=== PATIENT | male | born 1960 | race African-American/Black ===

== ENCOUNTER 2016-09-06 12:01 | Emergency (ER) | payer MEDICAID ==
[~2016-09-06] VITALS: Ht 180.3 cm; Wt 93.0 kg
[~2016-09-06 12:01] MED LIST: LISI-587 PO; LORTA5 PO; NAPR500T PO
[2016-09-06 12:08] VITALS: BP 97/73; PULSE 100; RESP 16; TEMP 97.8; O2SAT 100
[2016-09-06] MEDS ORDERED: LISI10TA PO (13:33)
[2016-09-06] MEDS ORDERED: HYDR-4107 PO (13:33)
[2016-09-06] MEDS ORDERED: LIDOCAINE VISCOUS 2% SOLN 15 ML UDC PO ONE (14:30)
[2016-09-06] MEDS ORDERED: ALUMINUM/MAGNESIUM/SIMETH 30 ML CUP PO ONE (14:30)
[2016-09-06] MEDS ORDERED: ONDANSETRON ODT 4 MG TAB PO ONE (14:30)
--- NOTE | 2016-09-06 14:34 | PD ---
HPI Chief Complaint: Abdominal Pain Time Seen by Provider: 14:18 Travel History International Travel<30 days: No Contact w/Intl Traveler<30days: No Traveled to known affect area: No History of Present Illness HPI Patient presents with complaints of epigastric discomfort for 3 months. Aggravated with eating. Reports pain on laying flat. Admits to acid brash. Reports weight loss since his appetite is decreased. Additionally he is taking hydrocodone for chronic pain and reports constipation with difficulty with bowels. Last BM yesterday. Reports stools are hard. Denies any chest pain shortness of breath. Denies any vomiting or urinary symptoms. Admits to mild nausea. He is not on any medications for reflux. PFSH Past Medical History Cardiovascular Problems: Yes (htn on meds) Hypertension: Yes Tetanus Vaccination: < 5 Years Past Surgical History Surgical History: No Previous Surgery Social History Alcohol Use: Yes (SOCIALLY) Tobacco Use: Yes (1/2PPD) Substance Use: No Allergies-Medications (Allergen,Severity, Reaction): Coded Allergies: No Known Allergies (Verified , 09/06/16) Reported Meds & Prescriptions Reported Meds & Active Scripts Active Reported Hydrocodone-Acetaminophen 5-300 Mg Tab 1 Tab PO Q4H PRN Lisinopril-Hctz 10-12.5 Mg Tab Unknown Dose PO DAILY Review of Systems Gastrointestinal: Positive: Nausea, Abdominal Pain, Constipation Physical Exam Narrative GENERAL: Well-nourished, well-developed patient. SKIN: Warm and dry. HEAD: Normocephalic. EYES: No scleral icterus. No injection or drainage. NECK: Supple, trachea midline. No JVD or lymphadenopathy. CARDIOVASCULAR: Regular rate and rhythm without murmurs, gallops, or rubs. RESPIRATORY: Breath sounds equal bilaterally. No accessory muscle use. GASTROINTESTINAL: Abdomen soft, few sleep tenderness epigastric region, nondistended. No hepatosplenomegaly MUSCULOSKELETAL: No cyanosis, or edema. BACK: Nontender without obvious deformity. No CVA tenderness. Data Data Last Documented VS Vital Signs Date Time Temp Pulse Resp B/P Pulse Ox O2 Delivery O2 Flow Rate FiO2 09/06/16 12:08 97.8 100 16 97/73 100 Orders Al-Mag Hy-Si 40-40-4 Mg/Ml Liq (Mag-Al P (09/06/16 14:30) Lidocaine 2% Viscous (Xylocaine 2% Visco (09/06/16 14:30) Ondansetron Odt (Zofran Odt) (09/06/16 14:30) MDM Medical Decision Making Medical Screen Exam Complete: Yes Emergency Medical Condition: Yes Differential Diagnosis Gastric ulcer versus duodenal ulcer versus GERD versus small bowel obstruction versus enteritis Narrative Course Assessment and plan discussed with patient at bedside, GI cocktail provided with resolution of his symptoms. Diagnosis Primary Impression: GERD (gastroesophageal reflux disease) Qualified Code: K21.9 - Gastroesophageal reflux disease, esophagitis presence not specified Additional Impression: Constipation Qualified Code: K59.03 - Drug-induced constipation Patient Instructions: General Instructions Additional Instructions: Encouraged to avoid aggravating factors of reflux including but not limited to alcohol tobacco late large meals spicy meals and weight Encouraged Colace 100 mg by mouth daily for opioid-induced constipation Encouraged to follow-up with PCP to assess benefit Scripts Ranitidine (Zantac)150 Mg [id number] Mg PO BID 15 Days Ref 0 Prov:Asael Flowers MD 09/06/16 Pantoprazole (Protonix)40 Mg Tab40 Mg PO BID 15 Days Ref 0 Prov:Asael Flowers MD 09/06/16 Disposition: 01 DISCHARGE HOME Condition: Good Asael Flowers MD Sep 06, 2016 14:34
[2016-09-06] MEDS ORDERED: ZANT150T2 PO (14:50)
[2016-09-06] MEDS ORDERED: PROT40TA PO (14:50)
[2016-09-06 14:55] VITALS: BP 101/76
[2016-09-18] MEDS ORDERED: PROT40TA PO (12:05)
[2016-09-18] MEDS ORDERED: ZANT150T2 PO (12:05)
[2016-10-09] MEDS ORDERED: LISI10TA3 PO (11:51)
[2016-10-09] MEDS ORDERED: SENN8.6T81 PO (11:51)
[2016-10-09] MEDS ORDERED: NAPR500T PO (11:54)
[2016-10-09] MEDS ORDERED: LISI20TA3 PO (11:54)
== END 2016-09-06 15:06 | disposition home or self-care (01) ==
LOC: PHED 12:01
DX: K21.9 Gastro-esophageal reflux disease without esophagitis (principal); K59.03 Drug induced constipation; G89.29 Other chronic pain; I10 Essential (primary) hypertension; F17.210 Nicotine dependence, cigarettes, uncomplicated
CPT/HCPCS: 99283

== ENCOUNTER 2016-09-23 12:44 | Inpatient (IN) | payer MEDICAID ==
[2016-09-23] VITALS (17 sets, daily range): BP systolic 74–112; BP diastolic 52–81; PULSE 71–92; RESP 16–20; TEMP 99.1–99.5; O2SAT 98–100
[~2016-09-23] VITALS: Ht 177.8 cm; Wt 96.8 kg
[~2016-09-23 12:44] MED LIST changes: +HYDR-4107 PO; -LISI-587 PO; +LISI10TA PO; -LORTA5 PO; -NAPR500T PO; +PROT40TA PO; +ZANT150T2 PO
[2016-09-23] MEDS ORDERED: SODIUM CHLOR 0.9% 1000 ML INJ 1,000 ML IV SCH (13:47)
[2016-09-23] MEDS ORDERED: PANTOPRAZOLE INJ 80 MG in SODIUM CHLORIDE 0.9% INJ 35 ML IV ONE (14:00)
[2016-09-23] MEDS ORDERED: ONDANSETRON HCL 4 MG/2 ML VIAL IVP ONE (14:00)
[2016-09-23] MEDS ORDERED: SODIUM CHLOR 0.9% 250 ML INJ 250 ML IV ONE (14:00)
[2016-09-23] MEDS ORDERED: SODIUM CHLORIDE 0.9% FLUSH 5 ML FLUSH IVF PRN (14:00)
[2016-09-23 14:23] LABS: AUTOMATED NEUTROPHIL # 6.5 TH/MM3 (1.8-7.7); BASOPHIL % 0.3 % (0.0-2.0); EOSINOPHIL # 0.2 TH/MM3 (0-0.4); EOSINOPHIL % 2.6 % (0.0-4.0); HEMATOCRIT 27.1 % (39.0-51.0); HEMO FLAGS DIFF FINAL; LYMPH % 14.6 % (9.0-44.0); LYMPHOCYTE # 1.3 TH/MM3 (1.0-4.8); MEAN CELL VOLUME 85.3 FL (80.0-100.0); MEAN CORPUSCULAR HEMOGLOBIN 28.3 PG (27.0-34.0); MEAN CORPUSCULAR HGB CONC 33.2 % (32.0-36.0); MONO % 11.3 % (0.0-8.0); NEUT % 71.2 % (16.0-70.0); PLATELET COUNT 476 TH/MM3 (150-450); RED BLOOD COUNT 3.18 MIL/MM3 (4.50-5.90); RED CELL DISTRIBUTION WIDTH 14.1 % (11.6-17.2)
[2016-09-23 14:34] LABS: CHLORIDE 99 MEQ/L (98-107); POTASSIUM 4.4 MEQ/L (3.5-5.1); SODIUM (NA) 136 MEQ/L (136-145)
[2016-09-23 14:38] LABS: ANION GAP 9 MEQ/L (5-15); BICARBONATE 27.6 MEQ/L (21.0-32.0); BLOOD UREA NITROGEN 11 MG/DL (7-18)
[2016-09-23 14:40] LABS: ALT (GPT) 17 U/L (12-78)
[2016-09-23 14:41] LABS: AST (GOT) 9 U/L (15-37); GLOMERULAR FILTRATION RATE 76 ML/MIN (>89)
[2016-09-23 14:42] LABS: INDIRECT BILIRUBIN 0.1 MG/DL (0.0-0.8); TOTAL BILIRUBIN ADULT 0.2 MG/DL (0.2-1.0)
[2016-09-23 14:43] LABS: ALKALINE PHOSPHATASE 19 U/L (45-117)
[2016-09-23 14:46] LABS: APTT (PATIENT) 29.9 SEC (24.3-30.1); INTERNATIONAL NORMALIZED RATIO 1.1 RATIO; PROTHROMBIN TIME - PATIENT 11.7 SEC (9.8-11.6)
[2016-09-23] MEDS: PANTOPRAZOLE INJ 80 MG in SODIUM CHLORIDE 0.9% INJ 100 ML IV SCH ×2 (14:56→21:55)
--- NOTE | 2016-09-23 14:56 | PD ---
HPI Chief Complaint: Abdominal Pain Time Seen by Provider: 13:30 Travel History International Travel<30 days: No Contact w/Intl Traveler<30days: No Traveled to known affect area: No History of Present Illness HPI Patient is a 56-year-old male who comes in complaining of abdominal pain. He says his been going on for the past month. He went to see his primary care physician who ordered a CT scan as an outpatient. He says he tried unit scheduled, but was unable to get an appointment for at least another week. He says he is in severe pain. He also reports feelings of lightheadedness and shortness of breath. He reports 1 month of black stools. He has been taking naproxen for arthritis pain. He does have a history of acid reflux, and has been off of his medications for a while. He denies any chest pain currently. He has some nausea, but denies any vomiting. He denies fever or chills. PFSH Past Medical History Cardiovascular Problems: Yes (htn on meds) Hypertension: Yes Social History Alcohol Use: Yes (SOCIALLY) Tobacco Use: Yes (1/2PPD) Substance Use: No Allergies-Medications (Allergen,Severity, Reaction): Coded Allergies: No Known Allergies (Verified , 09/23/16) Reported Meds & Prescriptions Reported Meds & Active Scripts Active Zantac (Ranitidine HCl) 150 Mg Tab 150 Mg PO BID Protonix (Pantoprazole Sodium) 40 Mg Tab 40 Mg PO BID Reported Hydrocodone-Acetaminophen 5-300 Mg Tab 1 Tab PO Q4H PRN Lisinopril-Hctz 10-12.5 Mg Tab Unknown Dose PO DAILY Review of Systems Except as stated in HPI: all other systems reviewed are Neg General / Constitutional: No: Fever, Chills HENT: Positive: Lightheadedness, No: Headaches Cardiovascular: No: Chest Pain or Discomfort Respiratory: Positive: Shortness of Breath Gastrointestinal: Positive: Nausea, Abdominal Pain, No: Vomiting Genitourinary: No: Dysuria, Flank Pain Skin: No Change in Pigmentation Neurologic: Positive: Weakness Physical Exam Narrative GENERAL: Awake and alert, in mild distress secondary to pain. SKIN: Warm and dry. HEAD: Atraumatic. Normocephalic. EYES: Pupils equal and round. No scleral icterus. Conjunctival pallor. ENT: Mucous membranes pink and moist. NECK: Trachea midline. No JVD. CARDIOVASCULAR: Regular rate and rhythm. No murmur appreciated. RESPIRATORY: No accessory muscle use. Clear to auscultation. Breath sounds equal bilaterally. GASTROINTESTINAL: Abdomen soft, nondistended. Tender to palpation diffusely throughout the abdomen. Worse in the epigastric area and right upper quadrant. Voluntary guarding, negative rebound. RECTAL: Performed with female perinatal tech. Black stool present, no rivera blood, no masses or tenderness. MUSCULOSKELETAL: No obvious deformities. No clubbing. No cyanosis. No edema. NEUROLOGICAL: Awake and alert. No obvious cranial nerve deficits. Motor grossly within normal limits. Normal speech. PSYCHIATRIC: Appropriate mood and affect; insight and judgment normal. Data Data Last Documented VS Vital Signs Date Time Temp Pulse Resp B/P Pulse Ox O2 Delivery O2 Flow Rate FiO2 09/23/16 15:51 78 20 91/54 100 Room Air 09/23/16 13:02 99.3 Orders Basic Metabolic Panel (Bmp) (09/23/16 13:47) Complete Blood Count With Diff (09/23/16 13:47) Lipase (09/23/16 13:47) Lactic Acid (09/23/16 13:47) Prothrombin Time / Inr (Pt) (09/23/16 13:47) Act Partial Throm Time (Ptt) (09/23/16 13:47) Ct Abd/Pel W Iv Contrast(Rout) (09/23/16 13:47) Iv Access Insert/Monitor (09/23/16 13:47) Ecg Monitoring (09/23/16 13:47) Oximetry (09/23/16 13:47) Ondansetron Inj (Zofran Inj) (09/23/16 14:00) Sodium Chlor 0.9% 1000 Ml Inj (Ns 1000 M (09/23/16 13:47) Sodium Chloride 0.9% Flush (Ns Flush) (09/23/16 14:00) Electrocardiogram (09/23/16 13:47) Hepatic Functional Panel (09/23/16 13:47) Troponin I (09/23/16 13:47) Type And Screen (09/23/16 13:47) Pantoprazole Inj (Protonix Inj) (09/23/16 14:00) Pantoprazole Inj (Protonix Inj) (09/23/16 14:00) Red Blood Cells (Rbc) (2/7/17 13:47) Blood Product Administration .UPON TRANSFUSION (09/23/16 13:47) Sodium Chlor 0.9% 250 Ml Inj (Ns 250 Ml (09/23/16 14:00) Chest, Single Ap (09/23/16 ) Sodium Chlor 0.9% 1000 Ml Inj (Ns 1000 M (09/23/16 15:00) Iohexol 350 Inj (Omnipaque 350 Inj) (09/23/16 15:36) Labs Laboratory Tests Test 09/23/16 09/23/16 14:10 14:20 Blood Type A POSITIVE A POSITIVE Antibody Screen NEGATIVE Crossmatch Leukocyte-Reduced Red Blood Cells Blood Bank Comment White Blood Count 9.0 TH/MM3 Red Blood Count 3.18 MIL/MM3 Hemoglobin 9.0 GM/DL Hematocrit 27.1 % Mean Corpuscular Volume 85.3 FL Mean Corpuscular Hemoglobin 28.3 PG Mean Corpuscular Hemoglobin 33.2 % Concent Red Cell Distribution Width 14.1 % Platelet Count 476 TH/MM3 Mean Platelet Volume 7.2 FL Neutrophils (%) (Auto) 71.2 % Lymphocytes (%) (Auto) 14.6 % Monocytes (%) (Auto) 11.3 % Eosinophils (%) (Auto) 2.6 % Basophils (%) (Auto) 0.3 % Neutrophils # (Auto) 6.5 TH/MM3 Lymphocytes # (Auto) 1.3 TH/MM3 Monocytes # (Auto) 1.0 TH/MM3 Eosinophils # (Auto) 0.2 TH/MM3 Basophils # (Auto) 0.0 TH/MM3 CBC Comment DIFF FINAL Differential Comment Prothrombin Time 11.7 SEC Prothromb Time International 1.1 RATIO Ratio Activated Partial 29.9 SEC Thromboplast Time Sodium Level 136 MEQ/L Potassium Level 4.4 MEQ/L Chloride Level 99 MEQ/L Carbon Dioxide Level 27.6 MEQ/L Anion Gap 9 MEQ/L Blood Urea Nitrogen 11 MG/DL Creatinine 1.20 MG/DL Estimat Glomerular Filtration 76 ML/MIN Rate Random Glucose 84 MG/DL Lactic Acid Level 1.8 mmol/L Calcium Level 8.4 MG/DL Total Bilirubin 0.2 MG/DL Direct Bilirubin 0.1 MG/DL Indirect Bilirubin 0.1 MG/DL Aspartate Amino Transf 9 U/L (AST/SGOT) Alanine Aminotransferase 17 U/L (ALT/SGPT) Alkaline Phosphatase 19 U/L Troponin I LESS THAN 0.02 NG/ML Total Protein 7.0 GM/DL Albumin 3.0 GM/DL Lipase 153 U/L [facility] Medical Decision Making Medical Screen Exam Complete: Yes Emergency Medical Condition: Yes Medical Record Reviewed: Yes Interpretation(s) ECG shows normal sinus rhythm at 81, no ST elevation or depression, normal intervals. Differential Diagnosis Peptic ulcer disease versus GI bleed versus colitis versus diverticulitis versus cholecystitis Narrative Course Patient is a 56-year-old male comes in complaining of abdominal pain and lightheadedness. Patient found to be hypotensive on arrival. He says on endoscopy tech, 2 large-bore IVs started. Given IV fluids. Rectal exam does show blood in the stool. Labs sent, hemoglobin is 9. Patient type and crossed for 4 units, one unit ordered to be transfused if his BP does not improve with fluids. Patient given Protonix and started on a Protonix drip. CT abdomen and pelvis shows gastric mass. Patient informed of the results. GI consulted, suggests NPO for EGD. Patient admitted for further management. Critical Care Narrative Aggregate critical care time was 35 minutes. Time to perform other separately billable procedures was not included in the critical care time. My time did not include minutes spent treating any other patients simultaneously or on activities that did not directly contribute to the patient's treatment. The services I provided to this patient were to treat and/or prevent clinically significant deterioration that could result in: Serious illness or I provided critical care services requiring my management, as noted below: Chart data review, documentation time, medication orders and management, vital sign assessments/reviewing monitor data, ordering and reviewing lab tests, ordering and interpreting/reviewing x-rays and diagnostic studies, care of the patient and discussion of the patient with the admitting physicians. [facility]ema[facility]pt Point of Care Internal Pos. & Neg. Controls: Passed Fecal Specimen Occult Blood: Positive Diagnosis Primary Impression: GI bleed Qualified Code: K92.2 - Gastrointestinal hemorrhage, unspecified gastrointestinal hemorrhage type Additional Impression: Hypotension Qualified Code: I95.9 - Hypotension, unspecified hypotension type Admitting Information Admitting Physician Requests: Admit Summer Driver MD Sep 23, 2016 14:56
[2016-09-23] MEDS ORDERED: SODIUM CHLOR 0.9% 1000 ML INJ 1,000 ML IV ONE (15:00)
[2016-09-23] MEDS ORDERED: IOHEXOL 350 MG/ML 10 ML VIAL (for RAD DIAG) IV ONE (15:36)
--- NOTE | 2016-09-23 15:44 | RADHPO ---
EXAM DATE/TIME: 09/23/2016 15:18 [facility] COMPARISON: No previous studies available for comparison. INDICATIONS : Short of breath and epigastric pain for 2 months. MEDICAL HISTORY : None. SURGICAL HISTORY : None. ENCOUNTER: Initial ACUITY: 2 months PAIN SCORE: 7/10 LOCATION: Bilateral chest FINDINGS: A single view of the chest demonstrates the lungs to be symmetrically aerated without evidence of mas s, infiltrate or effusion. The cardiomediastinal contours are unremarkable. Degenerative changes are noted throughout the thoracic spine and bilateral shoulders. No free air is noted. CONCLUSION: 1. No acute disease. 2. No free air noted. 3. Degenerative changes involve the thoracic spine and bilateral shoulders. Oswaldo Almanzar MD on September 23, 2016 at 15:42 Board Certified Radiologist. This report was verified electronically.
--- NOTE | 2016-09-23 16:29 | RADHPO ---
EXAM DATE/TIME: 09/23/2016 15:30 [facility] COMPARISON: No previous studies available for comparison. INDICATIONS : Abdominal pain for one month. IV CONTRAST: 100 cc Omnipaque 350 (iohexol) IV ORAL CONTRAST: No oral contrast ingested. RADIATION DOSE: 15.27 CTDIvol (mGy) MEDICAL HISTORY : Hypertension. Gastroesophageal reflux disease. SURGICAL HISTORY : None. ENCOUNTER: Initial ACUITY: 1 month PAIN SCALE: 8/10 LOCATION: Bilateral abdomen and pelvis TECHNIQUE: Volumetric scanning of the abdomen and pelvis was performed. Using automated exposure control and adjustment of the mA and/or kV according to patient size, radiation dose was kept as low as reasonably achievable to obtain optimal diagnostic quality images. FINDINGS: LOWER LUNGS: There is a small nodular area of opacity at the right medial lung base as seen on ax ial image #13. This measures up to approximately 1.6 cm in diameter. LIVER: Homogeneous density without lesion. There is no dilation of the biliary tree. No calcifi ed gallstones. SPLEEN: Normal size without lesion. PANCREAS: Within normal limits. KIDNEYS: Normal in size and shape. There is no mass, stone or hydronephrosis. ADRENAL GLANDS: Within normal limits. VASCULAR: There is no aortic aneurysm. BOWEL/MESENTERY: There is a large ill-defined heterogeneous soft tissue mass along the lesser cur vature the stomach and region of the gastroesophageal junction. This appears to be contiguous with th e apparent adenopathy just above the level of the body of the pancreas. The mass measures up to appro ximately 9.6 x 6.5 x 4.7 cm in greatest diameter. The mass extends into the region of the gastroesoph ageal junction at the level of the hiatus. ABDOMINAL WALL: Within normal limits. RETROPERITONEUM: There is no lymphadenopathy. BLADDER: No wall thickening or mass. REPRODUCTIVE: Within normal limits. INGUINAL: There is no lymphadenopathy or hernia. MUSCULOSKELETAL: Within normal limits for patient age. CONCLUSION: 1. Large ill-defined mass along the lesser curvature the stomach and gastroesophageal junction with a pparent contiguous adenopathy. The differential diagnosis includes gastric carcinoma and lymphoma. 2. Nodular area of consolidative opacity at the right medial lung base which is nonspecific. This cou ld represents atelectasis or consolidation. Metastatic disease is less likely. Darwin Gruber MD on September 23, 2016 at 16:20 Board Certified Radiologist. This report was verified electronically.
[2016-09-23] MEDS ORDERED: ZOLPIDEM TARTRATE 5 MG TAB PO PRN (18:00)
[2016-09-23] MEDS ORDERED: CHLORHEXIDINE GLUCONATE 2 % 1 PACK (2 CLOTHS) TOP PRN (18:00)
[2016-09-23] MEDS ORDERED: ONDANSETRON HCL 4 MG/2 ML VIAL IV PRN (18:00)
[2016-09-23] MEDS ORDERED: MISCELLANEOUS NURSING INFORMATION XX SCH (18:00)
[2016-09-23] MEDS ORDERED: RESP: ALBUTEROL 2.5 MG/IPRATROPIUM 0.5 MG NEB (PRN) INH (18:00)
[2016-09-23] MEDS ORDERED: MORPHINE SULFATE 4 MG/ML INJ IV PRN (18:00)
[2016-09-23] MEDS ORDERED: SODIUM CHLORIDE 0.9% FLUSH 5 ML FLUSH IV FLUSH PRN (18:00)
[2016-09-23] MEDS: SODIUM CHLOR 0.9% 1000 ML INJ 1,000 ML IV SCH (19:46)
[2016-09-23] MEDS ORDERED: SODIUM CHLORIDE 0.9% FLUSH 5 ML FLUSH IV FLUSH SCH (21:00)
[2016-09-23 21:57] LABS: REVIEW FLAG FINAL
[2016-09-24] VITALS (15 sets, daily range): BP systolic 105–120; BP diastolic 63–79; PULSE 67–84; RESP 15–21; TEMP 96.7–99; O2SAT 97–100
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
[2016-09-24] MEDS ORDERED: CHLORHEXIDINE GLUCONATE 2 % 1 PACK (2 CLOTHS) TOP PRN (00:30)
[2016-09-24] MEDS ORDERED: RESP: ALBUTEROL 2.5 MG/IPRATROPIUM 0.5 MG NEB (PRN) INH (00:30)
[2016-09-24] MEDS ORDERED: ONDANSETRON HCL 4 MG/2 ML VIAL IV PRN (00:30)
[2016-09-24] MEDS ORDERED: MISCELLANEOUS NURSING INFORMATION XX SCH (00:30)
[2016-09-24] MEDS ORDERED: ACETAMINOPHEN/HYDROcodone 325 MG/5 MG TAB PO PRN (00:30)
[2016-09-24] MEDS ORDERED: MORPHINE SULFATE 4 MG/ML INJ IV PRN (00:30)
[2016-09-24] MEDS ORDERED: ACETAMINOPHEN 325 MG TAB PO PRN (00:30)
[2016-09-24] MEDS ORDERED: SODIUM CHLORIDE 0.9% FLUSH 5 ML FLUSH IV FLUSH PRN (00:30)
[2016-09-24] MEDS: SODIUM CHLOR 0.9% 1000 ML INJ 1,000 ML IV SCH ×4 (01:40→20:26)
[2016-09-24] MEDS ORDERED: CHLORHEXIDINE GLUCONATE 2 % 1 PACK (2 CLOTHS) TOP SCH (04:00)
[2016-09-24] MEDS: CHLORHEXIDINE GLUCONATE 2 % 1 PACK (2 CLOTHS) TOP SCH (04:00)
[2016-09-24] MEDS: PANTOPRAZOLE INJ 80 MG in SODIUM CHLORIDE 0.9% INJ 100 ML IV SCH ×3 (04:09→23:52)
[2016-09-24 04:10] LABS: AUTOMATED NEUTROPHIL # 6.9 TH/MM3 (1.8-7.7); BASOPHIL % 0.2 % (0.0-2.0); EOSINOPHIL # 0.3 TH/MM3 (0-0.4); EOSINOPHIL % 2.9 % (0.0-4.0); HEMATOCRIT 25.6 % (39.0-51.0); HEMO FLAGS DIFF FINAL; LYMPH % 12.9 % (9.0-44.0); LYMPHOCYTE # 1.2 TH/MM3 (1.0-4.8); MEAN CELL VOLUME 84.6 FL (80.0-100.0); MEAN CORPUSCULAR HGB CONC 34.3 % (32.0-36.0); MONO % 10.6 % (0.0-8.0); NEUT % 73.4 % (16.0-70.0); PLATELET COUNT 337 TH/MM3 (150-450); RED BLOOD COUNT 3.03 MIL/MM3 (4.50-5.90); RED CELL DISTRIBUTION WIDTH 15.3 % (11.6-17.2); WHITE BLOOD COUNT 9.4 TH/MM3 (4.0-11.0)
[2016-09-24 04:52] LABS: ALT (GPT) 16 U/L (12-78); ANION GAP 9 MEQ/L (5-15); AST (GOT) 8 U/L (15-37); BICARBONATE 23.7 MEQ/L (21.0-32.0); BLOOD UREA NITROGEN 9 MG/DL (7-18); CHLORIDE 105 MEQ/L (98-107); GLOMERULAR FILTRATION RATE 110 ML/MIN (>89); MAGNESIUM 1.9 MG/DL (1.5-2.5); POTASSIUM 3.4 MEQ/L (3.5-5.1); SODIUM (NA) 138 MEQ/L (136-145)
[2016-09-24 04:56] LABS: ALKALINE PHOSPHATASE 17 U/L (45-117)
[2016-09-24] MEDS: SODIUM CHLORIDE 0.9% FLUSH 5 ML FLUSH IV FLUSH SCH ×2 (09:56→21:00)
[2016-09-24] MEDS: MULTIVITAMIN INJ 10 ML, THIAMINE INJ 100 MG, FOLIC ACID INJ 1 MG in SODIUM CHLORID 0.9%... IV SCH (09:56)
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
[2016-09-24 11:46] LABS: HEMATOCRIT 27.2 % (39.0-51.0); REVIEW FLAG FINAL
[2016-09-24] MEDS ORDERED: PROPOFOL 200 MG/20 ML AMP IV ONE (11:50)
--- NOTE | 2016-09-24 13:10 | HHI.PR ---
Addendum to Inpatient Note Addendum Reason: Additional Documentation Additional Information I saw patient prior to EGD. He appeared comfortable and not in any acute distress denied any abdominal pain. No further hypotension. Discussed with Dr. Munoz following EGD. Patient appears to have mass at the GE junction which he was unable to get across and this appears to be a malignancy. Biopsies taken by Dr. Munoz. I discussed EGD findings with Dr. Salguero from surgery who will be seeing the patient for his gastric mass to decide further evaluation and management. Patient's hemoglobin has responded appropriately following 2 units PRBCs and he will be transferred out of ICU. We will consult hospitalist service for further medical management. Critical care will be signing off. Following H&H. If continues to bleed actively may require surgery. Shant Thomas MD Sep 24, 2016 13:10
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
[2016-09-24 15:08] LABS: HEMATOCRIT 29.4 % (39.0-51.0); REVIEW FLAG FINAL
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
--- NOTE | 2016-09-24 22:52 | EKG ---
Date Performed: 09/23/2016 Time Performed: 14:05:28 PTAGE: 56 years EKG: Sinus rhythm Normal ECG NO PREVIOUS TRACING DOCTOR: Daniel Vee Interpretating Date/Time 09/24/2016 22:50:22
[2016-09-25] VITALS (7 sets, daily range): BP systolic 110–144; BP diastolic 63–97; PULSE 71–92; RESP 17–22; TEMP 98.4–99.5; O2SAT 99–100
[2016-09-25] MEDS: CHLORHEXIDINE GLUCONATE 2 % 1 PACK (2 CLOTHS) TOP SCH (03:56)
[2016-09-25 05:23] LABS: AUTOMATED NEUTROPHIL # 5.7 TH/MM3 (1.8-7.7); BASOPHIL % 0.2 % (0.0-2.0); EOSINOPHIL # 0.3 TH/MM3 (0-0.4); EOSINOPHIL % 3.7 % (0.0-4.0); HEMATOCRIT 26.1 % (39.0-51.0); HEMO FLAGS DIFF FINAL; LYMPH % 12.6 % (9.0-44.0); MEAN CELL VOLUME 83.9 FL (80.0-100.0); MEAN CORPUSCULAR HEMOGLOBIN 28.7 PG (27.0-34.0); MEAN CORPUSCULAR HGB CONC 34.2 % (32.0-36.0); MONO % 10.9 % (0.0-8.0); NEUT % 72.6 % (16.0-70.0); PLATELET COUNT 360 TH/MM3 (150-450); RED BLOOD COUNT 3.11 MIL/MM3 (4.50-5.90); RED CELL DISTRIBUTION WIDTH 15.1 % (11.6-17.2); WHITE BLOOD COUNT 7.9 TH/MM3 (4.0-11.0)
[2016-09-25 05:30] LABS: APTT (PATIENT) 33.6 SEC (24.3-30.1); INTERNATIONAL NORMALIZED RATIO 1.1 RATIO; PROTHROMBIN TIME - PATIENT 12.1 SEC (9.8-11.6)
[2016-09-25 05:36] LABS: RETIC % 1.8 % (0.4-3.0); REVIEW FLAG FINAL
[2016-09-25 05:51] LABS: ALT (GPT) 14 U/L (12-78); ANION GAP 8 MEQ/L (5-15); AST (GOT) 9 U/L (15-37); BICARBONATE 23.6 MEQ/L (21.0-32.0); BLOOD UREA NITROGEN 6 MG/DL (7-18); CHLORIDE 108 MEQ/L (98-107); GLOMERULAR FILTRATION RATE 111 ML/MIN (>89); POTASSIUM 3.3 MEQ/L (3.5-5.1); SODIUM (NA) 140 MEQ/L (136-145)
[2016-09-25 05:54] LABS: ALKALINE PHOSPHATASE 17 U/L (45-117); FERRITIN 104 NG/ML (26-388); TOTAL BILIRUBIN ADULT 0.3 MG/DL (0.2-1.0); TRANSFERRIN IRON PROFILE 154 MG/DL (200-360)
[2016-09-25] MEDS: MULTIVITAMIN INJ 10 ML, THIAMINE INJ 100 MG, FOLIC ACID INJ 1 MG in SODIUM CHLORID 0.9%... IV SCH (09:00)
[2016-09-25] MEDS: SODIUM CHLORIDE 0.9% FLUSH 5 ML FLUSH IV FLUSH SCH ×2 (09:00→21:32)
[2016-09-25] MEDS: PANTOPRAZOLE INJ 80 MG in SODIUM CHLORIDE 0.9% INJ 100 ML IV SCH ×2 (09:01→18:12)
[2016-09-25] MEDS ORDERED: POTASSIUM CHLORIDE 25 MEQ EFFERVESCENT TAB PO ONE (11:00)
[2016-09-25] MEDS ORDERED: MAGNESIUM HYDROXIDE SUSP 30 ML CUP PO ONE (11:00)
--- NOTE | 2016-09-25 13:17 | HHI.PR ---
Subjective Remarks Follow up on patient admitted with abdominal pain with associated black stools and nausea found to have circumferential lesion almost obstructing the distal esophagus concerning for locally advanced esophageal cancer. Patient states he "feels great". Hoping to go home today. Denies any chest pain or SOB. Tolerating diet. No N/V. No difficulty with swallowing or throat pain. Objective Vitals Vital Signs Date Time Temp Pulse Resp B/P Pulse Ox O2 Delivery O2 Flow Rate FiO2 09/25/16 10:16 99 21 09/25/16 08:00 98.8 80 20 144/86 100 09/25/16 04:18 98.5 81 20 117/81 09/24/16 23:38 96.7 67 18 118/79 97 09/24/16 20:06 98.8 78 21 105/63 09/24/16 18:05 21 09/24/16 16:00 82 09/24/16 16:00 98.4 82 18 109/67 100 09/24/16 14:00 84 I/O 09/24/16 09/24/16 09/24/16 09/25/16 09/25/16 09/25/16 07:00 15:00 23:00 07:00 15:00 23:00 Intake Total 1451 ml 1196 ml 1390 ml Output Total 250 ml 300 ml 300 ml 750 ml Balance 1201 ml 896 ml -300 ml 640 ml Intake Oral 80 ml 50 ml 240 ml IV Total 1121 ml 1146 ml 1150 ml Packed Cells 250 ml Output Urine Total 250 ml 300 ml 300 ml 750 ml # Bowel Movements 0 0 Result Diagram: 09/25/16 0501 09/25/16 0501 Objective Remarks Physical Exam GENERAL: 56-year-old AA male, sitting up in bedside chair, in no acute distress. SKIN: Warm and dry. HEAD: Atraumatic. Normocephalic. EYES: Pupils equal and round. No scleral icterus. No injection or drainage. ENT: No nasal bleeding or discharge. Mucous membranes pink and moist. NECK: Trachea midline. No JVD. CARDIOVASCULAR: Regular rate and rhythm. S1, S2. No S4. RESPIRATORY: No accessory muscle use. Clear to auscultation. Breath sounds equal bilaterally. GASTROINTESTINAL: Abdomen soft, NTTP, nondistended. No guarding or rigidity. MUSCULOSKELETAL: Extremities without significant peripheral edema. No obvious deformities. NEUROLOGICAL: Awake and alert. No obvious cranial nerve deficits. Motor grossly within normal limits. Five out of 5 muscle strength in the arms and legs. Normal speech. PSYCHIATRIC: Appropriate mood and affect; insight and judgment normal. A/P Problem List: (1) GERD (gastroesophageal reflux disease) ICD Code: K21.9 Status: Acute (2) GI bleed ICD Code: K92.2 Status: Acute (3) Hypotension ICD Code: I95.9 Status: Acute (4) Gastric mass ICD Code: K31.9 Status: Acute (5) History of hypertension ICD Code: Z86.79 Status: Acute (6) Anemia ICD Code: D64.9 Status: Acute Assessment and Plan Gastric mass - Circumferential mass in the distal esophagus almost complete obstruction at the GE junction, s/p bx - path pending - GI and GS and Hem/Onc following Epigastric pain - 2/2 above - improved - tolerating full liquid diet GERD - c/w PPI HTN - controlled - continue with present med regimen Symptomatic anemia at admission - s/p transfusion of 2u PRBCs - H/H slight downward trend - iron studies indicative of CHANELLE, begin supplementation - repeat lab in am to monitor Hypokalemia - mild - replete - am labs to monitor Hypocalcemia - mild - am labs to monitor Written by Gilma Dukes, acting as scribe for Dr. Cunningham on 09/25/16 at 14:28. Attending Statement The documentation accurately reflects the work performed [id number] by wi, Dr. Cunningham on 09/25/16 at 14:28. Problem Qualifiers (1) GERD (gastroesophageal reflux disease): Qualified Code: K21.9 - Gastroesophageal reflux disease, esophagitis presence not specified (2) GI bleed: Qualified Code: K92.2 - Gastrointestinal hemorrhage, unspecified gastrointestinal hemorrhage type (3) Hypotension: Qualified Code: I95.9 - Hypotension, unspecified hypotension type (4) Anemia: Qualified Code: D64.9 - Anemia, unspecified type Gilma Dukes PA-C Sep 25, 2016 13:17 Yoseph Cunningham MD Sep 25, 2016 23:29
--- NOTE | 2016-09-25 14:52 | HHI.GIFU ---
Subjective Remarks patient is sitting up in chair doing good, tolerating full liquid okay, no nausea, or vomiting (Nicholas Clark) Objective Vitals I&O Vital Signs Date Time Temp Pulse Resp B/P Pulse Ox O2 Delivery O2 Flow Rate FiO2 09/25/16 13:35 98.4 89 20 110/63 100 09/25/16 10:16 99 21 09/25/16 08:00 98.8 80 20 144/86 100 09/25/16 04:18 98.5 81 20 117/81 09/24/16 23:38 96.7 67 18 118/79 97 09/24/16 20:06 98.8 78 21 105/63 09/24/16 18:05 21 09/24/16 16:00 82 09/24/16 16:00 98.4 82 18 109/67 100 I/O 09/24/16 09/24/16 09/24/16 09/25/16 09/25/16 09/25/16 07:00 15:00 23:00 07:00 15:00 23:00 Intake Total 1451 ml 1196 ml 1390 ml Output Total 250 ml 300 ml 300 ml 750 ml Balance 1201 ml 896 ml -300 ml 640 ml Intake Oral 80 ml 50 ml 240 ml IV Total 1121 ml 1146 ml 1150 ml Packed Cells 250 ml Output Urine Total 250 ml 300 ml 300 ml 750 ml # Bowel Movements 0 0 Laboratory Laboratory Tests Test 09/25/16 05:01 White Blood Count 7.9 Red Blood Count 3.11 Hemoglobin 8.9 Hematocrit 26.1 Mean Corpuscular Volume 83.9 Mean Corpuscular Hemoglobin 28.7 Mean Corpuscular Hemoglobin 34.2 Concent Red Cell Distribution Width 15.1 Platelet Count 360 Mean Platelet Volume 6.8 Neutrophils (%) (Auto) 72.6 Lymphocytes (%) (Auto) 12.6 Monocytes (%) (Auto) 10.9 Eosinophils (%) (Auto) 3.7 Basophils (%) (Auto) 0.2 Neutrophils # (Auto) 5.7 Lymphocytes # (Auto) 1.0 Monocytes # (Auto) 0.9 Eosinophils # (Auto) 0.3 Basophils # (Auto) 0.0 CBC Comment DIFF FINAL Differential Comment Reticulocyte Count 1.8 Absolute Reticulocyte Count 56.0 Prothrombin Time 12.1 Prothromb Time International 1.1 Ratio Activated Partial 33.6 Thromboplast Time Sodium Level 140 Potassium Level 3.3 Chloride Level 108 Carbon Dioxide Level 23.6 Anion Gap 8 Blood Urea Nitrogen 6 Creatinine 0.86 Estimat Glomerular Filtration 111 Rate Random Glucose 78 Lactic Acid Level 0.8 Calcium Level 7.6 Phosphorus Level 3.1 Magnesium Level 2.0 Iron Level 12 Total Iron Binding Capacity 216 Percent Iron Saturation 5.6 Ferritin 104 Total Bilirubin 0.3 Aspartate Amino Transf 9 (AST/SGOT) Alanine Aminotransferase 14 (ALT/SGPT) Alkaline Phosphatase 17 Total Protein 5.4 Albumin 2.4 Imaging Last Impressions Abdomen/Pelvis CT 09/23/16 1347 Signed Impressions: Service Date/Time: Friday, September 23, 2016 15:30 - CONCLUSION: 1. Large ill-defined mass along the lesser curvature the stomach and gastroesophageal junction with apparent contiguous adenopathy. The differential diagnosis includes gastric carcinoma and lymphoma. 2. Nodular area of consolidative opacity at the right medial lung base which is nonspecific. This could represents atelectasis or consolidation. Metastatic disease is less likely. Darwin Gruber MD Chest X-Ray 09/23/16 0000 Signed Impressions: Service Date/Time: Friday, September 23, 2016 15:18 - CONCLUSION: 1. No acute disease. 2. No free air noted. 3. Degenerative changes involve the thoracic spine and bilateral shoulders. Oswaldo Almanzar MD Physical Exam HEENT: normocephalic; atraumatic; no jaundice. Throat is clear. NECK: Neck is supple, no JVD, no lymphadenopathy. CHEST: Chest is clear to auscultation and percussion. CARDIAC: Regular rate and rhythm with no murmur gallop or rubs. ABDOMEN: Soft, nondistended, nontender; no hepatosplenomegaly; bowel sounds are present in all four quadrants. EXTREMITIES: No clubbing, cyanosis, or edema. SKIN: Normal; no rash; no jaundice. 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 (Nicholas Clark) Assessment and Plan Plan - Gastric mass/ one month history of abdominal pain, associated nausea and black stools.S/p EGD (09/24/16)----> Circumferential mass in the distal esophagus almost complete obstruction at the GE junction, bx pending CT abdomen and pelvis showed an ill-defined mass at the lesser curvature of stomach. GS, oncology on the case - Melena- He is heme (+), hh 8.8/25.6, received 2 units of blood. - Anemia- secondary to above - Weight loss 29 in the span of 3 months- secondary to fear of constipation and not able to move his bowels - Constipation- possible gastric out let obstruction, some nausea, but no vomiting or hematemesis - HTN, OA per attending Plan: - full liquids - Await bx - might need EUS for staging purposes - Oncology and GS on the case - Monitor hh - Transfuse as needed - Cont. PPI - GI will sign off, please reconsult as needed - Patient seen and examined by Dr. Andrade and myself and this note is written on his behalf. 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 Oncology / surgery on case. No active bleeding. Will sign off, reconsult as needed. Thank you (Jacqueline Andrade MD) Nicholas Clark Sep 25, 2016 14:52 Jacqueline Andrade MD Sep 25, 2016 17:00
[2016-09-25] MEDS ORDERED: LACTULOSE SYRUP 20 GM/30 ML CUP PO PRN (20:45)
[2016-09-25] MEDS ORDERED: SENNOSIDES 8.6 MG TAB PO PRN (20:45)
[2016-09-25] MEDS: DOCUSATE SODIUM 100 MG CAP PO SCH (21:27)
[2016-09-25] MEDS: ASCORBIC ACID 500 MG TAB PO SCH (21:28)
[2016-09-25] MEDS: FERROUS SULFATE 325 MG (65 MG ELEMENTAL IRON) TAB PO SCH (21:28)
[2016-09-25] MEDS: SODIUM CHLOR 0.9% 1000 ML INJ 1,000 ML IV SCH (21:30)
--- NOTE | 2016-09-25 23:20 | PD.ONC.PN ---
Subjective Subjective Remarks "I thought it might be cancer" No complaints. Objective Data Date Time Temp Pulse Resp B/P Pulse Ox O2 Delivery O2 Flow Rate FiO2 09/25/16 20:00 99.5 80 17 129/83 100 09/25/16 17:42 98.5 71 22 139/97 100 09/25/16 13:35 98.4 89 20 110/63 100 09/25/16 10:16 99 21 09/25/16 08:00 98.8 80 20 144/86 100 09/25/16 04:18 98.5 81 20 117/81 09/24/16 23:38 96.7 67 18 118/79 97 09/25/16 09/25/16 09/25/16 07:00 15:00 23:00 Intake Total 1390 ml 3253 ml Output Total 750 ml Balance 640 ml 3253 ml Result Diagram: 09/25/16 0501 09/25/16 0501 Laboratory Results Laboratory Tests Test 09/25/16 05:01 White Blood Count 7.9 TH/MM3 Red Blood Count 3.11 MIL/MM3 Hemoglobin 8.9 GM/DL Hematocrit 26.1 % Mean Corpuscular Volume 83.9 FL Mean Corpuscular Hemoglobin 28.7 PG Mean Corpuscular Hemoglobin 34.2 % Concent Red Cell Distribution Width 15.1 % Platelet Count 360 TH/MM3 Mean Platelet Volume 6.8 FL Neutrophils (%) (Auto) 72.6 % Lymphocytes (%) (Auto) 12.6 % Monocytes (%) (Auto) 10.9 % Eosinophils (%) (Auto) 3.7 % Basophils (%) (Auto) 0.2 % Neutrophils # (Auto) 5.7 TH/MM3 Lymphocytes # (Auto) 1.0 TH/MM3 Monocytes # (Auto) 0.9 TH/MM3 Eosinophils # (Auto) 0.3 TH/MM3 Basophils # (Auto) 0.0 TH/MM3 CBC Comment DIFF FINAL Differential Comment Reticulocyte Count 1.8 % Absolute Reticulocyte Count 56.0 MIL/L Prothrombin Time 12.1 SEC Prothromb Time International 1.1 RATIO Ratio Activated Partial 33.6 SEC Thromboplast Time Sodium Level 140 MEQ/L Potassium Level 3.3 MEQ/L Chloride Level 108 MEQ/L Carbon Dioxide Level 23.6 MEQ/L Anion Gap 8 MEQ/L Blood Urea Nitrogen 6 MG/DL Creatinine 0.86 MG/DL Estimat Glomerular Filtration 111 ML/MIN Rate Random Glucose 78 MG/DL Lactic Acid Level 0.8 mmol/L Calcium Level 7.6 MG/DL Phosphorus Level 3.1 MG/DL Magnesium Level 2.0 MG/DL Iron Level 12 MCG/DL Total Iron Binding Capacity 216 MCG/DL Percent Iron Saturation 5.6 % Ferritin 104 NG/ML Total Bilirubin 0.3 MG/DL Aspartate Amino Transf 9 U/L (AST/SGOT) Alanine Aminotransferase 14 U/L (ALT/SGPT) Alkaline Phosphatase 17 U/L Total Protein 5.4 GM/DL Albumin 2.4 GM/DL Administered Medications Medications (Trade) Dose Ordered Sig/Martha Route PRN Reason Start Time Stop Time Status Last Admin Dose Admin Sodium Chloride (NS 1000 ml Inj) 1,000 ml @ 150 mls/hr Q6H40M IV 09/23/16 17:46 09/25/16 21:30 IV Flush (NS Flush) 2 ml BID IV FLUSH 09/24/16 09:00 09/25/16 21:32 Miscellaneous Information 1 1 Q361D XX 09/24/16 00:30 09/24/16 00:30 Multivitamins 10 ml/Thiamine HCl 100 mg/Folic Acid 1 mg/Sodium Chloride 511.2 ml @ 125 mls/hr DAILY IV 09/24/16 09:00 09/27/16 08:59 09/24/16 09:56 Pantoprazole Sodium/Sodium Chloride (Protonix Inj/NS Inj) 100 ml @ 10 mls/hr Q10H IV 09/24/16 14:00 09/25/16 18:12 Ferrous Sulfate (Ferrous Sulfate) 325 mg BID PO 09/25/16 21:00 09/25/16 21:28 Ascorbic Acid (Vitamin C) 500 mg BID PO 09/25/16 21:00 09/25/16 21:28 Docusate Sodium (Colace) 100 mg BID PO 09/25/16 21:00 09/25/16 21:27 Sennosides (Senokot) 8.6 mg BID PRN PO CONSTIPATION 09/25/16 20:45 09/25/16 21:27 Lactulose (Lactulose Liq) 30 ml DAILY PRN PO constipation 09/25/16 20:45 09/25/16 21:27 Objective Remarks GENERAL: Well-nourished, well-developed patient. SKIN: Warm and dry. HEAD: Normocephalic. EYES: No scleral icterus. No injection or drainage. NECK: Supple, trachea midline. No JVD or lymphadenopathy. LYMPHATIC: No adenopathy. CARDIOVASCULAR: Regular rate and rhythm without murmurs. RESPIRATORY: Breath sounds equal bilaterally. No accessory muscle use. GASTROINTESTINAL: Abdomen soft, non-tender, nondistended. EXTREMITIES: No cyanosis, or edema. MUSCULOSKELETAL: Adequate muscle tone. NEUROLOGICAL: No obvious focal deficit. Awake, alert, and oriented x3. PSYCHIATRIC: Appropriate mood and affect; insight and judgment normal. Assessment/Plan Problem List: (1) Gastric mass Status: Acute Plan: GE junctions, lesser curvature mass- pathology positive for poorly diff adenocarcinoma. Her 2 has been requested. Discussed diagnosis with patient. Plan to complete out pt staging with ct/pet and endoscopic US Once limit stage confirmed, plan for perioperative chemotherapy followed by definitive resection by Dr. Salguero. Discussed above plan with patient. He wishes to fu at PO. Assessment 56 y/o man with h/o HTN and GERD, newly diagnosed adenocarcinoma of GE junction. Plan 1. Copy pathology provided to patient. 2. Contact information provided for follow up as out patient at PO. 3. Ok to DC from heme onc perspective Fay Talavera MD Sep 25, 2016 23:20
[2016-09-26] VITALS (7 sets, daily range): BP systolic 117–139; BP diastolic 76–87; PULSE 73–80; RESP 16–20; TEMP 97–98.9; O2SAT 97–100
[2016-09-26] MEDS: CHLORHEXIDINE GLUCONATE 2 % 1 PACK (2 CLOTHS) TOP SCH (04:00)
[2016-09-26] MEDS: SODIUM CHLOR 0.9% 1000 ML INJ 1,000 ML IV SCH ×2 (05:46→12:26)
[2016-09-26] MEDS: PANTOPRAZOLE INJ 80 MG in SODIUM CHLORIDE 0.9% INJ 100 ML IV SCH (06:27)
[2016-09-26 07:24] LABS: BICARBONATE 24.6 MEQ/L (21.0-32.0); MAGNESIUM 2.1 MG/DL (1.5-2.5); POTASSIUM 3.5 MEQ/L (3.5-5.1)
[2016-09-26 07:28] LABS: AUTOMATED NEUTROPHIL # 6.6 TH/MM3 (1.8-7.7); BASOPHIL % 0.3 % (0.0-2.0); EOSINOPHIL # 0.3 TH/MM3 (0-0.4); EOSINOPHIL % 2.9 % (0.0-4.0); HEMATOCRIT 27.7 % (39.0-51.0); HEMO FLAGS DIFF FINAL; LYMPH % 12.2 % (9.0-44.0); LYMPHOCYTE # 1.1 TH/MM3 (1.0-4.8); MEAN CELL VOLUME 84.2 FL (80.0-100.0); MEAN CORPUSCULAR HEMOGLOBIN 28.7 PG (27.0-34.0); MEAN CORPUSCULAR HGB CONC 34.1 % (32.0-36.0); MONO % 8.8 % (0.0-8.0); NEUT % 75.8 % (16.0-70.0); PLATELET COUNT 389 TH/MM3 (150-450); RED CELL DISTRIBUTION WIDTH 14.9 % (11.6-17.2); WHITE BLOOD COUNT 8.7 TH/MM3 (4.0-11.0)
[2016-09-26] MEDS: SODIUM CHLORIDE 0.9% FLUSH 5 ML FLUSH IV FLUSH SCH (09:00)
[2016-09-26] MEDS: ASCORBIC ACID 500 MG TAB PO SCH (10:04)
[2016-09-26] MEDS: FERROUS SULFATE 325 MG (65 MG ELEMENTAL IRON) TAB PO SCH (10:05)
[2016-09-26] MEDS: DOCUSATE SODIUM 100 MG CAP PO SCH (10:05)
--- NOTE | 2016-09-26 12:05 | PD.ONC.PN ---
Subjective Subjective Remarks Afebrile overnight. Patient resting comfortably without complaint. He denies pain. He ate breakfast this AM. He is eager to go home. Objective Data Date Time Temp Pulse Resp B/P Pulse Ox O2 Delivery O2 Flow Rate FiO2 09/26/16 10:01 97.9 78 20 117/76 97 09/26/16 04:00 97.0 73 16 136/87 100 09/26/16 00:14 100 09/26/16 00:00 98.9 80 17 127/77 100 09/25/16 21:00 92 09/25/16 21:00 100 Room Air 21 09/25/16 20:00 99.5 80 17 129/83 100 09/25/16 17:42 98.5 71 22 139/97 100 09/25/16 13:35 98.4 89 20 110/63 100 09/26/16 09/26/16 09/26/16 07:00 15:00 23:00 Intake Total 1267 ml 480 ml Output Total 500 ml Balance 1267 ml -20 ml Result Diagram: 09/26/16 0600 09/26/16 0600 Laboratory Results Laboratory Tests Test 09/26/16 06:00 White Blood Count 8.7 TH/MM3 Red Blood Count 3.30 MIL/MM3 Hemoglobin 9.5 GM/DL Hematocrit 27.7 % Mean Corpuscular Volume 84.2 FL Mean Corpuscular Hemoglobin 28.7 PG Mean Corpuscular Hemoglobin 34.1 % Concent Red Cell Distribution Width 14.9 % Platelet Count 389 TH/MM3 Mean Platelet Volume 7.4 FL Neutrophils (%) (Auto) 75.8 % Lymphocytes (%) (Auto) 12.2 % Monocytes (%) (Auto) 8.8 % Eosinophils (%) (Auto) 2.9 % Basophils (%) (Auto) 0.3 % Neutrophils # (Auto) 6.6 TH/MM3 Lymphocytes # (Auto) 1.1 TH/MM3 Monocytes # (Auto) 0.8 TH/MM3 Eosinophils # (Auto) 0.3 TH/MM3 Basophils # (Auto) 0.0 TH/MM3 CBC Comment DIFF FINAL Differential Comment Sodium Level 141 MEQ/L Potassium Level 3.5 MEQ/L Chloride Level 107 MEQ/L Carbon Dioxide Level 24.6 MEQ/L Anion Gap 9 MEQ/L Blood Urea Nitrogen 3 MG/DL Creatinine 0.88 MG/DL Estimat Glomerular Filtration 109 ML/MIN Rate Random Glucose 78 MG/DL Calcium Level 7.6 MG/DL Phosphorus Level 2.7 MG/DL Magnesium Level 2.1 MG/DL Albumin 2.7 GM/DL Administered Medications Medications (Trade) Dose Ordered Sig/Martha Route PRN Reason Start Time Stop Time Status Last Admin Dose Admin Sodium Chloride (NS 1000 ml Inj) 1,000 ml @ 150 mls/hr Q6H40M IV 09/23/16 17:46 09/26/16 05:46 IV Flush (NS Flush) 2 ml BID IV FLUSH 09/24/16 09:00 09/25/16 21:32 Miscellaneous Information 1 1 Q361D XX 09/24/16 00:30 09/24/16 00:30 Multivitamins 10 ml/Thiamine HCl 100 mg/Folic Acid 1 mg/Sodium Chloride 511.2 ml @ 125 mls/hr DAILY IV 09/24/16 09:00 09/27/16 08:59 09/24/16 09:56 Pantoprazole Sodium/Sodium Chloride (Protonix Inj/NS Inj) 100 ml @ 10 mls/hr Q10H IV 09/24/16 14:00 09/26/16 06:27 Ferrous Sulfate (Ferrous Sulfate) 325 mg BID PO 09/25/16 21:00 09/26/16 10:05 Ascorbic Acid (Vitamin C) 500 mg BID PO 09/25/16 21:00 09/26/16 10:04 Docusate Sodium (Colace) 100 mg BID PO 09/25/16 21:00 09/26/16 10:05 Sennosides (Senokot) 8.6 mg BID PRN PO CONSTIPATION 09/25/16 20:45 09/25/16 21:27 Lactulose (Lactulose Liq) 30 ml DAILY PRN PO constipation 09/25/16 20:45 09/25/16 21:27 Objective Remarks GENERAL: Middle aged male, sitting up in chair next to bed watching TV SKIN: Warm and dry. HEAD: Normocephalic. EYES: No injection or drainage. NECK: Supple, trachea midline. CARDIOVASCULAR: Regular rate and rhythm RESPIRATORY: Breath sounds equal bilaterally. No accessory muscle use. GASTROINTESTINAL: Abdomen soft, non-tender, nondistended. EXTREMITIES: No cyanosis NEUROLOGICAL: No obvious focal deficit. Awake, alert, and oriented x3. Assessment/Plan Assessment 56 y/o man with h/o HTN and GERD, newly diagnosed adenocarcinoma of GE junction. Plan 1. oncology clear for discharge 2. fs faxed to new patient referrals for follow up Kathy Nesbitt Sep 26, 2016 12:05 Kathy Nesbitt Sep 26, 2016 12:05
[2016-09-26] MEDS ORDERED: SENN8.6T15 PO (13:57)
[2016-09-26] MEDS ORDERED: DOCU1CAP39 PO (13:57)
[2016-09-26] MEDS ORDERED: LACT10SO PO (13:57)
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
[2016-10-09] MEDS ORDERED: SENN8.6T81 PO (11:51)
[2016-10-09] MEDS ORDERED: LISI10TA3 PO (11:51)
[2016-10-09] MEDS ORDERED: LISI20TA3 PO (11:54)
[2016-10-09] MEDS ORDERED: NAPR500T PO (11:54)
== END 2016-09-26 14:49 | disposition home or self-care (01) | DRG 376 ==
LOC: PHEFT 12:44 → PHEDA 17:41 → N03A 23:15 → HCIS 09-24 16:35 → HOCB 09-25 20:44
PROVIDERS: ADMIT Internal Medicine; ATTEND Internal Medicine
PROC: 30233N1 Transfusion of Nonautologous Red Blood Cells into Peripheral Vein, Percutaneous Approach (ICD-10-PCS; 2016-09-23)
PROC: 0DB48ZX Excision of Esophagogastric Junction, Via Natural or Artificial Opening Endoscopic, Diagnostic (ICD-10-PCS; principal; 2016-09-24 11:54)
DX: C16.0 Malignant neoplasm of cardia (principal); D69.6 Thrombocytopenia, unspecified; I95.9 Hypotension, unspecified; I10 Essential (primary) hypertension; F17.210 Nicotine dependence, cigarettes, uncomplicated; D50.0 Iron deficiency anemia secondary to blood loss (chronic); K21.0 Gastro-esophageal reflux disease with esophagitis; M19.90 Unspecified osteoarthritis, unspecified site; Z79.1 Long term (current) use of non-steroidal anti-inflammatories (NSAID); E87.6 Hypokalemia; E83.51 Hypocalcemia
CPT/HCPCS: 36430; 71010; 74177; 80048; 80053; 80069; 80076; 82728; 83540; 83550; 83605; 83690; 83735; 84100; 84484; 85014; 85018; 85025; 85044; 85610; 85730; 86850; 86900; 86901; 86920; 87641; 88305; 93005; 94150; 96365; 96374; 96375; C9113; J2405; J3411; J7030; J7040; J7050; P9016; Q9967

== ENCOUNTER 2016-10-18 08:54 | Inpatient (IN) | payer MEDICAID ==
[~2016-10-18] VITALS: Ht 177.8 cm; Wt 90.0 kg
[2016-10-18] VITALS (7 sets, daily range): BP systolic 106–133; BP diastolic 67–86; PULSE 80–97; RESP 15–20; TEMP 98.3–99.4; O2SAT 98–100
[~2016-10-18 08:54] MED LIST changes: +DOCU1CAP39 PO; +LACT10SO PO; -LISI10TA PO; +NAPR500T PO; +SENN8.6T81 PO
[2016-10-18] MEDS ORDERED: [UNRECOGNIZED DRUG - CODE] (09:14)
[2016-10-18] MEDS ORDERED: PANTOPRAZOLE SODIUM 40 MG VIAL IV PUSH ONE (09:30)
--- NOTE | 2016-10-18 09:32 | PD ---
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 He had subacute bleeding but was deemed stable for outpatient follow-up. He is going to be getting chemotherapy followed by surgery. He had an outpatient blood draw yesterday. He received a call from oncologist that his hemoglobin was 5.5 and he should come to the emergency room for blood transfusion. Patient complains of some lightheadedness and fatigue. He says 2 days ago he was so lightheaded that he fell over. Not sure that he truly lost consciousness. He is not having abdominal pain. He is taking acid blocking medication. He complains of melena but no red rectal bleeding. The melena is intermittent and sometimes he has brown stool. Symptoms severity is moderate. No alleviating factors. Duration one week PFSH Past Medical History Hx Anticoagulant Therapy: No Cancer: Yes (GASTRIC) Cardiovascular Problems: Yes (HTN) Diabetes: No ?: Not Social History Alcohol Use: No Tobacco Use: Yes (08/18 PPD) Substance Use: No Allergies-Medications (Allergen,Severity, Reaction): Coded Allergies: No Known Allergies (Unverified , 10/18/16) Reported Meds & Prescriptions Reported Meds & Active Scripts Active Reported [Antacid] Review of Systems General / Constitutional: No: Fever Eyes: No: Visual changes HENT: Positive: Lightheadedness, No: Headaches Cardiovascular: No: Chest Pain or Discomfort Respiratory: No: Shortness of Breath Gastrointestinal: No: Abdominal Pain Genitourinary: No: Dysuria Musculoskeletal: Positive: Weakness, No: Pain Skin: No Rash Neurologic: Positive: Weakness, Dizziness Psychiatric: No: Depression Endocrine: No: Polydipsia Hematologic/Lymphatic: No: Easy Bruising Physical Exam Narrative GENERAL: Well-nourished, well-developed patient in no apparent distress. SKIN: Warm and dry. HEAD: Atraumatic. Normocephalic. EYES: Pupils equal and round. No scleral icterus. No injection or drainage. ENT: No nasal bleeding or discharge. Mucous membranes pink and moist. NECK: Trachea midline. No JVD. CARDIOVASCULAR: Regular rate and rhythm. No murmur appreciated. RESPIRATORY: No accessory muscle use. Clear to auscultation. Breath sounds equal bilaterally. GASTROINTESTINAL: Abdomen soft, non-tender, nondistended. Hepatic and splenic margins not palpable. MUSCULOSKELETAL: No obvious deformities. No clubbing. No cyanosis. No edema. NEUROLOGICAL: Awake and alert. No obvious cranial nerve deficits. Motor grossly within normal limits. Normal speech. PSYCHIATRIC: Appropriate mood and affect; insight and judgment normal. Data Data Last Documented VS Vital Signs Date Time Temp Pulse Resp B/P Pulse Ox O2 Delivery O2 Flow Rate FiO2 10/18/16 09:09 96 Room Air 10/18/16 09:02 98.7 16 114/67 100 Orders Iv Access Insert/Monitor (10/18/16 09:16) Type And Screen (10/18/16 09:16) Complete Blood Count With Diff (10/18/16 09:16) Basic Metabolic Panel (Bmp) (10/18/16 09:16) Prothrombin Time / Inr (Pt) (10/18/16 09:16) Act Partial Throm Time (Ptt) (10/18/16 09:16) Pantoprazole Inj (Protonix Inj) (10/18/16 09:30) Admit Order (Ed Use Only) (10/18/16 10:16) Admit To Inpatient (10/18/16 ) Vital Signs (Adult) Q4H (10/18/16 10:16) Activity Oob Ad Shea (10/18/16 10:16) Intake + Output ELOY.QSHIFT (10/18/16 10:16) Sodium Chloride 0.9% Flush (Ns Flush) (10/18/16 10:30) Sodium Chloride 0.9% Flush (Ns Flush) (10/18/16 21:00) Pantoprazole Inj (Protonix Inj) (10/18/16 21:00) Hgb & Hct (10/18/16 12:00) Hgb & Hct (10/18/16 18:00) Hgb & Hct (10/19/16 00:00) Hgb & Hct (10/19/16 06:00) Hgb & Hct (10/19/16 12:00) Hgb & Hct (10/19/16 18:00) Inpatient Certification (10/18/16 ) Vital Signs (Adult) Q4H (10/18/16 10:16) Diet Regular Basic (10/18/16 Lunch) Acetaminophen (Tylenol) (10/18/16 10:30) Magnesium Hydroxide Liq (Milk Of Magnesi (10/18/16 10:30) Basic Metabolic Panel (Bmp) (10/19/16 06:00) Scd Bilateral/Knee High ELOY.BID (10/18/16 10:16) Labs Laboratory Tests Test 10/18/16 09:15 White Blood Count 10.3 TH/MM3 Red Blood Count 1.90 MIL/MM3 Hemoglobin 5.0 GM/DL Hematocrit 15.6 % Mean Corpuscular Volume 82.1 FL Mean Corpuscular Hemoglobin 26.2 PG Mean Corpuscular Hemoglobin 31.9 % Concent Red Cell Distribution Width 16.1 % Platelet Count 579 TH/MM3 Mean Platelet Volume 6.0 FL Neutrophils (%) (Auto) 75.9 % Lymphocytes (%) (Auto) 11.6 % Monocytes (%) (Auto) 9.7 % Eosinophils (%) (Auto) 2.6 % Basophils (%) (Auto) 0.2 % Neutrophils # (Auto) 7.8 TH/MM3 Lymphocytes # (Auto) 1.2 TH/MM3 Monocytes # (Auto) 1.0 TH/MM3 Eosinophils # (Auto) 0.3 TH/MM3 Basophils # (Auto) 0.0 TH/MM3 CBC Comment AUTO DIFF Differential Comment AUTO DIFF CONFIRMED Platelet Estimate HIGH Platelet Morphology Comment HYPOGRAN Target Cells 1+ Ovalocytes 1+ Prothrombin Time 12.3 SEC Prothromb Time International 1.1 RATIO Ratio Activated Partial 28.3 SEC Thromboplast Time Sodium Level 140 MEQ/L Potassium Level 4.1 MEQ/L Chloride Level 105 MEQ/L Carbon Dioxide Level 28.5 MEQ/L Anion Gap 7 MEQ/L Blood Urea Nitrogen 12 MG/DL Creatinine 0.79 MG/DL Estimat Glomerular Filtration 101 ML/MIN Rate Random Glucose 94 MG/DL Calcium Level 7.9 MG/DL [facility] Medical Decision Making Medical Screen Exam Complete: Yes Emergency Medical Condition: Yes Medical Record Reviewed: Yes Differential Diagnosis Symptomatic anemia, adenocarcinoma, GI bleed Narrative Course I have reviewed the patient's electronic medical record. I reviewed his extensive hospitalization from last month. I reviewed surgical and oncology consultations. He was to get outpatient chemotherapy followed by surgery, likely total gastrectomy. IV placed CBC shows hemoglobin of 5 Metabolic profile is normal Coagulation studies are normal I gave him a dose of IV Protonix Initial blood pressure normal at 125 systolic and pulse of 87 Patient has symptomatic anemia from GI bleed from his known and no carcinoma and will require inpatient admission for blood transfusion. Have spoken with his surgeon and oncologist coverage and hospitalist All are agreement that he can stay here because they would like to do chemotherapy prior to surgery and don't plan imminent surgery unless he becomes unstable Surgeon is planning to place a port next week so he can get chemotherapy Diagnosis Primary Impression: GI bleeding Qualified Code: K92.2 - Gastrointestinal hemorrhage, unspecified gastrointestinal hemorrhage type Additional Impressions: Symptomatic anemia Gastric adenocarcinoma Admitting Information Admitting Physician Requests: Admit Gabino Mckeon MD Oct 18, 2016 09:32
[2016-10-18 09:34] LABS: AUTOMATED NEUTROPHIL # 7.8 TH/MM3 (1.8-7.7); BASOPHIL % 0.2 % (0.0-2.0); EOSINOPHIL # 0.3 TH/MM3 (0-0.4); EOSINOPHIL % 2.6 % (0.0-4.0); LYMPH % 11.6 % (9.0-44.0); LYMPHOCYTE # 1.2 TH/MM3 (1.0-4.8); MEAN CELL VOLUME 82.1 FL (80.0-100.0); MEAN CORPUSCULAR HEMOGLOBIN 26.2 PG (27.0-34.0); MEAN CORPUSCULAR HGB CONC 31.9 % (32.0-36.0); MONO % 9.7 % (0.0-8.0); NEUT % 75.9 % (16.0-70.0); PLATELET COUNT 579 TH/MM3 (150-450); RED CELL DISTRIBUTION WIDTH 16.1 % (11.6-17.2); WHITE BLOOD COUNT 10.3 TH/MM3 (4.0-11.0)
[2016-10-18 09:36] LABS: HEMO FLAGS AUTO DIFF
[2016-10-18 09:39] LABS: HEMATOCRIT 15.6 % (39.0-51.0)
[2016-10-18 09:44] LABS: APTT (PATIENT) 28.3 SEC (24.3-30.1); INTERNATIONAL NORMALIZED RATIO 1.1 RATIO; PROTHROMBIN TIME - PATIENT 12.3 SEC (9.8-11.6)
[2016-10-18 09:51] LABS: BICARBONATE 28.5 MEQ/L (21.0-32.0)
[2016-10-18 09:53] LABS: POTASSIUM 4.1 MEQ/L (3.5-5.1)
[2016-10-18 10:14] LABS: OVALOCYTES 1+ (NORMAL); TARGET CELLS 1+ (NORMAL)
[2016-10-18 10:15] LABS: PLATELET ESTIMATE SMEAR HIGH (NORMAL); PLATELET MORPHOLOGY HYPOGRAN (NORMAL); SCAN/DIFF AUTO DIFF CONFIRMED
[2016-10-18] MEDS ORDERED: MAGNESIUM HYDROXIDE SUSP 30 ML CUP PO PRN (10:30)
[2016-10-18] MEDS ORDERED: ACETAMINOPHEN 325 MG TAB PO PRN (10:30)
[2016-10-18] MEDS ORDERED: SODIUM CHLOR 0.9% 250 ML INJ 250 ML IV ONE ×2 (10:30→23:00)
[2016-10-18] MEDS ORDERED: SODIUM CHLORIDE 0.9% FLUSH 5 ML FLUSH FLUSH PRN (10:30)
[2016-10-18] MEDS ORDERED: MORPHINE SULFATE 4 MG/ML INJ IV PRN (10:30)
[2016-10-18] MEDS ORDERED: NALOXONE HCL 0.4 MG/ML AMP IV PRN (10:30)
[2016-10-18] MEDS: ACETAMINOPHEN/HYDROcodone 325 MG/5 MG TAB PO PRN ×3 (12:30→21:45)
[2016-10-18 12:46] LABS: REVIEW FLAG FINAL
[2016-10-18 12:59] LABS: HEMATOCRIT 17.5 % (39.0-51.0)
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
[2016-10-18 20:19] LABS: REVIEW FLAG FINAL
[2016-10-18] MEDS: PANTOPRAZOLE SODIUM 40 MG VIAL IV SCH (21:41)
[2016-10-18] MEDS: SODIUM CHLORIDE 0.9% FLUSH 5 ML FLUSH FLUSH SCH (21:41)
[2016-10-19] VITALS (10 sets, daily range): BP systolic 114–145; BP diastolic 77–90; PULSE 76–88; RESP 15–18; TEMP 97.5–99.4; O2SAT 98–100
[2016-10-19 07:17] LABS: HEMATOCRIT 23.2 % (39.0-51.0); REVIEW FLAG FINAL
[2016-10-19 07:25] LABS: POTASSIUM 3.9 MEQ/L (3.5-5.1)
[2016-10-19 07:33] LABS: BICARBONATE 26.7 MEQ/L (21.0-32.0)
[2016-10-19] MEDS: PANTOPRAZOLE SODIUM 40 MG VIAL IV SCH (08:17)
[2016-10-19] MEDS: SODIUM CHLORIDE 0.9% FLUSH 5 ML FLUSH FLUSH SCH (08:17)
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
--- NOTE | 2016-10-19 10:23 | HHI.DCPOC ---
Discharge Care Plan Diagnosis: (1) GI bleeding (2) Gastric adenocarcinoma (3) Symptomatic anemia Goals to Promote Your Health * To prevent worsening of your condition and complications * To maintain your health at the optimal level Directions to Meet Your Goals Take your medications as prescribed Follow your dietary instruction Follow activity as directed Keep your appointments as scheduled Take your immunizations and boosters as scheduled If your symptoms worsen call your PCP, if no PCP go to Urgent Care Center or Emergency Room Smoking is Dangerous to Your Health. Avoid second hand smoke Call the 24-hour hour crisis hotline for domestic abuse at Gabino Martines Oct 19, 2016 10:23
[2016-10-19] MEDS ORDERED: SODIUM CHLOR 0.9% 250 ML INJ 250 ML IV ONE (10:30)
[2016-10-19] MEDS ORDERED: FUROSEMIDE 20 MG/2 ML VIAL IV PRN (10:30)
[2016-10-19 11:46] LABS: HEMATOCRIT 26.7 % (39.0-51.0); REVIEW FLAG FINAL
[2016-10-19] MEDS ORDERED: PROT40TA PO (12:22)
== END 2016-10-19 18:48 | disposition home or self-care (01) | DRG 378 ==
LOC: PHED 08:54 → MERGE 10:18 → PHEDA 10:18 → PH3B 11:12
PROVIDERS: ADMIT Family Medicine; ATTEND Family Medicine
PROC: 30253N1 (ICD-10-PCS; principal; 2016-10-18)
DX: K92.1 Melena (principal); C16.0 Malignant neoplasm of cardia; D50.0 Iron deficiency anemia secondary to blood loss (chronic); I10 Essential (primary) hypertension; F17.200 Nicotine dependence, unspecified, uncomplicated; G89.4 Chronic pain syndrome; K21.9 Gastro-esophageal reflux disease without esophagitis
CPT/HCPCS: 36430; 80048; 85014; 85018; 85025; 85610; 85730; 86850; 86900; 86901; 86920; 96374; C9113; J2270; J7050; P9016

== ENCOUNTER 2016-10-28 21:05 | Inpatient (IN) | payer MEDICAID ==
[~2016-10-28] VITALS: Ht 177.8 cm; Wt 90.0 kg
[~2016-10-28 21:05] MED LIST changes: +[UNRECOGNIZED DRUG - CODE]
[2016-10-28 21:31] VITALS: BP 124/65; PULSE 91; RESP 14; TEMP 98.4; O2SAT 98
[2016-10-28] MEDS ORDERED: HYDR-3533 PO (21:33)
--- NOTE | 2016-10-28 22:17 | PD ---
HPI Chief Complaint: Abnormal Results Time Seen by Provider: 21:23 Travel History International Travel<30 days: No Contact w/Intl Traveler<30days: No Traveled to known affect area: No History of Present Illness HPI 56yo M with PMH of esophageal adenocarcinoma was sent here today because hemoglobin was 5.1 yesterday. Pt had his lab drawn to prepare for port placement for chemotherapy and the lab called Dr. Lopez because of the result. Pt was called to come to the ED. He states that he has been having black stool since the last time he was here. Pt was recently here with similar hemoglobin and received blood transfusion. Pt states he has the same epigastric abdominal pain he has always had. Denies any fever, dizziness, chest pain, sob, n/v. Pt is following up with Dr. Harkins. [facility] Past Medical History Hx Anticoagulant Therapy: No Anemia: Yes Cancer: Yes (GASTRIC) Cardiovascular Problems: Yes (HTN) Chemotherapy: No Diabetes: No Diminished Hearing: No Endocrine: No Gastrointestinal Disorders: Yes GERD: Yes Genitourinary: No Immune Disorder: No Musculoskeletal: No Neurologic: No Psychiatric: No Reproductive: No Respiratory: No Radiation Therapy: No Tetanus Vaccination: < 5 Years Influenza Vaccination: No Social History Alcohol Use: No Tobacco Use: Yes (08/18 PPD) Substance Use: No Allergies-Medications (Allergen,Severity, Reaction): Coded Allergies: No Known Allergies (Unverified , 10/29/16) Reported Meds & Prescriptions Reported Meds & Active Scripts Active Protonix (Pantoprazole Sodium) 40 Mg Tab 40 Mg PO DAILY Reported Lortab (Hydrocodone-Acetaminophen) 5-325 Mg Tab 1 Tab PO Q6H PRN Review of Systems Except as stated in HPI: all other systems reviewed are Neg Physical Exam Narrative GENERAL: 56yo M not in acute distress. SKIN: Warm and dry. HEAD: Atraumatic. Normocephalic. EYES: Pupils equal and round. No scleral icterus. No injection or drainage. ENT: No nasal bleeding or discharge. Mucous membranes pink and moist. NECK: Trachea midline. No JVD. CARDIOVASCULAR: Regular rate and rhythm. No murmur appreciated. RESPIRATORY: No accessory muscle use. Clear to auscultation. Breath sounds equal bilaterally. GASTROINTESTINAL: Abdomen soft, mild ttp epigastric region. No rebound tenderness or guarding. RECTAL: +Hemaprompt, very small amount of stool. MUSCULOSKELETAL: No obvious deformities. No clubbing. No cyanosis. No edema. NEUROLOGICAL: Awake and alert. No obvious cranial nerve deficits. Motor grossly within normal limits. Normal speech. PSYCHIATRIC: Appropriate mood and affect; insight and judgment normal. Data Data Last Documented VS Vital Signs Date Time Temp Pulse Resp B/P Pulse Ox O2 Delivery O2 Flow Rate FiO2 10/28/16 21:35 16 98 Room Air 10/28/16 21:31 98.4 91 124/65 Orders Complete Blood Count With Diff (10/28/16 21:51) Basic Metabolic Panel (Bmp) (10/28/16 21:51) Prothrombin Time / Inr (Pt) (10/28/16 21:51) Act Partial Throm Time (Ptt) (10/28/16 21:51) Type And Screen (10/28/16 21:51) Ecg Monitoring (10/28/16 22:30) Iv Access Insert/Monitor (10/28/16 22:30) Oximetry (10/28/16 22:30) Sodium Chloride 0.9% Flush (Ns Flush) (10/28/16 22:30) Pantoprazole Inj (Protonix Inj) (10/28/16 22:30) Pantoprazole Inj (Protonix Inj) (10/28/16 22:30) Red Blood Cells (Rbc) (10/28/16 22:30) Blood Product Administration .UPON TRANSFUSION (10/28/16 22:30) Sodium Chlor 0.9% 250 Ml Inj (Ns 250 Ml (10/28/16 22:30) Admit Order (Ed Use Only) (10/28/16 23:09) Labs Laboratory Tests Test 10/28/16 10/28/16 22:00 22:42 White Blood Count 12.6 TH/MM3 Red Blood Count 1.74 MIL/MM3 Hemoglobin 5.0 GM/DL Hematocrit 15.5 % Mean Corpuscular Volume 88.9 FL Mean Corpuscular Hemoglobin 28.7 PG Mean Corpuscular Hemoglobin 32.2 % Concent Red Cell Distribution Width 19.5 % Platelet Count 428 TH/MM3 Mean Platelet Volume 7.5 FL Neutrophils (%) (Auto) 84.8 % Lymphocytes (%) (Auto) 7.2 % Monocytes (%) (Auto) 6.8 % Eosinophils (%) (Auto) 0.8 % Basophils (%) (Auto) 0.4 % Neutrophils # (Auto) 10.7 TH/MM3 Lymphocytes # (Auto) 0.9 TH/MM3 Monocytes # (Auto) 0.9 TH/MM3 Eosinophils # (Auto) 0.1 TH/MM3 Basophils # (Auto) 0.0 TH/MM3 CBC Comment AUTO DIFF Differential Comment AUTO DIFF CONFIRMED Platelet Estimate NORMAL Platelet Morphology Comment NORMAL Prothrombin Time 12.0 SEC Prothromb Time International 1.1 RATIO Ratio Activated Partial 25.7 SEC Thromboplast Time Sodium Level 142 MEQ/L Potassium Level 4.0 MEQ/L Chloride Level 108 MEQ/L Carbon Dioxide Level 26.3 MEQ/L Anion Gap 8 MEQ/L Blood Urea Nitrogen 13 MG/DL Creatinine 0.76 MG/DL Estimat Glomerular Filtration 129 ML/MIN Rate Random Glucose 114 MG/DL Calcium Level 8.0 MG/DL Blood Type A POSITIVE Antibody Screen NEGATIVE Crossmatch Leukocyte-Reduced Red Blood Cells Blood Bank Comment MDM Medical Decision Making Medical Screen Exam Complete: Yes Emergency Medical Condition: Yes Interpretation(s) Laboratory Tests Test 10/28/16 10/28/16 22:00 22:42 White Blood Count 12.6 TH/MM3 (4.0-11.0) Red Blood Count 1.74 MIL/MM3 (4.50-5.90) Hemoglobin 5.0 GM/DL (13.0-17.0) Hematocrit 15.5 % (39.0-51.0) Mean Corpuscular Volume 88.9 FL (80.0-100.0) Mean Corpuscular Hemoglobin 28.7 PG (27.0-34.0) Mean Corpuscular Hemoglobin 32.2 % Concent (32.0-36.0) Red Cell Distribution Width 19.5 % (11.6-17.2) Platelet Count 428 TH/MM3 (150-450) Mean Platelet Volume 7.5 FL (7.0-11.0) Neutrophils (%) (Auto) 84.8 % (16.0-70.0) Lymphocytes (%) (Auto) 7.2 % (9.0-44.0) Monocytes (%) (Auto) 6.8 % (0.0-8.0) Eosinophils (%) (Auto) 0.8 % (0.0-4.0) Basophils (%) (Auto) 0.4 % (0.0-2.0) Neutrophils # (Auto) 10.7 TH/MM3 (1.8-7.7) Lymphocytes # (Auto) 0.9 TH/MM3 (1.0-4.8) Monocytes # (Auto) 0.9 TH/MM3 (0-0.9) Eosinophils # (Auto) 0.1 TH/MM3 (0-0.4) Basophils # (Auto) 0.0 TH/MM3 (0-0.2) CBC Comment AUTO DIFF Differential Comment AUTO DIFF CONFIRMED Platelet Estimate NORMAL (NORMAL) Platelet Morphology Comment NORMAL (NORMAL) Prothrombin Time 12.0 SEC (9.8-11.6) Prothromb Time International 1.1 RATIO Ratio Activated Partial 25.7 SEC Thromboplast Time (24.3-30.1) Sodium Level 142 MEQ/L (136-145) Potassium Level 4.0 MEQ/L (3.5-5.1) Chloride Level 108 MEQ/L (98-107) Carbon Dioxide Level 26.3 MEQ/L (21.0-32.0) Anion Gap 8 MEQ/L (5-15) Blood Urea Nitrogen 13 MG/DL (7-18) Creatinine 0.76 MG/DL (0.60-1.30) Estimat Glomerular Filtration 129 ML/MIN Rate (>89) Random Glucose 114 MG/DL (74-106) Calcium Level 8.0 MG/DL (8.5-10.1) Blood Type A POSITIVE Antibody Screen NEGATIVE Crossmatch Leukocyte-Reduced Red Blood Cells Blood Bank Comment Differential Diagnosis GI bleed secondary to adenocarcinoma vs. AV malformation vs. anemia of chronic disease Narrative Course 56yo M with esophageal adenocarcinoma here with hemoglobin of 5.0. Pt is hemodynamically stable at this time. Hemaprompt is positive and pt started on protonix bolus and drip. H/H today is 5/15.5. MCV is 88.9. Discussed with Dr. Lopez who recommends transfusion to hemoglobin of at least 10 since pt is actively bleeding. I ordered 4 units of PRBC for slow transfusion. Pt is not nauseous or vomiting. States he tolerates pureed diet. Discussed with Dr. Bright and accepted to his care. Critical Care Narrative Aggregate critical care time was 40 minutes. Time to perform other separately billable procedures was not included in the critical care time. My time did not include minutes spent treating any other patients simultaneously or on activities that did not directly contribute to the patient's treatment. The services I provided to this patient were to treat and/or prevent clinically significant deterioration that could result in: cardiovascular collapse or . I provided critical care services requiring my management, as noted below: Chart data review, documentation time, medication orders and management, vital sign assessments/reviewing monitor data, ordering and reviewing lab tests, ordering and interpreting/reviewing x-rays and diagnostic studies, care of the patient and discussion of the patient with the admitting physicians. Diagnosis Primary Impression: GI bleeding Qualified Code: K92.1 - Gastrointestinal hemorrhage with melena Additional Impression: Gastric adenocarcinoma Admitting Information Admitting Physician Requests: Debbie Neumann DO Oct 28, 2016 22:17
[2016-10-28 22:24] LABS: AUTOMATED NEUTROPHIL # 10.7 TH/MM3 (1.8-7.7); BASOPHIL % 0.4 % (0.0-2.0); EOSINOPHIL # 0.1 TH/MM3 (0-0.4); EOSINOPHIL % 0.8 % (0.0-4.0); LYMPH % 7.2 % (9.0-44.0); LYMPHOCYTE # 0.9 TH/MM3 (1.0-4.8); MEAN CELL VOLUME 88.9 FL (80.0-100.0); MEAN CORPUSCULAR HEMOGLOBIN 28.7 PG (27.0-34.0); MEAN CORPUSCULAR HGB CONC 32.2 % (32.0-36.0); MONO % 6.8 % (0.0-8.0); NEUT % 84.8 % (16.0-70.0); PLATELET COUNT 428 TH/MM3 (150-450); RED BLOOD COUNT 1.74 MIL/MM3 (4.50-5.90); RED CELL DISTRIBUTION WIDTH 19.5 % (11.6-17.2); WHITE BLOOD COUNT 12.6 TH/MM3 (4.0-11.0)
[2016-10-28 22:25] LABS: HEMO FLAGS AUTO DIFF
[2016-10-28 22:28] LABS: HEMATOCRIT 15.5 % (39.0-51.0)
[2016-10-28] MEDS ORDERED: SODIUM CHLOR 0.9% 250 ML INJ 250 ML IV ONE (22:30)
[2016-10-28] MEDS ORDERED: SODIUM CHLORIDE 0.9% FLUSH 5 ML FLUSH IVF PRN (22:30)
[2016-10-28] MEDS ORDERED: PANTOPRAZOLE INJ 80 MG in SODIUM CHLORIDE 0.9% INJ 35 ML IV ONE (22:30)
[2016-10-28 22:43] LABS: APTT (PATIENT) 25.7 SEC (24.3-30.1); INTERNATIONAL NORMALIZED RATIO 1.1 RATIO
[2016-10-28 22:55] LABS: BICARBONATE 26.3 MEQ/L (21.0-32.0)
[2016-10-28] MEDS ORDERED: SODIUM CHLOR 0.9% 1000 ML INJ 1,000 ML IV SCH (23:18)
[2016-10-28 23:28] LABS: PLATELET ESTIMATE SMEAR NORMAL (NORMAL); PLATELET MORPHOLOGY NORMAL (NORMAL); SCAN/DIFF AUTO DIFF CONFIRMED
[2016-10-28] MEDS ORDERED: ACETAMINOPHEN 325 MG TAB PO PRN (23:30)
[2016-10-28] MEDS ORDERED: NALOXONE HCL 0.4 MG/ML AMP IV PRN (23:30)
[2016-10-28] MEDS ORDERED: SODIUM CHLORIDE 0.9% FLUSH 5 ML FLUSH FLUSH PRN (23:30)
[2016-10-28] MEDS ORDERED: MAGNESIUM HYDROXIDE SUSP 30 ML CUP PO PRN (23:30)
[2016-10-28] MEDS ORDERED: ONDANSETRON HCL 4 MG/2 ML VIAL IVP PRN (23:30)
[2016-10-28 23:32] VITALS: O2SAT 98
[2016-10-28] MEDS: PANTOPRAZOLE INJ 80 MG in SODIUM CHLORIDE 0.9% INJ 100 ML IV SCH (23:38)
--- NOTE | 2016-10-28 23:59 | HHI.HP ---
[facility] Service [facility] Primary Care Physician GINGER Veloz Admission Diagnosis GI bleed Diagnoses: Chief Complaint: Black stools, low hemoglobin Travel History International Travel<30 Days: No Contact w/Intl Traveler <30 Da: No Traveled to Known Affected Are: No History of Present Illness 56-year-old male with a history of gastric adenocarcinoma was sent to the ED for follow-up of recent labs revealed a hemoglobin of 5.1 yesterday. Patient states he had his labs drawn yesterday to prepare for his port placement for chemotherapy and he was told to come in by Dr. Lopez. Patient states he was recently here on September 21 and received a transfusion and has had black stools ever since. Patient does complain of right upper quadrant and mid epigastric pain, and states he underwent an EGD, and the adenocarcinoma was found. He denies any recent colonoscopy. His only real complaint is weakness, denies any fever, chest pain, chills or shortness of breath. Review of Systems Constitutional: DENIES: Fever, Chills Respiratory: DENIES: Cough, Sputum production, Shortness of breath Cardiovascular: DENIES: Chest pain, Lower Extremity Edema Gastrointestinal: COMPLAINS OF: Black stools, Constipation, DENIES: Bloody stools, Diarrhea, Nausea, Vomiting Genitourinary: DENIES: Hematuria, Dysuria Musculoskeletal: DENIES: Back pain, Neck pain Integumentary: DENIES: Rash Hematologic/lymphatic: DENIES: Lymphadenopathy Immunologic/allergic: DENIES: Urticaria Neurologic: COMPLAINS OF: Localized weakness, DENIES: Headache Past Family Social History Past Medical History HTN (not on any medications) Past Surgical History Patient denies any surgeries Reported Medications Reported Meds & Active Scripts Active Protonix (Pantoprazole Sodium) 40 Mg Tab 40 Mg PO DAILY Reported Lortab (Hydrocodone-Acetaminophen) 5-325 Mg Tab 1 Tab PO Q6H PRN Allergies: Coded Allergies: No Known Allergies (Unverified , 10/28/16) Active Ordered Medications Current Medications Medications (Trade) Dose Ordered Sig/Martha Route Start Time Stop Time Status Last Admin Pantoprazole Sodium 80 mg/ Sodium Chloride 100 ml @ 10 mls/hr Q10H IV 10/28/16 22:30 10/28/16 23:38 Sodium Chloride 250 ml @ 15 mls/hr ONCE ONCE IV 10/28/16 22:30 10/29/16 15:09 (NS 1000 ml Inj) 1,000 ml @ 42 mls/hr [id number] IV 10/28/16 23:18 (NS Flush) 2 ml UNSCH PRN FLUSH 10/28/16 23:30 (NS Flush) 2 ml BID FLUSH 10/29/16 09:00 (Tylenol) 650 mg Q4H PRN PO 10/28/16 23:30 (Zofran Inj) 4 mg Q6H PRN IVP 10/28/16 23:30 (Milk Of Magnesia Liq) 30 ml Q12H PRN PO 10/28/16 23:30 (Narcan Inj) 0.4 mg UNSCH PRN IV 10/28/16 23:30 Family History Mom: Alzheimer Dad: lung disease Social History Tobacco use: 3 cigarettes a day Alcohol use: denies Illicit drug use: denies Physical Exam Vital Signs Vital Signs Date Time Temp Pulse Resp B/P Pulse Ox O2 Delivery O2 Flow Rate FiO2 10/28/16 23:32 98 10/28/16 21:35 16 98 Room Air 10/28/16 21:31 98.4 91 14 124/65 98 Physical Exam GENERAL: This is a well-nourished, well-developed patient, in no apparent distress. SKIN: No rashes, ecchymoses or lesions. Cool and dry. HEAD: Atraumatic. Normocephalic. No temporal or scalp tenderness. EYES: Pupils equal round and reactive. Pale conjunctiva. ENT: Nose without bleeding, purulent drainage or septal hematoma. Pale oral mucosa. Airway patent. NECK: Trachea midline. No JVD or lymphadenopathy. CARDIOVASCULAR: Regular rate and rhythm without murmurs, gallops, or rubs. Trace pedal edema RESPIRATORY: Clear to auscultation. Breath sounds equal bilaterally. No wheezes , rales, or rhonchi. GASTROINTESTINAL: Abdomen soft, RUQ and epigastric tenderness, nondistended. No hepato-splenomegaly, or palpable masses. MUSCULOSKELETAL: Extremities without clubbing, cyanosis, or edema. No joint tenderness, effusion, or edema noted. No calf tenderness. NEUROLOGICAL: Awake and alert. Motor and sensory grossly within normal limits. Normal speech. Laboratory Laboratory Tests Test 10/28/16 10/28/16 22:00 22:42 White Blood Count 12.6 Red Blood Count 1.74 Hemoglobin 5.0 Hematocrit 15.5 Mean Corpuscular Volume 88.9 Mean Corpuscular Hemoglobin 28.7 Mean Corpuscular Hemoglobin 32.2 Concent Red Cell Distribution Width 19.5 Platelet Count 428 Mean Platelet Volume 7.5 Neutrophils (%) (Auto) 84.8 Lymphocytes (%) (Auto) 7.2 Monocytes (%) (Auto) 6.8 Eosinophils (%) (Auto) 0.8 Basophils (%) (Auto) 0.4 Neutrophils # (Auto) 10.7 Lymphocytes # (Auto) 0.9 Monocytes # (Auto) 0.9 Eosinophils # (Auto) 0.1 Basophils # (Auto) 0.0 CBC Comment AUTO DIFF Differential Comment AUTO DIFF CONFIRMED Platelet Estimate NORMAL Platelet Morphology Comment NORMAL Prothrombin Time 12.0 Prothromb Time International 1.1 Ratio Activated Partial 25.7 Thromboplast Time Sodium Level 142 Potassium Level 4.0 Chloride Level 108 Carbon Dioxide Level 26.3 Anion Gap 8 Blood Urea Nitrogen 13 Creatinine 0.76 Estimat Glomerular Filtration 129 Rate Random Glucose 114 Calcium Level 8.0 Blood Type A POSITIVE Antibody Screen NEGATIVE Crossmatch Leukocyte-Reduced Red Blood Cells Blood Bank Comment Result Diagram: 10/28/16219910/28/162199 Assessment and Plan Problem List: (1) Symptomatic anemia ICD Code: D64.9 Status: Acute (2) Gastric adenocarcinoma ICD Code: C16.9 Status: Acute (3) GI bleeding ICD Code: K92.2 Status: Acute Assessment and Plan 56 y/o male with a history of hypertension and esophageal adenocarcinoma was sent here today for follow-up outpatient hemoglobin of 5.1 yesterday. Symptomatic anemia Labs hemoglobin 5.0 -Transfuse 4 units PRBCs, ordered an EGD -H&H posttransfusion -Monitor telemetry Gastric adenocarcinoma -Dr. Lopez consulted GI bleed Labs: Hemoglobin -Consult GI -Continue Protonix drip DVT prophylaxis: SCDs Written by Khushbu MILES, acting as scribe for Dr. Carpenter on 10/28/16 at 2353. All or portions of this note were transcribed by scribrebecca Ríos Barbel, CAR EXAMINER. I, Dr. Gabino Carpenter personally performed the history, physical exam, and medical decision making; and confirmed the accuracy of the information in the transcribed note. Authenticated by Dr. Gabino Carpenter on 10/29/16 at 01:04. Discussed Condition With Patient Physician Certification 2 Midnight Certification Type: Admission for Inpatient Services Order for Inpatient Services The services are ordered in accordance with Medicare regulations or non- Medicare payer requirements, as applicable. In the case of services not specified as inpatient-only, they are appropriately provided as inpatient services in accordance with the 2-midnight benchmark. Estimated LOS (days): 3 days is the estimated time the patient will need to remain in the hospital, assuming treatment plan goals are met and no additional complications. Post-Hospital Plan: Home Problem Qualifiers (1) GI bleeding: Qualified Code: K92.1 - Gastrointestinal hemorrhage with melena Khushbu Dickson Oct 28, 2016 23:59 Gabino Carpenter MD Oct 29, 2016 01:04
[2016-10-29] VITALS (17 sets, daily range): BP systolic 95–129; BP diastolic 51–82; PULSE 80–92; RESP 14–18; TEMP 98.2–98.7; O2SAT 95–100
[2016-10-29] MEDS ORDERED: ALUMINUM/MAGNESIUM/SIMETH 30 ML CUP PO PRN (05:45)
[2016-10-29] MEDS: PANTOPRAZOLE INJ 80 MG in SODIUM CHLORIDE 0.9% INJ 100 ML IV SCH (08:13)
[2016-10-29] MEDS ORDERED: SODIUM CHLORIDE 0.9% FLUSH 5 ML FLUSH FLUSH SCH (09:00)
--- NOTE | 2016-10-29 09:02 | PD.CONS ---
HPI History of Present Illness This is a 56 year male with a history of gastric adenocarcinoma was sent to the ED for out patient labs of hemoglobin of 5.1. Patient under went EGD with Dr. Andrade on (09/24/16) and that revealed circumferential mass in the distal esophagus, almost complete obstruction at the GE junction, Bx reveled poorly differentiated adenocarcinoma. He has been following with Dr. Lopez and he is in the process of receiving chemotherapy. He has been on pureed and liquid diet and has lost about 27 ibs. He reports ongoing black tarry stools since the diagnosis, denies active bleeding currently. He reports upper gastric pain. He denies nausea, vomiting, hematemesis, hematochezia, weakness,fever, chest pain, chills or shortness of breath. His last colonoscopy was 12 years ago. 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 Past Surgical History Patient denies any surgeries (Nicholas Clark) Coded Allergies: No Known Allergies (Unverified , 10/29/16) Medications Current Medications Medications (Trade) Dose Ordered Sig/Martha Route Start Time Stop Time Status Last Admin Pantoprazole Sodium 80 mg/ Sodium Chloride 100 ml @ 10 mls/hr Q10H IV 10/28/16 22:30 10/29/16 08:13 Sodium Chloride 250 ml @ 15 mls/hr ONCE ONCE IV 10/28/16 22:30 10/29/16 15:09 10/29/16 00:39 (NS 1000 ml Inj) 1,000 ml @ 42 mls/hr [id number] IV 10/28/16 23:18 10/29/16 00:26 (NS Flush) 2 ml UNSCH PRN FLUSH 10/28/16 23:30 (NS Flush) 2 ml BID FLUSH 10/29/16 09:00 (Tylenol) 650 mg Q4H PRN PO 10/28/16 23:30 (Zofran Inj) 4 mg Q6H PRN IVP 10/28/16 23:30 (Milk Of Magnesia Liq) 30 ml Q12H PRN PO 10/28/16 23:30 (Narcan Inj) 0.4 mg UNSCH PRN IV 10/28/16 23:30 (Mag-Al Plus Susp Liq) 30 ml Q6H PRN PO 10/29/16 05:45 10/29/16 05:49 Family History Mom: Alzheimer Dad: lung disease Social History Tobacco use: 3 cigarettes a day Alcohol use: denies Illicit drug use: denies (Nicholas Clark) Review of Systems Constitutional: COMPLAINS OF: Weight loss, DENIES: Chills Endocrine: DENIES: Polyuria Eyes: DENIES: Double Vision Ears, nose, mouth, throat: DENIES: Hoarseness Respiratory: DENIES: Shortness of breath Cardiovascular: DENIES: Lower Extremity Edema Gastrointestinal: COMPLAINS OF: Abdominal pain, Black stools, DENIES: Bloody stools, Constipation, Diarrhea, Nausea, Vomiting, Difficulty Swallowing, Anorexia, Odynophagia, Swelling of Abdomen, Heartburn, Hematemesis Genitourinary: DENIES: Hematuria Musculoskeletal: DENIES: Neck pain Integumentary: DENIES: Jaundice Hematologic/lymphatic: DENIES: Bruising Immunologic/allergic: DENIES: Eczema Neurologic: DENIES: Abnormal gait Psychiatric: DENIES: Anxiety (Nicholas Clark) GI Exam Vitals I&O Vital Signs Date Time Temp Pulse Resp B/P Pulse Ox O2 Delivery O2 Flow Rate FiO2 10/29/16 08:05 84 18 113/68 100 Room Air 10/29/16 08:00 82 18 101/63 100 Room Air 10/29/16 08:00 84 18 113/68 98 Room Air 10/29/16 07:55 98.7 92 16 116/72 95 Room Air 10/29/16 07:15 16 100 Room Air 10/29/16 05:00 80 16 95/51 99 Room Air 10/29/16 03:20 98.7 82 16 122/63 99 Room Air 10/29/16 03:11 98.7 82 16 112/70 99 Room Air 10/29/16 02:35 98.4 81 16 108/72 98 Room Air 10/29/16 00:46 98.4 82 16 123/74 98 Room Air 10/29/16 00:45 83 16 123/74 99 Room Air 10/29/16 00:35 16 99 Room Air 10/29/16 00:30 98.2 81 16 105/71 99 Room Air 10/28/16 23:32 98 10/28/16 21:35 16 98 Room Air 10/28/16 21:31 98.4 91 14 124/65 98 I/O 10/28/16 10/28/16 10/28/16 10/29/16 10/29/16 10/29/16 07:00 15:00 23:00 07:00 15:00 23:00 Intake Total 250 ml Balance 250 ml Intake Packed Cells 250 ml Laboratory Test 10/28/16 10/28/16 22:00 22:42 White Blood Count 12.6 TH/MM3 Red Blood Count 1.74 MIL/MM3 Hemoglobin 5.0 GM/DL Hematocrit 15.5 % Mean Corpuscular Volume 88.9 FL Mean Corpuscular Hemoglobin 28.7 PG Mean Corpuscular Hemoglobin 32.2 % Concent Red Cell Distribution Width 19.5 % Platelet Count 428 TH/MM3 Mean Platelet Volume 7.5 FL Neutrophils (%) (Auto) 84.8 % Lymphocytes (%) (Auto) 7.2 % Monocytes (%) (Auto) 6.8 % Eosinophils (%) (Auto) 0.8 % Basophils (%) (Auto) 0.4 % Neutrophils # (Auto) 10.7 TH/MM3 Lymphocytes # (Auto) 0.9 TH/MM3 Monocytes # (Auto) 0.9 TH/MM3 Eosinophils # (Auto) 0.1 TH/MM3 Basophils # (Auto) 0.0 TH/MM3 CBC Comment AUTO DIFF Differential Comment AUTO DIFF CONFIRMED Platelet Estimate NORMAL Platelet Morphology Comment NORMAL Prothrombin Time 12.0 SEC Prothromb Time International 1.1 RATIO Ratio Activated Partial 25.7 SEC Thromboplast Time Sodium Level 142 MEQ/L Potassium Level 4.0 MEQ/L Chloride Level 108 MEQ/L Carbon Dioxide Level 26.3 MEQ/L Anion Gap 8 MEQ/L Blood Urea Nitrogen 13 MG/DL Creatinine 0.76 MG/DL Estimat Glomerular Filtration 129 ML/MIN Rate Random Glucose 114 MG/DL Calcium Level 8.0 MG/DL Blood Type A POSITIVE Antibody Screen NEGATIVE Crossmatch Leukocyte-Reduced Red Blood Cells Blood Bank Comment Physical Examination HEENT: normocephalic; atraumatic; no jaundice. Throat is clear. NECK: Neck is supple, no JVD, no lymphadenopathy. CHEST: Chest is clear to auscultation and percussion. CARDIAC: Regular rate and rhythm with no murmur gallop or rubs. ABDOMEN: Soft, nondistended,epigastric tenderness; no hepatosplenomegaly; bowel sounds are present in all four quadrants. EXTREMITIES: No clubbing, cyanosis, or edema. SKIN: Normal; no rash; no jaundice. PLASTICS PLATER: No focal deficits; alert and oriented times three. (Nicholas Clark) Assessment and Plan Plan - Severe anemia of 5.1/melena on going since September in this patient with known gastroesophageal cancer. Patient under went EGD with Dr. Andrade on (09/24/16) and that revealed circumferential mass in the distal esophagus, almost complete obstruction at the GE junction, Bx reveled poorly differentiated adenocarcinoma. He has been following with Dr. Lopez and he is in the process of receiving chemotherapy. He has been on pureed and liquid diet and has lost about 27 ibs. He reports ongoing black tarry stools since the diagnosis. He reports upper gastric pain. He denies nausea, vomiting, hematemesis, hematochezia, weakness,fever, chest pain, chills or shortness of breath. His last colonoscopy was 12 years ago. - mass in the distal esophagus, almost complete obstruction at the GE junction. Has been following with oncology and chemo is in process, he was not a surgical candidate Plan: - Ful liquids - Cryoprecipitate - Cont. PPI GTT - Transfuse as needed to reach hgb of >8 - Monitor hh - Supportive care - Consider consulting oncology - Patient seen and examined by Dr. Andrade and myself and this note is written on his behalf. (Nicholas Clark) Physician Comments Seen and examined with CHILDR[employer]'S [employer] DIRECTOR, no active bleeding at this time. States is waiting to start therapy for esophageal cancer. Transfused PRBcs. Wants to go home. EGD if still here overnight otherwise as outpt. Liquid diet. Will follow, thank you (Jacqueline Andrade MD) Nicholas Clark Oct 29, 2016 09:02 Jacqueline Andrade MD Oct 29, 2016 14:57
[2016-10-29] MEDS ORDERED: DESMOPRESSIN ACETATE 4 MCG/ML VIAL IV PUSH ONE (09:45)
--- NOTE | 2016-10-29 11:56 | HHI.PR ---
Subjective Remarks f/u for GI bleed and gastric cancer patient has no complaints. Denied any abdominal pain. he stated he thought he would be discharge after blood transfusion and asking to be discharge. Objective Vitals Vital Signs Date Time Temp Pulse Resp B/P Pulse Ox O2 Delivery O2 Flow Rate FiO2 10/29/16 09:05 82 16 107/67 95 Room Air 10/29/16 09:00 98.5 84 16 129/82 98 Room Air 10/29/16 09:00 82 16 129/82 95 Room Air 10/29/16 08:05 84 18 113/68 100 Room Air 10/29/16 08:00 82 18 101/63 100 Room Air 10/29/16 08:00 84 18 113/68 98 Room Air 10/29/16 07:55 98.7 92 16 116/72 95 Room Air 10/29/16 07:15 16 100 Room Air 10/29/16 05:00 80 16 95/51 99 Room Air 10/29/16 03:20 98.7 82 16 122/63 99 Room Air 10/29/16 03:11 98.7 82 16 112/70 99 Room Air 10/29/16 02:35 98.4 81 16 108/72 98 Room Air 10/29/16 00:46 98.4 82 16 123/74 98 Room Air 10/29/16 00:45 83 16 123/74 99 Room Air 10/29/16 00:35 16 99 Room Air 10/29/16 00:30 98.2 81 16 105/71 99 Room Air 10/28/16 23:32 98 10/28/16 21:35 16 98 Room Air 10/28/16 21:31 98.4 91 14 124/65 98 I/O 10/28/16 10/28/16 10/28/16 10/29/16 10/29/16 10/29/16 07:00 15:00 23:00 07:00 15:00 23:00 Intake Total 250 ml 375 ml Balance 250 ml 375 ml Intake Packed Cells 250 ml 375 ml # Voids 1 # Bowel Movements 1 Result Diagram: 10/28/16219910/28/162199 Objective Remarks GENERAL: in NAD CARDIOVASCULAR: Regular rate and rhythm without murmurs, gallops, or rubs. RESPIRATORY: Breath sounds equal bilaterally. No accessory muscle use. GASTROINTESTINAL: Abdomen soft, non-tender, nondistended. Medications and IVs Current Medications IV Flush 2 ml 2 ml UNSCH PRN IVF FLUSH AFTER USING IV ACCESS; Start 10/28/16 at 22:30; Stop 10/28/16 at 23:28; Status DC Pantoprazole Sodium 80 mg/ Sodium Chloride 35 ml @ 420 mls/hr ONCE ONCE IV Last administered on 10/28/16 23:38; Start 10/28/16 at 22:30; Stop 10/28/16 at 22:34; Status DC Pantoprazole Sodium 80 mg/ Sodium Chloride 100 ml @ 10 mls/hr Q10H IV Last administered on 10/29/16 08:13; Start 10/28/16 at 22:30 Sodium Chloride 250 ml @ 15 mls/hr ONCE ONCE IV Last administered on 00:39; Start 10/28/16 at 22:30; Stop 10/29/16 at 15:09 Sodium Chloride (NS 1000 ml Inj) 1,000 ml @ 42 mls/hr [id number] IV Last administered on 10/29/16 00:26; Start 10/28/16 at 23:18 IV Flush (NS Flush) 2 ml UNSCH PRN FLUSH FLUSH AFTER USING IV ACCESS; Start at 23:30 IV Flush (NS Flush) 2 ml BID FLUSH ; Start 10/29/16 at 09:00 Acetaminophen (Tylenol) 650 mg Q4H PRN PO TEMP > 100.4; Start 10/28/16 at 23:30 Ondansetron HCl (Zofran Inj) 4 mg Q6H PRN IVP NAUSEA OR VOMITING; Start at 23:30 Magnesium Hydroxide (Milk Of Magnesia Liq) 30 ml Q12H PRN PO CONSTIPATION; Start 10/28/16 at 23:30 Naloxone HCl (Narcan Inj) 0.4 mg UNSCH PRN IV SEE LABEL COMMENTS; Start at 23:30 Al Hydrox/Mg Hydrox/Simethicone (Mag-Al Plus Susp Liq) 30 ml Q6H PRN PO INDIGESTION Last administered on 10/29/16 05:49; Start 10/29/16 at 05:45 Desmopressin Acetate (Ddavp Inj) 1 mcg ONCE ONCE IV PUSH ; Start 10/29/16 at 09 :45; Stop 10/29/16 at 10:58; Status DC A/P Problem List: (1) Symptomatic anemia ICD Code: D64.9 Status: Acute (2) Gastric adenocarcinoma ICD Code: C16.9 Status: Acute (3) GI bleeding ICD Code: K92.2 Status: Acute Assessment and Plan 56 y/o male with a history of hypertension and esophageal adenocarcinoma was sent here today for follow-up outpatient hemoglobin of 5.1 yesterday. Symptomatic anemia Labs hemoglobin 5.0 -Transfuse 4 units PRBCs, ordered an EGD -H&H posttransfusion -Monitor telemetry -due to gastric cancer. Gastric adenocarcinoma -Dr. Lopez consulted pending consult. GI bleed -s/p EGD with Dr. Andrade on (09/24/16) and that revealed circumferential mass in the distal esophagus, almost complete obstruction at the GE junction, Bx reveled poorly differentiated adenocarcinoma. -GI ff. -GI bleed due to gastric cancer. DVT prophylaxis: SCDs Discharge Planning Patient asking to go home after transfusion. If okay with GI and Oncologist can be d/c to home. Problem Qualifiers (1) GI bleeding: Qualified Code: K92.1 - Gastrointestinal hemorrhage with melena Maria M Heard MD Oct 29, 2016 11:56 (1) GI bleeding: Qualified Code: K92.1 - Gastrointestinal hemorrhage with melena Maria M Heard MD Oct 29, 2016 11:56
[2016-10-29 12:57] LABS: BASOPHIL % 0.2 % (0.0-2.0); EOSINOPHIL # 0.2 TH/MM3 (0-0.4); EOSINOPHIL % 1.6 % (0.0-4.0); HEMO FLAGS DIFF FINAL; LYMPH % 9.9 % (9.0-44.0); LYMPHOCYTE # 1.2 TH/MM3 (1.0-4.8); MEAN CELL VOLUME 86.8 FL (80.0-100.0); MEAN CORPUSCULAR HEMOGLOBIN 28.9 PG (27.0-34.0); MEAN CORPUSCULAR HGB CONC 33.3 % (32.0-36.0); MONO % 8.5 % (0.0-8.0); NEUT % 79.8 % (16.0-70.0); PLATELET COUNT 408 TH/MM3 (150-450); RED BLOOD COUNT 2.88 MIL/MM3 (4.50-5.90); RED CELL DISTRIBUTION WIDTH 17.2 % (11.6-17.2); WHITE BLOOD COUNT 12.5 TH/MM3 (4.0-11.0)
[2016-10-29 13:12] LABS: BICARBONATE 25.6 MEQ/L (21.0-32.0); POTASSIUM 4.5 MEQ/L (3.5-5.1)
== END 2016-10-29 15:01 | disposition left against medical advice (07) | DRG 378 ==
LOC: NEPA 21:05 → NEDA 23:11 → MERGE 23:11 → NEDH 10-29 03:35
PROVIDERS: ADMIT Family Medicine; ATTEND Family Medicine
PROC: 30233N1 Transfusion of Nonautologous Red Blood Cells into Peripheral Vein, Percutaneous Approach (ICD-10-PCS; principal; 2016-10-28)
DX: K92.1 Melena (principal); C16.0 Malignant neoplasm of cardia; D64.9 Anemia, unspecified; I10 Essential (primary) hypertension; K22.2 Esophageal obstruction; F17.210 Nicotine dependence, cigarettes, uncomplicated; K21.9 Gastro-esophageal reflux disease without esophagitis
CPT/HCPCS: 36430; 80048; 85025; 85610; 85730; 86850; 86900; 86901; 86920; 96374; C9113; J7030; J7050; P9016

== ENCOUNTER 2016-11-05 15:36 | Inpatient (IN) | payer MEDICAID ==
[2016-11-05] VITALS (11 sets, daily range): BP systolic 114–143; BP diastolic 54–93; PULSE 81–101; RESP 16–22; TEMP 98–99.4; O2SAT 98–100
[~2016-11-05] VITALS: Ht 177.8 cm; Wt 87.3 kg
[~2016-11-05 15:36] MED LIST changes: +HYDR-3533 PO; -[UNRECOGNIZED DRUG - CODE]
--- NOTE | 2016-11-05 15:56 | PD ---
HPI Chief Complaint: General Weakness Time Seen by Provider: 15:56 Travel History International Travel<30 days: No Contact w/Intl Traveler<30days: No Traveled to known affect area: No PFSH Past Medical History Hx Anticoagulant Therapy: No Anemia: Yes Arthritis: Yes (HIP ISSUES) Autoimmune Disease: No Heart Rhythm Problems: No Cancer: Yes (GASTRIC) Cardiovascular Problems: Yes (HTN) High Cholesterol: No Chemotherapy: No Chest Pain: No Congestive Heart Failure: No Diabetes: No Diminished Hearing: No Endocrine: No Gastrointestinal Disorders: Yes GERD: Yes Genitourinary: No Hiatal Hernia: No Hypertension: Yes Immune Disorder: No Musculoskeletal: No Neurologic: No Psychiatric: No Reproductive: No Respiratory: No Radiation Therapy: No Social History Alcohol Use: No Tobacco Use: Yes (1/2 PPD) Substance Use: No Allergies-Medications (Allergen,Severity, Reaction): Coded Allergies: No Known Allergies (Verified , 11/05/16) Reported Meds & Prescriptions Reported Meds & Active Scripts Active Protonix (Pantoprazole Sodium) 40 Mg Tab 40 Mg PO DAILY Lactulose Liq (Lactulose) 10 Gm/15 Ml Soln 30 Ml PO DAILY PRN 30 Days Dok (Docusate Sodium) 100 Mg Cap 100 Mg PO BID 30 Days Reported Lortab (Hydrocodone-Acetaminophen) 5-325 Mg Tab 1 Tab PO Q6H PRN Naproxen 500 Mg Tab 500 Mg PO BID Sennosides 8.6 Mg Tab 8.6 Mg PO HS Data Data Last Documented VS Vital Signs Date Time Temp Pulse Resp B/P Pulse Ox O2 Delivery O2 Flow Rate FiO2 11/05/16 15:39 98.8 97 16 114/89 100 Orders Complete Blood Count With Diff (11/05/16 16:00) Comprehensive Metabolic Panel (11/05/16 16:00) Prothrombin Time / Inr (Pt) (11/05/16 16:00) Act Partial Throm Time (Ptt) (11/05/16 16:00) Type And Screen (11/05/16 16:00) Iv Access Insert/Monitor (11/05/16 16:00) Sodium Chloride 0.9% Flush (Ns Flush) (11/05/16 16:00) Electrocardiogram (11/05/16 ) Troponin I (11/05/16 16:08) Chest, Pa & Lat (11/05/16 ) [address] 22, 2017 15:56
[2016-11-05] MEDS ORDERED: SODIUM CHLORIDE 0.9% FLUSH 10 ML FLUSH IVF PRN (16:00)
--- NOTE | 2016-11-05 16:14 | PD ---
HPI Chief Complaint: General Weakness Time Seen by Provider: 16:00 Travel History International Travel<30 days: No Contact w/Intl Traveler<30days: No Traveled to known affect area: No History of Present Illness HPI 56yo M with PMH of gastroesophageal adenocarcinoma presents to the ED with c/o generalized weakness, sob and NBNB vomiting for 1.5 days. Pt has continual dark stool since September when he was diagnosed. Pt has an appointment with his oncologist Dr. Harkins tomorrow. Pt was just admitted here for GI bleed on 10/28/16 and transfused 4 units of PRBC. Pt has chronic epigastric pain. Denies any fever, cough, chest pain, urinary complaints. PFSH Past Medical History Hx Anticoagulant Therapy: No Anemia: Yes Arthritis: Yes (HIP ISSUES) Autoimmune Disease: No Heart Rhythm Problems: No Cancer: Yes (GASTRIC) Cardiovascular Problems: Yes (HTN) High Cholesterol: No Chemotherapy: No Chest Pain: No Congestive Heart Failure: No Diabetes: No Diminished Hearing: No Endocrine: No Gastrointestinal Disorders: Yes GERD: Yes Genitourinary: No Hiatal Hernia: No Hypertension: Yes Immune Disorder: No Musculoskeletal: No Neurologic: No Psychiatric: No Reproductive: No Respiratory: No Radiation Therapy: No Social History Alcohol Use: No Tobacco Use: Yes (/2 PPD) Substance Use: No Allergies-Medications (Allergen,Severity, Reaction): Coded Allergies: No Known Allergies (Verified , 11/05/16) Reported Meds & Prescriptions Reported Meds & Active Scripts Active Protonix (Pantoprazole Sodium) 40 Mg Tab 40 Mg PO DAILY Lactulose Liq (Lactulose) 10 Gm/15 Ml Soln 30 Ml PO DAILY PRN 30 Days Dok (Docusate Sodium) 100 Mg Cap 100 Mg PO BID 30 Days Reported Lortab (Hydrocodone-Acetaminophen) 5-325 Mg Tab 1 Tab PO Q6H PRN Naproxen 500 Mg Tab 500 Mg PO BID Sennosides 8.6 Mg Tab 8.6 Mg PO HS Review of Systems Except as stated in HPI: all other systems reviewed are Neg Physical Exam Narrative GENERAL: 56yo M in mild distress. SKIN: Warm and dry. HEAD: Atraumatic. Normocephalic. EYES: Pupils equal and round. No scleral icterus. No injection or drainage. ENT: No nasal bleeding or discharge. Mucous membranes pink and moist. NECK: Trachea midline. No JVD. CARDIOVASCULAR: Regular rate and rhythm. No murmur appreciated. RESPIRATORY: No accessory muscle use. Clear to auscultation. Breath sounds equal bilaterally. GASTROINTESTINAL: Abdomen soft, +Epigastric ttp. No rebound tenderness or guarding. RECTAL: +Black stool. +Hemaprompt. MUSCULOSKELETAL: No obvious deformities. No clubbing. No cyanosis. No edema. NEUROLOGICAL: Awake and alert. No obvious cranial nerve deficits. Motor grossly within normal limits. Normal speech. PSYCHIATRIC: Appropriate mood and affect; insight and judgment normal. Data Data Last Documented VS Vital Signs Date Time Temp Pulse Resp B/P Pulse Ox O2 Delivery O2 Flow Rate FiO2 11/05/16 16:17 93 11/05/16 15:39 98.8 16 114/89 100 Orders Complete Blood Count With Diff (11/05/16 16:00) Comprehensive Metabolic Panel (11/05/16 16:00) Prothrombin Time / Inr (Pt) (11/05/16 16:00) Act Partial Throm Time (Ptt) (11/05/16 16:00) Type And Screen (11/05/16 16:00) Iv Access Insert/Monitor (11/05/16 16:00) Sodium Chloride 0.9% Flush (Ns Flush) (11/05/16 16:00) Electrocardiogram (11/05/16 ) Troponin I (11/05/16 16:08) Chest, Pa & Lat (11/05/16 ) Lipase (11/05/16 16:17) Pantoprazole Inj (Protonix Inj) (11/05/16 16:30) Pantoprazole Inj (Protonix Inj) (11/05/16 16:30) Ondansetron Inj (Zofran Inj) (11/05/16 16:45) Consult Medical Oncology (11/05/16 ) Red Blood Cells (Rbc) (11/05/16 17:13) Blood Product Administration .UPON TRANSFUSION (11/05/16 17:13) Sodium Chlor 0.9% 250 Ml Inj (Ns 250 Ml (11/05/16 17:15) Consult Gastroenterology (11/05/16 ) Admit Order (Ed Use Only) (11/05/16 17:15) Labs Laboratory Tests Test 11/05/16 11/05/16 16:05 16:35 Sodium Level 145 MEQ/L Potassium Level 3.8 MEQ/L Chloride Level 106 MEQ/L Carbon Dioxide Level 30.2 MEQ/L Anion Gap 9 MEQ/L Blood Urea Nitrogen 14 MG/DL Creatinine 0.83 MG/DL Estimat Glomerular Filtration 116 ML/MIN Rate Random Glucose 104 MG/DL Calcium Level 8.2 MG/DL Total Bilirubin 0.2 MG/DL Aspartate Amino Transf 16 U/L (AST/SGOT) Alanine Aminotransferase 20 U/L (ALT/SGPT) Alkaline Phosphatase 20 U/L Troponin I LESS THAN 0.02 NG/ML Total Protein 6.0 GM/DL Albumin 2.4 GM/DL Lipase 127 U/L Blood Type A POSITIVE Antibody Screen NEGATIVE White Blood Count 10.0 TH/MM3 Red Blood Count 2.34 MIL/MM3 Hemoglobin 6.7 GM/DL Hematocrit 20.2 % Mean Corpuscular Volume 86.4 FL Mean Corpuscular Hemoglobin 28.4 PG Mean Corpuscular Hemoglobin 32.8 % Concent Red Cell Distribution Width 15.9 % Platelet Count 567 TH/MM3 Mean Platelet Volume 6.2 FL Neutrophils (%) (Auto) 84.3 % Lymphocytes (%) (Auto) 7.2 % Monocytes (%) (Auto) 7.0 % Eosinophils (%) (Auto) 1.3 % Basophils (%) (Auto) 0.2 % Neutrophils # (Auto) 8.5 TH/MM3 Lymphocytes # (Auto) 0.7 TH/MM3 Monocytes # (Auto) 0.7 TH/MM3 Eosinophils # (Auto) 0.1 TH/MM3 Basophils # (Auto) 0.0 TH/MM3 CBC Comment DIFF FINAL Differential Comment Prothrombin Time 12.3 SEC Prothromb Time International 1.1 RATIO Ratio Activated Partial 26.7 SEC Thromboplast Time MDM Medical Decision Making Medical Screen Exam Complete: Yes Emergency Medical Condition: Yes Interpretation(s) EKG: NSR 87bpm. Normal axis. No ST segment elevation or depression. Vital Signs Date Time Temp Pulse Resp B/P Pulse Ox O2 Delivery O2 Flow Rate FiO2 11/05/16 16:17 93 11/05/16 15:39 98.8 97 16 114/89 100 Laboratory Tests Test 11/05/16 11/05/16 16:05 16:35 Sodium Level 145 MEQ/L (136-145) Potassium Level 3.8 MEQ/L (3.5-5.1) Chloride Level 106 MEQ/L (98-107) Carbon Dioxide Level 30.2 MEQ/L (21.0-32.0) Anion Gap 9 MEQ/L (5-15) Blood Urea Nitrogen 14 MG/DL (7-18) Creatinine 0.83 MG/DL (0.60-1.30) Estimat Glomerular Filtration 116 ML/MIN Rate (>89) Random Glucose 104 MG/DL (74-106) Calcium Level 8.2 MG/DL (8.5-10.1) Total Bilirubin 0.2 MG/DL (0.2-1.0) Aspartate Amino Transf 16 U/L (15-37) (AST/SGOT) Alanine Aminotransferase 20 U/L (12-78) (ALT/SGPT) Alkaline Phosphatase 20 U/L (45-117) Troponin I LESS THAN 0.02 NG/ML (0.02-0.05) Total Protein 6.0 GM/DL (6.4-8.2) Albumin 2.4 GM/DL (3.4-5.0) Lipase 127 U/L (73-393) Blood Type A POSITIVE Antibody Screen NEGATIVE White Blood Count 10.0 TH/MM3 (4.0-11.0) Red Blood Count 2.34 MIL/MM3 (4.50-5.90) Hemoglobin 6.7 GM/DL (13.0-17.0) Hematocrit 20.2 % (39.0-51.0) Mean Corpuscular Volume 86.4 FL (80.0-100.0) Mean Corpuscular Hemoglobin 28.4 PG (27.0-34.0) Mean Corpuscular Hemoglobin 32.8 % Concent (32.0-36.0) Red Cell Distribution Width 15.9 % (11.6-17.2) Platelet Count 567 TH/MM3 (150-450) Mean Platelet Volume 6.2 FL (7.0-11.0) Neutrophils (%) (Auto) 84.3 % (16.0-70.0) Lymphocytes (%) (Auto) 7.2 % (9.0-44.0) Monocytes (%) (Auto) 7.0 % (0.0-8.0) Eosinophils (%) (Auto) 1.3 % (0.0-4.0) Basophils (%) (Auto) 0.2 % (0.0-2.0) Neutrophils # (Auto) 8.5 TH/MM3 (1.8-7.7) Lymphocytes # (Auto) 0.7 TH/MM3 (1.0-4.8) Monocytes # (Auto) 0.7 TH/MM3 (0-0.9) Eosinophils # (Auto) 0.1 TH/MM3 (0-0.4) Basophils # (Auto) 0.0 TH/MM3 (0-0.2) CBC Comment DIFF FINAL Differential Comment Prothrombin Time 12.3 SEC (9.8-11.6) Prothromb Time International 1.1 RATIO Ratio Activated Partial 26.7 SEC Thromboplast Time (24.3-30.1) Last Impressions Chest X-Ray 11/05/16 0000 Signed Impressions: Service Date/Time: Thursday, November 05, 2016 16:16 - CONCLUSION: 1. Probable small right-sided effusion. 2. Lungs are otherwise clear. Ivan Kapadia MD Differential Diagnosis Symptomatic anemia vs. upper GI bleed vs. pleural effusion vs. ACS Narrative Course 56yo M with GI bleed here with symptomatic anemia. Hemaprompt positive. Pt started on protonix bolus and drip. Zofran given for nausea. Pt has esophageal adenocarcinoma and has GI bleed from gastric ulcer since September. H /H is 6.7/20.2. No leukocytosis. Troponin negative. Lipase 127. CXR showed probably small right sided effusion. Discussed with Dr. Pereyra who knows the patient well and states agree with transfusion of 2 PRBCs and her partner Dr. Armendariz will see him tomorrow. Discussed case with GI Dr. Oneill. VS stable. Discussed with Dr. Perdue who accepted the patient to his service. Critical Care Narrative Aggregate critical care time was 40 minutes. Time to perform other separately billable procedures was not included in the critical care time. My time did not include minutes spent treating any other patients simultaneously or on activities that did not directly contribute to the patient's treatment. The services I provided to this patient were to treat and/or prevent clinically significant deterioration that could result in: cardiovascular collapse or . I provided critical care services requiring my management, as noted below: Chart data review, documentation time, medication orders and management, vital sign assessments/reviewing monitor data, ordering and reviewing lab tests, ordering and interpreting/reviewing x-rays and diagnostic studies, care of the patient and discussion of the patient with the admitting physicians. Hema[employer]pt Point of Care Internal Pos. & Neg. Controls: Passed Fecal Specimen Occult Blood: Positive Diagnosis Primary Impression: Symptomatic anemia Additional Impression: GI bleed Qualified Code: K92.1 - Gastrointestinal hemorrhage with melena Admitting Information Admitting Physician Requests: Admit Debbie Holman DO Nov 05, 2016 16:14
[2016-11-05 16:30] LABS: CHLORIDE 106 MEQ/L (98-107); POTASSIUM 3.8 MEQ/L (3.5-5.1); SODIUM (NA) 145 MEQ/L (136-145)
[2016-11-05] MEDS ORDERED: PANTOPRAZOLE INJ 80 MG in SODIUM CHLORIDE 0.9% INJ 35 ML IV ONE (16:30)
[2016-11-05 16:34] LABS: ANION GAP 9 MEQ/L (5-15); BICARBONATE 30.2 MEQ/L (21.0-32.0)
[2016-11-05 16:35] LABS: BLOOD UREA NITROGEN 14 MG/DL (7-18)
[2016-11-05 16:37] LABS: ALT (GPT) 20 U/L (12-78); AST (GOT) 16 U/L (15-37)
[2016-11-05 16:38] LABS: GLOMERULAR FILTRATION RATE 116 ML/MIN (>89)
[2016-11-05 16:39] LABS: TOTAL BILIRUBIN ADULT 0.2 MG/DL (0.2-1.0)
[2016-11-05 16:40] LABS: ALKALINE PHOSPHATASE 20 U/L (45-117)
[2016-11-05] MEDS: PANTOPRAZOLE INJ 80 MG in SODIUM CHLORIDE 0.9% INJ 100 ML IV SCH (16:41)
[2016-11-05 16:44] LABS: AUTOMATED NEUTROPHIL # 8.5 TH/MM3 (1.8-7.7); BASOPHIL % 0.2 % (0.0-2.0); EOSINOPHIL # 0.1 TH/MM3 (0-0.4); EOSINOPHIL % 1.3 % (0.0-4.0); LYMPH % 7.2 % (9.0-44.0); LYMPHOCYTE # 0.7 TH/MM3 (1.0-4.8); MEAN CELL VOLUME 86.4 FL (80.0-100.0); MEAN CORPUSCULAR HEMOGLOBIN 28.4 PG (27.0-34.0); MEAN CORPUSCULAR HGB CONC 32.8 % (32.0-36.0); NEUT % 84.3 % (16.0-70.0); PLATELET COUNT 567 TH/MM3 (150-450); RED BLOOD COUNT 2.34 MIL/MM3 (4.50-5.90); RED CELL DISTRIBUTION WIDTH 15.9 % (11.6-17.2)
[2016-11-05] MEDS ORDERED: ONDANSETRON HCL 4 MG/2 ML VIAL IV PUSH ONE (16:45)
--- NOTE | 2016-11-05 16:46 | RADHPO ---
EXAM DATE/TIME: 11/05/2016 16:16 [facility] COMPARISON: No previous studies available for comparison. INDICATIONS : Shortness of breath, weakness, dizziness for 24 hours MEDICAL HISTORY : None. SURGICAL HISTORY : None. ENCOUNTER: Initial ACUITY: 1 day PAIN SCORE: 0/10 LOCATION: Bilateral chest FINDINGS: PA and lateral views of the chest demonstrate a lungs to be clear. Blunting of the right costophrenic angle suggests a small right-sided effusion. Heart size is normal. Degenerative spurring of the dors al spine. Osseous structures are otherwise intact. CONCLUSION: 1. Probable small right-sided effusion. 2. Lungs are otherwise clear. Ivan Kapadia MD on November 05, 2016 at 16:43 Board Certified Radiologist. This report was verified electronically.
[2016-11-05 16:50] LABS: HEMO FLAGS DIFF FINAL
[2016-11-05 16:52] LABS: HEMATOCRIT 20.2 % (39.0-51.0)
[2016-11-05 17:04] LABS: APTT (PATIENT) 26.7 SEC (24.3-30.1); INTERNATIONAL NORMALIZED RATIO 1.1 RATIO; PROTHROMBIN TIME - PATIENT 12.3 SEC (9.8-11.6)
[2016-11-05] MEDS ORDERED: SODIUM CHLOR 0.9% 250 ML INJ 250 ML IV ONE (17:15)
--- NOTE | 2016-11-05 18:37 | HHI.HP ---
[facility] Service [facility] Primary Care Physician GINGER Veloz Admission Diagnosis Symptomatic anemia secondary to GI bleed Diagnoses: Chief Complaint: Weakness fatigue epigastric pain dark stool Travel History International Travel<30 Days: No Contact w/Intl Traveler <30 Da: No Traveled to Known Affected Are: No History of Present Illness 56 years old male with history of gastroesophageal adenocarcinoma he follow up with Dr. Dr. Talavera presented to the ED complaining of generalized weakness short of breath some nausea and vomiting for the last 2 days, and dark stool with blood since about a week ago. In ED he was found to have positive occult blood. CBC showed he has hemoglobin of 6.5. Patient was admitted in October 28 for GI bleed transfuse 4 units of red blood cells. He does have chronic epigastric pain due to his carcinoma no fever or chills no cough no chest pain no diarrhea or constipation no dysuria urgency or frequency Review of Systems All 10 systems reviewed and was positive for what is mentioned in history of present illness otherwise negative Past Family Social History Past Medical History Hx Anticoagulant Therapy: No Anemia: Yes Arthritis: Yes (HIP ISSUES) Autoimmune Disease: No Heart Rhythm Problems: No Cancer: Yes (GASTRIC) Cardiovascular Problems: Yes (HTN) High Cholesterol: No Chemotherapy: No Chest Pain: No Congestive Heart Failure: No Diabetes: No Diminished Hearing: No Endocrine: No Gastrointestinal Disorders: Yes GERD: Yes Genitourinary: No Hiatal Hernia: No Hypertension: Yes Immune Disorder: No Musculoskeletal: No Neurologic: No Psychiatric: No Reproductive: No Respiratory: No Radiation Therapy: No Allergies: Coded Allergies: No Known Allergies (Verified , 11/05/16) Family History Due to the patient he is not aware of any significant history of cancer or heart disease in his family Social History He stated he smokes 7 cigarettes now before he used to smoke half pack per day he is not being honest about how much really be smoke, in either alcohol or illicit drug abuse Physical Exam Vital Signs Vital Signs Date Time Temp Pulse Resp B/P Pulse Ox O2 Delivery O2 Flow Rate FiO2 11/05/16 17:50 90 16 120/79 100 Room Air 11/05/16 16:17 93 11/05/16 15:39 98.8 97 16 114/89 100 Physical Exam GENERAL: This is a well-nourished, well-developed patient, in no apparent distress. SKIN: No rashes, warm and dry HEAD: Atraumatic. Normocephalic. EYES: Pupils equal round and reactive. Extraocular motions intact. No scleral icterus. ENT: Nose without bleeding, or drainage, Airway patent. NECK: Trachea midline. Supple CARDIOVASCULAR: Regular rate and rhythm without murmurs, gallops, or rubs. RESPIRATORY: Fair air entry bilaterally. No wheezes, rales, or rhonchi. GASTROINTESTINAL: Abdomen soft, tenderness in epigastric area, nondistended. Positive bowel sounds MUSCULOSKELETAL: Extremities without clubbing, cyanosis, or edema. Pedal pulses appreciated NEUROLOGICAL: Awake and alert. Moves all extremity. Normal speech.no focal neurological deficit Laboratory Laboratory Tests Test 11/05/16 11/05/16 11/05/16 16:05 16:35 17:57 Sodium Level 145 Potassium Level 3.8 Chloride Level 106 Carbon Dioxide Level 30.2 Anion Gap 9 Blood Urea Nitrogen 14 Creatinine 0.83 Estimat Glomerular Filtration 116 Rate Random Glucose 104 Calcium Level 8.2 Total Bilirubin 0.2 Aspartate Amino Transf 16 (AST/SGOT) Alanine Aminotransferase 20 (ALT/SGPT) Alkaline Phosphatase 20 Troponin I LESS THAN 0.02 Total Protein 6.0 Albumin 2.4 Lipase 127 Blood Type A POSITIVE Antibody Screen NEGATIVE White Blood Count 10.0 Red Blood Count 2.34 Hemoglobin 6.7 Hematocrit 20.2 Mean Corpuscular Volume 86.4 Mean Corpuscular Hemoglobin 28.4 Mean Corpuscular Hemoglobin 32.8 Concent Red Cell Distribution Width 15.9 Platelet Count 567 Mean Platelet Volume 6.2 Neutrophils (%) (Auto) 84.3 Lymphocytes (%) (Auto) 7.2 Monocytes (%) (Auto) 7.0 Eosinophils (%) (Auto) 1.3 Basophils (%) (Auto) 0.2 Neutrophils # (Auto) 8.5 Lymphocytes # (Auto) 0.7 Monocytes # (Auto) 0.7 Eosinophils # (Auto) 0.1 Basophils # (Auto) 0.0 CBC Comment DIFF FINAL Differential Comment Prothrombin Time 12.3 Prothromb Time International 1.1 Ratio Activated Partial 26.7 Thromboplast Time Crossmatch Leukocyte-Reduced Red Blood Cells Blood Bank Comment Result Diagram: 11/05/16 1635 11/05/16 1605 Imaging Last Impressions Chest X-Ray 11/05/16 0000 Signed Impressions: Service Date/Time: Thursday, November 05, 2016 16:16 - CONCLUSION: 1. Probable small right-sided effusion. 2. Lungs are otherwise clear. Ivan Kapadia MD Assessment and Plan Assessment and Plan 66 years old male came with weakness fatigue and dark stool he was found to have Acute anemia due to GI bleed GI bleed mostly related to esophageal carcinoma History of adenocarcinoma in the esophagus followed by Dr. Talavera Thrombocytopenia most likely reactive to anemia DVT prophylaxis with SCD no chemical due to acute anemia Plan: Admit to inpatient with telemetry Type and Crossmatched 2 units of red blood cells and transfused Consul GI Consult oncology Monitor CBC BMP SCD for DVT prophylaxis only Discussed Condition With Patient and ED physician Physician Certification 2 Midnight Certification Type: Admission for Inpatient Services Order for Inpatient Services The services are ordered in accordance with Medicare regulations or non- Medicare payer requirements, as applicable. In the case of services not specified as inpatient-only, they are appropriately provided as inpatient services in accordance with the 2-midnight benchmark. Estimated LOS (days): 2 days is the estimated time the patient will need to remain in the hospital, assuming treatment plan goals are met and no additional complications. Post-Hospital Plan: Not yet determined Dougie Perdue MD Nov 05, 2016 18:37
[2016-11-05] MEDS: ONDANSETRON HCL 4 MG/2 ML VIAL IV PRN (23:12)
[2016-11-05] MEDS: MORPHINE SULFATE 4 MG/ML INJ IV PUSH PRN (23:13)
[2016-11-06] VITALS (30 sets, daily range): BP systolic 110–144; BP diastolic 73–91; PULSE 78–88; RESP 15–26; TEMP 98.4–99.6; O2SAT 98–99
[2016-11-06] MEDS: PANTOPRAZOLE INJ 80 MG in SODIUM CHLORIDE 0.9% INJ 100 ML IV SCH ×3 (02:16→22:26)
[2016-11-06] MEDS: MORPHINE SULFATE 4 MG/ML INJ IV PUSH PRN ×4 (02:19→21:27)
[2016-11-06 03:33] LABS: HEMATOCRIT 24.4 % (39.0-51.0); REVIEW FLAG FINAL
--- NOTE | 2016-11-06 09:00 | GIPROC ---
[facility] [address] [place] [address], [id number] EGD PROCEDURE REPORT EXAM DATE: 11/06/2016 PATIENT NAME: Tammy Auguste MR #: [id number] BIRTHDATE: 1960 ATTENDING: Екатерина Senior MD ORDER #: [id number] SENIOR TRAINING SPECIALIST: Bernice Calvo and Geraldo Brito STATUS: inpatient INDICATIONS: The patient is a 56 yr old male here for an EGD due to bleed and anemia PROCEDURE PERFORMED: EGD, diagnostic MEDICATIONS: None and Per Anesthesia. TOPICAL ANESTHETIC: CONSENT: The patient understands the risks and benefits of the procedure and understands that these risks include, but are not limited to: sedation, allergic reaction, infection, perforation and/or bleeding. Alternative means of evaluation and treatment include, among others: physical exam, x-rays, and/or surgical intervention. The patient elects to proceed with this endoscopic procedure. medical equipment was checked for proper function. Hand hygiene and appropriate measures for infection prevention was taken. After the risks, benefits and alternatives of the procedure were thoroughly explained, Informed consent was verified, confirmed and timeout was successfully executed by the treatment team. The patient was anesthetized with topical anesthesia and the Pentax EG-[id number] endoscope was introduced through the mouth and advanced to the second portion of the duodenum. Retroflexed views revealed large ulcerated mass in the EG junction and fundus The gastroscope was then slowly withdrawn and removed. Large mass in the distal third of esophagus and inthe EG junction and large mass in the stomach on retroflextion the mass is friable and ozz blood easily when the scope touch it, i can not cautrize it because there is no spesific area that is actively bleeding. ADVERSE EVENTS: There were no complications. IMPRESSIONS: 1. Large mass in the distal third of esophagus and inthe EG junction and large mass in the stomach on retroflextion the mass is friable and ozz blood easily when the scope touch it, i can not cautrize it because there is no spesific area that is actively bleeding 2. Retroflexed views revealed large ulcerated mass in the EG junction and fundus RECOMMENDATIONS: I talked to Dr. Armando and informed her about the finding, she feels patient needs either radiation or paliative surgery, she will talk to oncology surgery or radiation oncologist to discuss options there is limited endoscopic options here pack RBC as needed PATIENT CONDITION: fair DISPOSITION: Inpatient REPEAT EXAM: NONE Екатерина Senior MD eSigned: Екатерина Senior MD 11/06/2016 8:59 AM cc: PATIENT NAME: Tammy Auguste MR#: [id number]
--- NOTE | 2016-11-06 09:02 | HHI.PR ---
Subjective Remarks Follow-up for GI bleed, bloody stools. Patient evaluated prior to going down for panendoscopy. Patient states his last bowel movement was yesterday. He denies any lightheadedness, cough, chest pain, shortness of breath. He does admit to some mild abdominal pain from heaving, admitting to nausea and vomiting. Denies any hematemesis. Patient states his right foot has been swollen for the past 2 days although it does not appear to be on exam. Objective Vitals Vital Signs Date Time Temp Pulse Resp B/P Pulse Ox O2 Delivery O2 Flow Rate FiO2 11/06/16 06:58 98.8 84 18 127/73 99 11/06/16 06:00 88 11/06/16 05:00 83 11/06/16 04:00 85 11/06/16 03:00 99.0 84 16 133/78 99 11/06/16 02:24 16 11/06/16 02:00 85 11/06/16 01:00 85 11/06/16 00:15 99.0 86 16 133/84 99 11/06/16 00:00 86 11/05/16 23:55 98.8 84 16 135/84 99 11/05/16 23:00 101 22 98 11/05/16 23:00 101 11/05/16 22:00 99 11/05/16 21:15 99.4 81 20 142/89 99 11/05/16 21:00 81 11/05/16 20:45 99.4 88 22 116/54 99 11/05/16 20:00 88 11/05/16 20:00 99.4 88 22 143/93 99 11/05/16 19:00 88 11/05/16 18:47 98.0 90 20 129/92 100 11/05/16 17:50 90 16 120/79 100 Room Air 11/05/16 16:17 93 11/05/16 15:39 98.8 97 16 114/89 100 I/O 11/05/16 11/05/16 11/05/16 11/06/16 11/06/16 11/06/16 07:00 15:00 23:00 07:00 15:00 23:00 Intake Total 576 ml Balance 576 ml Intake Oral 0 ml IV Total 76 ml Packed Cells 500 ml # Voids 1 Result Diagram: 11/06/16 0315 11/05/16 1605 Imaging Last Impressions Chest X-Ray 11/05/16 0000 Signed Impressions: Service Date/Time: Saturday, November 05, 2016 16:16 - CONCLUSION: 1. Probable small right-sided effusion. 2. Lungs are otherwise clear. Ivan Kapadia MD Objective Remarks GENERAL: Well-nourished well developed patient in apparent distress SKIN: Warm and dry. HEAD: Atraumatic. Normocephalic. CARDIOVASCULAR: Regular rate and rhythm. RESPIRATORY: No accessory muscle use. Clear to auscultation. Breath sounds equal bilaterally. GASTROINTESTINAL: NABS. Abdomen soft, non-tender, nondistended. MUSCULOSKELETAL: Left foot appears very slightly swollen compared to right. NEUROLOGICAL: Awake and alert. Motor grossly within normal limits. Normal speech. PSYCHIATRIC: Appropriate mood and affect; insight and judgment normal. Urinary Catheter: No Vascular Central Line Catheter: No A/P Assessment and Plan 66 years old male with: Acute anemia due to GI bleed: Hb 6.7-->7.9 s/p 2 units pRBCs. 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 Hemodynamically stable. -GI consultation appreciated. Patient to undergo panendoscopy today to evaluate for acute bleeding which can be cauterized. GI defers to Dr. Talavera regarding resection of tumor. -Oncology Dr. Talavera consulted; no note posted. -Monitor CBC Thrombocytopenia: most likely reactive to anemia DVT prophylaxis: SCDs. Chemical prophylaxis contraindicated. Written by Tracy Hwakins PA-C acting as scribe for Dr. Carpenter on 11/06/16 at 0834. All or portions of this note were transcribed by scribe Tracy Hawkins PA-C. I , Dr. Gabino Carpenter personally performed the history, physical exam, and medical decision making; and confirmed the accuracy of the information in the transcribed note. Authenticated by Dr. Gabino Carpenter on 11/06/16 at 13:19. Tracy Hawkins Nov 06, 2016 09:02 Gabino Carpenter MD Nov 06, 2016 13:20
--- NOTE | 2016-11-06 09:04 | MB ---
cc: HUANG ALFARO M.D. DATE OF CONSULTATION 11/06/[address] Perdue DATE OF 1960 REASON FOR REFERRAL Severe anemia, GI bleed. Thank you for the consultation. HISTORY OF PRESENT ILLNESS A 56-year-old gentleman who was diagnosed recently with esophageal cancer. The patient had upper endoscopy by Dr. Andrade which showed a large circumferential mass in the distal esophagus. The patient continued to bleed from that area. He had multiple blood transfusions since he was diagnosed. He came to the emergency room because of shortness of breath and weakness. He is followed by Dr. Talavera from oncology. He was supposed to have a PET scan and cardiac workup in anticipation of possible esophagectomy. The patient was found to have heme-positive stool, a hemoglobin of 6.5 even though he had 4 units transfused about one week ago. The patient denies any other problem. He feels generally weak. He denied any blood in the stool and no diarrhea or constipation. REVIEW OF SYSTEMS All 12-points negative except HPI. FAMILY HISTORY Negative. SOCIAL HISTORY He still smokes about seven cigarettes a day and he quit drinking recently. ALLERGIES No known drug allergies. PAST MEDICAL HISTORY Significant for - 1. Anemia. 2. 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 3. Hypertension. PHYSICAL EXAMINATION GENERAL: Alert, oriented, in no acute distress. VITAL SIGNS: Stable at this time. HEENT: Pupils round, reactive to light. NECK: Supple. CHEST: Clear to auscultation and precaution. CARDIAC: Regular rate and rhythm. ABDOMEN: Soft. Mild tenderness in the epigastric area. Positive bowel sounds. No hepatosplenomegaly. EXTREMITIES: No edema, clubbing or cyanosis. NEUROLOGICALLY: Intact. PSYCHOLOGICALLY: Appropriate. LABORATORY DATA White count 10.0, hemoglobin today is 7.9 - up from 6.7, platelets 567. INR 1.1. Liver function tests are normal. CHEST X-RAY Small right-sided effusion. ASSESSMENT AND PLAN A 56-year-old male with anemia, GI bleed. The patient has history of esophageal cancer at the GE junction. I am going to do an endoscopy to see if there is active bleeding that we can cauterize. If not, most likely it is oozing chronically and he will need to continue packed RBCs as needed. Further plan per Dr. Deveras to see when he can have possible resection of the tumor and we will follow up with you. The patient understands the procedure and complications and we will follow up with you. MD KHLOE Chiu/SSB /8:45 AM /8:56 AM
[2016-11-06] MEDS: ONDANSETRON HCL 4 MG/2 ML VIAL IV PRN (10:04)
--- NOTE | 2016-11-06 14:43 | EKG ---
Date Performed: 11/05/2016 Time Performed: 17:04:20 PTAGE: 56 years EKG: Sinus rhythm rSr'(V1) - probable normal variant Normal ECG Compared to prior tracing no significant change PREVIOUS TRACING : 09/23/2016 14.05 DOCTOR: Ricardo Felix Interpretating Date/Time 11/06/2016 14:39:46
[2016-11-06] MEDS ORDERED: PROPOFOL 200 MG/20 ML AMP IV ONE (14:51)
[2016-11-06 16:37] LABS: HEMATOCRIT 29.4 % (39.0-51.0); REVIEW FLAG FINAL
--- NOTE | 2016-11-06 21:22 | MB ---
cc: KAVEH ESTRADA MD DATE OF CONSULTATION 11/03/[address] Carpenter REASON FOR CONSULTATION Oncology is consulted to render opinion regarding patient with gastric cancer admitted with GI bleeding. HISTORY OF PRESENT ILLNESS The patient is a very pleasant 56-year-old male diagnosed with distal esophageal/GE junction cancer in September. He has been admitted almost every week or two with symptomatic anemia due to bleeding from the GI tumor. He was just admitted a week ago and had four units of packed red blood cell transfusion. He started experiencing increased shortness of breath and weakness again. He also had nausea and vomiting, mostly spitting up ascitic fluid. He denies any hematemesis. His stool however has been dark for the last two months. When he presented, hemoglobin was down to 6.5. When I saw him, he had already received three units pf packed red blood cell transfusion. He is feeling better. He has mid epigastric pain intermittently for two months. He denies any fever or chills. He had no significant headache. Denies any chest pain, palpitations. Denies any cough. Denies any bone pain, any dysuria or hematuria. PAST MEDICAL HISTORY 1. GE junction adenocarcinoma 2. Gastroesophageal reflux disease, 3. Hypertension, 4. Osteoarthritis 5. Recurrent GI bleed. PAST SURGICAL HISTORY 1. EGD and biopsy 2. Colonoscopy. FAMILY HISTORY No cancer in the family. He has two daughters, both healthy. SOCIAL HISTORY Smoked a pack a day for 20 years, now has cut down to about 10 cigarettes a day. Occasional alcohol. Lives with his fiance. ALLERGIES NO KNOWN DRUG ALLERGIES. MEDICATIONS Current, Protonix. REVIEW OF SYSTEMS CONSTITUTIONAL: He has lost about 30 pounds over the last two months. Denies any fever, chills, night sweats. EYES: Denies any blurry vision, double vision. ENT: Denies mouth sores or voice changes. CARDIOVASCULAR: Denies chest pressure, palpitation RESPIRATORY: Has dyspnea on surgeon, denies any cough GI: As above. : No dysuria, hematuria. MUSCULOSKELETAL: Denies bone pain, muscle pain HEMATOLOGY: As above. ENDOCRINE: Negative DERMATOLOGY: Negative. PSYCHIATRIC: Negative. NEUROLOGIC: Negative. PHYSICAL EXAMINATION VITAL SIGNS: Temperature 99.6, blood pressure 142/88, O2 saturation 98%. GENERAL: He is alert and oriented x3 in no acute distress. HEENT: atraumatic, normocephalic. Pupils equal, round, reactive to light. Extraocular muscles intact. No scleral icterus. Oropharynx dry mucosa. No lesion or thrush. No mucositis. NECK: No thyromegaly. No palpable masses. LYMPHATICS: No palpable cervical, clavicular, axillary or inguinal lymph node CARDIOVASCULAR: Regular S1-S2, no murmur. LUNGSA: Clear to auscultation without wheezing or rhonchi. ABDOMEN: Soft, a little tender in mid epigastric area. I could not really palpate any mass. EXTREMITIES: No cyanosis, clubbing or edema, no calf tenderness. BACK: No paravertebral tenderness. SKIN: No rash or petechiae. NEUROLOGIC: Nonfocal. LABORATORY DATA Reviewed ASSESSMENT 1. Gastroesophageal junction adenocarcinoma diagnosed in September. EGD showed a large mass in the distal third of the esophagus extended into the GE junction causing obstruction. Biopsy showed poorly differentiated adenocarcinoma with focal signet-ring feature. Her/2 was negative. He has seen Dr. Talavera. Initial plan is to give him neoadjuvant chemotherapy followed by definitive surgery. The patient has not received chemotherapy yet. He has been admitted to the hospital almost every week with recurrent symptomatic anemia. He presented to the hospital again with a hemoglobin of 6.7. He had an upper endoscopy today which again showed a large mass in the distal third of the esophagus extending to the GE junction. The tumor is oozing blood diffusely and there is no focal bleeding source to be cauterized. He has received 3 units of packed red cell transfusion and hemoglobin had trended up to 9.5, he is feeling better. I think we need to stop the bleeding first. Options would include radiation versus surgical resection versus gastric artery embolization. We will need to consult radiation oncology and surgery to get their opinion. I think it is best to transfer him to the [facility] so that he could be seen by these specialists. I explained workup to the patient and he had some questions today which were answered. 2. Gastroesophageal reflux disease 3. Anorexia. He is not able to eat solid food due to obstruction of the esophagus. He has lost 30 pounds. He is still able to tolerate pureed food. 4. Hypertension 5. Osteoarthritis RECOMMENDATIONS 1. I agree with transfusion to keep hemoglobin above eight. 2. Recommend transferring him to the [facility] and consult radiation oncology as well as Dr. Salguero. 3. Discussed case with Dr. Carpenter and Dr. Talavera Thank you, Dr. Carpenter, for asking me to see this patient. MD CARIDAD Guerrero/ /6:04 PM /8:57 PM MONA
[2016-11-07] VITALS (18 sets, daily range): BP systolic 114–141; BP diastolic 70–94; PULSE 74–110; RESP 16–35; TEMP 98.4–99.8; O2SAT 98–99
[2016-11-07] MEDS: MORPHINE SULFATE 4 MG/ML INJ IV PUSH PRN ×4 (04:29→22:47)
[2016-11-07 04:41] LABS: HEMATOCRIT 29.3 % (39.0-51.0); MEAN CELL VOLUME 86.2 FL (80.0-100.0); MEAN CORPUSCULAR HGB CONC 32.5 % (32.0-36.0); PLATELET COUNT 497 TH/MM3 (150-450); RED CELL DISTRIBUTION WIDTH 15.2 % (11.6-17.2); REVIEW FLAG FINAL; WHITE BLOOD COUNT 10.8 TH/MM3 (4.0-11.0)
[2016-11-07] MEDS: PANTOPRAZOLE INJ 80 MG in SODIUM CHLORIDE 0.9% INJ 100 ML IV SCH ×2 (08:30→18:30)
--- NOTE | 2016-11-07 09:27 | HHI.PR ---
Subjective Remarks Follow-up for GI bleed in patient with GE junction adenocarcinoma. Per RN patient feels unwell after morphine use. The patient admits to getting "choked up" last night spitting/vomiting up mucus and acid. Transfer order to main [facility] was placed yesterday. Objective Vitals Vital Signs Date Time Temp Pulse Resp B/P Pulse Ox O2 Delivery O2 Flow Rate FiO2 11/07/16 04:00 90 11/07/16 04:00 98.9 110 24 137/93 99 11/07/16 00:00 98.4 80 16 133/70 99 11/06/16 23:00 78 11/06/16 21:32 26 11/06/16 20:00 80 11/06/16 20:00 98.4 80 18 142/91 99 11/06/16 19:00 80 11/06/16 17:00 78 11/06/16 16:00 78 11/06/16 15:28 80 11/06/16 15:28 99.6 80 23 142/88 11/06/16 14:00 78 11/06/16 13:00 84 11/06/16 12:00 80 11/06/16 11:00 98.4 84 18 129/88 11/06/16 11:00 84 11/06/16 11:00 84 11/06/16 10:30 98.8 80 16 143/90 11/06/16 10:30 80 11/06/16 10:15 80 11/06/16 10:15 98.5 80 16 144/90 11/06/16 10:00 98.6 80 15 140/87 11/06/16 10:00 80 11/06/16 09:45 86 11/06/16 09:45 98.8 86 26 110/74 11/06/16 09:30 98.7 84 26 113/78 98 11/06/16 09:30 84 I/O 11/06/16 11/06/16 11/06/16 11/07/16 11/07/16 11/07/16 07:00 15:00 23:00 07:00 15:00 23:00 Intake Total 576 ml 0 ml 1105 ml 69 ml Output Total 650 ml 700 ml Balance 576 ml 0 ml 455 ml -631 ml Intake Oral 0 ml 0 ml 440 ml 0 ml IV Total 76 ml 665 ml 69 ml Packed Cells 500 ml Output Urine Total 650 ml 700 ml # Voids 1 0 # Bowel Movements 0 Result Diagram: 11/07/16 0430 11/05/16 1605 Objective Remarks GENERAL: Well-nourished well developed patient in apparent distress sitting on side of bed. SKIN: Warm and dry. CARDIOVASCULAR: HR 90 regular rhythm. RESPIRATORY: No accessory muscle use. Clear to auscultation. Breath sounds equal bilaterally. NEUROLOGICAL: Awake and alert. Motor grossly within normal limits. Normal speech. PSYCHIATRIC: Appropriate mood and affect; insight and judgment normal. Urinary Catheter: No Vascular Central Line Catheter: No A/P Assessment and Plan 66 years old male with: Acute anemia due to GI bleed: Hb 6.7-->9.5 s/p 2 units pRBCs. 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 Hemodynamically stable. -GI consultation appreciated. Patient underwent endoscopy yesterday to evaluate for acute bleeding, but per hematology note the patient had diffuse oozing from mass which could not be cauterized. -Oncology Dr. Crawley evaluated the patient yesterday and requested he be transferred to the [facility] for evaluation of possible resection versus radiation therapy versus gastric artery embolization. -Monitor CBC Thrombocytosis: improved; most likely reactive to anemia Pain control: Patient is receiving morphine and is feeling unwell. Will switch to Dilaudid, administer as indicated as may cause less nausea than morphine. DVT prophylaxis: SCDs. Chemical prophylaxis contraindicated. Written by Tracy Hawkins PA-C acting as scribe for Dr. Carpenter on 11/07/16 at 0915. All or portions of this note were transcribed by scribe Tracy Hawkins PA-C. I , Dr. Gabino Carepnter personally performed the history, physical exam, and medical decision making; and confirmed the accuracy of the information in the transcribed note. Authenticated by Dr. Gabino Carpenter on 11/07/16 at 13:22. Tracy Hawkins Nov 07, 2016 09:27 Gabino Carpenter MD Nov 07, 2016 13:22
[2016-11-07] MEDS: ONDANSETRON HCL 4 MG/2 ML VIAL IV PRN ×2 (11:51→19:46)
[2016-11-07] MEDS ORDERED: NALOXONE HCL 0.4 MG/ML AMP IV PRN (12:00)
[2016-11-07] MEDS ORDERED: HYDROmorphone HCL PF 1 MG/ML VIAL IV PUSH PRN (12:00)
[2016-11-07] MEDS ORDERED: HYDROmorphone HCL PF 1 MG/ML VIAL IV PRN ×2 (15:00)
--- NOTE | 2016-11-07 15:24 | HHI.GIFU ---
GI Follow-up Note Consult Follow-up Subjective: Patient laying in bed comfortably, no new complaints except dysphagia Objective: PHYSICAL EXAMINATION: Vitals signs stable No fever HEENT: Pupils round and reactive to light; normocephalic; atraumatic; no jaundice. Throat is clear. NECK: Neck is supple, no JVD, no lymphadenopathy. CHEST: Chest is clear to auscultation and percussion. CARDIAC: Regular rate and rhythm with no murmur gallop or rubs. ABDOMEN: Soft, nondistended, nontender; no hepatosplenomegaly; bowel sounds are present in all four quadrants. EXTREMITIES: No clubbing, cyanosis, or edema. SKIN: Normal; no rash; no jaundice. PRODUCT EVANGELIST: No focal deficits; alert and oriented times three. Available Data (labs, X- Rays, Procedues) : Last Impressions Chest X-Ray 11/05/16 0000 Signed Impressions: Service Date/Time: Saturday, November 05, 2016 16:16 - CONCLUSION: 1. Probable small right-sided effusion. 2. Lungs are otherwise clear. Ivan Kapadia MD Laboratory Tests Test 11/05/16 11/05/16 11/05/16 11/06/16 16:05 16:35 17:57 03:15 Sodium Level 145 MEQ/L Potassium Level 3.8 MEQ/L Chloride Level 106 MEQ/L Carbon Dioxide Level 30.2 MEQ/L Anion Gap 9 MEQ/L Blood Urea Nitrogen 14 MG/DL Creatinine 0.83 MG/DL Estimat Glomerular Filtration 116 ML/MIN Rate Random Glucose 104 MG/DL Calcium Level 8.2 MG/DL Total Bilirubin 0.2 MG/DL Aspartate Amino Transf 16 U/L (AST/SGOT) Alanine Aminotransferase 20 U/L (ALT/SGPT) Alkaline Phosphatase 20 U/L Troponin I LESS THAN 0.02 NG/ML Total Protein 6.0 GM/DL Albumin 2.4 GM/DL Lipase 127 U/L Blood Type A POSITIVE Antibody Screen NEGATIVE White Blood Count 10.0 TH/MM3 Red Blood Count 2.34 MIL/MM3 Hemoglobin 6.7 GM/DL 7.9 GM/DL Hematocrit 20.2 % 24.4 % Mean Corpuscular Volume 86.4 FL Mean Corpuscular Hemoglobin 28.4 PG Mean Corpuscular Hemoglobin 32.8 % Concent Red Cell Distribution Width 15.9 % Platelet Count 567 TH/MM3 Mean Platelet Volume 6.2 FL Neutrophils (%) (Auto) 84.3 % Lymphocytes (%) (Auto) 7.2 % Monocytes (%) (Auto) 7.0 % Eosinophils (%) (Auto) 1.3 % Basophils (%) (Auto) 0.2 % Neutrophils # (Auto) 8.5 TH/MM3 Lymphocytes # (Auto) 0.7 TH/MM3 Monocytes # (Auto) 0.7 TH/MM3 Eosinophils # (Auto) 0.1 TH/MM3 Basophils # (Auto) 0.0 TH/MM3 CBC Comment DIFF FINAL Differential Comment Prothrombin Time 12.3 SEC Prothromb Time International 1.1 RATIO Ratio Activated Partial 26.7 SEC Thromboplast Time Crossmatch Leukocyte-Reduced Red Blood Cells Blood Bank Comment Test 11/06/16 11/06/16 11/07/16 04:44 16:25 04:30 Blood Type A POSITIVE Crossmatch Leukocyte-Reduced Red Blood Cells Blood Bank Comment Hemoglobin 9.5 GM/DL 9.5 GM/DL Hematocrit 29.4 % 29.3 % White Blood Count 10.8 TH/MM3 Red Blood Count 3.40 MIL/MM3 Mean Corpuscular Volume 86.2 FL Mean Corpuscular Hemoglobin 28.0 PG Mean Corpuscular Hemoglobin 32.5 % Concent Red Cell Distribution Width 15.2 % Platelet Count 497 TH/MM3 Mean Platelet Volume 6.6 FL Allergies Coded Allergies Type Severity Reaction Last Updated Verified No Known Allergies 11/05/16 Yes Active Scripts Medications Dose Route/Sig Days Date Category Lortab (Hydrocodone-Acetaminophen) 5-325 Mg Tab 1 Tab PO Q6H PRN 10/28/16 Reported Protonix (Pantoprazole Sodium) 40 Mg Tab 40 Mg PO DAILY 10/19/16 Rx Naproxen 500 Mg Tab 500 Mg PO BID 10/09/16 Reported Sennosides 8.6 Mg Tab 8.6 Mg PO HS 10/09/16 Reported Lactulose Liq (Lactulose) 10 Gm/15 Ml Soln 30 Ml PO DAILY PRN 30 09/26/16 Rx Dok (Docusate Sodium) 100 Mg Cap 100 Mg PO BID 30 09/26/16 Rx ASSESSMENT/PLAN: seen and examined . No active bleeding reported. Being transferred to [facility] to be evaluated by Radiation oncology and surgical oncology. Transfuse as needed. Will sign off, reconsult as needed. Thank you It was a pleasure seeing Tammy Auguste. Thank you for this consult. Entered by: Jacqeuline Molina MD Nov 07, 2016 15:24
[2016-11-07] MEDS ORDERED: NALOXONE HCL 0.4 MG/ML AMP IV PUSH PRN (20:00)
--- NOTE | 2016-11-07 20:49 | PD.ONC.PN ---
Subjective Subjective Remarks "They keep taking my blood after they give me some" c/o frequent blood draws, he's black and blue anxious to have his surgery port has not been placed yet Discussed EcHo and CT /PET results. Objective Data Date Time Temp Pulse Resp B/P Pulse Ox O2 Delivery O2 Flow Rate FiO2 11/07/16 17:00 99.8 84 19 127/85 98 11/07/16 15:43 116/84 11/07/16 15:00 76 11/07/16 14:25 98.8 80 22 122/84 11/07/16 14:00 82 11/07/16 13:00 74 11/07/16 12:16 78 11/07/16 12:16 78 18 125/86 11/07/16 12:00 78 11/07/16 11:50 98.5 86 29 125/86 11/07/16 11:00 82 11/07/16 10:50 84 35 11/07/16 09:50 78 17 121/78 11/07/16 08:50 78 16 11/07/16 08:00 80 11/07/16 08:00 98.6 80 19 114/73 98 11/07/16 07:33 80 11/07/16 07:33 98.6 80 19 114/73 98 11/07/16 04:00 90 11/07/16 04:00 98.9 110 24 137/93 99 11/07/16 00:00 98.4 80 16 133/70 99 11/06/16 23:00 78 11/06/16 21:32 26 11/07/16 11/07/16 11/07/16 07:00 15:00 23:00 Intake Total 69 ml Output Total 700 ml Balance -631 ml Result Diagram: 11/07/16 0430 11/05/16 1605 Laboratory Results Laboratory Tests Test 11/07/16 04:30 White Blood Count 10.8 TH/MM3 Red Blood Count 3.40 MIL/MM3 Hemoglobin 9.5 GM/DL Hematocrit 29.3 % Mean Corpuscular Volume 86.2 FL Mean Corpuscular Hemoglobin 28.0 PG Mean Corpuscular Hemoglobin 32.5 % Concent Red Cell Distribution Width 15.2 % Platelet Count 497 TH/MM3 Mean Platelet Volume 6.6 FL Administered Medications Medications (Trade) Dose Ordered Sig/Martha Route PRN Reason Start Time Stop Time Status Last Admin Dose Admin Pantoprazole Sodium/Sodium Chloride (Protonix Inj/NS Inj) 100 ml @ 10 mls/hr Q10H IV 11/05/16 16:30 11/07/16 18:30 Ondansetron HCl (Zofran Inj) 4 mg Q6H PRN IV NAUSEA OR VOMITING 11/05/16 23:00 11/07/16 19:46 Objective Remarks GENERAL: Well-nourished, well-developed patient. SKIN: Warm and dry. HEAD: Normocephalic. EYES: No scleral icterus. No injection or drainage. NECK: Supple, trachea midline. No JVD or lymphadenopathy. LYMPHATIC: No adenopathy. CARDIOVASCULAR: Regular rate and rhythm without murmurs. RESPIRATORY: Breath sounds equal bilaterally. No accessory muscle use. GASTROINTESTINAL: Abdomen soft, non-tender, nondistended. EXTREMITIES: No cyanosis, or edema. MUSCULOSKELETAL: Adequate muscle tone. NEUROLOGICAL: No obvious focal deficit. Awake, alert, and oriented x3. PSYCHIATRIC: Appropriate mood and affect; insight and judgment normal. Assessment/Plan Problem List: (1) Anemia Status: Acute Plan: GI bleed secondary to gastric malignancy. Not amenable to local therapy- GI consulted. s/p 2UPRBC hgb stable at 9.5, however still have intermittent black stools request pic line given frequent blood draw and transfusion, possible surgery on Thursday (2) Gastric adenocarcinoma Status: Acute Plan: Recently dx with locally advanced gastric cancer of lesser curvature with involvement of the esophagus. Seen in clinic on 10/16/16. Staging evaluation w/ Ct/PET coordinated on 10/23/16 Echo obtained as insurance would only approve ECF, because of initial intent of perioperative chemo. Pt have not been able to return to clinic for follow up. Port has not been placed. Furthermore staging evaluation reveal metastatic disease to liver and bone, although neither site has been biopsied. Pt missed appt yesterday, due to being admitted due to GI bleeding. Lengthy discussion about CT/PET finding and ECHO. Discussed primary problem is the continuous/recurrent GI bleeding, not controlled with local conservative measure. Discussed option palliative XRT vs palliative gastrectomy which I favor. Discussed w/ Dr. Salguero who plans to discuss options w/ pt this weekend. Pt receptive to consult with Radiation oncologist to consider other options. Nutrition pt able to tolerate liquid and puree. Discuss need to optimize protein and nutrition for planned surgery. Pain controlled. Assessment 56 y/o man with newly dx gastric cancer, thought to be locally advanced but staging Ct/PEt suggest liver and bone metastatic disease, admitted for recurrent GI bleeding. Plan Consult Dr. Salguero, pt known to him, discussed possible surgery on Thursday for recurrent bleeding. Consult Rad OnC - discuss options other than surgery Pic line Monitor CBC Optimize nutrition, Cont ensure and boost. Transfuse for hgb <8.0 or acute bleed. Fay Talavera MD Nov 07, 2016 20:49
[2016-11-08] VITALS: BP 126/91; PULSE 81; RESP 18; TEMP 98.8; O2SAT 98
[2016-11-08] MEDS ORDERED: ALUMINUM/MAGNESIUM/SIMETH 30 ML CUP PO ONE (00:30)
[2016-11-08] MEDS ORDERED: PROCHLORPERAZINE INJ 10 MG/2 ML VIAL IM ONE (00:30)
[2016-11-08] MEDS: ONDANSETRON HCL 4 MG/2 ML VIAL IV PRN ×4 (00:54→23:52)
[2016-11-08] MEDS: MORPHINE SULFATE 4 MG/ML INJ IV PUSH PRN ×6 (01:56→23:53)
[2016-11-08 04:00] VITALS: BP 133/90; PULSE 80; RESP 18; TEMP 97.5; O2SAT 96
[2016-11-08] MEDS: PANTOPRAZOLE INJ 80 MG in SODIUM CHLORIDE 0.9% INJ 100 ML IV SCH ×2 (04:32→13:27)
[2016-11-08 07:13] LABS: HEMATOCRIT 26.6 % (39.0-51.0); MEAN CELL VOLUME 85.8 FL (80.0-100.0); MEAN CORPUSCULAR HEMOGLOBIN 28.9 PG (27.0-34.0); MEAN CORPUSCULAR HGB CONC 33.6 % (32.0-36.0); PLATELET COUNT 399 TH/MM3 (150-450); RED CELL DISTRIBUTION WIDTH 16.4 % (11.6-17.2); WHITE BLOOD COUNT 10.5 TH/MM3 (4.0-11.0)
[2016-11-08 08:00] VITALS: BP 135/92; PULSE 82; RESP 18; TEMP 98; O2SAT 98
[2016-11-08 10:01] LABS: BANDS 4 % (0-6); NEUTROPHIL # MANUAL DIFF 9.2 TH/MM3 (1.8-7.7); PLATELET ESTIMATE SMEAR NORMAL (NORMAL); PLATELET MORPHOLOGY NORMAL (NORMAL); POLYS (SEG NEUTROPHILS) 84 % (16-70); SCAN/DIFF FINAL DIFF MANUAL; WBC DIFF SAMPLE 100
[2016-11-08 10:02] LABS: ACANTHOCYTES OCC (NORMAL)
[2016-11-08 12:00] VITALS: BP 130/91; PULSE 93; RESP 18; TEMP 98.1; O2SAT 95
--- NOTE | 2016-11-08 14:20 | PD.ONC.PN ---
Subjective Subjective Remarks Afebrile overnight. Pt sitting up on bedside in no distress. He c/o being hungry but not being able to have anything but clear liquids. He is requesting to shave. He denies bleeding, chest pain or SOB. Objective Data Date Time Temp Pulse Resp B/P Pulse Ox O2 Delivery O2 Flow Rate FiO2 11/08/16 12:00 98.1 93 18 130/91 95 11/08/16 08:00 98.0 82 18 135/92 98 11/08/16 04:00 97.5 80 18 133/90 96 11/08/16 00:00 98.8 81 18 126/91 98 11/07/16 20:00 99.6 81 18 141/94 99 11/07/16 17:00 99.8 84 19 127/85 98 11/07/16 15:43 116/84 11/07/16 15:00 76 11/07/16 14:25 98.8 80 22 122/84 11/08/16 11/08/16 11/08/16 07:00 15:00 23:00 Intake Total 480 ml Balance 480 ml Result Diagram: 11/08/16 0630 11/05/16 1605 Laboratory Results Laboratory Tests Test 11/08/16 06:30 White Blood Count 10.5 TH/MM3 Red Blood Count 3.10 MIL/MM3 Hemoglobin 9.0 GM/DL Hematocrit 26.6 % Mean Corpuscular Volume 85.8 FL Mean Corpuscular Hemoglobin 28.9 PG Mean Corpuscular Hemoglobin 33.6 % Concent Red Cell Distribution Width 16.4 % Platelet Count 399 TH/MM3 Mean Platelet Volume 7.4 FL Differential Total Cells 100 Counted Neutrophils % (Manual) 84 % Band Neutrophils % 4 % Lymphocytes % 7 % Monocytes % 5 % Neutrophils # (Manual) 9.2 TH/MM3 Differential Comment FINAL DIFF MANUAL Platelet Estimate NORMAL Platelet Morphology Comment NORMAL Acanthocytes OCC Administered Medications Medications (Trade) Dose Ordered Sig/Martha Route PRN Reason Start Time Stop Time Status Last Admin Dose Admin Pantoprazole Sodium/Sodium Chloride (Protonix Inj/NS Inj) 100 ml @ 10 mls/hr Q10H IV 11/05/16 16:30 11/08/16 13:27 Ondansetron HCl (Zofran Inj) 4 mg Q6H PRN IV NAUSEA OR VOMITING 11/05/16 23:00 11/08/16 08:29 Morphine Sulfate (Morphine Inj) 2 mg Q3H PRN IV PUSH PAIN SCALE 4 TO 10 11/07/16 20:00 11/08/16 12:15 Objective Remarks GENERAL: Older male, sitting up at bedside in no distress. SKIN: Warm and dry. HEAD: Normocephalic. EYES: No injection or drainage. NECK: Supple, trachea midline. CARDIOVASCULAR: +S1/S2. RESPIRATORY: Breath sounds equal bilaterally. No accessory muscle use. GASTROINTESTINAL: Feeling of fullness. Non-tender. EXTREMITIES: No cyanosis, or edema. NEUROLOGICAL: Moving all extremities, normal speech. A&Ox3. Assessment/Plan Assessment 56 y/o man with newly dx gastric cancer, thought to be locally advanced but staging Ct/PEt suggest liver and bone metastatic disease, admitted for recurrent GI bleeding. Plan Pt is doing clinically well. He is not having any bleeding. Dr Salguero will be in to see pt. Rad Onc was also consulted to give input. He has seen him in the past but unfortunately the pt developed a bleed prior to being able to get any interventions done on his GE junction carcinoma. We greg continue to monitor blood counts and to monitor for any obvious signs of bleeding. We will continue clear liquids and also add on Ensure Clears to help optimize nutrition. It was reinforced to the pt that he needs to remain in hospital until a treatment plan has been developed. He understands and agrees with this. Attending Statement The exam, history, and the medical decision-making described in the above note were completed with the assistance of the mid-level provider. I reviewed and agree with the findings presented. I attest that I had a [id number] encounter with the patient on the same day, and personally performed and documented my assessment and findings in the medical record. patient has had very little bleeding past few days and looks well. I am hopeful that he will be a candidate for surgical removal of the primary tumor followed by adjuvant therapy after surgery given recent life threatening bleeding. This was discussed with him . will follow cbc plat. Ave Garcia Nov 08, 2016 14:20 Ervin Lopez MD Nov 08, 2016 15:30
[2016-11-08 16:00] VITALS: BP 125/86; PULSE 83; RESP 18; TEMP 99.3; O2SAT 97
--- NOTE | 2016-11-08 18:06 | MB ---
cc: SIOMARA CARRASCO MD DATE OF CONSULTATION 11.09.15 REASON FOR CONSULTATION Esophageal distal cancer, blood loss anemia, known to surgical service. 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 He was initially seen and evaluated and has had confirmation with EGD and biopsies of this. Discussion was for possible neoadjuvant therapy prior to the surgical decision making. The patient has noted multiple admissions for blood loss anemia due to a bleeding tumor and has had approximately four to five recurrent bouts of this following diagnosis. He represented to the emergency department with complaints of black tarry stools and mild epigastric pain 3/10, non-radiating, constant, location of previous pain. He is noted to have a hemoglobin of 6.5. He received transfusion resuscitation with three units of packed RBCs. His hemoglobin responded, currently 9.5. He was transferred to [facility] for further evaluation and management. He underwent a repeat endoscopy with noted finding of diffusely bleeding distal esophageal mass at the GE junction and was unable to achieve hemostasis at this time due to the diffuse nature of the bleed. Surgery consulted for further evaluation and possible palliative resection. On my exam, the patient is resting. He states vague epigastric pain. He has noted some reflux with spitting up nonbloody sputum. He has noted several bowel movements with black tarry stools but has not seen any bright red blood per rectum and had a recent enema to assist with bowel movements. The patient is otherwise hemodynamically stable. He denies any cough, fevers, chills, dysuria or hematuria. PAST MEDICAL HISTORY 1. Distal esophageal GE junction adenocarcinoma 2. Reflux, 3. Hypertension, 4. Arthritis, 5. Recurrent GI bleeds. PAST SURGICAL HISTORY EGD, colonoscopy. SOCIAL HISTORY The patient smokes 10 cigarettes a day. He smoked about a pack a day for 20 years. Occasional ETOH, denies IVDA. ALLERGIES No known drug allergies. MEDICATIONS Protonix. FAMILY HISTORY No family history of cancer or hypertension. REVIEW OF SYSTEMS GENERAL: The patient has noted 29 pound weight loss in the last three months, denies fevers. HEENT: Denies eye pain, ear pain. CARDIOVASCULAR: Denies chest pain or palpitations. RESPIRATORY: Some dyspnea on exertion, denies cough. GI: Complaining of reflux, denies vomiting. : Denies dysuria, hematuria. MUSCULOSKELETAL: Denies arthralgia, myalgia HEMATOLOGIC: Blood loss anemia, denies hemarthrosis. ENDOCRINE: Denies polyuria, polydipsia. INTEGUMENTARY: Denies masses or rash. PSYCHIATRIC: Denies change in mood or sensorium. NEUROLOGIC: Denies headache or numbness. PHYSICAL EXAMINATION GENERAL: No acute distress currently. VITAL SIGNS: Temperature 98, pulse 82, blood pressure 135/92, respiration 18, saturation 98% on room air. HEENT: PERRLA. NECK: Supple. No JVD. LUNGS: Bilateral expansion. No wheeze. HEART: S1-S2 regular rhythm. ABDOMEN: Soft, minimal tenderness to palpation epigastric area. No rebound or guarding. EXTREMITIES: Warm, well-perfused. SKIN: No obvious masses or lesions. NEUROLOGIC: GCS of 15, alert and oriented times four. No numbness. 5/5 motor all extremities. VASCULAR: 2+ pulses all extremities. LABORATORY DATA WBC 10.5, current hemoglobin 9, hematocrit 26.6, platelets 399, sodium of 14, potassium 3.8, chloride 106, BUN 14, creatinine 0.83, T bili 0.2, AST 16, ALT 20, lipase 127, INR 1.1, PT 12.3, PTT 26.7. IMAGING STUDIES Chest x-ray reviewed by myself - small right pleural effusion. ASSESSMENT The patient is a 56-year-old male with anemia blood loss due to distal GE junction adenocarcinoma. PLAN After full clinical, radiologic and laboratory assessment, the patient with above diagnosis and issue. At this point, discussed with the patient he has been seen by Dr. Salguero and I will defer further clinical management and surgical management to Dr. Salguero. On discussion, however, the patient will either need possible radiation therapy and medical oncology versus we will consider operative intervention including palliative surgical intervention and tumor resection. We will further discuss with the patient in regards to the patient's wishes and continue to discuss with medical surgical oncology. For now, continue monitoring hemoglobins and transfuse as needed. The patient has had significant weight loss. We will consider TPN for nutrition. I recommend protein shakes and encourage full liquid diet at this time. We will consider feeding tube if surgical intervention is decided. Lars S. Victor Hugo, MD LSN/ /10:42 AM /5:45 PM
[2016-11-08 20:00] VITALS: BP 123/97; PULSE 88; RESP 18; TEMP 99.2; O2SAT 98
[2016-11-09] VITALS: BP 124/86; PULSE 88; RESP 18; TEMP 98.3; O2SAT 100
[2016-11-09] MEDS: PANTOPRAZOLE INJ 80 MG in SODIUM CHLORIDE 0.9% INJ 100 ML IV SCH ×2 (01:40→10:30)
[2016-11-09] MEDS: MORPHINE SULFATE 4 MG/ML INJ IV PUSH PRN ×2 (03:04→21:18)
[2016-11-09 04:00] VITALS: BP 117/83; PULSE 73; RESP 17; TEMP 97.8; O2SAT 97
--- NOTE | 2016-11-09 05:46 | HHI.PR ---
Subjective Remarks Late entry. Date of service 11/08/16. Patient seen the morning of 11/08/16. Patient says he is feeling all right. Denies any chest pain or shortness of breath. He does report nausea, vomiting of clear mucus. He is looking forward to surgical evaluation. Objective Vital Signs Date Time Temp Pulse Resp B/P Pulse Ox O2 Delivery O2 Flow Rate FiO2 11/09/16 03:10 18 11/09/16 00:00 98.3 88 18 124/86 100 11/08/16 20:00 99.2 88 18 123/97 98 11/08/16 16:00 99.3 83 18 125/86 97 11/08/16 12:00 98.1 93 18 130/91 95 11/08/16 08:00 98.0 82 18 135/92 98 I/O 11/08/16 11/08/16 11/08/16 11/09/16 11/09/16 11/09/16 07:00 15:00 23:00 07:00 15:00 23:00 Intake Total 480 ml 355 ml 429 ml Balance 480 ml 355 ml 429 ml Intake Oral 480 ml 240 ml IV Total 115 ml 429 ml # Voids 1 1 # Bowel Movements 0 Result Diagram: 11/08/16 0630 11/05/16 1605 Objective Remarks GENERAL: patient sitting up on edge of bed. Appears comfortable. Alert and oriented 3. He is drinking ensure clear. He is vomiting ensure clear Endobag after drinking. He is protecting airway however. SKIN: Warm and dry. HEAD: Normocephalic. EYES: No scleral icterus. No injection or drainage. NECK: Supple, trachea midline. No JVD. CARDIOVASCULAR: Regular rate and rhythm without murmurs, gallops, or rubs. RESPIRATORY: Breath sounds equal bilaterally. No accessory muscle use. GASTROINTESTINAL: Abdomen soft, non-tender, nondistended. MUSCULOSKELETAL: No cyanosis, or edema. BACK: Nontender without obvious deformity. No CVA tenderness. A/P Assessment and Plan //Acute anemia due to GI bleed: Hb 6.7-->9.5 s/p 2 units pRBCs==>9.0. -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 -Continues Hemodynamically stable. -GI consultation appreciated. -Patient underwent endoscopy 11/06 to evaluate for acute bleeding, but patient had diffuse oozing from mass which could not be cauterized. -Oncology Dr. Crawley evaluated the patient 11/06 and requested he be transferred to the main hospital for evaluation of possible resection versus radiation therapy versus gastric artery embolization. -CBC stable. Appreciate oncology assistance. Surgical evaluation pending. Possible resection this coming week //Thrombocytosis: improved; most likely reactive to anemia //Pain control: Patient is receiving morphine and is feeling unwell. -Pain currently controlled on Dilaudid. Continue to monitor and adjust pain medication as necessary. DVT prophylaxis: SCDs. Chemical prophylaxis contraindicated. Discharge Planning -pending surgical evaluation When cleared by oncology. Yoseph Cunningham MD Nov 09, 2016 05:46
[2016-11-09 07:50] VITALS: BP_SYST 103; BP_SYST 128; BP_DIAS 75; BP_DIAS 85; PULSE 78; PULSE 83; RESP 16; RESP 20; TEMP 96.7; TEMP 98.9; O2SAT 16; O2SAT 94
[2016-11-09 08:01] LABS: ALT (GPT) 13 U/L (12-78); ANION GAP 9 MEQ/L (5-15); AST (GOT) 14 U/L (15-37); AUTOMATED NEUTROPHIL # 7.6 TH/MM3 (1.8-7.7); BASOPHIL % 0.3 % (0.0-2.0); BICARBONATE 25.6 MEQ/L (21.0-32.0); BLOOD UREA NITROGEN 10 MG/DL (7-18); CHLORIDE 106 MEQ/L (98-107); EOSINOPHIL # 0.2 TH/MM3 (0-0.4); EOSINOPHIL % 1.9 % (0.0-4.0); GLOMERULAR FILTRATION RATE 133 ML/MIN (>89); HEMATOCRIT 26.5 % (39.0-51.0); HEMO FLAGS DIFF FINAL; LYMPH % 7.6 % (9.0-44.0); LYMPHOCYTE # 0.7 TH/MM3 (1.0-4.8); MEAN CELL VOLUME 85.8 FL (80.0-100.0); MEAN CORPUSCULAR HEMOGLOBIN 28.1 PG (27.0-34.0); MEAN CORPUSCULAR HGB CONC 32.7 % (32.0-36.0); MONO % 10.8 % (0.0-8.0); NEUT % 79.4 % (16.0-70.0); PLATELET COUNT 380 TH/MM3 (150-450); POTASSIUM 3.6 MEQ/L (3.5-5.1); RED BLOOD COUNT 3.09 MIL/MM3 (4.50-5.90); RED CELL DISTRIBUTION WIDTH 15.9 % (11.6-17.2); SODIUM (NA) 141 MEQ/L (136-145); WHITE BLOOD COUNT 9.5 TH/MM3 (4.0-11.0)
[2016-11-09 08:03] LABS: ALKALINE PHOSPHATASE 18 U/L (45-117); TOTAL BILIRUBIN ADULT 0.3 MG/DL (0.2-1.0)
[2016-11-09] MEDS: ONDANSETRON HCL 4 MG/2 ML VIAL IV PRN ×2 (09:07→15:15)
--- NOTE | 2016-11-09 09:36 | PD.ONC.PN ---
Subjective Subjective Remarks Afebrile overnight. Pt walking around room on approach in no distress. He states he is looking forward to seeing Dr. Salguero today. He is c/o some mild nausea. Objective Data Date Time Temp Pulse Resp B/P Pulse Ox O2 Delivery O2 Flow Rate FiO2 11/09/16 07:50 96.7 78 20 128/75 94 11/09/16 04:00 97.8 73 17 117/83 97 11/09/16 03:10 18 11/09/16 00:00 98.3 88 18 124/86 100 11/08/16 20:00 99.2 88 18 123/97 98 11/08/16 16:00 99.3 83 18 125/86 97 11/08/16 12:00 98.1 93 18 130/91 95 Result Diagram: 11/09/16 0711 11/09/16 0711 Laboratory Results Laboratory Tests Test 11/09/16 07:11 White Blood Count 9.5 TH/MM3 Red Blood Count 3.09 MIL/MM3 Hemoglobin 8.7 GM/DL Hematocrit 26.5 % Mean Corpuscular Volume 85.8 FL Mean Corpuscular Hemoglobin 28.1 PG Mean Corpuscular Hemoglobin 32.7 % Concent Red Cell Distribution Width 15.9 % Platelet Count 380 TH/MM3 Mean Platelet Volume 7.4 FL Neutrophils (%) (Auto) 79.4 % Lymphocytes (%) (Auto) 7.6 % Monocytes (%) (Auto) 10.8 % Eosinophils (%) (Auto) 1.9 % Basophils (%) (Auto) 0.3 % Neutrophils # (Auto) 7.6 TH/MM3 Lymphocytes # (Auto) 0.7 TH/MM3 Monocytes # (Auto) 1.0 TH/MM3 Eosinophils # (Auto) 0.2 TH/MM3 Basophils # (Auto) 0.0 TH/MM3 CBC Comment DIFF FINAL Differential Comment Sodium Level 141 MEQ/L Potassium Level 3.6 MEQ/L Chloride Level 106 MEQ/L Carbon Dioxide Level 25.6 MEQ/L Anion Gap 9 MEQ/L Blood Urea Nitrogen 10 MG/DL Creatinine 0.74 MG/DL Estimat Glomerular Filtration 133 ML/MIN Rate Random Glucose 88 MG/DL Calcium Level 7.8 MG/DL Total Bilirubin 0.3 MG/DL Aspartate Amino Transf 14 U/L (AST/SGOT) Alanine Aminotransferase 13 U/L (ALT/SGPT) Alkaline Phosphatase 18 U/L Total Protein 5.4 GM/DL Albumin 2.0 GM/DL Administered Medications Medications (Trade) Dose Ordered Sig/Martha Route PRN Reason Start Time Stop Time Status Last Admin Dose Admin Sodium Chloride 2 ml 2 ml UNSCH PRN IVF FLUSH AFTER USING IV ACCESS 11/05/16 16:00 11/09/16 09:08 Pantoprazole Sodium/Sodium Chloride (Protonix Inj/NS Inj) 100 ml @ 10 mls/hr Q10H IV 11/05/16 16:30 11/09/16 01:40 Ondansetron HCl (Zofran Inj) 4 mg Q6H PRN IV NAUSEA OR VOMITING 11/05/16 23:00 11/09/16 09:07 Morphine Sulfate (Morphine Inj) 2 mg Q3H PRN IV PUSH PAIN SCALE 4 TO 10 11/07/16 20:00 11/09/16 03:04 Objective Remarks GENERAL: Older male, sitting up at bedside in no distress. SKIN: Warm and dry. HEAD: Normocephalic. EYES: No injection or drainage. NECK: Supple, trachea midline. CARDIOVASCULAR: +S1/S2. RESPIRATORY: Breath sounds equal bilaterally. No accessory muscle use. GASTROINTESTINAL: Feeling of fullness. Non-tender. EXTREMITIES: No cyanosis, or edema. NEUROLOGICAL: Moving all extremities, normal speech. A&Ox3. Assessment/Plan Assessment 56 y/o man with newly dx gastric cancer, thought to be locally advanced but staging CT/PET suggest liver and bone metastatic disease, admitted for recurrent GI bleeding. Plan 1. Await Dr. Salguero to see pt to give recommendation for surgery. 2. Radiation Oncology to evaluate pt. 3. His bleeding is under control, blood work stable. Monitor for bleeding. 4. Continue clear liquid diet, Ensure clears for nutrition. Attending Statement The exam, history, and the medical decision-making described in the above note were completed with the assistance of the mid-level provider. I reviewed and agree with the findings presented. I attest that I had a [id number] encounter with the patient on the same day, and personally performed and documented my assessment and findings in the medical record. patient stable and no overt bleeding. abdomen is moderately distended suggestive of partial gastric outlet obstruction. await surgical opinion and hope he can have ? partial gastrectomy Ave Garcia Nov 09, 2016 09:36 Ervin Lopez MD Nov 09, 2016 14:35
[2016-11-09 12:00] VITALS: BP 130/85; PULSE 75; RESP 16; TEMP 99.3; O2SAT 100
[2016-11-09] MEDS ORDERED: LACTULOSE SYRUP 20 GM/30 ML CUP PO PRN (13:00)
[2016-11-09] MEDS: MORPHINE SULFATE ORAL SOLN 10 MG/0.5 ML SYRINGE PO PRN (15:16)
[2016-11-09 16:00] VITALS: BP 131/84; PULSE 77; RESP 16; TEMP 99.1; O2SAT 99
[2016-11-09 20:00] VITALS: BP 122/96; PULSE 89; RESP 18; TEMP 98.8; O2SAT 98
--- NOTE | 2016-11-09 23:47 | HHI.PR ---
Subjective Remarks patient seen this morning around 11:30 AM. He is lying down. Appears comfortable. Denies any dysphagia or shortness of breath. Denies any nausea. Still with esophageal Objective Vital Signs Date Time Temp Pulse Resp B/P Pulse Ox O2 Delivery O2 Flow Rate FiO2 11/09/16 20:00 98.8 89 18 122/96 98 11/09/16 16:00 99.1 77 16 131/84 99 11/09/16 12:00 99.3 75 16 130/85 100 11/09/16 07:50 98.9 83 16 103/85 16 11/09/16 04:00 97.8 73 17 117/83 97 11/09/16 03:10 18 11/09/16 00:00 98.3 88 18 124/86 100 I/O 11/08/16 11/08/16 11/08/16 11/09/16 11/09/16 11/09/16 07:00 15:00 23:00 07:00 15:00 23:00 Intake Total 480 ml 355 ml 429 ml 1200 ml Balance 480 ml 355 ml 429 ml 1200 ml Intake Oral 480 ml 240 ml 0 ml 1200 ml IV Total 115 ml 429 ml # Voids 1 1 1 3 # Bowel Movements 0 0 Result Diagram: 11/09/16 0711 11/09/16 0711 Objective Remarks GENERAL: patientlying in bed. Appears comfortable. Alert and oriented 3. exam unchanged. SKIN: Warm and dry. HEAD: Normocephalic. EYES: No scleral icterus. No injection or drainage. NECK: Supple, trachea midline. No JVD. CARDIOVASCULAR: Regular rate and rhythm without murmurs, gallops, or rubs. RESPIRATORY: Breath sounds equal bilaterally. No accessory muscle use. GASTROINTESTINAL: Abdomen soft, non-tender, nondistended. MUSCULOSKELETAL: No cyanosis, or edema. BACK: Nontender without obvious deformity. No CVA tenderness. A/P Assessment and Plan //Acute anemia due to GI bleed: Hb 6.7-->9.5 s/p 2 units pRBCs==>9.0. -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 -Continues Hemodynamically stable. -GI consultation appreciated. -Patient underwent endoscopy 11/06 to evaluate for acute bleeding, but patient had diffuse oozing from mass which could not be cauterized. -Oncology Dr. Crawley evaluated the patient 11/06 and requested he be transferred to the main hospital for evaluation of possible resection versus radiation therapy versus gastric artery embolization. -CBC stable. Appreciate oncology assistance. Surgical evaluation pending. Possible resection. -appreciate surgical assistance. //Thrombocytosis: improved; most likely reactive to anemia //Pain control: Patient is receiving morphine and is feeling unwell. -Pain currently controlled on Dilaudid. Continue to monitor and adjust pain medication as necessary. DVT prophylaxis: SCDs. Chemical prophylaxis contraindicated. Discharge Planning -pending surgical evaluation When cleared by oncology. Yoseph Cunningham MD Nov 09, 2016 23:47
[2016-11-10] VITALS: BP 115/77; PULSE 88; RESP 18; TEMP 98.5; O2SAT 97
[2016-11-10] MEDS: PANTOPRAZOLE INJ 80 MG in SODIUM CHLORIDE 0.9% INJ 100 ML IV SCH ×3 (02:13→22:48)
[2016-11-10 04:00] VITALS: BP 116/78; PULSE 87; RESP 17; TEMP 98.6; O2SAT 97
[2016-11-10 06:24] LABS: AUTOMATED NEUTROPHIL # 7.5 TH/MM3 (1.8-7.7); BASOPHIL % 0.4 % (0.0-2.0); EOSINOPHIL # 0.2 TH/MM3 (0-0.4); EOSINOPHIL % 1.9 % (0.0-4.0); HEMATOCRIT 25.9 % (39.0-51.0); HEMO FLAGS DIFF FINAL; LYMPH % 9.5 % (9.0-44.0); LYMPHOCYTE # 0.9 TH/MM3 (1.0-4.8); MEAN CELL VOLUME 85.1 FL (80.0-100.0); MEAN CORPUSCULAR HEMOGLOBIN 28.3 PG (27.0-34.0); MEAN CORPUSCULAR HGB CONC 33.2 % (32.0-36.0); MONO % 9.6 % (0.0-8.0); NEUT % 78.6 % (16.0-70.0); PLATELET COUNT 386 TH/MM3 (150-450); RED BLOOD COUNT 3.04 MIL/MM3 (4.50-5.90); RED CELL DISTRIBUTION WIDTH 15.9 % (11.6-17.2); WHITE BLOOD COUNT 9.5 TH/MM3 (4.0-11.0)
[2016-11-10 08:00] VITALS: BP 112/72; PULSE 80; RESP 16; TEMP 97.8; O2SAT 97
[2016-11-10] MEDS: ONDANSETRON HCL 4 MG/2 ML VIAL IV PRN (10:00)
[2016-11-10] MEDS: MORPHINE SULFATE 4 MG/ML INJ IV PUSH PRN ×2 (10:08→22:47)
[2016-11-10 12:00] VITALS: BP 112/76; PULSE 79; RESP 16; TEMP 98.2; O2SAT 96
--- NOTE | 2016-11-10 12:40 | PD.ONC.PN ---
Subjective Subjective Remarks Afebrile overnight. Patient resting comfortably without complaint. Denies hematemesis. He did vomit some mucous earlier today. He is scheduled to start XRT This evening. He would like to know when he can go home. He would like to know if he can be on a full liquid diet. Objective Data Date Time Temp Pulse Resp B/P Pulse Ox O2 Delivery O2 Flow Rate FiO2 11/10/16 12:00 98.2 79 16 112/76 96 11/10/16 08:00 97.8 80 16 112/72 97 11/10/16 04:00 98.6 87 17 116/78 97 11/10/16 00:00 98.5 88 18 115/77 97 11/09/16 20:00 98.8 89 18 122/96 98 11/09/16 16:00 99.1 77 16 131/84 99 Result Diagram: 11/10/16 0550 11/09/16 0711 Laboratory Results Laboratory Tests Test 11/10/16 05:50 White Blood Count 9.5 TH/MM3 Red Blood Count 3.04 MIL/MM3 Hemoglobin 8.6 GM/DL Hematocrit 25.9 % Mean Corpuscular Volume 85.1 FL Mean Corpuscular Hemoglobin 28.3 PG Mean Corpuscular Hemoglobin 33.2 % Concent Red Cell Distribution Width 15.9 % Platelet Count 386 TH/MM3 Mean Platelet Volume 7.2 FL Neutrophils (%) (Auto) 78.6 % Lymphocytes (%) (Auto) 9.5 % Monocytes (%) (Auto) 9.6 % Eosinophils (%) (Auto) 1.9 % Basophils (%) (Auto) 0.4 % Neutrophils # (Auto) 7.5 TH/MM3 Lymphocytes # (Auto) 0.9 TH/MM3 Monocytes # (Auto) 0.9 TH/MM3 Eosinophils # (Auto) 0.2 TH/MM3 Basophils # (Auto) 0.0 TH/MM3 CBC Comment DIFF FINAL Differential Comment Administered Medications Medications (Trade) Dose Ordered Sig/Martha Route PRN Reason Start Time Stop Time Status Last Admin Dose Admin Sodium Chloride 2 ml 2 ml UNSCH PRN IVF FLUSH AFTER USING IV ACCESS 11/05/16 16:00 11/09/16 09:08 Pantoprazole Sodium/Sodium Chloride (Protonix Inj/NS Inj) 100 ml @ 10 mls/hr Q10H IV 11/05/16 16:30 11/10/16 02:13 Ondansetron HCl (Zofran Inj) 4 mg Q6H PRN IV NAUSEA OR VOMITING 11/05/16 23:00 11/10/16 10:00 Morphine Sulfate (Morphine Inj) 2 mg Q3H PRN IV PUSH PAIN SCALE 4 TO 10 11/07/16 20:00 11/10/16 10:08 Morphine Sulfate (Roxanol Liq) 5 mg Q3HR PRN PO PAIN SCALE 1 TO 3 11/07/16 20:00 11/09/16 15:16 Lactulose (Lactulose Liq) 30 ml TID PRN PO CONSTIPATION 11/09/16 13:00 11/09/16 19:35 Objective Remarks GENERAL: Middle aged male, sitting up in bed in nad. SKIN: Warm and dry. HEAD: Normocephalic. EYES: No injection or drainage. NECK: Supple, trachea midline. CARDIOVASCULAR: Regular rate and rhythm RESPIRATORY: Breath sounds equal bilaterally. No accessory muscle use. GASTROINTESTINAL: Abdomen soft, non-tender, nondistended. EXTREMITIES: No cyanosis NEUROLOGICAL: No obvious focal deficit. Awake, alert, and oriented x3. Assessment/Plan Problem List: (1) Anemia Status: Acute Plan: --GI bleed secondary to gastric malignancy. --hgb stable today (2) Gastric adenocarcinoma Status: Acute Plan: 11/10: to start XRT this evening. 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 Assessment 56 y/o man with newly dx gastric cancer, thought to be locally advanced but staging CT/PET suggest liver and bone metastatic disease, admitted for recurrent GI bleeding. Plan 1. monitor CBC 2. XRT to start this evening. Attending Statement The exam, history, and the medical decision-making described in the above note were completed with the assistance of the mid-level provider. I reviewed and agree with the findings presented. I attest that I had a [id number] encounter with the patient on the same day, and personally performed and documented my assessment and findings in the medical record. Events over the weekend noted. Discussed with both Dr. Salguero and Dr. Ko. Tolerated first dose of XRT, eager to be DC not to miss appt w/ pain management. Noted that pt GI work up on going. Ok for DC from heme/onc standpoint, XRt will continue, Dr. Cruz surgery post XRt. Nutrition continue orally liquid diet. Able to transfuse in clinic. Needs fu. Problem Qualifiers (1) Anemia: Kathy Nesbitt Nov 10, 2016 12:40 Fay Talavera MD Nov 10, 2016 19:12
--- NOTE | 2016-11-10 13:54 | HHI.PR ---
Subjective Subjective Notes Sitting up in bed Wants to try full liquids Objective Vitals/I&O Vital Signs Date Time Temp Pulse Resp B/P Pulse Ox O2 Delivery O2 Flow Rate FiO2 11/10/16 12:00 98.2 79 16 112/76 96 Labs Laboratory Tests Test 11/10/16 05:50 White Blood Count 9.5 Red Blood Count 3.04 Hemoglobin 8.6 Hematocrit 25.9 Mean Corpuscular Volume 85.1 Mean Corpuscular Hemoglobin 28.3 Mean Corpuscular Hemoglobin 33.2 Concent Red Cell Distribution Width 15.9 Platelet Count 386 Mean Platelet Volume 7.2 Neutrophils (%) (Auto) 78.6 Lymphocytes (%) (Auto) 9.5 Monocytes (%) (Auto) 9.6 Eosinophils (%) (Auto) 1.9 Basophils (%) (Auto) 0.4 Neutrophils # (Auto) 7.5 Lymphocytes # (Auto) 0.9 Monocytes # (Auto) 0.9 Eosinophils # (Auto) 0.2 Basophils # (Auto) 0.0 CBC Comment DIFF FINAL Differential Comment Cardiovascular: Regular Lungs: Clear Abdomen: Non-distended, Non-tender Extremities: No edema A/P Assessment and Plan 56 year old male with GE junction adenocarcinoma -Going for radiation today -Advance to fulls -OOB and mobilize -Discussed with Tracy Anton Nov 10, 2016 13:54
[2016-11-10 16:00] VITALS: BP 118/75; PULSE 81; RESP 16; TEMP 97.9; O2SAT 96
[2016-11-10] MEDS ORDERED: DIATRIZOATE MEGLUM/DIATRIZOATE SOD 120 ML BTL (for RAD DIAG) PO ONE (16:32)
--- NOTE | 2016-11-10 16:35 | RADRPT ---
EXAM DATE/TIME: 11/10/2016 16:10 [facility] COMPARISON: No previous studies available for comparison. INDICATIONS : Obstruction. FLUORO TIME: 1.2 minutes IMAGE COUNT: 5 CONTRAST: 1. Gastrografin (Diatrizoate Meglumine and Diatrizoate Sodium) MEDICAL HISTORY : Gastroesophageal reflux disease. SURGICAL HISTORY : None. ENCOUNTER: Initial ACUITY: 1 month PAIN SCORE: Non-responsive. LOCATION: Bilateral neck FINDINGS: There is complete obstruction of the distal esophagus beginning about 5 cm above the GE junction to thin liquids.. CONCLUSION: Obstruction distal esophagus. Thin section CT is pending. Nathanael Montana MD FACR on November 10, 2016 at 16:32 Board Certified Radiologist. This report was verified electronically.
--- NOTE | 2016-11-10 17:48 | RADRPT ---
EXAM DATE/TIME: 11/10/2016 16:42 [facility] COMPARISON: No previous studies available for comparison. INDICATIONS : <<Evaluate length of tumor. RADIATION DOSE: <<9.63>> CTDIvol (mGy) MEDICAL HISTORY : Cardiovascular disease. Hypertension. Carcinoma, esophageal. SURGICAL HISTORY : None. ENCOUNTER: Initial ACUITY: 1 day PAIN SCALE: 0/10 LOCATION: Chest TECHNIQUE: Volumetric scanning of the chest was performed. Using automated exposure control and adjustment of the mA and/or kV according to patient size, radiation dose was kept as low as reasonab ly achievable to obtain optimal diagnostic quality images. FINDINGS: The patient has a known distal esophageal obstructing mass 10 cm in length the does a v taya small lumen identified by CT. There has been interval development of consolidative changes in the right lower lobe and a right pleu ral effusion. Moderate ascites is now evident. CONCLUSION: 1. CT scan was used to define the length of the mass in the distal esophagus involving the distal eso phagus and the gastroesophageal junction. This would probably be amenable to percutaneous stenting w ith a stent measuring 11 to 12 cm. 2. Interval development of a right pleural effusion and ascites. Nathanael Montana MD FACR on November 10, 2016 at 17:38 Board Certified Radiologist. This report was verified electronically.
[2016-11-10] MEDS: [UNRECOGNIZED DRUG - OTHER] IV SCH (19:30)
[2016-11-10] MEDS: SODIUM CHLORIDE IV SCH (19:30)
[2016-11-10] MEDS: POTASSIUM CHLORIDE IV SCH (19:30)
--- NOTE | 2016-11-10 19:36 | HHI.PR ---
Subjective Remarks patient seen for follow-up of esophageal mass with anemia.Patient seen this afternoon around 2 PM. He states he is drinking liquids okay, however. Spitting up mucus. Always has a green bag with him. Denies any chest pain or shortness of breath. Denies any abdominal pain. Says he feels like going home. Objective Vital Signs Date Time Temp Pulse Resp B/P Pulse Ox O2 Delivery O2 Flow Rate FiO2 11/10/16 16:00 97.9 81 16 118/75 96 11/10/16 12:00 98.2 79 16 112/76 96 11/10/16 08:00 97.8 80 16 112/72 97 11/10/16 04:00 98.6 87 17 116/78 97 11/10/16 00:00 98.5 88 18 115/77 97 11/09/16 20:00 98.8 89 18 122/96 98 I/O 11/09/16 11/09/16 11/09/16 11/10/16 11/10/16 11/10/16 07:00 15:00 23:00 07:00 15:00 23:00 Intake Total 429 ml 1200 ml 240 ml 60 ml 840 ml Balance 429 ml 1200 ml 240 ml 60 ml 840 ml Intake Oral 0 ml 1200 ml 240 ml 60 ml 840 ml IV Total 429 ml # Voids 1 3 1 1 4 # Bowel Movements 0 0 0 0 Result Diagram: 11/10/16 0550 11/09/16 0711 Imaging Last Impressions Chest CT 11/10/16 1638 Signed Impressions: Service Date/Time: Thursday, November 10, 2016 16:42 - CONCLUSION: 1. CT scan was used to define the length of the mass in the distal esophagus involving the distal esophagus and the gastroesophageal junction. This would probably be amenable to percutaneous stenting with a stent measuring 11 to 12 cm. 2. Interval development of a right pleural effusion and ascites. Nathanael Montana MD FACR Upper GI/Barium Swallow X-Ray 11/10/16 0000 Signed Impressions: Service Date/Time: Thursday, November 10, 2016 16:10 - CONCLUSION: Obstruction distal esophagus. Thin section CT is pending. Nathanael Montana MD FACR Chest X-Ray 11/05/16 0000 Signed Impressions: Service Date/Time: Saturday, November 05, 2016 16:16 - CONCLUSION: 1. Probable small right-sided effusion. 2. Lungs are otherwise clear. Ivan Kapadia MD Objective Remarks GENERAL: patient sitting up in chair. Appears comfortable. Alert and oriented 3. SKIN: Warm and dry. HEAD: Normocephalic. EYES: No scleral icterus. No injection or drainage. NECK: Supple, trachea midline. No JVD. CARDIOVASCULAR: Regular rate and rhythm without murmurs, gallops, or rubs. RESPIRATORY: Breath sounds equal bilaterally. No accessory muscle use. GASTROINTESTINAL: Abdomen soft, non-tender, nondistended. MUSCULOSKELETAL: No cyanosis, or edema. BACK: Nontender without obvious deformity. No CVA tenderness. A/P Assessment and Plan //Acute anemia due to GI bleed: Hb 6.7-->9.5 s/p 2 units pRBCs==>9.0. 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 -Continues Hemodynamically stable. -GI consultation appreciated. -Patient underwent endoscopy 11/06 to evaluate for acute bleeding, but patient had diffuse oozing from mass which could not be cauterized. -Oncology Dr. Crawley evaluated the patient 11/06 and requested he be transferred to the main hospital for evaluation of possible resection versus radiation therapy versus gastric artery embolization. -CBC stable. Appreciate oncology assistance. Surgical evaluation pending. Possible resection. -appreciate surgical assistance. = 11/10. Patient already is reports that he is tolerating fluids, however keeps spitting up liquid. Have ordered Gastrografin swallow which shows complete esophageal obstruction to thin liquids. Radiology has ordered follow-up CT which shows that this could possibly be stented. Patient had bleeding with endoscopy previously, so stenting may pose similar risks of bleeding. Will need to be discussed with surgery and oncology tomorrow. //Severe malnutrition. Complete esophageal obstruction. Patient not getting any nutrition. We'll place patient on D10. Follow labs closely for refeeding -Hopefully esophagus can be stented soon, otherwise will need to consider central line and TPN. //Suspected Aspiration pneumonia -Consolidative changes right lower lobe. Due to obstructed esophagus, patient spitting up everything he drinks, most likely aspiration pneumonia. Vital signs are stable. Make nothing by mouth. Started on Zosyn for anaerobic coverage //Thrombocytosis: improved; most likely reactive to anemia //Pain control: Patient is receiving morphine and is feeling unwell. -Pain currently controlled on Dilaudid. Continue to monitor and adjust pain medication as necessary. DVT prophylaxis: SCDs. Chemical prophylaxis contraindicated. Discharge Planning patient with complete esophageal obstruction. Will need either esophagealstenting, surgery, or central line for TPN. - Yoseph Cunningham MD Nov 10, 2016 19:36
[2016-11-10] MEDS ORDERED: AMPICILLIN-SULBACTAM INJ 3 GM in SODIUM CHLORIDE 0.9% INJ 100 ML IV SCH (20:00)
[2016-11-10 21:05] LABS: BICARBONATE 26.2 MEQ/L (21.0-32.0); POTASSIUM 3.6 MEQ/L (3.5-5.1)
[2016-11-10 22:30] VITALS: BP 103/62; PULSE 87; RESP 16; TEMP 99.1; O2SAT 96
[2016-11-10] MEDS: PIPERACIL-TAZO 3.375 GM PREMIX 50 ML IV SCH (22:47)
[2016-11-11] MEDS: PANTOPRAZOLE INJ 80 MG in SODIUM CHLORIDE 0.9% INJ 100 ML IV SCH (02:30)
[2016-11-11 03:52] VITALS: BP 101/69; PULSE 85; RESP 16; TEMP 98.4; O2SAT 96
[2016-11-11] MEDS: PIPERACIL-TAZO 3.375 GM PREMIX 50 ML IV SCH ×5 (03:55→23:35)
[2016-11-11] MEDS: ONDANSETRON HCL 4 MG/2 ML VIAL IV PRN ×4 (03:56→21:25)
[2016-11-11] MEDS: MORPHINE SULFATE ORAL SOLN 10 MG/0.5 ML SYRINGE PO PRN (03:56)
[2016-11-11 06:58] LABS: AUTOMATED NEUTROPHIL # 8.1 TH/MM3 (1.8-7.7); BASOPHIL % 0.2 % (0.0-2.0); EOSINOPHIL # 0.1 TH/MM3 (0-0.4); EOSINOPHIL % 0.7 % (0.0-4.0); HEMATOCRIT 25.7 % (39.0-51.0); HEMO FLAGS DIFF FINAL; LYMPH % 4.7 % (9.0-44.0); LYMPHOCYTE # 0.4 TH/MM3 (1.0-4.8); MEAN CELL VOLUME 84.9 FL (80.0-100.0); MEAN CORPUSCULAR HEMOGLOBIN 28.1 PG (27.0-34.0); MEAN CORPUSCULAR HGB CONC 33.2 % (32.0-36.0); MONO % 8.3 % (0.0-8.0); NEUT % 86.1 % (16.0-70.0); PLATELET COUNT 370 TH/MM3 (150-450); RED BLOOD COUNT 3.03 MIL/MM3 (4.50-5.90); RED CELL DISTRIBUTION WIDTH 15.8 % (11.6-17.2); WHITE BLOOD COUNT 9.4 TH/MM3 (4.0-11.0)
[2016-11-11 07:14] LABS: BICARBONATE 26.7 MEQ/L (21.0-32.0); MAGNESIUM 2.1 MG/DL (1.5-2.5); POTASSIUM 3.4 MEQ/L (3.5-5.1)
[2016-11-11 08:00] VITALS: BP 129/84; PULSE 79; RESP 16; TEMP 98.9; O2SAT 98
[2016-11-11] MEDS: SODIUM CHLORIDE IV SCH ×2 (09:18→23:06)
[2016-11-11] MEDS: POTASSIUM CHLORIDE IV SCH ×2 (09:18→23:06)
[2016-11-11] MEDS: [UNRECOGNIZED DRUG - OTHER] IV SCH ×2 (09:18→23:06)
[2016-11-11] MEDS: MORPHINE SULFATE 4 MG/ML INJ IV PUSH PRN ×3 (09:41→21:25)
--- NOTE | 2016-11-11 10:41 | PD.ONC.PN ---
Subjective Subjective Remarks Afebrile overnight. Patient wants to know, "when can I go home?" He is about to go down for radiation. States he feels well. discussed barium swallow results and need for tpn. Objective Data Date Time Temp Pulse Resp B/P Pulse Ox O2 Delivery O2 Flow Rate FiO2 11/11/16 08:00 98.9 79 16 129/84 98 11/11/16 05:03 16 11/11/16 03:52 98.4 85 16 101/69 96 11/10/16 23:19 16 11/10/16 22:30 99.1 87 16 103/62 96 11/10/16 16:00 97.9 81 16 118/75 96 11/10/16 12:00 98.2 79 16 112/76 96 11/11/16 11/11/16 11/11/16 07:00 15:00 23:00 Intake Total 240 ml Balance 240 ml Result Diagram: 11/11/16 0543 11/11/16 0543 Laboratory Results Laboratory Tests Test 11/10/16 11/11/16 20:37 05:43 Sodium Level 141 MEQ/L 140 MEQ/L Potassium Level 3.6 MEQ/L 3.4 MEQ/L Chloride Level 105 MEQ/L 104 MEQ/L Carbon Dioxide Level 26.2 MEQ/L 26.7 MEQ/L Anion Gap 10 MEQ/L 9 MEQ/L Blood Urea Nitrogen 13 MG/DL 12 MG/DL Creatinine 0.81 MG/DL 0.84 MG/DL Estimat Glomerular Filtration 119 ML/MIN 115 ML/MIN Rate Random Glucose 109 MG/DL 98 MG/DL Calcium Level 7.8 MG/DL 8.0 MG/DL Phosphorus Level 3.2 MG/DL 3.9 MG/DL Magnesium Level 2.0 MG/DL 2.1 MG/DL Albumin 2.2 GM/DL 2.0 GM/DL White Blood Count 9.4 TH/MM3 Red Blood Count 3.03 MIL/MM3 Hemoglobin 8.5 GM/DL Hematocrit 25.7 % Mean Corpuscular Volume 84.9 FL Mean Corpuscular Hemoglobin 28.1 PG Mean Corpuscular Hemoglobin 33.2 % Concent Red Cell Distribution Width 15.8 % Platelet Count 370 TH/MM3 Mean Platelet Volume 7.4 FL Neutrophils (%) (Auto) 86.1 % Lymphocytes (%) (Auto) 4.7 % Monocytes (%) (Auto) 8.3 % Eosinophils (%) (Auto) 0.7 % Basophils (%) (Auto) 0.2 % Neutrophils # (Auto) 8.1 TH/MM3 Lymphocytes # (Auto) 0.4 TH/MM3 Monocytes # (Auto) 0.8 TH/MM3 Eosinophils # (Auto) 0.1 TH/MM3 Basophils # (Auto) 0.0 TH/MM3 CBC Comment DIFF FINAL Differential Comment Imaging Studies Last [address] 11/10/16 1118 Signed Impressions: Service Date/Time: Thursday, November 10, 2016 16:42 - CONCLUSION: 1. CT scan was used to define the length of the mass in the distal esophagus involving the distal esophagus and the gastroesophageal junction. This would probably be amenable to percutaneous stenting with a stent measuring 11 to 12 cm. 2. Interval development of a right pleural effusion and ascites. Nathanael Montana MD FACR Administered Medications Medications (Trade) Dose Ordered Sig/Martha Route PRN Reason Start Time Stop Time Status Last Admin Dose Admin Sodium Chloride 2 ml 2 ml UNSCH PRN IVF FLUSH AFTER USING IV ACCESS 11/05/16 16:00 11/09/16 09:08 Pantoprazole Sodium/Sodium Chloride (Protonix Inj/NS Inj) 100 ml @ 10 mls/hr Q10H IV 11/05/16 16:30 11/10/16 22:48 Ondansetron HCl (Zofran Inj) 4 mg Q6H PRN IV NAUSEA OR VOMITING 11/05/16 23:00 11/11/16 09:41 Morphine Sulfate (Morphine Inj) 2 mg Q3H PRN IV PUSH PAIN SCALE 4 TO 10 11/07/16 20:00 11/11/16 09:41 Morphine Sulfate 5 mg 5 mg Q3HR PRN PO PAIN SCALE 1 TO 3 11/07/16 20:00 11/11/16 03:56 Piperacillin Sod/ Tazobactam Sod (Zosyn 3.375 Gm Premix) 50 ml @ 100 mls/hr Q6H IV 11/10/16 20:00 11/11/16 03:55 Objective Remarks GENERAL: Middle aged male, sitting up on side of bed in nad. SKIN: Warm and dry. HEAD: Normocephalic. EYES: No injection or drainage. NECK: Supple, trachea midline. EXTREMITIES: No cyanosis NEUROLOGICAL: awake and alert, normal speech. moving all extremities. Assessment/Plan Problem List: (1) Anemia Status: Acute Plan: --GI bleed secondary to gastric malignancy. --hgb stable today (2) Gastric adenocarcinoma Status: Acute Plan: 11/11: continue XRT. reviewed Dr. Salguero's note. 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 Assessment 56 y/o man with newly dx gastric cancer, thought to be locally advanced but staging CT/PET suggest liver and bone metastatic disease, admitted for recurrent GI bleeding. Plan 1. monitor CBC 2. continue XRT 3. place PICC line. start TPN. barium swallow results show patient getting minimal to no nutrition. d/w patient need to start TPN. we will ask case management to try to set up home TPN but this is often very difficult to set up Attending Statement Pt discussed above. Nutrition coordinate TPN, short term until surgery and J tube placement. Problem Qualifiers (1) Anemia: Kathy Nesbitt Nov 11, 2016 10:41 Fay Talavera MD Nov 11, 2016 18:13
[2016-11-11 12:00] VITALS: BP 125/90; PULSE 83; RESP 16; TEMP 97.2; O2SAT 100
[2016-11-11 12:38] LABS: INTERNATIONAL NORMALIZED RATIO 1.1 RATIO; PROTHROMBIN TIME - PATIENT 12.4 SEC (9.8-11.6)
--- NOTE | 2016-11-11 14:33 | HHI.PR ---
Subjective Remarks The pt was having a PICC line placed. No acute concerns reported. Discussed with nursing. PICC line was difficult to place. Objective Vitals Vital Signs Date Time Temp Pulse Resp B/P Pulse Ox O2 Delivery O2 Flow Rate FiO2 11/11/16 12:00 97.2 83 16 125/90 100 11/11/16 08:00 98.9 79 16 129/84 98 11/11/16 05:03 16 11/11/16 03:52 98.4 85 16 101/69 96 11/10/16 23:19 16 11/10/16 22:30 99.1 87 16 103/62 96 11/10/16 16:00 97.9 81 16 118/75 96 I/O 11/10/16 11/10/16 11/10/16 11/11/16 11/11/16 11/11/16 07:00 15:00 23:00 07:00 15:00 23:00 Intake Total 60 ml 1679 ml 240 ml Balance 60 ml 1679 ml 240 ml Intake Oral 60 ml 1320 ml 240 ml IV Total 359 ml # Voids 1 6 1 # Bowel Movements 0 0 Result Diagram: 11/11/16 0543 11/11/16 0543 Imaging Last Impressions Chest CT 11/10/16 1638 Signed Impressions: Service Date/Time: Thursday, November 10, 2016 16:42 - CONCLUSION: 1. CT scan was used to define the length of the mass in the distal esophagus involving the distal esophagus and the gastroesophageal junction. This would probably be amenable to percutaneous stenting with a stent measuring 11 to 12 cm. 2. Interval development of a right pleural effusion and ascites. Nathanael Montana MD FACR Upper GI/Barium Swallow X-Ray 11/10/16 0000 Signed Impressions: Service Date/Time: Thursday, November 10, 2016 16:10 - CONCLUSION: Obstruction distal esophagus. Thin section CT is pending. Nathanael Montana MD FACR Chest X-Ray 11/05/16 0000 Signed Impressions: Service Date/Time: Saturday, November 05, 2016 16:16 - CONCLUSION: 1. Probable small right-sided effusion. 2. Lungs are otherwise clear. Ivan Kapadia MD Objective Remarks GENERAL: patient sitting up in chair. Appears comfortable. Alert and oriented 3. SKIN: Warm and dry. HEAD: Normocephalic. EYES: No scleral icterus. No injection or drainage. NECK: Supple, trachea midline. No JVD. CARDIOVASCULAR: Regular rate and rhythm without murmurs, gallops, or rubs. RESPIRATORY: Breath sounds equal bilaterally. No accessory muscle use. GASTROINTESTINAL: Abdomen soft, non-tender, nondistended. MUSCULOSKELETAL: No cyanosis, or edema. BACK: Nontender without obvious deformity. No CVA tenderness. Medications and IVs Current Medications Medications (Trade) Dose Ordered Sig/Martha Route Start Time Stop Time Status Last Admin Sodium Chloride 2 ml 2 ml UNSCH PRN IVF 11/05/16 16:00 11/09/16 09:08 (Protonix Inj/NS Inj) 100 ml @ 10 mls/hr Q10H IV 11/05/16 16:30 11/10/16 22:48 (Zofran Inj) 4 mg Q6H PRN IV 11/05/16 23:00 11/11/16 09:41 (Dilaudid Pf Inj) 0.5 mg Q4H PRN IV PUSH 11/07/16 12:00 (Morphine Inj) 2 mg Q3H PRN IV PUSH 11/07/16 20:00 11/11/16 09:41 Morphine Sulfate 5 mg 5 mg Q3HR PRN PO 11/07/16 20:00 11/11/16 03:56 Sodium Chloride 77 meq/Potassium Chloride 30 meq/ Dextrose 1,034.25 ml @ 75 mls/hr [id number] IV 11/10/16 19:30 Piperacillin Sod/ Tazobactam Sod 50 ml @ 100 mls/hr Q6H IV 11/10/16 20:00 11/11/16 12:04 Multivitamins 10 ml/Folic Acid 1 mg/Amino Acids/ Electrolytes/ Dextrose 1,010.2 ml @ 42 mls/hr Q24H IV-CENTRAL 11/11/16 20:00 (Liposyn Iii 20% Inj) 250 ml @ 10 mls/hr Q24H IV-CENTRAL 11/11/16 20:00 (NS Flush) See Protocol DAILY IV FLUSH 11/12/16 09:00 (NS Flush) See Protocol UNSCH PRN IV FLUSH 11/11/16 15:30 (Heparin Central Flush) See Protocol DAILY IV FLUSH 11/12/16 09:00 (Heparin Central Flush) See Protocol UNSCH PRN IV FLUSH 11/11/16 15:30 (NS Flush) See Protocol UNSCH PRN IV FLUSH 11/11/16 15:30 A/P Assessment and Plan Acute anemia due to GI bleed/ Adenocarcinoma 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 GI consultation appreciated. Patient underwent endoscopy 11/06 to evaluate for acute bleeding, but patient had diffuse oozing from mass which could not be cauterized. CBC stable. Gastrografin swallow showed complete esophageal obstruction to thin liquids. Radiology has ordered follow-up CT which shows that this could possibly be stented. Appreciate surgical oncology consult. - follow up with oncology. - PICC line for TPN. - continue fluids with dextrose. - continue radiation. - per surgery will need palliative surgery due to symptoms of obstruction/ bleeding. To be planned for sometime next week. Suspected aspiration pneumonia Consolidative changes right lower lobe. Due to obstructed esophagus, patient spitting up everything he drinks, most likely aspiration pneumonia. - Make nothing by mouth. - Started on Zosyn for anaerobic coverage. Thrombocytosis Most likely reactive to anemia. - follow CBC. DVT prophylaxis: SCDs. Chemical prophylaxis contraindicated. Darwin Arreguin DO Nov 11, 2016 14:33
[2016-11-11] MEDS ORDERED: SODIUM CHLORIDE 0.9% FLUSH 10 ML FLUSH IV FLUSH PRN (15:30)
--- NOTE | 2016-11-11 15:47 | RADRPT ---
EXAM DATE/TIME: 11/11/2016 14:51 [facility] COMPARISON: CHEST SINGLE AP, September 23, 2016, 15:18. INDICATIONS : PICC line placement. MEDICAL HISTORY : Cardiovascular disease. Hypertension. Carcinoma, esophageal SURGICAL HISTORY : None. ENCOUNTER: Initial ACUITY: 1 day PAIN SCORE: 0/10 LOCATION: Right chest FINDINGS: A single view of the chest demonstrates interval development of a right-sided effusion with common at electatic changes. Lungs are otherwise clear. Heart size is normal. There is some degenerative spurri ng of the thoracolumbar spine. Osseous structures are otherwise intact. Interval placement of a PICC line. PICC line appears to make a complete loop at the junction of the s ubclavian and axillary veins. The tip is located in the mid subclavian. CONCLUSION: 1. Interval placement of a right-sided PICC line catheter. The catheter appears to be complete loop a t the junction of the subclavian and axillary veins with the tip positioned in the mid subclavian. 2. Interval development of a right-sided effusion with concomitant right basilar atelectatic changes. Left lung remains clear. Ivan Kapadia MD on November 11, 2016 at 15:41 Board Certified Radiologist. This report was verified electronically.
--- NOTE | 2016-11-11 15:58 | HHI.PR ---
Subjective Subjective Notes unable to clear saliva, unable to eat Objective Vitals/I&O Vital Signs Date Time Temp Pulse Resp B/P Pulse Ox O2 Delivery O2 Flow Rate FiO2 11/11/16 12:00 97.2 83 16 125/90 100 Labs Laboratory Tests Test 11/10/16 11/11/16 11/11/16 20:37 05:43 12:02 Sodium Level 141 140 Potassium Level 3.6 3.4 Chloride Level 105 104 Carbon Dioxide Level 26.2 26.7 Anion Gap 10 9 Blood Urea Nitrogen 13 12 Creatinine 0.81 0.84 Estimat Glomerular Filtration 119 115 Rate Random Glucose 109 98 Calcium Level 7.8 8.0 Phosphorus Level 3.2 3.9 Magnesium Level 2.0 2.1 Albumin 2.2 2.0 White Blood Count 9.4 Red Blood Count 3.03 Hemoglobin 8.5 Hematocrit 25.7 Mean Corpuscular Volume 84.9 Mean Corpuscular Hemoglobin 28.1 Mean Corpuscular Hemoglobin 33.2 Concent Red Cell Distribution Width 15.8 Platelet Count 370 Mean Platelet Volume 7.4 Neutrophils (%) (Auto) 86.1 Lymphocytes (%) (Auto) 4.7 Monocytes (%) (Auto) 8.3 Eosinophils (%) (Auto) 0.7 Basophils (%) (Auto) 0.2 Neutrophils # (Auto) 8.1 Lymphocytes # (Auto) 0.4 Monocytes # (Auto) 0.8 Eosinophils # (Auto) 0.1 Basophils # (Auto) 0.0 CBC Comment DIFF FINAL Differential Comment Prothrombin Time 12.4 Prothromb Time International 1.1 Ratio Triglycerides Level 95 Cardiovascular: Regular Lungs: Clear Abdomen: Non-distended, Non-tender Extremities: Perfused A/P Assessment and Plan 56yo with stage IV gastric cancer with locally advanced tumor causing complete obstruction. Agree with current care with XRT and TPN. d/w patient, likely will need palliative surgery due to symptoms of obstruction/bleeding. he agrees to surgery, will plan for sometime next week. Dawit Salguero MD Nov 11, 2016 15:58
[2016-11-11 16:00] VITALS: BP 128/85; PULSE 82; RESP 16; TEMP 98; O2SAT 100
--- NOTE | 2016-11-11 17:01 | RADRPT ---
EXAM DATE/TIME: 11/11/2016 16:05 [place] COMPARISON: CHEST SINGLE AP, November 11, 2016, 14:51. INDICATIONS : Post left sided PICC line placement. MEDICAL HISTORY : Cardiovascular disease. Hypertension. Carcinoma, esophageal SURGICAL HISTORY : None. ENCOUNTER: Subsequent ACUITY: 1 day PAIN SCORE: 0/10 LOCATION: Bilateral chest FINDINGS: Single AP view of the chest. Left-sided PICC line is in place with the tip in the distal SVC. The ángel gs are clear. Cardiomediastinal silhouette within normal limits. No evidence of pneumothorax. Small r ight pleural effusion. CONCLUSION: Left-sided PICC line in place. Small right pleural effusion unchanged. Juan Gifford MD on November 11, 2016 at 16:59 Board Certified Radiologist. This report was verified electronically.
[2016-11-11] MEDS ORDERED: POTASSIUM CHLOR 20 MEQ PREMIX 100 ML IV ONE (19:00)
[2016-11-11 20:00] VITALS: BP 139/99; PULSE 89; RESP 18; TEMP 99.2; O2SAT 96
[2016-11-11] MEDS: PANTOPRAZOLE SODIUM 40 MG VIAL IV PUSH SCH (21:24)
[2016-11-11] MEDS: CLINIMIX E 5/25 1000 mL- </= 42 mls/hr IV-CENTRAL SCH ×3 (21:49)
[2016-11-11] MEDS: FAT EMULSION 20% INJ 250 ML (@10 mls/hr) IV-CENTRAL SCH (21:49)
[2016-11-12] VITALS: BP 113/71; PULSE 80; RESP 18; TEMP 97.7; O2SAT 94
[2016-11-12 04:00] VITALS: BP 121/86; PULSE 86; RESP 18; TEMP 98.1; O2SAT 96
[2016-11-12] MEDS: MORPHINE SULFATE 4 MG/ML INJ IV PUSH PRN ×5 (04:59→23:25)
[2016-11-12] MEDS: PIPERACIL-TAZO 3.375 GM PREMIX 50 ML IV SCH ×4 (04:59→23:10)
[2016-11-12] MEDS: ONDANSETRON HCL 4 MG/2 ML VIAL IV PRN ×4 (05:00→23:10)
[2016-11-12 06:08] LABS: MEAN CELL VOLUME 84.2 FL (80.0-100.0); MEAN CORPUSCULAR HEMOGLOBIN 28.3 PG (27.0-34.0); MEAN CORPUSCULAR HGB CONC 33.6 % (32.0-36.0); PLATELET COUNT 431 TH/MM3 (150-450); RED BLOOD COUNT 3.09 MIL/MM3 (4.50-5.90); RED CELL DISTRIBUTION WIDTH 16.1 % (11.6-17.2)
[2016-11-12 06:18] LABS: MAGNESIUM 2.2 MG/DL (1.5-2.5); POTASSIUM 3.4 MEQ/L (3.5-5.1)
[2016-11-12 06:31] LABS: HEMO FLAGS AUTO DIFF
[2016-11-12] MEDS: SODIUM CHLORIDE 0.9% FLUSH 10 ML FLUSH IV FLUSH SCH (07:48)
[2016-11-12 08:00] VITALS: BP 123/87; PULSE 81; RESP 20; TEMP 97.4; O2SAT 100
[2016-11-12 08:52] LABS: BANDS 1 % (0-6); NEUTROPHIL # MANUAL DIFF 7.5 TH/MM3 (1.8-7.7); POLYS (SEG NEUTROPHILS) 82 % (16-70); WBC DIFF SAMPLE 100
[2016-11-12 08:53] LABS: PLATELET ESTIMATE SMEAR HIGH (NORMAL); PLATELET MORPHOLOGY NORMAL (NORMAL); SCAN/DIFF FINAL DIFF MANUAL
--- NOTE | 2016-11-12 09:49 | RC ---
cc: DORYS VALDES MD,BLANCA CORONA,WALTER FISH M.D., MD, ALVARO MD ZULFIQAR,YAMILET HAYS M.D. DATE OF SERVICE: 11/09/2016 DATE OF 1960. [address] PH[address]IAN Dr. Yamilet Talavera DIAGNOSIS Metastatic gastric carcinoma. STAGE Stage IV CHIEF COMPLAINT GI bleed. REASON FOR VISIT The patient is being evaluated for palliative radiotherapy treatment options. HISTORY OF PRESENT ILLNESS This is a 56-year-old -[place] male who has been diagnosed recently with metastatic gastric carcinoma to bones and liver per PET scan. The patient is a patient of Dr. Talavera and Dr. Salguero, has been scheduled for palliative surgical resection for his GI bleed a few times. The patient has been noncompliant with his surgical recommendations and he comes into the hospital apparently every time he feels bad. Per the records it appears that he has been admitted every week or two with symptomatic anemia due to bleeding. I have discussed this case personally with Dr. Talavera and Dr. Salguero and a consult has been requested to help with GI bleed so the patient can undergo palliative surgical intervention by Dr. Salguero. On discussion with the patient, he says that his symptoms include difficulty swallowing and also he admits to melena. He denies any hematemesis. He complains of mid-epigastric pain which is intermittent over the last few months. PAST MEDICAL HISTORY 1. As above. 2. History of gastroesophageal reflux. 3. Hypertension. 4. Osteoarthritis. 5. EGD and biopsy. 6. Colonoscopy. 7. Mass on the lesser curvature of the stomach/EG junction. MEDICATIONS 1. Hydromorphone. 2. Lactulose. 3. Morphine sulfate. 5. Ondansetron. 6. Pantoprazole. 7. Sodium chloride. ALLERGIES No known drug allergies. FAMILY HISTORY No history of cancer in the family. SOCIAL HISTORY The patient smokes a pack of cigarettes per day. Continues to smoke. EtOH intake socially. REVIEW OF SYSTEMS A 14-point review of systems has been reviewed with the patient. CONSTITUTIONAL: The patient said that he is doing much better. He feels better since being admitted into the hospital. Denies any night sweats. ALLERGIC: Has not had allergic reaction recently. EYES: Unremarkable. ENT: Admits to slight discomfort when he swallows in the cardia area. Denies any mouth sores. NECK: Unremarkable. INTEGUMENTARY: Unremarkable. CARDIOVASCULAR: Denies any chest pain or clinical signs of MA. RESPIRATORY: Unremarkable. Denies hemoptysis, cough, shortness of breath. GASTROINTESTINAL: Admits to melena. No hematemesis. No nausea or vomiting recently. No abdominal pain. No rectal bleeding. GENITOURINARY: Unremarkable. MUSCULOSKELETAL: Unremarkable. NEUROLOGIC: Unremarkable. Denies any clinical signs or symptoms of stroke. No decrease in neurological functions or motor deficits. No decrease in cognitive functions. PSYCHIATRIC: Unremarkable. ENDOCRINE: Unremarkable. HEMATOLOGIC: Low hemoglobin. DERMATOLOGICAL: Unremarkable. SURGICAL PATHOLOGY, 09/24/2016. Esophagus biopsy shows chronically inflamed squamous mucosa with submucosal infiltration by poorly-differentiated carcinoma. 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 RADIOLOGY PET SCAN, 10/23/2016. IMPRESSION: A large hypermetabolic stomach mass with SUV of 26 indicating gastric carcinoma. Diffuse liver metastatic disease. Diffuse bony metastatic disease. Mike hepatis lymphadenopathy and diffuse peritoneal implants throughout the abdomen, malignant ascites adjacent to the liver. LABORATORY DATA, 11/09/2016 WBC 9.5, hemoglobin 8.7, platelets 380. ASSESSMENT A 56-year-old -[place] male diagnosed with metastatic gastric carcinoma, patient being evaluated for possible treatment options to help with the bleeding and to allow the patient to go into surgical resection and chemotherapy. PLAN I had extensive discussion with the patient in regards to his present disease and condition. I have discussed this case personally with Dr. Talavera as well as Dr. Salguero. There are several options for the patient - 1. One is to undergo surgical resection. The problem is that the patient every time he feels good, he does not show up, has bleeding with anemia and they have not been able to schedule surgical resection. 2. Move forward with palliative radiation therapy alone. 3. The other option discussed with Dr. Salguero which seems to be the best treatment approach according to our discussion is to provide the the patient with palliative radiation therapy for five treatments at a higher dose, allow the patient to stabilize and get him ready for surgical resection in a palliative fashion and then undergo chemotherapy. This will allow Dr. Salguero to do the surgical resection via robotics which would be a less invasive procedure. This was explained to the patient. I discussed the merits of the radiation therapy as well as possible complications to include but be limited to weakness and fatigue, decrease in blood counts, edema of the skin, necrosis or the skin, difficulty in swallowing, esophageal strictures, lung damage, lung fibrosis, lung pneumonitis, heart damage, nerve damage, spinal cord damage, stomach damage and perforation which could lead to , bowel damage and perforation which could lead to , abdominal adhesions, liver damage, kidney damage, nausea and vomiting and diarrhea. After discussion, the patient wanted to proceed forward. He was strongly advised that he needs to show up for his treatments, otherwise this is going to be a problem. He says he is ready now to follow medical advice. I advised the patient that I would like to simulate him today, start the treatment tomorrow. He was agreeable to do this. We will proceed accordingly. He was advised that if I could be of any further assistance to please let me know. Dr. Talavera, thank you very much for placing this consult and allowing me the opportunity to participate in the care of your patient. Should you have any further questions or concerns, please do not hesitate to contact me. Donis Kate MD Radiation Oncologist JOYCE NGUYEN/LARISA /5:11 PM /9:01 AM MONA
--- NOTE | 2016-11-12 10:36 | PD.ONC.PN ---
Subjective Subjective Remarks Afebrile overnight. Pt sitting up on side of bed. He has no complaints. He is getting ready to go down to radiation. He is asking about being discharged. Objective Data Date Time Temp Pulse Resp B/P Pulse Ox O2 Delivery O2 Flow Rate FiO2 11/12/16 08:00 97.4 81 20 123/87 100 11/12/16 06:17 16 11/12/16 04:00 98.1 86 18 121/86 96 11/12/16 00:00 97.7 80 18 113/71 94 11/11/16 20:00 99.2 89 18 139/99 96 11/11/16 16:00 98.0 82 16 128/85 100 11/11/16 12:00 97.2 83 16 125/90 100 11/12/16 11/12/16 11/12/16 07:00 15:00 23:00 Intake Total 120 ml Balance 120 ml Result Diagram: 11/12/16 0505 11/12/16 0505 Laboratory Results Laboratory Tests Test 11/11/16 11/12/16 12:02 05:05 Prothrombin Time 12.4 SEC Prothromb Time International 1.1 RATIO Ratio Triglycerides Level 95 MG/DL White Blood Count 9.0 TH/MM3 Red Blood Count 3.09 MIL/MM3 Hemoglobin 8.8 GM/DL Hematocrit 26.0 % Mean Corpuscular Volume 84.2 FL Mean Corpuscular Hemoglobin 28.3 PG Mean Corpuscular Hemoglobin 33.6 % Concent Red Cell Distribution Width 16.1 % Platelet Count 431 TH/MM3 Mean Platelet Volume 7.8 FL Neutrophils (%) (Auto) % Lymphocytes (%) (Auto) % Monocytes (%) (Auto) % Eosinophils (%) (Auto) % Basophils (%) (Auto) % Neutrophils # (Auto) TH/MM3 Lymphocytes # (Auto) TH/MM3 Monocytes # (Auto) TH/MM3 Eosinophils # (Auto) TH/MM3 Basophils # (Auto) TH/MM3 CBC Comment AUTO DIFF Differential Total Cells 100 Counted Neutrophils % (Manual) 82 % Band Neutrophils % 1 % Lymphocytes % 9 % Monocytes % 8 % Neutrophils # (Manual) 7.5 TH/MM3 Differential Comment FINAL DIFF MANUAL Platelet Estimate HIGH Platelet Morphology Comment NORMAL Sodium Level 141 MEQ/L Potassium Level 3.4 MEQ/L Chloride Level 104 MEQ/L Carbon Dioxide Level 27.0 MEQ/L Anion Gap 10 MEQ/L Blood Urea Nitrogen 11 MG/DL Creatinine 0.81 MG/DL Estimat Glomerular Filtration 119 ML/MIN Rate Random Glucose 96 MG/DL Calcium Level 8.1 MG/DL Phosphorus Level 3.8 MG/DL Magnesium Level 2.2 MG/DL Albumin 2.1 GM/DL Administered Medications Medications (Trade) Dose Ordered Sig/Martha Route PRN Reason Start Time Stop Time Status Last Admin Dose Admin Ondansetron HCl (Zofran Inj) 4 mg Q6H PRN IV NAUSEA OR VOMITING 11/05/16 23:00 11/12/16 05:00 Morphine Sulfate (Morphine Inj) 2 mg Q3H PRN IV PUSH PAIN SCALE 4 TO 10 11/07/16 20:00 11/12/16 04:59 Morphine Sulfate 5 mg 5 mg Q3HR PRN PO PAIN SCALE 1 TO 3 11/07/16 20:00 11/11/16 03:56 Multivitamins 10 ml/Folic Acid 1 mg/Amino Acids/ Electrolytes/ Dextrose 1,010.2 ml @ 42 mls/hr Q24H IV-CENTRAL 11/11/16 20:00 11/11/16 21:49 Fat Emulsion Intravenous (Liposyn Iii 20% Inj) 250 ml @ 10 mls/hr Q24H IV-CENTRAL 11/11/16 20:00 11/11/16 21:49 Pantoprazole Sodium 40 mg 40 mg Q24H IV PUSH 11/11/16 20:00 11/11/16 21:24 Piperacillin Sod/ Tazobactam Sod (Zosyn 3.375 Gm Premix) 50 ml @ 100 mls/hr Q6H IV 11/11/16 18:00 11/12/16 04:59 Objective Remarks GENERAL: Middle aged male, sitting up on side of bed in no distress. SKIN: Warm and dry. EYES: No scleral icterus. No injection or drainage. NECK: Supple, trachea midline. No JVD or lymphadenopathy. CARDIOVASCULAR: +S1/S2. No murmur. RESPIRATORY: Breath sounds equal bilaterally. No accessory muscle use. GASTROINTESTINAL: Abdomen protuberant. EXTREMITIES: No cyanosis, or edema. NEUROLOGICAL: No obvious focal deficit. Awake, alert, and oriented x3. Assessment/Plan Problem List: (1) Anemia Status: Acute Plan: --GI bleed secondary to gastric malignancy. --hgb stable today (2) Gastric adenocarcinoma Status: Acute Plan: 11/12: Spoke with Dr. Salguero. Pt to stay inpatient until surgery. He is not reliable as an outpatient with followup. Plan for continued XRT, TPN and surgery next week. 11/11: continue XRT. reviewed Dr. Salguero's note. 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 Assessment 56 y/o man with newly dx gastric cancer, thought to be locally advanced but staging CT/PET suggest liver and bone metastatic disease, admitted for recurrent GI bleeding. Plan 1. Continue TPN and palliative XRT. 2. Spoke with Dr Salguero- pt to stay inpatient until surgery next week. He will get a total of 5 palliative XRT treatments prior to this. 3. Daily CBC, BMP to check electrolytes while on TPN. 4. Hgb stable. Monitor for bleeding. 5. Supportive care. Problem Qualifiers (1) Anemia: Ave Garcia Nov 12, 2016 10:36
[2016-11-12] MEDS: [UNRECOGNIZED DRUG - OTHER] IV SCH (11:53)
[2016-11-12] MEDS: SODIUM CHLORIDE IV SCH (11:53)
[2016-11-12] MEDS: POTASSIUM CHLORIDE IV SCH (11:53)
[2016-11-12 12:00] VITALS: BP 118/87; PULSE 83; RESP 20; TEMP 99.1; O2SAT 100
--- NOTE | 2016-11-12 14:54 | HHI.PR ---
Subjective Remarks The patient reports being constipated. He said he had radiation earlier today. He said he was anticipating surgery and had questions pertaining to that. He had family at the bedside. He had no acute concerns. Objective Vitals Vital Signs Date Time Temp Pulse Resp B/P Pulse Ox O2 Delivery O2 Flow Rate FiO2 11/12/16 12:00 99.1 83 20 118/87 100 11/12/16 08:00 97.4 81 20 123/87 100 11/12/16 06:17 16 11/12/16 04:00 98.1 86 18 121/86 96 11/12/16 00:00 97.7 80 18 113/71 94 11/11/16 20:00 99.2 89 18 139/99 96 11/11/16 16:00 98.0 82 16 128/85 100 I/O 11/11/16 11/11/16 11/11/16 11/12/16 11/12/16 11/12/16 07:00 15:00 23:00 07:00 15:00 23:00 Intake Total 240 ml 480 ml 480 ml 120 ml Balance 240 ml 480 ml 480 ml 120 ml Intake Oral 240 ml 480 ml 480 ml 120 ml # Voids 1 3 1 1 Result Diagram: 11/12/16 0505 11/12/16 0505 Imaging Last Impressions Chest X-Ray 11/11/16 0000 Signed Impressions: Service Date/Time: Friday, November 11, 2016 16:05 - CONCLUSION: Left-sided PICC line in place. Small right pleural effusion unchanged. Juan Gifford MD Chest CT 11/10/16 1638 Signed Impressions: Service Date/Time: Thursday, November 10, 2016 16:42 - CONCLUSION: 1. CT scan was used to define the length of the mass in the distal esophagus involving the distal esophagus and the gastroesophageal junction. This would probably be amenable to percutaneous stenting with a stent measuring 11 to 12 cm. 2. Interval development of a right pleural effusion and ascites. Nathanael Montana MD FACR Upper GI/Barium Swallow X-Ray 11/10/16 0000 Signed Impressions: Service Date/Time: Thursday, November 10, 2016 16:10 - CONCLUSION: Obstruction distal esophagus. Thin section CT is pending. Nathanael Montana MD FACR Objective Remarks GENERAL: Appears comfortable. Alert and oriented 3. SKIN: Warm and dry. HEAD: Normocephalic. EYES: No scleral icterus. No injection or drainage. NECK: Supple, trachea midline. No JVD. CARDIOVASCULAR: Regular rate and rhythm without murmurs, gallops, or rubs. RESPIRATORY: Breath sounds equal bilaterally. No accessory muscle use. GASTROINTESTINAL: Abdomen soft, non-tender, nondistended. MUSCULOSKELETAL: No cyanosis, or edema. BACK: Nontender without obvious deformity. No CVA tenderness. PSYCH: Mood and affect appropriate. Medications and IVs Current Medications Medications (Trade) Dose Ordered Sig/Martha Route Start Time Stop Time Status Last Admin (Zofran Inj) 4 mg Q6H PRN IV 11/05/16 23:00 11/12/16 10:43 (Dilaudid Pf Inj) 0.5 mg Q4H PRN IV PUSH 11/07/16 12:00 (Morphine Inj) 2 mg Q3H PRN IV PUSH 11/07/16 20:00 11/12/16 14:42 Morphine Sulfate 5 mg 5 mg Q3HR PRN PO 11/07/16 20:00 11/11/16 03:56 Sodium Chloride 77 meq/Potassium Chloride 30 meq/ Dextrose 1,034.25 ml @ 75 mls/hr [id number] IV 11/10/16 19:30 Multivitamins 10 ml/Folic Acid 1 mg/Amino Acids/ Electrolytes/ Dextrose 1,010.2 ml @ 42 mls/hr Q24H IV-CENTRAL 11/11/16 20:00 11/11/16 21:49 (Liposyn Iii 20% Inj) 250 ml @ 10 mls/hr Q24H IV-CENTRAL 11/11/16 20:00 11/11/16 21:49 (NS Flush) See Protocol DAILY IV FLUSH 11/12/16 09:00 (NS Flush) See Protocol UNSCH PRN IV FLUSH 11/11/16 15:30 (Heparin Central Flush) See Protocol DAILY IV FLUSH 11/12/16 09:00 (Heparin Central Flush) See Protocol UNSCH PRN IV FLUSH 11/11/16 15:30 (NS Flush) See Protocol UNSCH PRN IV FLUSH 11/11/16 15:30 Pantoprazole Sodium 40 mg 40 mg Q24H IV PUSH 11/11/16 20:00 11/11/16 21:24 (Zosyn 3.375 Gm Premix) 50 ml @ 100 mls/hr Q6H IV 11/11/16 18:00 11/12/16 12:28 A/P Assessment and Plan Acute anemia due to GI bleed/ Adenocarcinoma 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 GI consultation appreciated. Patient underwent endoscopy 11/06 to evaluate for acute bleeding, but patient had diffuse oozing from mass which could not be cauterized. CBC stable. Gastrografin swallow showed complete esophageal obstruction to thin liquids. Radiology has ordered follow-up CT which shows that this could possibly be stented. Appreciate surgical oncology consult. - follow up with oncology. - PICC line for TPN. - continue fluids with dextrose. - continue radiation. - per surgery will need palliative surgery due to symptoms of obstruction/ bleeding. To be planned for sometime next week. Suspected aspiration pneumonia Consolidative changes right lower lobe. Due to obstructed esophagus, patient spitting up everything he drinks, most likely aspiration pneumonia. - continue nothing by mouth status. - Started on Zosyn for anaerobic coverage. Constipation S/t decreased PO intake. - enema ordered. Hypokalemia S/t decreased PO intake. - monitor and supplement as needed. DVT prophylaxis: SCDs. Chemical prophylaxis contraindicated. Discharge Planning Per surgery. Darwin Arreguin DO Nov 12, 2016 14:54
[2016-11-12] MEDS ORDERED: SOD PHOSPHATE/SOD BIPHOSPHATE (ADULT) ENEMA 133ML RECTAL ONE (15:00)
[2016-11-12 16:00] VITALS: BP 122/82; PULSE 74; RESP 20; TEMP 98.8; O2SAT 94
[2016-11-12] MEDS ORDERED: POTASSIUM CHLORIDE INJ 30 MEQ in SODIUM CHLORIDE 0.9% INJ 100 ML IV-CENTRAL ONE (16:00)
[2016-11-12 20:00] VITALS: BP 137/89; PULSE 83; RESP 18; TEMP 99; O2SAT 97
[2016-11-12] MEDS: FAT EMULSION 20% INJ 250 ML (@10 mls/hr) IV-CENTRAL SCH (20:56)
[2016-11-12] MEDS: CLINIMIX E 5/25 1000 mL- </= 42 mls/hr IV-CENTRAL SCH ×3 (20:56)
[2016-11-12] MEDS: PANTOPRAZOLE SODIUM 40 MG VIAL IV PUSH SCH (20:56)
[2016-11-13] VITALS: BP 119/86; PULSE 82; RESP 16; TEMP 98.1; O2SAT 100
[2016-11-13] MEDS: [UNRECOGNIZED DRUG - OTHER] IV SCH (02:31)
[2016-11-13] MEDS: SODIUM CHLORIDE IV SCH (02:31)
[2016-11-13] MEDS: POTASSIUM CHLORIDE IV SCH (02:31)
[2016-11-13] MEDS: MORPHINE SULFATE 4 MG/ML INJ IV PUSH PRN ×7 (02:33→23:53)
[2016-11-13 04:00] VITALS: BP 118/89; PULSE 84; RESP 16; TEMP 97.7; O2SAT 98
[2016-11-13] MEDS: ONDANSETRON HCL 4 MG/2 ML VIAL IV PRN ×4 (05:54→23:53)
[2016-11-13] MEDS: PIPERACIL-TAZO 3.375 GM PREMIX 50 ML IV SCH ×4 (05:55→23:57)
[2016-11-13 06:17] LABS: AUTOMATED NEUTROPHIL # 7.4 TH/MM3 (1.8-7.7); BASOPHIL % 0.1 % (0.0-2.0); EOSINOPHIL # 0.1 TH/MM3 (0-0.4); EOSINOPHIL % 1.3 % (0.0-4.0); HEMATOCRIT 25.7 % (39.0-51.0); HEMO FLAGS DIFF FINAL; LYMPH % 3.6 % (9.0-44.0); LYMPHOCYTE # 0.3 TH/MM3 (1.0-4.8); MEAN CELL VOLUME 85.1 FL (80.0-100.0); MEAN CORPUSCULAR HEMOGLOBIN 28.1 PG (27.0-34.0); MONO % 7.6 % (0.0-8.0); NEUT % 87.4 % (16.0-70.0); PLATELET COUNT 363 TH/MM3 (150-450); RED BLOOD COUNT 3.02 MIL/MM3 (4.50-5.90); RED CELL DISTRIBUTION WIDTH 15.7 % (11.6-17.2); WHITE BLOOD COUNT 8.5 TH/MM3 (4.0-11.0)
[2016-11-13 06:34] LABS: BICARBONATE 28.2 MEQ/L (21.0-32.0); MAGNESIUM 2.2 MG/DL (1.5-2.5); POTASSIUM 3.4 MEQ/L (3.5-5.1)
[2016-11-13 08:45] VITALS: BP 125/99; PULSE 85; RESP 16; TEMP 96.3; O2SAT 99
[2016-11-13] MEDS: SODIUM CHLORIDE 0.9% FLUSH 10 ML FLUSH IV FLUSH SCH (09:09)
--- NOTE | 2016-11-13 11:44 | PD.ONC.PN ---
Subjective Subjective Remarks Afebrile overnight. Pt resting in bed watching TV with at bedside. He has no complaints. He has just returned from XRT. Objective Data Date Time Temp Pulse Resp B/P Pulse Ox O2 Delivery O2 Flow Rate FiO2 11/13/16 08:45 96.3 85 16 125/99 99 11/13/16 04:00 97.7 84 16 118/89 98 11/13/16 00:00 98.1 82 16 119/86 100 11/12/16 20:00 99.0 83 18 137/89 97 11/12/16 16:00 98.8 74 20 122/82 94 11/12/16 12:00 99.1 83 20 118/87 100 11/13/16 11/13/16 11/13/16 07:00 15:00 23:00 Intake Total 240 ml Balance 240 ml Result Diagram: 11/13/16 0600 11/13/16 0600 Laboratory Results Laboratory Tests Test 11/13/16 06:00 White Blood Count 8.5 TH/MM3 Red Blood Count 3.02 MIL/MM3 Hemoglobin 8.5 GM/DL Hematocrit 25.7 % Mean Corpuscular Volume 85.1 FL Mean Corpuscular Hemoglobin 28.1 PG Mean Corpuscular Hemoglobin 33.0 % Concent Red Cell Distribution Width 15.7 % Platelet Count 363 TH/MM3 Mean Platelet Volume 7.2 FL Neutrophils (%) (Auto) 87.4 % Lymphocytes (%) (Auto) 3.6 % Monocytes (%) (Auto) 7.6 % Eosinophils (%) (Auto) 1.3 % Basophils (%) (Auto) 0.1 % Neutrophils # (Auto) 7.4 TH/MM3 Lymphocytes # (Auto) 0.3 TH/MM3 Monocytes # (Auto) 0.6 TH/MM3 Eosinophils # (Auto) 0.1 TH/MM3 Basophils # (Auto) 0.0 TH/MM3 CBC Comment DIFF FINAL Differential Comment Sodium Level 142 MEQ/L Potassium Level 3.4 MEQ/L Chloride Level 105 MEQ/L Carbon Dioxide Level 28.2 MEQ/L Anion Gap 9 MEQ/L Blood Urea Nitrogen 10 MG/DL Creatinine 0.72 MG/DL Estimat Glomerular Filtration 137 ML/MIN Rate Random Glucose 102 MG/DL Calcium Level 7.9 MG/DL Phosphorus Level 3.9 MG/DL Magnesium Level 2.2 MG/DL Albumin 1.9 GM/DL Administered Medications Medications (Trade) Dose Ordered Sig/Martha Route PRN Reason Start Time Stop Time Status Last Admin Dose Admin Ondansetron HCl (Zofran Inj) 4 mg Q6H PRN IV NAUSEA OR VOMITING 11/05/16 23:00 11/13/16 05:54 Morphine Sulfate (Morphine Inj) 2 mg Q3H PRN IV PUSH PAIN SCALE 4 TO 10 11/07/16 20:00 11/13/16 09:16 Morphine Sulfate 5 mg 5 mg Q3HR PRN PO PAIN SCALE 1 TO 3 11/07/16 20:00 11/11/16 03:56 Multivitamins 10 ml/Folic Acid 1 mg/Amino Acids/ Electrolytes/ Dextrose 1,010.2 ml @ 42 mls/hr Q24H IV-CENTRAL 11/11/16 20:00 11/12/16 20:56 Fat Emulsion Intravenous (Liposyn Iii 20% Inj) 250 ml @ 10 mls/hr Q24H IV-CENTRAL 11/11/16 20:00 11/12/16 20:56 Sodium Chloride (NS Flush) See Protocol DAILY IV FLUSH 11/12/16 09:00 11/13/16 09:09 Heparin Sodium (Porcine) (Heparin Central Flush) See Protocol DAILY IV FLUSH 11/12/16 09:00 11/13/16 09:09 Pantoprazole Sodium 40 mg 40 mg Q24H IV PUSH 11/11/16 20:00 11/12/16 20:56 Piperacillin Sod/ Tazobactam Sod (Zosyn 3.375 Gm Premix) 50 ml @ 100 mls/hr Q6H IV 11/11/16 18:00 11/13/16 05:55 Objective Remarks GENERAL: Middle aged male, resting in bed in no distress. SKIN: Warm and dry. EYES: No scleral icterus. No injection or drainage. NECK: Supple, trachea midline. No JVD or lymphadenopathy. CARDIOVASCULAR: +S1/S2. No murmur. RESPIRATORY: Breath sounds equal bilaterally. No accessory muscle use. GASTROINTESTINAL: Abdomen protuberant. EXTREMITIES: No cyanosis, or edema. NEUROLOGICAL: No obvious focal deficit. Awake, alert, and oriented x3. Assessment/Plan Problem List: (1) Gastric adenocarcinoma Status: Acute Plan: 11/13: Doing well. He understands he is to stay in hospital until his surgery. He has no complaints. 11/12: Spoke with Dr. Salguero. Pt to stay inpatient until surgery. He is not reliable as an outpatient with followup. Plan for continued XRT, TPN and surgery next week. 11/11: continue XRT. reviewed Dr. Salguero's note. 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 (2) Anemia Status: Acute Plan: --GI bleed secondary to gastric malignancy. --hgb stable today Assessment 56 y/o man with newly dx gastric cancer, thought to be locally advanced but staging CT/PET suggest liver and bone metastatic disease, admitted for recurrent GI bleeding. Plan 1. Pt agrees to stay in hospital until surgery. 2. We will continue with palliative XRT, TPN. 3. Daily electrolytes, CBC. 4. Monitor for bleeding. 5. Supportive care. Problem Qualifiers (1) Anemia: Ave Garcia Nov 13, 2016 11:44
[2016-11-13 12:17] VITALS: BP 123/88; PULSE 87; RESP 16; TEMP 98.6; O2SAT 100
--- NOTE | 2016-11-13 14:52 | HHI.PR ---
Subjective Remarks The pt was resting comfortably in bed. He had no acute complaints. He had radiation therapy earlier. Discussed with nursing. Objective Vitals Vital Signs Date Time Temp Pulse Resp B/P Pulse Ox O2 Delivery O2 Flow Rate FiO2 11/13/16 12:17 98.6 87 16 123/88 100 11/13/16 08:45 96.3 85 16 125/99 99 11/13/16 04:00 97.7 84 16 118/89 98 11/13/16 00:00 98.1 82 16 119/86 100 11/12/16 20:00 99.0 83 18 137/89 97 11/12/16 16:00 98.8 74 20 122/82 94 I/O 11/12/16 11/12/16 11/12/16 11/13/16 11/13/16 11/13/16 07:00 15:00 23:00 07:00 15:00 23:00 Intake Total 120 ml 480 ml 964 ml 240 ml Balance 120 ml 480 ml 964 ml 240 ml Intake Oral 120 ml 480 ml 480 ml 240 ml TPN/PPN 414 ml Lipid 70 ml # Voids 1 3 2 1 Result Diagram: 11/13/16 0600 11/13/16 0600 Imaging Last Impressions Chest X-Ray 11/11/16 0000 Signed Impressions: Service Date/Time: Friday, November 11, 2016 16:05 - CONCLUSION: Left-sided PICC line in place. Small right pleural effusion unchanged. Juan Gifford MD Chest CT 11/10/16 1638 Signed Impressions: Service Date/Time: Thursday, November 10, 2016 16:42 - CONCLUSION: 1. CT scan was used to define the length of the mass in the distal esophagus involving the distal esophagus and the gastroesophageal junction. This would probably be amenable to percutaneous stenting with a stent measuring 11 to 12 cm. 2. Interval development of a right pleural effusion and ascites. Nathanael Montana MD FACR Upper GI/Barium Swallow X-Ray 11/10/16 0000 Signed Impressions: Service Date/Time: Thursday, November 10, 2016 16:10 - CONCLUSION: Obstruction distal esophagus. Thin section CT is pending. Nathanael Montana MD FACR Objective Remarks GENERAL: Appears comfortable. Alert and oriented 3. SKIN: Warm and dry. HEAD: Normocephalic. EYES: No scleral icterus. No injection or drainage. NECK: Supple, trachea midline. No JVD. CARDIOVASCULAR: Regular rate and rhythm without murmurs, gallops, or rubs. RESPIRATORY: Breath sounds equal bilaterally. No accessory muscle use. GASTROINTESTINAL: Abdomen soft, non-tender, nondistended. MUSCULOSKELETAL: No cyanosis, or edema. BACK: Nontender without obvious deformity. No CVA tenderness. PSYCH: Mood and affect appropriate. Medications and IVs Current Medications Medications (Trade) Dose Ordered Sig/Martha Route Start Time Stop Time Status Last Admin (Zofran Inj) 4 mg Q6H PRN IV 11/05/16 23:00 11/13/16 12:52 (Dilaudid Pf Inj) 0.5 mg Q4H PRN IV PUSH 11/07/16 12:00 (Morphine Inj) 2 mg Q3H PRN IV PUSH 11/07/16 20:00 11/13/16 12:46 Morphine Sulfate 5 mg 5 mg Q3HR PRN PO 11/07/16 20:00 11/11/16 03:56 Sodium Chloride 77 meq/Potassium Chloride 30 meq/ Dextrose 1,034.25 ml @ 75 mls/hr [id number] IV 11/10/16 19:30 Multivitamins 10 ml/Folic Acid 1 mg/Amino Acids/ Electrolytes/ Dextrose 1,010.2 ml @ 42 mls/hr Q24H IV-CENTRAL 11/11/16 20:00 11/12/16 20:56 (Liposyn Iii 20% Inj) 250 ml @ 10 mls/hr Q24H IV-CENTRAL 11/11/16 20:00 11/12/16 20:56 (NS Flush) See Protocol DAILY IV FLUSH 11/12/16 09:00 11/13/16 09:09 (NS Flush) See Protocol UNSCH PRN IV FLUSH 11/11/16 15:30 (Heparin Central Flush) See Protocol DAILY IV FLUSH 11/12/16 09:00 11/13/16 09:09 (Heparin Central Flush) See Protocol UNSCH PRN IV FLUSH 11/11/16 15:30 (NS Flush) See Protocol UNSCH PRN IV FLUSH 11/11/16 15:30 Pantoprazole Sodium 40 mg 40 mg Q24H IV PUSH 11/11/16 20:00 11/12/16 20:56 Piperacillin Sod/ Tazobactam Sod 50 ml @ 100 mls/hr Q6H IV 11/11/16 18:00 11/13/16 12:45 (KCl Inj/NS Inj) 115 ml @ 38.333 mls/ hr ONCE ONCE IV-CENTRAL 11/13/16 15:00 11/13/16 17:59 A/P Assessment and Plan Acute anemia due to GI bleed/ Adenocarcinoma 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 GI consultation appreciated. Patient underwent endoscopy 11/06 to evaluate for acute bleeding, but patient had diffuse oozing from mass which could not be cauterized. CBC stable. Gastrografin swallow showed complete esophageal obstruction to thin liquids. Radiology has ordered follow-up CT which shows that this could possibly be stented. Appreciate surgical oncology consult. - follow up with oncology. - TPN started. - continue radiation. - per surgery will need palliative surgery due to symptoms of obstruction/ bleeding. To be planned for sometime next week. - start nystatin for thrush. Suspected aspiration pneumonia Consolidative changes right lower lobe. Due to obstructed esophagus, patient spitting up everything he drinks, most likely aspiration pneumonia. - continue nothing by mouth status. - Started on Zosyn for anaerobic coverage. Constipation S/t decreased PO intake. - enema ordered. Hypokalemia S/t decreased PO intake. - monitor and supplement as needed. DVT prophylaxis: SCDs. Chemical prophylaxis contraindicated. Discharge Planning Per surgery. Darwin Arreguin DO Nov 13, 2016 14:52
[2016-11-13] MEDS ORDERED: POTASSIUM CHLORIDE INJ 30 MEQ in SODIUM CHLORIDE 0.9% INJ 100 ML IV-CENTRAL ONE (15:00)
--- NOTE | 2016-11-13 15:15 | HHI.PR ---
Subjective Subjective Notes Sitting at the side of the bed In good spirits Objective Vitals/I&O Vital Signs Date Time Temp Pulse Resp B/P Pulse Ox O2 Delivery O2 Flow Rate FiO2 11/13/16 12:17 98.6 87 16 123/88 100 Labs Laboratory Tests Test 11/13/16 06:00 White Blood Count 8.5 Red Blood Count 3.02 Hemoglobin 8.5 Hematocrit 25.7 Mean Corpuscular Volume 85.1 Mean Corpuscular Hemoglobin 28.1 Mean Corpuscular Hemoglobin 33.0 Concent Red Cell Distribution Width 15.7 Platelet Count 363 Mean Platelet Volume 7.2 Neutrophils (%) (Auto) 87.4 Lymphocytes (%) (Auto) 3.6 Monocytes (%) (Auto) 7.6 Eosinophils (%) (Auto) 1.3 Basophils (%) (Auto) 0.1 Neutrophils # (Auto) 7.4 Lymphocytes # (Auto) 0.3 Monocytes # (Auto) 0.6 Eosinophils # (Auto) 0.1 Basophils # (Auto) 0.0 CBC Comment DIFF FINAL Differential Comment Sodium Level 142 Potassium Level 3.4 Chloride Level 105 Carbon Dioxide Level 28.2 Anion Gap 9 Blood Urea Nitrogen 10 Creatinine 0.72 Estimat Glomerular Filtration 137 Rate Random Glucose 102 Calcium Level 7.9 Phosphorus Level 3.9 Magnesium Level 2.2 Albumin 1.9 Cardiovascular: Regular Lungs: Clear Abdomen: Non-distended, Non-tender Narrative Exam PICC in place for TPN A/P Assessment and Plan 56 year old male with GE junction adenocarcinoma -Continue radiation -NPO -TPN -OOB and mobilize -Plan for surgery on Thursday Tracy Bishop Nov 13, 2016 15:15
[2016-11-13 16:00] VITALS: BP 124/65; PULSE 81; RESP 16; TEMP 97; O2SAT 98
[2016-11-13] MEDS: NYSTAT/DIPHENHY/LIDO MOUTHWASH (Adult) 120ML SWISH-SPIT SCH ×2 (18:40→20:11)
[2016-11-13 20:00] VITALS: BP 122/86; PULSE 97; RESP 16; TEMP 99.3; O2SAT 98
[2016-11-13] MEDS: FAT EMULSION 20% INJ 250 ML (@10 mls/hr) IV-CENTRAL SCH (20:11)
[2016-11-13] MEDS: CLINIMIX E 5/25 1000 mL- </= 42 mls/hr IV-CENTRAL SCH ×3 (20:11)
[2016-11-13] MEDS: PANTOPRAZOLE SODIUM 40 MG VIAL IV PUSH SCH (20:24)
[2016-11-13] MEDS: SIMETHICONE 80 MG CHEWABLE TAB CHEW PRN (22:20)
[2016-11-14] VITALS: BP 113/85; PULSE 93; RESP 16; TEMP 98.5; O2SAT 98
[2016-11-14] MEDS: MORPHINE SULFATE 4 MG/ML INJ IV PUSH PRN ×6 (03:08→21:32)
[2016-11-14 04:00] VITALS: BP 119/81; PULSE 95; RESP 16; TEMP 98.1; O2SAT 96
[2016-11-14] MEDS: ONDANSETRON HCL 4 MG/2 ML VIAL IV PRN ×3 (06:03→20:17)
[2016-11-14] MEDS: PIPERACIL-TAZO 3.375 GM PREMIX 50 ML IV SCH ×3 (06:04→17:54)
[2016-11-14 06:06] LABS: HEMATOCRIT 25.9 % (39.0-51.0); MEAN CELL VOLUME 84.9 FL (80.0-100.0); MEAN CORPUSCULAR HEMOGLOBIN 28.6 PG (27.0-34.0); MEAN CORPUSCULAR HGB CONC 33.7 % (32.0-36.0); PLATELET COUNT 373 TH/MM3 (150-450); RED BLOOD COUNT 3.05 MIL/MM3 (4.50-5.90); REVIEW FLAG FINAL; WHITE BLOOD COUNT 10.1 TH/MM3 (4.0-11.0)
[2016-11-14 06:26] LABS: BICARBONATE 28.4 MEQ/L (21.0-32.0); MAGNESIUM 2.2 MG/DL (1.5-2.5); POTASSIUM 3.5 MEQ/L (3.5-5.1)
[2016-11-14 08:00] VITALS: BP 111/86; PULSE 107; RESP 16; TEMP 98.6; O2SAT 100
[2016-11-14] MEDS: NYSTAT/DIPHENHY/LIDO MOUTHWASH (Adult) 120ML SWISH-SPIT SCH ×4 (09:18→21:00)
[2016-11-14] MEDS: SODIUM CHLORIDE 0.9% FLUSH 10 ML FLUSH IV FLUSH SCH (09:18)
--- NOTE | 2016-11-14 09:23 | HHI.PR ---
Subjective Remarks The pt was nauseous. He has had abdominal discomfort ever since TPN was started. He has been spitting up. He said Tums have helped. It has been about two days since his last bowel movement. Discussed with nursing. Objective Vitals Vital Signs Date Time Temp Pulse Resp B/P Pulse Ox O2 Delivery O2 Flow Rate FiO2 11/14/16 08:00 98.6 107 16 111/86 100 11/14/16 06:10 19 11/14/16 04:00 98.1 95 16 119/81 96 11/14/16 00:00 98.5 93 16 113/85 98 11/13/16 20:00 99.3 97 16 122/86 98 11/13/16 16:00 97.0 81 16 124/65 98 11/13/16 12:17 98.6 87 16 123/88 100 I/O 11/13/16 11/13/16 11/13/16 11/14/16 11/14/16 11/14/16 07:00 15:00 23:00 07:00 15:00 23:00 Intake Total 240 ml 1318 ml 602 ml 747 ml Balance 240 ml 1318 ml 602 ml 747 ml Intake Oral 240 ml 720 ml 200 ml IV Total 598 ml 402 ml 747 ml # Voids 1 3 1 # Bowel Movements 0 Result Diagram: 11/14/16 0545 11/14/16 0545 Imaging Last Impressions Chest X-Ray 11/11/16 0000 Signed Impressions: Service Date/Time: Friday, November 11, 2016 16:05 - CONCLUSION: Left-sided PICC line in place. Small right pleural effusion unchanged. Juan Gifford MD Chest CT 11/10/16 1638 Signed Impressions: Service Date/Time: Thursday, November 10, 2016 16:42 - CONCLUSION: 1. CT scan was used to define the length of the mass in the distal esophagus involving the distal esophagus and the gastroesophageal junction. This would probably be amenable to percutaneous stenting with a stent measuring 11 to 12 cm. 2. Interval development of a right pleural effusion and ascites. Nathanael Montana MD FACR Upper GI/Barium Swallow X-Ray 11/10/16 0000 Signed Impressions: Service Date/Time: Thursday, November 10, 2016 16:10 - CONCLUSION: Obstruction distal esophagus. Thin section CT is pending. Nathanael Montana MD FACR Objective Remarks GENERAL: Appears nauseous. Alert and oriented 3. SKIN: Warm and dry. HEAD: Normocephalic. EYES: No scleral icterus. No injection or drainage. NECK: Supple, trachea midline. No JVD. CARDIOVASCULAR: Regular rate and rhythm without murmurs, gallops, or rubs. RESPIRATORY: Breath sounds equal bilaterally. No accessory muscle use. GASTROINTESTINAL: Abdomen soft, tender in the epigastric area, distended. MUSCULOSKELETAL: No cyanosis, or edema. BACK: Nontender without obvious deformity. No CVA tenderness. PSYCH: Mood and affect appropriate. Medications and IVs Current Medications Medications (Trade) Dose Ordered Sig/Martha Route Start Time Stop Time Status Last Admin (Zofran Inj) 4 mg Q6H PRN IV 11/05/16 23:00 11/14/16 06:03 (Dilaudid Pf Inj) 0.5 mg Q4H PRN IV PUSH 11/07/16 12:00 (Morphine Inj) 2 mg Q3H PRN IV PUSH 11/07/16 20:00 11/14/16 06:03 Morphine Sulfate 5 mg 5 mg Q3HR PRN PO 11/07/16 20:00 11/11/16 03:56 Multivitamins 10 ml/Folic Acid 1 mg/Amino Acids/ Electrolytes/ Dextrose 1,010.2 ml @ 42 mls/hr Q24H IV-CENTRAL 11/11/16 20:00 11/13/16 20:11 (Liposyn Iii 20% Inj) 250 ml @ 10 mls/hr Q24H IV-CENTRAL 11/11/16 20:00 11/13/16 20:11 (NS Flush) See Protocol DAILY IV FLUSH 11/12/16 09:00 11/13/16 09:09 (NS Flush) See Protocol UNSCH PRN IV FLUSH 11/11/16 15:30 (Heparin Central Flush) See Protocol DAILY IV FLUSH 11/12/16 09:00 11/13/16 09:09 (Heparin Central Flush) See Protocol UNSCH PRN IV FLUSH 11/11/16 15:30 (NS Flush) See Protocol UNSCH PRN IV FLUSH 11/11/16 15:30 Pantoprazole Sodium 40 mg 40 mg Q24H IV PUSH 11/11/16 20:00 11/13/16 20:24 (Zosyn 3.375 Gm Premix) 50 ml @ 100 mls/hr Q6H IV 11/11/16 18:00 11/14/16 06:04 (Magic Mouthwash Adult Liq) 5 ml QID SWISH-SPIT 11/13/16 18:00 11/13/16 20:11 (Mylicon Chew) 80 mg PCHS PRN CHEW 11/13/16 22:00 11/13/16 22:20 A/P Assessment and Plan Acute anemia due to GI bleed/ Adenocarcinoma 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 GI consultation appreciated. Patient underwent endoscopy 11/06 to evaluate for acute bleeding, but patient had diffuse oozing from mass which could not be cauterized. CBC stable. Gastrografin swallow showed complete esophageal obstruction to thin liquids. Radiology has ordered follow-up CT which shows that this could possibly be stented. Appreciate surgical oncology consult. - follow up with oncology. - TPN started. On hold s/t GI upset. - continue radiation. - per surgery will need palliative surgery due to symptoms of obstruction/ bleeding. Tentatively scheduled for Thursday. - start nystatin for thrush. Suspected aspiration pneumonia Consolidative changes right lower lobe. Due to obstructed esophagus the patient has been spitting up everything he drinks, most likely aspiration pneumonia. - continue nothing by mouth status. - Started on Zosyn for anaerobic coverage. Abdominal pain/ Nausea The pt has developed GI upset ever since TPN was started. Has abdominal distention and epigastric abdominal pain. Possibly s/t pancreatitis. - check LFTs and lipase. - KUB pending. - hold TPN. - PPI. - pain control as needed. Constipation S/t decreased PO intake. - suppository ordered. Hypokalemia S/t decreased PO intake. - monitor and supplement as needed. DVT prophylaxis: SCDs. Chemical prophylaxis contraindicated. Discharge Planning Per surgery. Darwin Arreguin DO Nov 14, 2016 09:23
[2016-11-14] MEDS ORDERED: BISACODYL 10 MG SUPP RECTAL ONE (09:30)
[2016-11-14] MEDS ORDERED: POTASSIUM CHLORIDE INJ 30 MEQ in SODIUM CHLORIDE 0.9% INJ 100 ML IV-CENTRAL ONE (10:00)
[2016-11-14 10:22] LABS: INDIRECT BILIRUBIN 0.1 MG/DL (0.0-0.8); TOTAL BILIRUBIN ADULT 0.2 MG/DL (0.2-1.0)
--- NOTE | 2016-11-14 11:08 | PD.ONC.PN ---
Subjective Subjective Remarks Afebrile. He is in good spirits. Looking forward to surgery on Thursday. Feels like he needs to have a bowel movement. Objective Data Date Time Temp Pulse Resp B/P Pulse Ox O2 Delivery O2 Flow Rate FiO2 11/14/16 08:00 98.6 107 16 111/86 100 11/14/16 06:10 19 11/14/16 04:00 98.1 95 16 119/81 96 11/14/16 00:00 98.5 93 16 113/85 98 11/13/16 20:00 99.3 97 16 122/86 98 11/13/16 16:00 97.0 81 16 124/65 98 11/13/16 12:17 98.6 87 16 123/88 100 Result Diagram: 11/14/16 0545 11/14/16 0545 Laboratory Results Laboratory Tests Test 11/14/16 11/14/16 05:45 09:30 White Blood Count 10.1 TH/MM3 Red Blood Count 3.05 MIL/MM3 Hemoglobin 8.7 GM/DL Hematocrit 25.9 % Mean Corpuscular Volume 84.9 FL Mean Corpuscular Hemoglobin 28.6 PG Mean Corpuscular Hemoglobin 33.7 % Concent Red Cell Distribution Width 16.0 % Platelet Count 373 TH/MM3 Mean Platelet Volume 7.7 FL Sodium Level 140 MEQ/L Potassium Level 3.5 MEQ/L Chloride Level 106 MEQ/L Carbon Dioxide Level 28.4 MEQ/L Anion Gap 6 MEQ/L Blood Urea Nitrogen 10 MG/DL Creatinine 0.69 MG/DL Estimat Glomerular Filtration 144 ML/MIN Rate Random Glucose 100 MG/DL Calcium Level 8.0 MG/DL Magnesium Level 2.2 MG/DL Total Bilirubin 0.2 MG/DL Direct Bilirubin 0.1 MG/DL Indirect Bilirubin 0.1 MG/DL Aspartate Amino Transf 22 U/L (AST/SGOT) Alanine Aminotransferase 11 U/L (ALT/SGPT) Alkaline Phosphatase 17 U/L Total Protein 5.1 GM/DL Albumin 1.8 GM/DL Lipase 43 U/L Administered Medications Medications (Trade) Dose Ordered Sig/Martha Route PRN Reason Start Time Stop Time Status Last Admin Dose Admin Ondansetron HCl (Zofran Inj) 4 mg Q6H PRN IV NAUSEA OR VOMITING 11/05/16 23:00 11/14/16 06:03 Morphine Sulfate (Morphine Inj) 2 mg Q3H PRN IV PUSH PAIN SCALE 4 TO 10 11/07/16 20:00 11/14/16 09:19 Morphine Sulfate 5 mg 5 mg Q3HR PRN PO PAIN SCALE 1 TO 3 11/07/16 20:00 11/11/16 03:56 Multivitamins 10 ml/Folic Acid 1 mg/Amino Acids/ Electrolytes/ Dextrose 1,010.2 ml @ 42 mls/hr Q24H IV-CENTRAL 11/11/16 20:00 11/13/16 20:11 Fat Emulsion Intravenous (Liposyn Iii 20% Inj) 250 ml @ 10 mls/hr Q24H IV-CENTRAL 11/11/16 20:00 11/13/16 20:11 Sodium Chloride (NS Flush) See Protocol DAILY IV FLUSH 11/12/16 09:00 11/14/16 09:18 Heparin Sodium (Porcine) (Heparin Central Flush) See Protocol DAILY IV FLUSH 11/12/16 09:00 11/14/16 09:18 Pantoprazole Sodium 40 mg 40 mg Q24H IV PUSH 11/11/16 20:00 11/13/16 20:24 Piperacillin Sod/ Tazobactam Sod (Zosyn 3.375 Gm Premix) 50 ml @ 100 mls/hr Q6H IV 11/11/16 18:00 11/14/16 06:04 Multi-Ingredient Mouthwash/Gargle (Magic Mouthwash Adult Liq) 5 ml QID SWISH-SPIT 11/13/16 18:00 11/13/16 20:11 Simethicone (Mylicon Chew) 80 mg PCHS PRN CHEW gaseous distention 11/13/16 22:00 11/13/16 22:20 Objective Remarks GENERAL: Middle aged male, siting up on side of bed in no distress. SKIN: Warm and dry. EYES: No scleral icterus. No injection or drainage. NECK: Supple, trachea midline. No JVD or lymphadenopathy. CARDIOVASCULAR: +S1/S2. No murmur. RESPIRATORY: Breath sounds equal bilaterally. No accessory muscle use. GASTROINTESTINAL: Abdomen protuberant. Feeling of fullness. EXTREMITIES: No cyanosis, or edema. NEUROLOGICAL: No obvious focal deficit. Awake, alert, and oriented x3. Assessment/Plan Problem List: (1) Gastric adenocarcinoma Status: Acute Plan: 11/14: Completed XRT today. He feels like he needs to have a BM. He has recently taken a Dulcolax suppository. 11/13: Doing well. He understands he is to stay in hospital until his surgery. He has no complaints. 11/12: Spoke with Dr. Salguero. Pt to stay inpatient until surgery. He is not reliable as an outpatient with followup. Plan for continued XRT, TPN and surgery next week. 11/11: continue XRT. reviewed Dr. Salguero's note. 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 (2) Anemia Status: Acute Plan: --GI bleed secondary to gastric malignancy. --hgb stable today Assessment 56 y/o man with newly dx gastric cancer, thought to be locally advanced but staging CT/PET suggest liver and bone metastatic disease, admitted for recurrent GI bleeding. Plan 1. Surgery planned for Thursday with Dr. Salguero. 2. XRT completed today. 3. CBC, BMP daily to monitor for bleeding, electrolytes. 4. TPN continues. Attending Statement The exam, history, and the medical decision-making described in the above note were completed with the assistance of the mid-level provider. I reviewed and agree with the findings presented. I attest that I had a [id number] encounter with the patient on the same day, and personally performed and documented my assessment and findings in the medical record. Pt seen and examined. State he is sipping some chicken broth. Tolerated XRT and completed it today, no bleeding, swallowing still difficult, unable to sustain nutrition requirements. Cont TPN. Noted plans for palliative surgery. Discussed plans for palliative chemo with [facility]. Problem Qualifiers (1) Anemia: Ave Garcia Nov 14, 2016 11:08 Fay Talavera MD Nov 14, 2016 20:09
--- NOTE | 2016-11-14 11:50 | RADRPT ---
EXAM DATE/TIME: 11/14/2016 11:08 [facility] COMPARISON: CHEST SINGLE AP, November 11, 2016, 16:05. INDICATIONS : Abdominal pain and distention for two days MEDICAL HISTORY : Carcinoma, esophageal. Cardiovascular disease. Hypertension. SURGICAL HISTORY : None. ENCOUNTER: Subsequent ACUITY: 2 days PAIN SCORE: 10/10 LOCATION: Bilateral abdomen FINDINGS: Radiographic contrast is seen in the colon. There is no gaseous distention. CONCLUSION: There is no significant abdominal distention. Nathanael Montana MD FACR on November 14, 2016 at 11:38 Board Certified Radiologist. This report was verified electronically.
[2016-11-14 12:00] VITALS: BP 119/83; PULSE 108; RESP 16; TEMP 97.4; O2SAT 97
[2016-11-14] MEDS: CALCIUM CARBONATE 500 MG CHEWABLE TAB CHEW PRN (12:59)
[2016-11-14] MEDS: SIMETHICONE 80 MG CHEWABLE TAB CHEW PRN (17:54)
--- NOTE | 2016-11-14 18:28 | RADONCENDT ---
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, T4, N1, M0 Primary E88.09 - Other disorders of plasma-protein metabolism, not elsewhere classified, Diagnosed 10/16/2016 (Active) , Secondary K21.9 - Gastro-esophageal reflux disease without esophagitis, Diagnosed 10/16/2016 (Active) , Secondary R10.9 - Unspecified abdominal pain, Diagnosed 10/16/2016 (Active) , Diagnosis Confirmed: Suspected Diagnosis Date: 10/16/2016 Diagnosis Laterality: Method of Diagnosis: Unknown PRESCRIPTION AND TREATMENT: GE stomach (Plan ID - GE stomach c1) - Rx Dose 2,375cGy (Status - Treatment Approved) - 5 / 5 PLAN FRACTIONS AND DATES: Course: GE stomach Plan IDFractionsFirst TreatmentLast TreatmentExpected End of TreatmentGE stomach c15 / 5 11/10/ TREATED PLANS: Course: GE stomach Plan IDEnergyFractionsDose per Fraction (cGy)Total Dose Delivered (cGy)Elapsed DaysGE stomach c115X/6X5 / [id number] TOLERANCE: no complications. Patient did not have bleeding during tx. FOLLOW UP PLAN: f/u in 3 months Donis Kate MD 11/14/2016 6:28:40 PM This report was verified electronicallyThis report was verified electronically
[2016-11-14 20:00] VITALS: BP 130/93; PULSE 102; RESP 20; TEMP 100.7; O2SAT 97
[2016-11-14] MEDS: PANTOPRAZOLE SODIUM 40 MG VIAL IV PUSH SCH (20:17)
[2016-11-14] MEDS: FAT EMULSION 20% INJ 250 ML (@10 mls/hr) IV-CENTRAL SCH (21:36)
[2016-11-14] MEDS: CLINIMIX E 5/25 1000 mL- </= 42 mls/hr IV-CENTRAL SCH ×3 (21:36)
[2016-11-15] VITALS: BP 132/93; PULSE 113; RESP 20; TEMP 99.3; O2SAT 97
[2016-11-15] MEDS: PIPERACIL-TAZO 3.375 GM PREMIX 50 ML IV SCH ×5 (00:01→23:12)
[2016-11-15] MEDS: MORPHINE SULFATE 4 MG/ML INJ IV PUSH PRN ×8 (00:30→23:12)
[2016-11-15] MEDS: ONDANSETRON HCL 4 MG/2 ML VIAL IV PRN ×3 (03:24→20:03)
[2016-11-15 04:00] VITALS: BP 115/86; PULSE 98; RESP 18; TEMP 98.9; O2SAT 96
[2016-11-15 07:40] LABS: MEAN CELL VOLUME 86.7 FL (80.0-100.0); MEAN CORPUSCULAR HEMOGLOBIN 27.5 PG (27.0-34.0); MEAN CORPUSCULAR HGB CONC 31.7 % (32.0-36.0); PLATELET COUNT 357 TH/MM3 (150-450); RED BLOOD COUNT 2.88 MIL/MM3 (4.50-5.90); RED CELL DISTRIBUTION WIDTH 16.7 % (11.6-17.2); REVIEW FLAG FINAL; WHITE BLOOD COUNT 10.4 TH/MM3 (4.0-11.0)
[2016-11-15 08:00] VITALS: BP 110/83; PULSE 98; RESP 18; TEMP 98.4; O2SAT 99
[2016-11-15 08:19] LABS: BICARBONATE 26.3 MEQ/L (21.0-32.0); MAGNESIUM 2.3 MG/DL (1.5-2.5); POTASSIUM 4.2 MEQ/L (3.5-5.1)
[2016-11-15] MEDS: SODIUM CHLORIDE 0.9% FLUSH 10 ML FLUSH IV FLUSH SCH (09:00)
[2016-11-15] MEDS: NYSTAT/DIPHENHY/LIDO MOUTHWASH (Adult) 120ML SWISH-SPIT SCH ×4 (09:00→21:00)
[2016-11-15 12:00] VITALS: BP 128/92; PULSE 88; RESP 18; TEMP 97.8; O2SAT 95
--- NOTE | 2016-11-15 14:06 | HHI.PR ---
Subjective Remarks The patient was sitting up in bed. He had no acute complaints. He said that when he drinks water sometimes he gets a burning sensation in the stomach. He was anxious for his surgery on Thursday. Tolerating TPN fine. Discussed with nursing. Objective Vitals Vital Signs Date Time Temp Pulse Resp B/P Pulse Ox O2 Delivery O2 Flow Rate FiO2 11/15/16 12:00 97.8 88 18 128/92 95 11/15/16 08:00 98.4 98 18 110/83 99 11/15/16 07:07 20 11/15/16 04:00 98.9 98 18 115/86 96 11/15/16 00:00 99.3 113 20 132/93 97 11/14/16 20:00 100.7 102 20 130/93 97 I/O 11/14/16 11/14/16 11/14/16 11/15/16 11/15/16 11/15/16 07:00 15:00 23:00 07:00 15:00 23:00 Intake Total 747 ml 209 ml 213 ml 535 ml Balance 747 ml 209 ml 213 ml 535 ml Intake Oral 120 ml 240 ml IV Total 747 ml 93 ml 295 ml TPN/PPN 168 ml Lipid 41 ml # Voids 2 Result Diagram: 11/15/16 0640 11/15/16 0640 Imaging Last Impressions Abdomen X-Ray 11/14/16 0000 Signed Impressions: Service Date/Time: Monday, November 14, 2016 11:08 - CONCLUSION: There is no significant abdominal distention. Nathanael Montana MD FACR Chest X-Ray 11/11/16 0000 Signed Impressions: Service Date/Time: Friday, November 11, 2016 16:05 - CONCLUSION: Left-sided PICC line in place. Small right pleural effusion unchanged. Juan Gifford MD Chest CT 11/10/16 1638 Signed Impressions: Service Date/Time: Thursday, November 10, 2016 16:42 - CONCLUSION: 1. CT scan was used to define the length of the mass in the distal esophagus involving the distal esophagus and the gastroesophageal junction. This would probably be amenable to percutaneous stenting with a stent measuring 11 to 12 cm. 2. Interval development of a right pleural effusion and ascites. Nathanael Montana MD FACR Upper GI/Barium Swallow X-Ray 11/10/16 0000 Signed Impressions: Service Date/Time: Thursday, November 10, 2016 16:10 - CONCLUSION: Obstruction distal esophagus. Thin section CT is pending. Nathanael Montana MD FACR Objective Remarks GENERAL: Alert and oriented 3. SKIN: Warm and dry. HEAD: Normocephalic. EYES: No scleral icterus. No injection or drainage. NECK: Supple, trachea midline. No JVD. CARDIOVASCULAR: Regular rate and rhythm without murmurs, gallops, or rubs. RESPIRATORY: Breath sounds equal bilaterally. No accessory muscle use. GASTROINTESTINAL: Abdomen soft, nontender, slightly distended. MUSCULOSKELETAL: No cyanosis, or edema. BACK: Nontender without obvious deformity. No CVA tenderness. PSYCH: Mood and affect appropriate. Medications and IVs Current Medications Medications (Trade) Dose Ordered Sig/Martha Route Start Time Stop Time Status Last Admin (Zofran Inj) 4 mg Q6H PRN IV 11/05/16 23:00 11/15/16 09:49 (Dilaudid Pf Inj) 0.5 mg Q4H PRN IV PUSH 11/07/16 12:00 (Morphine Inj) 2 mg Q3H PRN IV PUSH 11/07/16 20:00 11/15/16 13:35 Morphine Sulfate 5 mg 5 mg Q3HR PRN PO 11/07/16 20:00 11/11/16 03:56 Multivitamins 10 ml/Folic Acid 1 mg/Amino Acids/ Electrolytes/ Dextrose 1,010.2 ml @ 42 mls/hr Q24H IV-CENTRAL 11/11/16 20:00 11/14/16 21:36 (Liposyn Iii 20% Inj) 250 ml @ 10 mls/hr Q24H IV-CENTRAL 11/11/16 20:00 11/14/16 21:36 (NS Flush) See Protocol DAILY IV FLUSH 11/12/16 09:00 11/15/16 09:00 (NS Flush) See Protocol UNSCH PRN IV FLUSH 11/11/16 15:30 (Heparin Central Flush) See Protocol DAILY IV FLUSH 11/12/16 09:00 11/15/16 09:48 (Heparin Central Flush) See Protocol UNSCH PRN IV FLUSH 11/11/16 15:30 11/14/16 21:46 (NS Flush) See Protocol UNSCH PRN IV FLUSH 11/11/16 15:30 Pantoprazole Sodium 40 mg 40 mg Q24H IV PUSH 11/11/16 20:00 11/14/16 20:17 (Zosyn 3.375 Gm Premix) 50 ml @ 100 mls/hr Q6H IV 11/11/16 18:00 11/15/16 13:03 (Magic Mouthwash Adult Liq) 5 ml QID SWISH-SPIT 11/13/16 18:00 11/13/16 20:11 (Mylicon Chew) 80 mg PCHS PRN CHEW 11/13/16 22:00 11/14/16 17:54 (Tums Chew) 500 mg Q2H PRN CHEW 11/14/16 09:15 11/14/16 12:59 A/P Assessment and Plan Acute anemia due to GI bleed/ Adenocarcinoma 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 GI consultation appreciated. Patient underwent endoscopy 11/06 to evaluate for acute bleeding, but patient had diffuse oozing from mass which could not be cauterized. CBC stable. Gastrografin swallow showed complete esophageal obstruction to thin liquids. Radiology has ordered follow-up CT which shows that this could possibly be stented. Appreciate surgical oncology consult. - follow up with oncology. - continue TPN. - s/p radiation. - per surgery will need palliative surgery due to symptoms of obstruction/ bleeding. Tentatively scheduled for Thursday. - start nystatin for thrush. Suspected aspiration pneumonia Consolidative changes right lower lobe. Due to obstructed esophagus the patient has been spitting up everything he drinks, most likely aspiration pneumonia. - continue nothing by mouth status. - Started on Zosyn for anaerobic coverage. Abdominal pain/ Nausea The pt has developed GI upset ever since TPN was started. Has abdominal distention and epigastric abdominal pain. LFTs, lipase and KUB unremarkable. Improved. - PPI. - pain control and Maalox as needed. Constipation S/t decreased PO intake. - suppository ordered. Resolved. Hypokalemia S/t decreased PO intake. - monitor and supplement as needed. DVT prophylaxis: SCDs. Chemical prophylaxis contraindicated. Discharge Planning Per surgery. Darwin Arreguin DO Nov 15, 2016 14:06
[2016-11-15] MEDS ORDERED: ALUMINUM/MAGNESIUM/SIMETH 30 ML CUP PO ONE (14:15)
[2016-11-15] MEDS ORDERED: ALUMINUM/MAGNESIUM/SIMETH 30 ML CUP PO PRN (14:15)
[2016-11-15 16:00] VITALS: BP 94/56; PULSE 102; RESP 18; TEMP 99.7; O2SAT 100
[2016-11-15 20:00] VITALS: BP 111/89; PULSE 97; RESP 18; TEMP 98.2; O2SAT 95
[2016-11-15] MEDS: CLINIMIX E 5/25 1000 mL- </= 42 mls/hr IV-CENTRAL SCH ×3 (20:11)
[2016-11-15] MEDS: FAT EMULSION 20% INJ 250 ML (@10 mls/hr) IV-CENTRAL SCH (20:11)
[2016-11-15] MEDS: PANTOPRAZOLE SODIUM 40 MG VIAL IV PUSH SCH (20:13)
[2016-11-16] VITALS: BP 131/94; PULSE 100; RESP 20; TEMP 98.5; O2SAT 95
[2016-11-16] MEDS: MORPHINE SULFATE 4 MG/ML INJ IV PUSH PRN ×7 (02:22→20:54)
[2016-11-16] MEDS: ONDANSETRON HCL 4 MG/2 ML VIAL IV PRN ×3 (02:24→15:30)
[2016-11-16 04:00] VITALS: BP 104/67; PULSE 91; RESP 18; TEMP 97.8; O2SAT 96
[2016-11-16] MEDS: PIPERACIL-TAZO 3.375 GM PREMIX 50 ML IV SCH ×3 (05:39→18:01)
[2016-11-16 06:58] LABS: HEMATOCRIT 23.9 % (39.0-51.0); MEAN CELL VOLUME 84.9 FL (80.0-100.0); MEAN CORPUSCULAR HEMOGLOBIN 27.1 PG (27.0-34.0); MEAN CORPUSCULAR HGB CONC 31.9 % (32.0-36.0); PLATELET COUNT 358 TH/MM3 (150-450); RED BLOOD COUNT 2.82 MIL/MM3 (4.50-5.90); RED CELL DISTRIBUTION WIDTH 16.1 % (11.6-17.2); REVIEW FLAG FINAL; WHITE BLOOD COUNT 9.6 TH/MM3 (4.0-11.0)
[2016-11-16 07:14] LABS: BICARBONATE 27.5 MEQ/L (21.0-32.0); MAGNESIUM 2.2 MG/DL (1.5-2.5); POTASSIUM 3.7 MEQ/L (3.5-5.1)
[2016-11-16 08:00] VITALS: BP 109/85; PULSE 98; RESP 16; TEMP 98.7; O2SAT 100
[2016-11-16] MEDS: SODIUM CHLORIDE 0.9% FLUSH 10 ML FLUSH IV FLUSH SCH (08:31)
[2016-11-16] MEDS: NYSTAT/DIPHENHY/LIDO MOUTHWASH (Adult) 120ML SWISH-SPIT SCH ×4 (09:00→20:54)
[2016-11-16 12:00] VITALS: BP 114/88; PULSE 85; RESP 18; TEMP 97.9; O2SAT 100
--- NOTE | 2016-11-16 13:56 | HHI.PR ---
Subjective Remarks The patient was lying down in bed. He said that he was feeling well. He says he's been swallowing well. Discussed with nursing. Objective Vitals Vital Signs Date Time Temp Pulse Resp B/P Pulse Ox O2 Delivery O2 Flow Rate FiO2 11/16/16 12:00 97.9 85 18 114/88 100 11/16/16 08:00 98.7 98 16 109/85 100 11/16/16 06:00 20 11/16/16 04:00 97.8 91 18 104/67 96 11/16/16 00:00 98.5 100 20 131/94 95 11/15/16 20:00 98.2 97 18 111/89 95 11/15/16 16:00 99.7 102 18 94/56 100 I/O 11/15/16 11/15/16 11/15/16 11/16/16 11/16/16 11/16/16 07:00 15:00 23:00 07:00 15:00 23:00 Intake Total 535 ml 840 ml 100 ml 1107 ml Balance 535 ml 840 ml 100 ml 1107 ml Intake Oral 240 ml 840 ml 480 ml IV Total 295 ml 100 ml 627 ml # Voids 2 4 2 Result Diagram: 11/16/16 0530 11/16/16 0530 Imaging Last Impressions Abdomen X-Ray 11/14/16 0000 Signed Impressions: Service Date/Time: Monday, November 14, 2016 11:08 - CONCLUSION: There is no significant abdominal distention. Nathanael Montana MD FACR Chest X-Ray 11/11/16 0000 Signed Impressions: Service Date/Time: Friday, November 11, 2016 16:05 - CONCLUSION: Left-sided PICC line in place. Small right pleural effusion unchanged. Juan Gifford MD Chest CT 11/10/16 1638 Signed Impressions: Service Date/Time: Thursday, November 10, 2016 16:42 - CONCLUSION: 1. CT scan was used to define the length of the mass in the distal esophagus involving the distal esophagus and the gastroesophageal junction. This would probably be amenable to percutaneous stenting with a stent measuring 11 to 12 cm. 2. Interval development of a right pleural effusion and ascites. Nathanael Montana MD FACR Upper GI/Barium Swallow X-Ray 11/10/16 0000 Signed Impressions: Service Date/Time: Thursday, November 10, 2016 16:10 - CONCLUSION: Obstruction distal esophagus. Thin section CT is pending. Nathanael Montana MD FACR Objective Remarks GENERAL: Alert and oriented 3. SKIN: Warm and dry. HEAD: Normocephalic. EYES: No scleral icterus. No injection or drainage. NECK: Supple, trachea midline. No JVD. CARDIOVASCULAR: Regular rate and rhythm without murmurs, gallops, or rubs. RESPIRATORY: Breath sounds equal bilaterally. No accessory muscle use. GASTROINTESTINAL: Abdomen soft, nontender, slightly distended. MUSCULOSKELETAL: No cyanosis, or edema. BACK: Nontender without obvious deformity. No CVA tenderness. PSYCH: Mood and affect appropriate. Medications and IVs Current Medications Medications (Trade) Dose Ordered Sig/Martha Route Start Time Stop Time Status Last Admin (Zofran Inj) 4 mg Q6H PRN IV 11/05/16 23:00 11/16/16 08:29 (Dilaudid Pf Inj) 0.5 mg Q4H PRN IV PUSH 11/07/16 12:00 (Morphine Inj) 2 mg Q3H PRN IV PUSH 11/07/16 20:00 11/16/16 11:47 Morphine Sulfate 5 mg 5 mg Q3HR PRN PO 11/07/16 20:00 11/11/16 03:56 Multivitamins 10 ml/Folic Acid 1 mg/Amino Acids/ Electrolytes/ Dextrose 1,010.2 ml @ 42 mls/hr Q24H IV-CENTRAL 11/11/16 20:00 11/15/16 20:11 (Liposyn Iii 20% Inj) 250 ml @ 10 mls/hr Q24H IV-CENTRAL 11/11/16 20:00 11/15/16 20:11 (NS Flush) See Protocol DAILY IV FLUSH 11/12/16 09:00 11/16/16 08:31 (NS Flush) See Protocol UNSCH PRN IV FLUSH 11/11/16 15:30 (Heparin Central Flush) See Protocol DAILY IV FLUSH 11/12/16 09:00 11/16/16 08:30 (Heparin Central Flush) See Protocol UNSCH PRN IV FLUSH 11/11/16 15:30 11/14/16 21:46 (NS Flush) See Protocol UNSCH PRN IV FLUSH 11/11/16 15:30 Pantoprazole Sodium 40 mg 40 mg Q24H IV PUSH 11/11/16 20:00 11/15/16 20:13 (Zosyn 3.375 Gm Premix) 50 ml @ 100 mls/hr Q6H IV 11/11/16 18:00 11/16/16 11:46 (Magic Mouthwash Adult Liq) 5 ml QID SWISH-SPIT 11/13/16 18:00 11/13/16 20:11 (Mylicon Chew) 80 mg PCHS PRN CHEW 11/13/16 22:00 11/14/16 17:54 (Tums Chew) 500 mg Q2H PRN CHEW 11/14/16 09:15 11/14/16 12:59 (Mag-Al Plus Susp Liq) 30 ml Q6H PRN PO 11/15/16 14:15 A/P Assessment and Plan Acute anemia due to GI bleed/ Adenocarcinoma 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 GI consultation appreciated. Patient underwent endoscopy 11/06 to evaluate for acute bleeding, but patient had diffuse oozing from mass which could not be cauterized. CBC stable. Gastrografin swallow showed complete esophageal obstruction to thin liquids. Radiology has ordered follow-up CT which shows that this could possibly be stented. Appreciate surgical oncology consult. - follow up with oncology. - continue TPN. - s/p radiation. - per surgery will need palliative surgery due to symptoms of obstruction/ bleeding. Tentatively scheduled for Thursday. - started nystatin for thrush. - follow CBC and transfuse as needed. Suspected aspiration pneumonia Consolidative changes right lower lobe. Due to obstructed esophagus the patient has been spitting up everything he drinks, most likely aspiration pneumonia. - continue nothing by mouth status. - Started on Zosyn for anaerobic coverage. D/c 11/18. Abdominal pain/ Nausea The pt has developed GI upset ever since TPN was started. Has abdominal distention and epigastric abdominal pain. LFTs, lipase and KUB unremarkable. Improved. - PPI. - pain control, Tums and Maalox as needed. Constipation S/t decreased PO intake. - suppository ordered. Resolved. Hypokalemia S/t decreased PO intake. - monitor and supplement as needed. DVT prophylaxis: SCDs. Chemical prophylaxis contraindicated. Discharge Planning Per surgery. Darwin Arreguin DO Nov 16, 2016 13:56
[2016-11-16] MEDS: CALCIUM CARBONATE 500 MG CHEWABLE TAB CHEW PRN (15:35)
[2016-11-16 16:00] VITALS: BP_SYST 130; BP_SYST 141; BP_DIAS 69; BP_DIAS 90; PULSE 73; PULSE 88; RESP 16; RESP 18; TEMP 98.2; TEMP 98.3; O2SAT 97; O2SAT 98
[2016-11-16 20:00] VITALS: BP 129/80; PULSE 98; RESP 17; TEMP 100; O2SAT 100
[2016-11-16] MEDS: CLINIMIX E 5/25 1000 mL- </= 42 mls/hr IV-CENTRAL SCH ×3 (20:39)
[2016-11-16] MEDS: FAT EMULSION 20% INJ 250 ML (@10 mls/hr) IV-CENTRAL SCH (20:39)
[2016-11-16] MEDS: PANTOPRAZOLE SODIUM 40 MG VIAL IV PUSH SCH (20:39)
[2016-11-17] VITALS: BP 123/82; PULSE 104; RESP 17; TEMP 98.9; O2SAT 95
[2016-11-17] MEDS: PIPERACIL-TAZO 3.375 GM PREMIX 50 ML IV SCH ×4 (00:04→18:10)
[2016-11-17] MEDS: MORPHINE SULFATE 4 MG/ML INJ IV PUSH PRN ×6 (00:05→21:48)
[2016-11-17 04:00] VITALS: BP 125/65; PULSE 90; RESP 17; TEMP 96.9; O2SAT 98
[2016-11-17 07:30] VITALS: BP 116/85; PULSE 105; RESP 20; TEMP 97.1; O2SAT 96
[2016-11-17] MEDS: ONDANSETRON HCL 4 MG/2 ML VIAL IV PRN ×2 (07:53→14:07)
[2016-11-17 07:54] LABS: AUTOMATED NEUTROPHIL # 8.4 TH/MM3 (1.8-7.7); BASOPHIL % 0.1 % (0.0-2.0); EOSINOPHIL % 0.4 % (0.0-4.0); HEMATOCRIT 24.6 % (39.0-51.0); HEMO FLAGS DIFF FINAL; LYMPHOCYTE # 0.2 TH/MM3 (1.0-4.8); MEAN CORPUSCULAR HEMOGLOBIN 27.3 PG (27.0-34.0); MEAN CORPUSCULAR HGB CONC 32.5 % (32.0-36.0); MONO % 8.3 % (0.0-8.0); NEUT % 89.2 % (16.0-70.0); PLATELET COUNT 437 TH/MM3 (150-450); RED BLOOD COUNT 2.93 MIL/MM3 (4.50-5.90); RED CELL DISTRIBUTION WIDTH 16.5 % (11.6-17.2); WHITE BLOOD COUNT 9.4 TH/MM3 (4.0-11.0)
[2016-11-17] MEDS: NYSTAT/DIPHENHY/LIDO MOUTHWASH (Adult) 120ML SWISH-SPIT SCH ×4 (08:22→21:38)
[2016-11-17] MEDS: SODIUM CHLORIDE 0.9% FLUSH 10 ML FLUSH IV FLUSH SCH (08:23)
[2016-11-17 11:50] VITALS: BP 100/65; PULSE 87; RESP 20; TEMP 98.4; O2SAT 97
[2016-11-17 15:30] VITALS: BP 113/70; PULSE 90; RESP 20; TEMP 97.4; O2SAT 97
--- NOTE | 2016-11-17 16:02 | HHI.PR ---
Subjective Remarks The patient had no acute complaints. Resting comfortably. Anticipating surgery tomorrow. Objective Vitals Vital Signs Date Time Temp Pulse Resp B/P Pulse Ox O2 Delivery O2 Flow Rate FiO2 11/17/16 11:50 98.4 87 20 100/65 97 11/17/16 07:30 97.1 105 20 116/85 96 11/17/16 06:45 18 11/17/16 04:00 96.9 90 17 125/65 98 11/17/16 00:00 98.9 104 17 123/82 95 11/16/16 20:00 100.0 98 17 129/80 100 11/16/16 16:00 98.3 73 18 141/90 97 I/O 11/16/16 11/16/16 11/16/16 11/17/16 11/17/16 11/17/16 07:00 15:00 23:00 07:00 15:00 23:00 Intake Total 1107 ml 750 ml 240 ml Balance 1107 ml 750 ml 240 ml Intake Oral 480 ml 600 ml 240 ml IV Total 627 ml 150 ml # Voids 2 3 1 # Bowel Movements 0 1 Result Diagram: 11/17/16 0650 11/16/16 0530 Imaging Last Impressions Abdomen X-Ray 11/14/16 0000 Signed Impressions: Service Date/Time: Monday, November 14, 2016 11:08 - CONCLUSION: There is no significant abdominal distention. Nathanael Montana MD FACR Chest X-Ray 11/11/16 0000 Signed Impressions: Service Date/Time: Friday, November 11, 2016 16:05 - CONCLUSION: Left-sided PICC line in place. Small right pleural effusion unchanged. Juan Gifford MD Chest CT 11/10/16 1638 Signed Impressions: Service Date/Time: Thursday, November 10, 2016 16:42 - CONCLUSION: 1. CT scan was used to define the length of the mass in the distal esophagus involving the distal esophagus and the gastroesophageal junction. This would probably be amenable to percutaneous stenting with a stent measuring 11 to 12 cm. 2. Interval development of a right pleural effusion and ascites. Nathanael Montana MD FACR Upper GI/Barium Swallow X-Ray 11/10/16 0000 Signed Impressions: Service Date/Time: Thursday, November 10, 2016 16:10 - CONCLUSION: Obstruction distal esophagus. Thin section CT is pending. Nathanael Montana MD FACR Objective Remarks GENERAL: Alert and oriented 3. SKIN: Warm and dry. HEAD: Normocephalic. EYES: No scleral icterus. No injection or drainage. NECK: Supple, trachea midline. No JVD. CARDIOVASCULAR: Regular rate and rhythm without murmurs, gallops, or rubs. RESPIRATORY: Breath sounds equal bilaterally. No accessory muscle use. GASTROINTESTINAL: Abdomen soft, nontender, slightly distended. MUSCULOSKELETAL: No cyanosis, or edema. BACK: Nontender without obvious deformity. No CVA tenderness. PSYCH: Mood and affect appropriate. Medications and IVs Current Medications Medications (Trade) Dose Ordered Sig/Martha Route Start Time Stop Time Status Last Admin (Zofran Inj) 4 mg Q6H PRN IV 11/05/16 23:00 11/17/16 14:07 (Dilaudid Pf Inj) 0.5 mg Q4H PRN IV PUSH 11/07/16 12:00 (Morphine Inj) 2 mg Q3H PRN IV PUSH 11/07/16 20:00 11/17/16 14:07 Morphine Sulfate 5 mg 5 mg Q3HR PRN PO 11/07/16 20:00 11/11/16 03:56 Multivitamins 10 ml/Folic Acid 1 mg/Amino Acids/ Electrolytes/ Dextrose 1,010.2 ml @ 42 mls/hr Q24H IV-CENTRAL 11/11/16 20:00 11/16/16 20:39 (Liposyn Iii 20% Inj) 250 ml @ 10 mls/hr Q24H IV-CENTRAL 11/11/16 20:00 11/16/16 20:39 (NS Flush) See Protocol DAILY IV FLUSH 11/12/16 09:00 11/16/16 08:31 (NS Flush) See Protocol UNSCH PRN IV FLUSH 11/11/16 15:30 (Heparin Central Flush) See Protocol DAILY IV FLUSH 11/12/16 09:00 11/17/16 10:38 (Heparin Central Flush) See Protocol UNSCH PRN IV FLUSH 11/11/16 15:30 11/14/16 21:46 (NS Flush) See Protocol UNSCH PRN IV FLUSH 11/11/16 15:30 Pantoprazole Sodium 40 mg 40 mg Q24H IV PUSH 11/11/16 20:00 11/16/16 20:39 (Zosyn 3.375 Gm Premix) 50 ml @ 100 mls/hr Q6H IV 11/11/16 18:00 11/17/16 14:06 (Magic Mouthwash Adult Liq) 5 ml QID SWISH-SPIT 11/13/16 18:00 11/13/16 20:11 (Mylicon Chew) 80 mg PCHS PRN CHEW 11/13/16 22:00 11/14/16 17:54 (Tums Chew) 500 mg Q2H PRN CHEW 11/14/16 09:15 11/16/16 15:35 (Mag-Al Plus Susp Liq) 30 ml Q6H PRN PO 11/15/16 14:15 A/P Assessment and Plan Acute anemia due to GI bleed/ Adenocarcinoma 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 GI consultation appreciated. Patient underwent endoscopy 11/06 to evaluate for acute bleeding, but patient had diffuse oozing from mass which could not be cauterized. CBC stable. Gastrografin swallow showed complete esophageal obstruction to thin liquids. Radiology has ordered follow-up CT which shows that this could possibly be stented. Appreciate surgical oncology consult. - follow up with oncology. - continue TPN. - s/p radiation. - per surgery will need palliative surgery due to symptoms of obstruction/ bleeding. Tentatively scheduled for tomorrow. - started nystatin for thrush. - follow CBC and transfuse as needed. Suspected aspiration pneumonia Consolidative changes right lower lobe. Due to obstructed esophagus the patient has been spitting up everything he drinks, most likely aspiration pneumonia. - continue nothing by mouth status. - Started on Zosyn for anaerobic coverage. D/c 11/18. Abdominal pain/ Nausea The pt has developed GI upset ever since TPN was started. Has abdominal distention and epigastric abdominal pain. LFTs, lipase and KUB unremarkable. Improved. - PPI. - pain control, Tums and Maalox as needed. Constipation S/t decreased PO intake. - suppository ordered. Resolved. Hypokalemia S/t decreased PO intake. - monitor and supplement as needed. Will check labs in AM. DVT prophylaxis: SCDs. Chemical prophylaxis contraindicated. Discharge Planning Per surgery. Darwin Arreguin DO Nov 17, 2016 16:02
[2016-11-17 21:00] VITALS: BP 116/70; PULSE 88; RESP 18; TEMP 99; O2SAT 97
[2016-11-17] MEDS: CLINIMIX E 5/25 1000 mL- </= 42 mls/hr IV-CENTRAL SCH ×3 (21:48)
[2016-11-17] MEDS: PANTOPRAZOLE SODIUM 40 MG VIAL IV PUSH SCH (21:48)
[2016-11-17] MEDS: FAT EMULSION 20% INJ 250 ML (@10 mls/hr) IV-CENTRAL SCH (21:48)
[2016-11-18] VITALS (7 sets, daily range): BP systolic 100–153; BP diastolic 59–90; PULSE 82–105; RESP 12–18; TEMP 96.8–99.8; O2SAT 96–98
[2016-11-18] MEDS: PIPERACIL-TAZO 3.375 GM PREMIX 50 ML IV SCH ×4 (00:54→12:46)
[2016-11-18] MEDS: MORPHINE SULFATE 4 MG/ML INJ IV PUSH PRN ×2 (01:00→05:55)
[2016-11-18 06:15] LABS: AUTOMATED NEUTROPHIL # 6.5 TH/MM3 (1.8-7.7); EOSINOPHIL # 0.1 TH/MM3 (0-0.4); EOSINOPHIL % 1.6 % (0.0-4.0); HEMATOCRIT 22.8 % (39.0-51.0); HEMO FLAGS DIFF FINAL; LYMPHOCYTE # 0.2 TH/MM3 (1.0-4.8); MEAN CELL VOLUME 83.7 FL (80.0-100.0); MEAN CORPUSCULAR HEMOGLOBIN 27.3 PG (27.0-34.0); MEAN CORPUSCULAR HGB CONC 32.6 % (32.0-36.0); MONO % 10.6 % (0.0-8.0); NEUT % 85.8 % (16.0-70.0); PLATELET COUNT 400 TH/MM3 (150-450); RED BLOOD COUNT 2.73 MIL/MM3 (4.50-5.90); RED CELL DISTRIBUTION WIDTH 16.3 % (11.6-17.2); WHITE BLOOD COUNT 7.6 TH/MM3 (4.0-11.0)
[2016-11-18 06:24] LABS: INTERNATIONAL NORMALIZED RATIO 1.1 RATIO; PROTHROMBIN TIME - PATIENT 11.9 SEC (9.8-11.6)
[2016-11-18 06:45] LABS: ANION GAP 10 MEQ/L (5-15); AST (GOT) 16 U/L (15-37); BICARBONATE 26.9 MEQ/L (21.0-32.0); BLOOD UREA NITROGEN 9 MG/DL (7-18); CHLORIDE 102 MEQ/L (98-107); MAGNESIUM 2.2 MG/DL (1.5-2.5); POTASSIUM 3.3 MEQ/L (3.5-5.1); SODIUM (NA) 139 MEQ/L (136-145)
[2016-11-18 06:48] LABS: ALKALINE PHOSPHATASE 14 U/L (45-117); ALT (GPT) 10 U/L (12-78); GLOMERULAR FILTRATION RATE 137 ML/MIN (>89); TOTAL BILIRUBIN ADULT 0.2 MG/DL (0.2-1.0)
[2016-11-18] MEDS: NYSTAT/DIPHENHY/LIDO MOUTHWASH (Adult) 120ML SWISH-SPIT SCH ×4 (07:12→21:00)
[2016-11-18] MEDS: SODIUM CHLORIDE 0.9% FLUSH 10 ML FLUSH IV FLUSH SCH (08:00)
[2016-11-18] MEDS ORDERED: PHENYLEPH/NS 1000 MCG/10 ML SYR IV ONE (08:48)
[2016-11-18] MEDS ORDERED: ONDANSETRON HCL 4 MG/2 ML VIAL IV PUSH ONE (08:48)
[2016-11-18] MEDS ORDERED: LACTATED RINGER'S 1000 ML INJ 1,000 ML IV ONE (08:48)
[2016-11-18] MEDS ORDERED: PROPOFOL 200 MG/20 ML AMP IV ONE (08:48)
[2016-11-18] MEDS ORDERED: NORMOSOL R INJ 1,000 ML IV ONE (08:49)
[2016-11-18] MEDS ORDERED: GELFOAM SIZE 100 ONE (10:15)
[2016-11-18] MEDS ORDERED: FAMOTIDINE 20 MG/2 ML VIAL ONE (12:59)
[2016-11-18] MEDS ORDERED: ACETAMINOPHEN 1000 MG/100 ML VIAL IV ONE (12:59)
[2016-11-18] MEDS ORDERED: DEXAMETHASONE SOD PHOS 4 MG/ML VIAL ONE (12:59)
[2016-11-18] MEDS ORDERED: HYDROmorphone HCL PF 2 MG/ML VIAL ONE (13:00)
[2016-11-18] MEDS ORDERED: SUGAMMADEX SODIUM 200 MG/2 ML VIAL IV PUSH ONE ×2 (15:07)
--- NOTE | 2016-11-18 15:29 | HHI.PR ---
Immediate Post Op Note Procedure Date: Nov 18, 2016 Pre Op Diagnosis: (1) Metastasis from gastric cancer Post Op Diagnosis: (1) Metastasis from gastric cancer Surgeon: Dawit Salguero Animator(s): Kai Johns Procedure: exploratory laparotomy, peritoneal biopsy Findings: large volume carcinomatosis, 4l malignant ascites, GE jxn tumor invading diaphragm, liver, pancreas Complications: none Specimen(s) removed: peritoneal biopsy Estimated blood loss: 50ml Anesthesia: General, Regional Block Drains: None IVF Patient to: PACU Patient Condition: Good Dawti Salguero MD Nov 18, 2016 15:28
[2016-11-18] MEDS ORDERED: NALOXONE HCL 0.4 MG/ML AMP IV PRN (15:30)
[2016-11-18] MEDS ORDERED: DO NOT ADM ANY ANTICOAGULANT DRUGS PRN (15:40)
[2016-11-18] MEDS ORDERED: MIDAZOLAM HCL 2 MG/2 ML VIAL ONE (15:49)
[2016-11-18] MEDS ORDERED: fentaNYL CITRATE 250 MCG/5 ML AMP ONE (15:49)
[2016-11-18] MEDS: PCA - TOTAL MG DILAUDID DELIVERED PER SHIFT OTHER SCH ×2 (16:00→21:35)
--- NOTE | 2016-11-18 17:55 | HHI.PR ---
Subjective Remarks The patient was seen in the PACU. He had no acute complaints following surgery. Discussed with nursing. Objective Vitals Vital Signs Date Time Temp Pulse Resp B/P Pulse Ox O2 Delivery O2 Flow Rate FiO2 11/18/16 16:45 96.8 105 16 128/89 98 11/18/16 15:28 97.6 98 18 141/99 95 Nasal Cannula 2 11/18/16 12:00 99.8 82 16 153/87 98 11/18/16 08:00 99.5 84 12 137/90 96 11/18/16 06:03 18 11/18/16 05:30 98.0 83 16 100/59 97 11/18/16 00:45 99.6 87 16 114/77 97 11/17/16 21:00 99.0 88 18 116/70 97 I/O 11/17/16 11/17/16 11/17/16 11/18/16 11/18/16 11/18/16 07:00 15:00 23:00 07:00 15:00 23:00 Intake Total 240 ml 360 ml 1017 ml 0 ml 2000 ml Output Total 3 ml 5 ml Balance 240 ml 357 ml 1017 ml 0 ml 1995 ml Intake Oral 240 ml 360 ml 480 ml 0 ml IV Total 537 ml Other 2000 ml Output Urine Total 3 ml Estimated Blood Loss 5 ml # Voids 1 1 2 1 3 # Bowel Movements 1 Result Diagram: 11/18/16 0555 11/18/16 0555 Imaging Last Impressions Abdomen X-Ray 11/14/16 0000 Signed Impressions: Service Date/Time: Monday, November 14, 2016 11:08 - CONCLUSION: There is no significant abdominal distention. Nathanael Montana MD FACR Chest X-Ray 11/11/16 0000 Signed Impressions: Service Date/Time: Friday, November 11, 2016 16:05 - CONCLUSION: Left-sided PICC line in place. Small right pleural effusion unchanged. Juan Gifford MD Chest CT 11/10/16 1638 Signed Impressions: Service Date/Time: Thursday, November 10, 2016 16:42 - CONCLUSION: 1. CT scan was used to define the length of the mass in the distal esophagus involving the distal esophagus and the gastroesophageal junction. This would probably be amenable to percutaneous stenting with a stent measuring 11 to 12 cm. 2. Interval development of a right pleural effusion and ascites. Nathanael Montana MD FACR Upper GI/Barium Swallow X-Ray 11/10/16 0000 Signed Impressions: Service Date/Time: Thursday, November 10, 2016 16:10 - CONCLUSION: Obstruction distal esophagus. Thin section CT is pending. Nathanael Montana MD FACR Objective Remarks GENERAL: Alert and oriented 3. SKIN: Warm and dry. HEAD: Normocephalic. EYES: No scleral icterus. No injection or drainage. NECK: Supple, trachea midline. No JVD. CARDIOVASCULAR: Regular rate and rhythm without murmurs, gallops, or rubs. RESPIRATORY: Breath sounds equal bilaterally. No accessory muscle use. GASTROINTESTINAL: Abdomen soft, nontender, slightly distended. MUSCULOSKELETAL: No cyanosis, or edema. BACK: Nontender without obvious deformity. No CVA tenderness. PSYCH: Mood and affect appropriate. Medications and IVs Current Medications Medications (Trade) Dose Ordered Sig/Martha Route Start Time Stop Time Status Last Admin (Zofran Inj) 4 mg Q6H PRN IV 11/05/16 23:00 11/17/16 14:07 (Dilaudid Pf Inj) 0.5 mg Q4H PRN IV PUSH 11/07/16 12:00 (Morphine Inj) 2 mg Q3H PRN IV PUSH 11/07/16 20:00 11/18/16 05:55 Morphine Sulfate 5 mg 5 mg Q3HR PRN PO 11/07/16 20:00 11/11/16 03:56 Multivitamins 10 ml/Folic Acid 1 mg/Amino Acids/ Electrolytes/ Dextrose 1,010.2 ml @ 42 mls/hr Q24H IV-CENTRAL 11/11/16 20:00 11/17/16 21:48 (Liposyn Iii 20% Inj) 250 ml @ 10 mls/hr Q24H IV-CENTRAL 11/11/16 20:00 11/17/16 21:48 (NS Flush) See Protocol DAILY IV FLUSH 11/12/16 09:00 11/16/16 08:31 (NS Flush) See Protocol UNSCH PRN IV FLUSH 11/11/16 15:30 (Heparin Central Flush) See Protocol DAILY IV FLUSH 11/12/16 09:00 11/17/16 10:38 (Heparin Central Flush) See Protocol UNSCH PRN IV FLUSH 11/11/16 15:30 11/14/16 21:46 (NS Flush) See Protocol UNSCH PRN IV FLUSH 11/11/16 15:30 Pantoprazole Sodium 40 mg 40 mg Q24H IV PUSH 11/11/16 20:00 11/17/16 21:48 (Zosyn 3.375 Gm Premix) 50 ml @ 100 mls/hr Q6H IV 11/11/16 18:00 11/18/16 12:46 (Magic Mouthwash Adult Liq) 5 ml QID SWISH-SPIT 11/13/16 18:00 11/13/16 20:11 (Mylicon Chew) 80 mg PCHS PRN CHEW 11/13/16 22:00 11/14/16 17:54 (Tums Chew) 500 mg Q2H PRN CHEW 11/14/16 09:15 11/16/16 15:35 (Mag-Al Plus Susp Liq) 30 ml Q6H PRN PO 11/15/16 14:15 (Narcan Inj) 0.4 mg UNSCH PRN IV 11/18/16 15:30 (Dilaudid [employer] Inj) 6 mg UNSCH IV 11/18/16 15:30 [employer] DES[employer] Dosage Infused (Pha) 1 Q8HR OTHER 11/18/16 16:00 Miscellaneous Information ALL NURSING DEPARTME... 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 GI consultation appreciated. Patient underwent endoscopy 11/06 to evaluate for acute bleeding, but patient had diffuse oozing from mass which could not be cauterized. CBC stable. Gastrografin swallow showed complete esophageal obstruction to thin liquids. Radiology has ordered follow-up CT which shows that this could possibly be stented. Appreciate surgical oncology consult. Surgery 11/18: Large volume carcinomatosis, 4l malignant ascites, GE jxn tumor invading diaphragm, liver, pancreas. - follow up with oncology and surgery. - continue TPN. - s/p radiation. - started nystatin for thrush. - follow CBC and transfuse as needed. Suspected aspiration pneumonia Consolidative changes right lower lobe. Due to obstructed esophagus the patient has been spitting up everything he drinks, most likely aspiration pneumonia. - continue nothing by mouth status. - Started on Zosyn for anaerobic coverage. D/c 11/18. Abdominal pain/ Nausea The pt has developed GI upset ever since TPN was started. Has abdominal distention and epigastric abdominal pain. LFTs, lipase and KUB unremarkable. Improved. - PPI. - pain control, Tums and Maalox as needed. Constipation S/t decreased PO intake. - suppository ordered. Resolved. Hypokalemia S/t decreased PO intake. - monitor and supplement as needed. Will check labs in AM. DVT prophylaxis: SCDs. Chemical prophylaxis contraindicated. Discharge Planning Per oncology. Darwin Arreguin DO Nov 18, 2016 17:55
[2016-11-18] MEDS: HYDROmorphone HCL PCA 6 MG/30 ML IV SCH (18:08)
[2016-11-18] MEDS ORDERED: POTASSIUM CHLORIDE INJ 30 MEQ in SODIUM CHLORIDE 0.9% INJ 100 ML IV-CENTRAL ONE (20:00)
[2016-11-18] MEDS: FAT EMULSION 20% INJ 250 ML (@10 mls/hr) IV-CENTRAL SCH (21:14)
[2016-11-18] MEDS: CLINIMIX E 5/25 1000 mL- </= 42 mls/hr IV-CENTRAL SCH ×3 (21:15)
[2016-11-18] MEDS: PANTOPRAZOLE SODIUM 40 MG VIAL IV PUSH SCH (21:16)
[2016-11-19] VITALS (7 sets, daily range): BP systolic 115–133; BP diastolic 70–94; PULSE 83–98; RESP 16–18; TEMP 97.2–99.5; O2SAT 94–98
[2016-11-19] MEDS: PCA - TOTAL MG DILAUDID DELIVERED PER SHIFT OTHER SCH ×3 (04:35→21:37)
[2016-11-19 04:59] LABS: HEMATOCRIT 30.6 % (39.0-51.0); MEAN CELL VOLUME 90.5 FL (80.0-100.0); MEAN CORPUSCULAR HEMOGLOBIN 32.2 PG (27.0-34.0); MEAN CORPUSCULAR HGB CONC 35.6 % (32.0-36.0); PLATELET COUNT 405 TH/MM3 (150-450); RED BLOOD COUNT 3.38 MIL/MM3 (4.50-5.90); REVIEW FLAG FINAL; WHITE BLOOD COUNT 10.9 TH/MM3 (4.0-11.0)
--- NOTE | 2016-11-19 07:22 | HHI.PR ---
Subjective Remarks The patient is in bed, he says he doesn't have much pain. No fever or chills. She said he is eating without nausea or vomiting, he did not have diarrhea. Objective Vitals Vital Signs Date Time Temp Pulse Resp B/P Pulse Ox O2 Delivery O2 Flow Rate FiO2 11/19/16 04:35 16 11/19/16 04:00 99.5 92 16 121/89 97 11/19/16 00:00 97.2 95 16 117/88 97 11/18/16 21:35 16 11/18/16 20:41 97 21 11/18/16 20:00 98.1 104 18 123/86 96 11/18/16 18:08 18 11/18/16 16:45 96.8 105 16 128/89 98 11/18/16 16:30 102 18 118/77 96 Nasal Cannula 2 11/18/16 16:15 116 18 126/81 96 Nasal Cannula 2 11/18/16 16:00 100 18 127/74 93 Nasal Cannula 2 11/18/16 15:45 107 18 129/79 96 Nasal Cannula 2 11/18/16 15:28 97.6 98 18 141/99 95 Nasal Cannula 2 11/18/16 12:00 99.8 82 16 153/87 98 11/18/16 08:00 99.5 84 12 137/90 96 I/O 11/18/16 11/18/16 11/18/16 11/19/16 11/19/16 11/19/16 07:00 15:00 23:00 07:00 15:00 23:00 Intake Total 0 ml 2680 ml 240 ml Output Total 255 ml 450 ml 150 ml Balance 0 ml 2425 ml -210 ml -150 ml Intake Oral 0 ml 480 ml 240 ml Other 2200 ml Output Urine Total 250 ml 450 ml 150 ml Estimated Blood Loss 5 ml # Voids 1 3 0 0 Result Diagram: 11/19/16 0430 11/18/16 0555 Imaging Last Impressions Abdomen X-Ray 11/14/16 0000 Signed Impressions: Service Date/Time: Monday, November 14, 2016 11:08 - CONCLUSION: There is no significant abdominal distention. Nathanael Montana MD FACR Chest X-Ray 11/11/16 0000 Signed Impressions: Service Date/Time: Friday, November 11, 2016 16:05 - CONCLUSION: Left-sided PICC line in place. Small right pleural effusion unchanged. Juan Gifford MD Chest CT 11/10/16 1638 Signed Impressions: Service Date/Time: Thursday, November 10, 2016 16:42 - CONCLUSION: 1. CT scan was used to define the length of the mass in the distal esophagus involving the distal esophagus and the gastroesophageal junction. This would probably be amenable to percutaneous stenting with a stent measuring 11 to 12 cm. 2. Interval development of a right pleural effusion and ascites. Nathanael Montana MD FACR Upper GI/Barium Swallow X-Ray 11/10/16 0000 Signed Impressions: Service Date/Time: Thursday, November 10, 2016 16:10 - CONCLUSION: Obstruction distal esophagus. Thin section CT is pending. Nathanael Montana MD FACR Objective Remarks GENERAL: Alert and oriented 3. SKIN: Warm and dry. HEAD: Normocephalic. EYES: No scleral icterus. No injection or drainage. NECK: Supple, trachea midline. No JVD. CARDIOVASCULAR: Regular rate and rhythm without murmurs, gallops, or rubs. RESPIRATORY: Breath sounds equal bilaterally. No accessory muscle use. GASTROINTESTINAL: Abdomen soft, nontender, slightly distended. MUSCULOSKELETAL: No cyanosis, or edema. BACK: Nontender without obvious deformity. No CVA tenderness. PSYCH: Mood and affect appropriate. 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 GI consultation appreciated. Patient underwent endoscopy 11/06 to evaluate for acute bleeding, but patient had diffuse oozing from mass which could not be cauterized. CBC stable. Gastrografin swallow showed complete esophageal obstruction to thin liquids. Radiology has ordered follow-up CT which shows that this could possibly be stented. Appreciate surgical oncology consult, dr Salguero following S/P Surgery 11/18: Large volume carcinomatosis, 4l malignant ascites, GE jxn tumor invading diaphragm, liver, pancreas. - follow up with oncology and surgery. - continue TPN. - s/p radiation. - started nystatin for thrush. - follow CBC and transfuse as needed. Suspected aspiration pneumonia Consolidative changes right lower lobe. Due to obstructed esophagus the patient has been spitting up everything he drinks, most likely aspiration pneumonia. - continue nothing by mouth status. - Started on Zosyn for anaerobic coverage. D/c /. Abdominal pain/ Nausea The pt has developed GI upset ever since TPN was started. Has abdominal distention and epigastric abdominal pain. LFTs, lipase and KUB unremarkable. Improved. - PPI. - pain control, Tums and Maalox as needed. Constipation S/t decreased PO intake. - suppository ordered. Resolved. Hypokalemia S/t decreased PO intake. - monitor and supplement as needed. Will check labs in AM. DVT prophylaxis: SCDs. Chemical prophylaxis contraindicated. Discharge Planning Per oncology. Shahnaz Huertas MD Nov 19, 2016 07:22
[2016-11-19 09:00] LABS: BICARBONATE 26.7 MEQ/L (21.0-32.0); MAGNESIUM 2.2 MG/DL (1.5-2.5); POTASSIUM 4.1 MEQ/L (3.5-5.1)
[2016-11-19] MEDS: NYSTAT/DIPHENHY/LIDO MOUTHWASH (Adult) 120ML SWISH-SPIT SCH ×4 (09:00→21:36)
[2016-11-19] MEDS: SODIUM CHLORIDE 0.9% FLUSH 10 ML FLUSH IV FLUSH SCH (09:00)
--- NOTE | 2016-11-19 10:02 | PD.CONS ---
Consult Service Palliative Care Consult Requested By Dr. Salguero . Primary Care Physician GINGER Veloz Reason for Consultation a. To assist with evaluation and management of symptoms including: pain, malnutrition b. To assist medical decision maker(s) with: better understanding of current medical conditions; weighing benefits/burdens of medical treatment options; making medical treatment decisions. HPI History of Present Illness This 56-year-old patient presented to the ED on 11/05/16 with complaints of generalized weakness, shortness of breath and nausea and vomiting for the past day and a half. Patient has also had ongoing dark stools since September when he received a diagnosis of gastroesophageal adenocarcinoma. Also reported chronic epigastric pain. Denied fever, cough, chest pain, urinary complaints. Patient had an appointment with oncologist Dr. Talavera 11/06. Of note patient with recent admission for GI bleed 10/28/16 status post transfusion 4 U RBC. * ED findings: Hemoccult positive. Anemic, hemoglobin 6.7, hematocrit 20.2. Started on Protonix drip. Troponin negative. CXR indicates probable small right-sided effusion, otherwise clear. Patient was discussed with known oncologist, was transfused 2 units RBCs admitted for further evaluation and management. GI, oncology consulted. * GI notes patient previously seen by Dr. Alarcon, recently underwent upper endoscopy with findings of large circumferential mass in distal esophagus, has continued to have bleeding from that area. He was recommended to have outpatient PET scan and further workup for possible esophagectomy. Planned for repeat endoscopy to determine any active bleeding sites that may be amenable to cauterization. Otherwise is likely chronic oozing and would need to continue supportive transfusions as needed. * Oncology: patient with large mass in the distal third of the esophagus extending into the GE junction causing obstruction. Biopsy = poorly differentiated adenocarcinoma with focal signet ring feature, HER-[address]/PET suggest liver and bone metastatic disease. Was initially planned for neoadjuvant chemotherapy followed by surgery-however the patient has had recurrent symptomatic anemia, unable to start any treatment. Oncology recommends stopping the bleeding first, consider radiation versus surgical resection versus gastric artery embolization, consult radiation oncology, surgery also consulted or possible palliative resection. Surgery recommends consider TPN, possible feeding tube if surgical intervention pursued. * Radiation oncology: 3 options: 1 Option for surgical resection, thus far outpatient he has not been able to complete/ follow-up, 2 option for palliative radiation therapy alone, or 3 option of palliative radiation 5 treatments at a high dose, allow him to stabilize and then proceed with palliative surgical resection via robotics, then undergo chemotherapy. Patient wanted to proceed with the last option of radiation, surgery then chemotherapy. * start XRT 11/10, plan for possible surgery with Dr. Salguero following XRT. Pt feeling well, wants to go home. Stable for d/c per oncology. * Per barium swallow : results show patient getting minimal to no nutrition. Oncology discussed TPN with patient, plan to discuss further with case management possibility of home TPN though this is typically difficult to set up. (TPN short-term until surgery, J-tube) surgery tentatively planned for the following week. * 11/12 ordered for TPN via PICC line. Concern for aspiration pneumonia some consolidative changes right lower lobe, patient is spitting up the fluids he drinks. NPO. Started on Zosyn. + Constipation, receiving enema. Oncology discusses with surgery planned to keep patient inpatient until surgery as he may not be reliable outpatient for necessary [id number] TPN, XRT, with surgery the following week *tentative plan 11/18*. 11/14+ nystatin for thrush. Completed 5/5 XRT treatments. * 11/18 underwent exploratory laparotomy, peritoneal biopsy w Dr Salguero-- Findings: Large volume carcinomatosis, for her malignant ascites, GE junction tumor invading diaphragm, liver, pancreas. Surgeon consulted palliative care for advanced stage IV cancer, assistance with goals of treatment/hospice transition. Discussed with surgery THRILL PERFORMER, as well as oncology PA. Patient not a candidate for additional treatments, hospice is recommended. Patient seen in room with significant other at bedside. He is alert, oriented, pleasant and appropriate. He seems to have a very basic understanding of things , as does his significant other. Patient indicates he has not been able to speak with the surgeon himself since his surgery and that he is hoping to find out about getting chemotherapy soon. Patient significant other indicates that she spoke with the surgeon after surgery however she was confused by what he told her she didn't really think anything was done during the surgery and she doesn't really understand what's going on at this point. Met w them at length- see fam. conference. . Function/Cognitive Trajectory Lives at home independently with significant other. Used cane as needed. Review of Systems Constitutional: COMPLAINS OF: Weight loss (30#), Change in appetite, Generalized weakness Ears, nose, mouth, throat: COMPLAINS OF: Throat pain Gastrointestinal: COMPLAINS OF: Abdominal pain, Black stools, Nausea, Vomiting , Difficulty Swallowing Past Family Social History Coded Allergies: No Known Allergies (Verified , 11/05/16) Past Medical History Hx Anticoagulant Therapy: No Anemia: Yes Arthritis: Yes (HIP ISSUES) Autoimmune Disease: No Heart Rhythm Problems: No Cancer: Yes (GASTRIC) Cardiovascular Problems: Yes (HTN) High Cholesterol: No Chemotherapy: No Chest Pain: No Congestive Heart Failure: No Diabetes: No Diminished Hearing: No Endocrine: No Gastrointestinal Disorders: Yes GERD: Yes Genitourinary: No Hiatal Hernia: No Hypertension: Yes Immune Disorder: No Musculoskeletal: No Neurologic: No Psychiatric: No Reproductive: No Respiratory: No Radiation Therapy: No Past Surgical History Prior EGDs Reported Medications Protonix (Pantoprazole Sodium) 40 Mg Tab 40 Mg PO DAILY Lactulose Liq (Lactulose) 10 Gm/15 Ml Soln 30 Ml PO DAILY PRN 30 Days Dok (Docusate Sodium) 100 Mg Cap 100 Mg PO BID 30 Days Lortab (Hydrocodone-Acetaminophen) 5-325 Mg Tab 1 Tab PO Q6H PRN Naproxen 500 Mg Tab 500 Mg PO BID Sennosides 8.6 Mg Tab 8.6 Mg PO HS . Current Medications Medications (Trade) Dose Ordered Sig/Martha Route Start Time Stop Time Status Last Admin (Zofran Inj) 4 mg Q6H PRN IV 11/05/16 23:00 11/17/16 14:07 (Dilaudid Pf Inj) 0.5 mg Q4H PRN IV PUSH 11/07/16 12:00 (Morphine Inj) 2 mg Q3H PRN IV PUSH 11/07/16 20:00 11/18/16 05:55 Morphine Sulfate 5 mg 5 mg Q3HR PRN PO 11/07/16 20:00 11/11/16 03:56 Multivitamins 10 ml/Folic Acid 1 mg/Amino Acids/ Electrolytes/ Dextrose 1,010.2 ml @ 42 mls/hr Q24H IV-CENTRAL 11/11/16 20:00 11/18/16 21:15 (Liposyn Iii 20% Inj) 250 ml @ 10 mls/hr Q24H IV-CENTRAL 11/11/16 20:00 11/18/16 21:14 (NS Flush) See Protocol DAILY IV FLUSH 11/12/16 09:00 11/16/16 08:31 (NS Flush) See Protocol UNSCH PRN IV FLUSH 11/11/16 15:30 (Heparin Central Flush) See Protocol DAILY IV FLUSH 11/12/16 09:00 11/17/16 10:38 (Heparin Central Flush) See Protocol UNSCH PRN IV FLUSH 11/11/16 15:30 11/14/16 21:46 (NS Flush) See Protocol UNSCH PRN IV FLUSH 11/11/16 15:30 (Protonix Inj) 40 mg Q24H IV PUSH 11/11/16 20:00 11/18/16 21:16 (Magic Mouthwash Adult Liq) 5 ml QID SWISH-SPIT 11/13/16 18:00 11/13/16 20:11 (Mylicon Chew) 80 mg PCHS PRN CHEW 11/13/16 22:00 11/14/16 17:54 (Tums Chew) 500 mg Q2H PRN CHEW 11/14/16 09:15 11/16/16 15:35 (Mag-Al Plus Susp Liq) 30 ml Q6H PRN PO 11/15/16 14:15 (Narcan Inj) 0.4 mg UNSCH PRN IV 11/18/16 15:30 (Dilaudid HAND MITER OPERATOR Inj) 6 mg UNSCH IV 11/18/16 15:30 11/18/16 18:08 HAND MITER OPERATOR Dosage Infused (Pha) 1 Q8HR OTHER 11/18/16 16:00 11/19/16 04:35 Miscellaneous Information ALL NURSING DEPARTME... UNSCH PRN .XX 11/18/16 15:40 11/19/16 15:39 Family History No family history of cancer or htn . Substance Use Tobacco: 1/2 PPD x 20 yr Alcohol: Occasional Prescription med abuse: None Illicits: None . Psychosocial History Lives at home with significant other. 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 Not , supported by significant other. Has several adult children and grandchildren whom he remains in contact with. Spiritual/Cultural Factors Temple, supported by within the family does not desire hr assistant at this time , Living Will: Never completed Health Care Surrogate: Copy in medical record Durable Power of Supervisor Display [employer]ation: Never completed Date completed: 11/19/16 Health Care Surrogate(s): Designated significant other Savana as HCS today Ethical and Legal Issues Patient currently appears to be able to make his own decisions. He is not . He has designated his significant other Savana as healthcare surrogate as of my visit today. HCS paperwork completed, faxed to [facility]/ medical records. Physical Exam Vital Signs Date Time Temp Pulse Resp B/P Pulse Ox O2 Delivery O2 Flow Rate FiO2 11/19/16 09:49 97 21 11/19/16 04:35 16 11/19/16 04:00 99.5 92 16 121/89 97 11/19/16 00:00 97.2 95 16 117/88 97 11/18/16 21:35 16 11/18/16 20:41 97 21 11/18/16 20:00 98.1 104 18 123/86 96 11/18/16 18:08 18 11/18/16 16:45 96.8 105 16 128/89 98 11/18/16 16:30 102 18 118/77 96 Nasal Cannula 2 11/18/16 16:15 116 18 126/81 96 Nasal Cannula 2 11/18/16 16:00 100 18 127/74 93 Nasal Cannula 2 11/18/16 15:45 107 18 129/79 96 Nasal Cannula 2 11/18/16 15:28 97.6 98 18 141/99 95 Nasal Cannula 2 11/18/16 12:00 99.8 82 16 153/87 98 11/18/16 11/19/16 19:00 07:00 Intake Total 2200 ml 720 ml Output Total 5 ml 700 ml Balance 2195 ml 20 ml Intake Oral 0 ml 720 ml Other 2200 ml Output Urine Total 700 ml Estimated Blood Loss 5 ml # Voids 3 0 Exam CONSTITUTIONAL/GENERAL: This is a thin pt, no distress. pleasant TUBES/LINES/DRAINS: PIV RUE, PIC LUE SKIN: No jaundice, rashes, or lesions. abd binder present over reported abdominal incision, I did not remove binder to visualize. Skin temperature appropriate. HEAD: Atraumatic. Normocephalic. EYES: Pupils equal and round and reactive. Extraocular motions intact. No scleral icterus. No injection or drainage. Fundi not examined. ENT: Hearing grossly normal. Nose without bleeding or purulent drainage. Throat without visible erythema, exudates, masses, or lesions. NECK: Trachea midline. Supple, nontender. No palpable thyroid enlargement or nodularity. CARDIOVASCULAR: Regular rate and rhythm, no murmurs. No JVD. Peripheral pulses symmetric. RESPIRATORY/CHEST: Symmetric, unlabored respirations. On room air. Clear to auscultation. Breath sounds equal bilaterally. GASTROINTESTINAL: Abdomen soft, flat, tender, limited palpation due to abdominal binder. Bowel sounds hypoactive. GENITOURINARY: Without palpable bladder distension. MUSCULOSKELETAL: Extremities without clubbing, cyanosis, or edema. No joint tenderness or effusion noted. No mottling or clubbing. LYMPHATICS: No palpable cervical or supraclavicular adenopathy. NEUROLOGICAL: Awake and alert. Oriented 3. Appropriate however very limited insight. Motor and sensory grossly within normal limits. Follows commands. Cognitively sharp. Moves all 4 extremities. PSYCHIATRIC: No obvious anxiety/depression. no apparent hallucinations or other psychotic thought process. Diagnostic Tests Laboratory Laboratory Tests Test 11/17/16 11/18/16 11/18/16 11/19/16 06:50 05:55 13:15 04:30 White Blood Count 9.4 TH/MM3 7.6 TH/MM3 10.9 TH/MM3 (4.0-11.0) (4.0-11.0) (4.0-11.0) Red Blood Count 2.93 MIL/MM3 2.73 MIL/MM3 3.38 MIL/MM3 (4.50-5.90) (4.50-5.90) (4.50-5.90) Hemoglobin 8.0 GM/DL 7.4 GM/DL 10.9 GM/DL (13.0-17.0) (13.0-17.0) (13.0-17.0) Hematocrit 24.6 % 22.8 % 30.6 % (39.0-51.0) (39.0-51.0) (39.0-51.0) Mean Corpuscular Volume 84.0 FL 83.7 FL 90.5 FL (80.0-100.0) (80.0-100.0) (80.0-100.0) Mean Corpuscular Hemoglobin 27.3 PG 27.3 PG 32.2 PG (27.0-34.0) (27.0-34.0) (27.0-34.0) Mean Corpuscular Hemoglobin 32.5 % 32.6 % 35.6 % Concent (32.0-36.0) (32.0-36.0) (32.0-36.0) Red Cell Distribution Width 16.5 % 16.3 % 17.0 % (11.6-17.2) (11.6-17.2) (11.6-17.2) Platelet Count 437 TH/MM3 400 TH/MM3 405 TH/MM3 (150-450) (150-450) (150-450) Mean Platelet Volume 8.0 FL 7.8 FL 8.5 FL (7.0-11.0) (7.0-11.0) (7.0-11.0) Neutrophils (%) (Auto) 89.2 % 85.8 % (16.0-70.0) (16.0-70.0) Lymphocytes (%) (Auto) 2.0 % 2.0 % (9.0-44.0) (9.0-44.0) Monocytes (%) (Auto) 8.3 % (0.0-8.0) 10.6 % (0.0-8.0) Eosinophils (%) (Auto) 0.4 % (0.0-4.0) 1.6 % (0.0-4.0) Basophils (%) (Auto) 0.1 % (0.0-2.0) 0.0 % (0.0-2.0) Neutrophils # (Auto) 8.4 TH/MM3 6.5 TH/MM3 (1.8-7.7) (1.8-7.7) Lymphocytes # (Auto) 0.2 TH/MM3 0.2 TH/MM3 (1.0-4.8) (1.0-4.8) Monocytes # (Auto) 0.8 TH/MM3 0.8 TH/MM3 (0-0.9) (0-0.9) Eosinophils # (Auto) 0.0 TH/MM3 0.1 TH/MM3 (0-0.4) (0-0.4) Basophils # (Auto) 0.0 TH/MM3 0.0 TH/MM3 (0-0.2) (0-0.2) CBC Comment DIFF FINAL DIFF FINAL Differential Comment Prothrombin Time 11.9 SEC (9.8-11.6) Prothromb Time International 1.1 RATIO Ratio Sodium Level 139 MEQ/L (136-145) Potassium Level 3.3 MEQ/L (3.5-5.1) Chloride Level 102 MEQ/L (98-107) Carbon Dioxide Level 26.9 MEQ/L (21.0-32.0) Anion Gap 10 MEQ/L (5-15) Blood Urea Nitrogen 9 MG/DL (7-18) Creatinine 0.72 MG/DL (0.60-1.30) Estimat Glomerular Filtration 137 ML/MIN Rate (>89) Random Glucose 94 MG/DL (74-106) Calcium Level 7.8 MG/DL (8.5-10.1) Phosphorus Level 3.1 MG/DL (2.5-4.9) Magnesium Level 2.2 MG/DL (1.5-2.5) Total Bilirubin 0.2 MG/DL (0.2-1.0) Aspartate Amino Transf 16 U/L (15-37) (AST/SGOT) Alanine Aminotransferase 10 U/L (12-78) (ALT/SGPT) Alkaline Phosphatase 14 U/L (45-117) Total Protein 5.5 GM/DL (6.4-8.2) Albumin 1.7 GM/DL (3.4-5.0) Triglycerides Level 120 MG/DL (42-150) Blood Type A POSITIVE Antibody Screen NEGATIVE Crossmatch Leukocyte-Reduced Leukocyte-Reduced Red Blood Red Blood Cells Cells Blood Bank Comment Test 11/19/16 08:15 Sodium Level 139 MEQ/L (136-145) Potassium Level 4.1 MEQ/L (3.5-5.1) Chloride Level 104 MEQ/L (98-107) Carbon Dioxide Level 26.7 MEQ/L (21.0-32.0) Anion Gap 8 MEQ/L (5-15) Blood Urea Nitrogen 8 MG/DL (7-18) Creatinine 0.73 MG/DL (0.60-1.30) Estimat Glomerular Filtration 135 ML/MIN Rate (>89) Random Glucose 114 MG/DL (74-106) Calcium Level 7.8 MG/DL (8.5-10.1) Magnesium Level 2.2 MG/DL (1.5-2.5) Result Diagram: 11/19/16 0430 11/19/16 0815 Microbiology None Imaging Last Impressions Abdomen X-Ray 11/14/16 0000 Signed Impressions: Service Date/Time: Monday, November 14, 2016 11:08 - CONCLUSION: There is no significant abdominal distention. Nathanael Montana MD FACR Chest X-Ray 11/11/16 0000 Signed Impressions: Service Date/Time: Friday, November 11, 2016 16:05 - CONCLUSION: Left-sided PICC line in place. Small right pleural effusion unchanged. Juan Gifford MD Chest CT 11/10/16 1638 Signed Impressions: Service Date/Time: Thursday, November 10, 2016 16:42 - CONCLUSION: 1. CT scan was used to define the length of the mass in the distal esophagus involving the distal esophagus and the gastroesophageal junction. This would probably be amenable to percutaneous stenting with a stent measuring 11 to 12 cm. 2. Interval development of a right pleural effusion and ascites. Nathanael Montana MD FACR Upper GI/Barium Swallow X-Ray 11/10/16 0000 Signed Impressions: Service Date/Time: Thursday, November 10, 2016 16:10 - CONCLUSION: Obstruction distal esophagus. Thin section CT is pending. Nathanael Montana MD FACR Procedures 11/18 exploratory laparotomy, peritoneal biopsy w Dr Salguero- 11/14 -S/P 12/19 XRT treatments Patient/Family Conference Present at Family Conference: pt, sig other [place] Family Conference Time (mins): 40 (minutes) Family Conference Location: Bedside Issues Discussed: Met with patient and significant other bedside. Discussion included the following: * Palliative care role, purpose, approach * Additional medical, psychosocial, and spiritual history * Patients general health, functional status, in the months leading up to the current hospitalization * Patient/family understanding of the current medical problems * Patient/family understanding of prognosis-patient significant other seemed to have a very basic/simplistic understanding of things * Patients goals of care as best understood from advance directives and/or conversations and/or values * Current medical treatment options and benefits/burdens of those options-- review that given significant metastasis identified during surgical exploration patient not a candidate for additional treatment options and that supportive care and comfort/management of symptoms via hospice would be the recommended course; patient expected to continue to decline * Review of hospice role philosophy, services provided * CODE STATUSno decisions made by patient * Questions answered to the best of my ability * Palliative care contact information provided Patient seems to have a very basic understanding of things, as does his significant other. Patient indicates he has not been able to speak with the surgeon himself since his surgery and that he is hoping to find out about getting chemotherapy soon. Patient significant other indicates that she spoke with the surgeon after surgery however she was confused by what he told her she didn't really think anything was done during the surgery and she doesn't really understand what's going on at this point. they express confusion with various terms such as "mass" , "tumor" , "cancer" and wonder " what he actually has". I did explore with them extensively and as basically as possible his illness course starting (based on review of medical records) from September of until current admission: diagnostics, findings-review of surgical findings from yesterday in my conversations with oncology and surgery. Patient is very focused on "trying chemotherapy"; he continues to endorse that he hopes the oncologist will let him at least try. I advised that his oncologist will be by later this evening to see him as per my conversation with oncology PA. Advised that at this point and his disease progression it is not felt that chemotherapy will provide any benefit to him. He indicates that he has great monica in God and that he will "beat this ", and is hopeful to be provided chemotherapy to do so. His significant other at times becomes angry and indicates that the reason his cancer has spread because he was not treated adequately when it was initially diagnosed in September. She feels that if he had received chemotherapy back in September then his disease could've been cured. I attempted to gently explore hospice with them however they both were very close to further discussion, indicated that hospice was for people who had given up, and that you "go to hospice to -- I attempt to explore that hospice is a group of providers focused on terminal conditions/end-stage conditions and relief of symptoms allowing for a peaceful , and that the patient is expected to decline and may developed additional symptoms as disease progresses. It is very difficult to discuss further significant other is not interested in further discussion, the patient continues to endorse he wants to try chemotherapy. I attempted to explore CODE STATUS with them patient indicated he understood what CPR was however when asked what his preference would be here in the hospital setting if he would want resuscitation or to be allowed to pass naturally he does not indicate either way. I will plan to follow-up with them RE. Patient was amenable to completing healthcare surrogate designation, he did wish for his significant other Savana to serve as HCS should he become in capacitated. Assessment and Plan Disease Oriented Problem List: (1) Gastric adenocarcinoma Comment: stage IV (2) Metastasis from gastric cancer Comment: liver, pancreas, diaphragm (3) GERD (gastroesophageal reflux disease) (4) Gastric mass (5) Hypertension (6) Chronic pain (7) Symptomatic anemia (8) GI bleed Symptom Scale: (1) Chronic pain Comment: epigastric, + new acute post op pain . (2) Dysphagia (3) Malnutrition (4) Fatigue Pertinent Non-Medical Issues Psychosocial:Lives at home with significant other. 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 Not , supported by significant other. Has several adult children and grandchildren whom he remains in contact with. Spiritual: Temple, supported by Tile Roofer within their family Legal:Patient currently appears to be able to make his own decisions. He is not . He has designated his significant other Savana as healthcare surrogate as of my visit today. [facility] paperwork completed, faxed to [facility] I [facility]/ medical records Ethical issues impacting care: Important Contacts Savana Ratliffsignificant other /[facility] [phone] Prognosis This unfortunate patient was recently admitted for recurrent anemia and GI bleeding secondary to a fairly new diagnoses of gastroesophageal adenocarcinoma. He has had recent intraoperative findings of significant metastases with GE junction tumor invading diaphragm, liver, pancreas. Oncology has indicated chemotherapy will not be of benefit to this patient, has completed 5 of 5 radiation treatments. Appropriate for hospice if goals compatible, limited life expectancy due to advance stage IV metastatic cancer. Plan * Legal decision maker: Patient currently able to make his own decisions. Has designated significant other Savana Ratliff as HCS. * Goals: Goals of this time are expresses very aggressive (though it does not appear there are additional treatment options). Patient is very focused on "trying "chemotherapy. Patient and significant other are not accepting that the disease has progressed beyond a point which is treatable. He has great monica in God and that God will get him through this. * CODE STATUS: full by default, pt did not make a decision during conversation today * SYMPTOMS: --chronic epigastric pain- denies pain today. Reports of chronic epigastric pain since dx. + post op surgical pain today, indicates adequate relief with use of HAND MITER OPERATOR dilaudid. this will need to be weaned to PO,though with dysphagia pt will probably require liquid form (or crushed and diluted) of any medications. --dysphagia- onset past few mos. Pt endorses swallowing improved since radiation tx (imaging studies indicate obstruction) patient subjectively endorses improvement for the past few days feels like he is swallowing better" spitting up less ". Radiation may have improved slightly he is likely to continue to suffer from dysphasia and related malnutrition --Malnutrition-dysphagia related to adenocarcinoma; currently receiving TPN; albumin 1.7.estimates 30# weight loss. This is likely 2/2 to disease process and will continue as pt declines. -- fatigue -- progressive. 2/2 disease process, anemia, malnutrition . not likely to benefit from aggressive reconditioning. * Palliative care will continue to follow during hospital course as condition evolves, to assist patient/decision-maker with understanding of medical conditions, weighing benefits/burdens of treatment options, for clarification of goals of treatment. Additionally will assist with any symptoms of palliative concern Time Spent Total Floor Time (mins): 70 Face to Face Time (mins): 45 >50% Counseling/Coord of Care: Yes (d/w gen surgery THRILL PERFORMER, oncology PA) Thank you for the opportunity to participate in the care of Mr. Auguste. Attestation To help prompt me to consider important information that might be impacting today's encounter and assessment, information from prior notes written by myself or my colleagues may have been "brought forward" into today's note. My signature on this note, however, is an attestation that I personally performed the exam, history, and/or decision-making noted today, and, unless otherwise indicated, the interactions with patient, family, and staff as well as the review of records all occurred today. I also attest that the listed assessment and stated plan reflect my best clinical judgment today based on the combination of historical information, prior notes, and today's exam/ interactions. When time spent is documented, it refers only to time spent today by the signer, or if indicated, combined time spent today by collaborating physician/nurse practitioner. Isabella Booth Nov 19, 2016 10:02
[2016-11-19] MEDS: HYDROmorphone HCL PCA 6 MG/30 ML IV SCH (10:25)
--- NOTE | 2016-11-19 10:36 | HHI.PR ---
Subjective Subjective Notes Working with PT Having abdominal pain when coughing Objective Vitals/I&O Vital Signs Date Time Temp Pulse Resp B/P Pulse Ox O2 Delivery O2 Flow Rate FiO2 11/19/16 10:25 18 11/19/16 09:49 97 21 11/19/16 04:00 99.5 92 121/89 11/18/16 16:30 Nasal Cannula 2 Labs Laboratory Tests Test 11/18/16 11/19/16 11/19/16 13:15 04:30 08:15 Crossmatch Leukocyte-Reduced Red Blood Cells Blood Bank Comment White Blood Count 10.9 Red Blood Count 3.38 Hemoglobin 10.9 Hematocrit 30.6 Mean Corpuscular Volume 90.5 Mean Corpuscular Hemoglobin 32.2 Mean Corpuscular Hemoglobin 35.6 Concent Red Cell Distribution Width 17.0 Platelet Count 405 Mean Platelet Volume 8.5 Sodium Level 139 Potassium Level 4.1 Chloride Level 104 Carbon Dioxide Level 26.7 Anion Gap 8 Blood Urea Nitrogen 8 Creatinine 0.73 Estimat Glomerular Filtration 135 Rate Random Glucose 114 Calcium Level 7.8 Magnesium Level 2.2 Cardiovascular: Regular Lungs: Clear Abdomen: Other (midline incision---dressing in place-- d/c/i; abdominal binder ) Extremities: No edema Narrative Exam PICC in place for TPN A/P Assessment and Plan 56 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 I reviewed and agree with the findings presented. I attest that I had a [id number] encounter with the patient on the same day, and personally performed and documented my assessment and findings in the medical record. abdominal exam stable, continue postop care, I recommend palliation Tracy Bishop Nov 19, 2016 10:35 Dawit Salguero MD Nov 28, 2016 08:24
--- NOTE | 2016-11-19 15:55 | PD.ONC.PN ---
Subjective Subjective Remarks Afebrile overnight. Patient resting comfortably. Pain relatively well controlled. Objective Data Date Time Temp Pulse Resp B/P Pulse Ox O2 Delivery O2 Flow Rate FiO2 11/19/16 14:00 16 11/19/16 12:00 98.7 98 18 121/92 96 11/19/16 10:25 18 11/19/16 09:49 97 21 11/19/16 08:00 97.2 83 18 127/86 96 11/19/16 04:35 16 11/19/16 04:00 99.5 92 16 121/89 97 11/19/16 00:00 97.2 95 16 117/88 97 11/18/16 21:35 16 11/18/16 20:41 97 21 11/18/16 20:00 98.1 104 18 123/86 96 11/18/16 18:08 18 11/18/16 16:45 96.8 105 16 128/89 98 11/18/16 16:30 102 18 118/77 96 Nasal Cannula 2 11/18/16 16:15 116 18 126/81 96 Nasal Cannula 2 11/18/16 16:00 100 18 127/74 93 Nasal Cannula 2 11/19/16 11/19/16 11/19/16 07:00 15:00 23:00 Intake Total 240 ml Output Total 450 ml 150 ml Balance -210 ml -150 ml Result Diagram: 11/19/16 0430 11/19/16 0815 Laboratory Results Laboratory Tests Test 11/19/16 11/19/16 04:30 08:15 White Blood Count 10.9 TH/MM3 Red Blood Count 3.38 MIL/MM3 Hemoglobin 10.9 GM/DL Hematocrit 30.6 % Mean Corpuscular Volume 90.5 FL Mean Corpuscular Hemoglobin 32.2 PG Mean Corpuscular Hemoglobin 35.6 % Concent Red Cell Distribution Width 17.0 % Platelet Count 405 TH/MM3 Mean Platelet Volume 8.5 FL Sodium Level 139 MEQ/L Potassium Level 4.1 MEQ/L Chloride Level 104 MEQ/L Carbon Dioxide Level 26.7 MEQ/L Anion Gap 8 MEQ/L Blood Urea Nitrogen 8 MG/DL Creatinine 0.73 MG/DL Estimat Glomerular Filtration 135 ML/MIN Rate Random Glucose 114 MG/DL Calcium Level 7.8 MG/DL Magnesium Level 2.2 MG/DL Administered Medications Medications (Trade) Dose Ordered Sig/Martha Route PRN Reason Start Time Stop Time Status Last Admin Dose Admin Ondansetron HCl (Zofran Inj) 4 mg Q6H PRN IV NAUSEA OR VOMITING 11/05/16 23:00 11/17/16 14:07 Morphine Sulfate (Morphine Inj) 2 mg Q3H PRN IV PUSH PAIN SCALE 4 TO 10 11/07/16 20:00 11/18/16 05:55 Morphine Sulfate 5 mg 5 mg Q3HR PRN PO PAIN SCALE 1 TO 3 11/07/16 20:00 11/11/16 03:56 Multivitamins 10 ml/Folic Acid 1 mg/Amino Acids/ Electrolytes/ Dextrose 1,010.2 ml @ 42 mls/hr Q24H IV-CENTRAL 11/11/16 20:00 11/18/16 21:15 Fat Emulsion Intravenous (Liposyn Iii 20% Inj) 250 ml @ 10 mls/hr Q24H IV-CENTRAL 11/11/16 20:00 11/18/16 21:14 Sodium Chloride (NS Flush) See Protocol DAILY IV FLUSH 11/12/16 09:00 11/16/16 08:31 Heparin Sodium (Porcine) (Heparin Central Flush) See Protocol DAILY IV FLUSH 11/12/16 09:00 11/17/16 10:38 Heparin Sodium (Porcine) (Heparin Central Flush) See Protocol UNSCH PRN IV FLUSH SEE PROTOCOL TABLE 11/11/16 15:30 11/14/16 21:46 Pantoprazole Sodium (Protonix Inj) 40 mg Q24H IV PUSH 11/11/16 20:00 11/18/16 21:16 Multi-Ingredient Mouthwash/Gargle (Magic Mouthwash Adult Liq) 5 ml QID SWISH-SPIT 11/13/16 18:00 11/13/16 20:11 Simethicone (Mylicon Chew) 80 mg PCHS PRN CHEW gaseous distention 11/13/16 22:00 11/14/16 17:54 Calcium Carbonate (Tums Chew) 500 mg Q2H PRN CHEW abdominal discomfort 11/14/16 09:15 11/16/16 15:35 Hydromorphone HCl (Dilaudid [employer]ODUCT [employer]GER Inj) 6 mg UNSCH IV 11/18/16 15:30 11/19/16 10:25 S[employer]IOR PRODUCT MANAGER Dosage Infused (Pha) 1 Q8HR OTHER 11/18/16 16:00 11/19/16 14:00 Objective Remarks GENERAL: Middle aged male, lying in bed, resting comfortably. SKIN: Warm and dry. HEAD: Normocephalic. EYES: No injection or drainage. NECK: Supple, trachea midline. CARDIOVASCULAR: Regular rate and rhythm RESPIRATORY: Breath sounds equal bilaterally. No accessory muscle use. GASTROINTESTINAL: large incision along abdomen. abdominal binder in place, bandages c/d/i. EXTREMITIES: No cyanosis NEUROLOGICAL: No obvious focal deficit. Awake, alert, and oriented x3. Assessment/Plan Problem List: (1) Gastric adenocarcinoma Status: Acute Plan: 11/19: operative findings reviewed and discussed with patient. patient is not a candidate for chemotherapy at this point. appreciate palliative care assistance. 11/14: Completed XRT today. He feels like he needs to have a BM. He has recently taken a Dulcolax suppository. 11/13: Doing well. He understands he is to stay in hospital until his surgery. He has no complaints. 11/12: Spoke with Dr. Salguero. Pt to stay inpatient until surgery. He is not reliable as an outpatient with followup. Plan for continued XRT, TPN and surgery next week. 11/11: continue XRT. reviewed Dr. Salguero's note. 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 (2) Anemia Status: Acute Plan: --GI bleed secondary to gastric malignancy. --hgb stable today Assessment 56 y/o man with newly dx gastric cancer, thought to be locally advanced but staging CT/PET suggest liver and bone metastatic disease, admitted for recurrent GI bleeding. Plan 1. appreciate palliative care assistance. patient is hospice appropriate 2. continue supportive care, pain management Attending Statement The exam, history, and the medical decision-making described in the above note were completed with the assistance of the mid-level provider. I reviewed and agree with the findings presented. I attest that I had a [id number] encounter with the patient on the same day, and personally performed and documented my assessment and findings in the medical record. Pt seen and examined. Case was discussed at [facility] with Dr. Salguero. Finding at time of surgery is concerning for rapidity of disease progression. It is unlikely that he would recover with good performance status to tolerate any chemotherapy. This has been explained to patient by his surgeon, palliative and by oncology. However, pt maintains hope that he will recover and be able to receive his chemotherapy. We discussed that if circumstances were such that he recovery from surgery, maintain good performance status, he maybe able to receive his palliative chemotherapy. Problem Qualifiers (1) Anemia: Kathy Nesbitt Nov 19, 2016 15:55 Fay Talavera MD Nov 19, 2016 23:41
[2016-11-19] MEDS: CLINIMIX E 5/25 1000 mL- </= 42 mls/hr IV-CENTRAL SCH ×3 (21:37)
[2016-11-19] MEDS: PANTOPRAZOLE SODIUM 40 MG VIAL IV PUSH SCH (21:37)
[2016-11-19] MEDS: FAT EMULSION 20% INJ 250 ML (@10 mls/hr) IV-CENTRAL SCH (21:37)
[2016-11-20] VITALS (7 sets, daily range): BP systolic 107–128; BP diastolic 72–95; PULSE 89–95; RESP 16–17; TEMP 97.7–99.5; O2SAT 96–98
[2016-11-20] MEDS: HYDROmorphone HCL PCA 6 MG/30 ML IV SCH ×2 (00:12→14:00)
[2016-11-20 06:47] LABS: MAGNESIUM 2.2 MG/DL (1.5-2.5); POTASSIUM 3.8 MEQ/L (3.5-5.1)
[2016-11-20 08:15] LABS: AUTOMATED NEUTROPHIL # 8.9 TH/MM3 (1.8-7.7); BASOPHIL % 0.2 % (0.0-2.0); EOSINOPHIL # 0.2 TH/MM3 (0-0.4); EOSINOPHIL % 1.5 % (0.0-4.0); HEMATOCRIT 30.7 % (39.0-51.0); HEMO FLAGS DIFF FINAL; LYMPH % 2.5 % (9.0-44.0); LYMPHOCYTE # 0.3 TH/MM3 (1.0-4.8); MEAN CELL VOLUME 85.1 FL (80.0-100.0); MEAN CORPUSCULAR HEMOGLOBIN 26.9 PG (27.0-34.0); MEAN CORPUSCULAR HGB CONC 31.6 % (32.0-36.0); MONO % 11.8 % (0.0-8.0); PLATELET COUNT 403 TH/MM3 (150-450); RED BLOOD COUNT 3.61 MIL/MM3 (4.50-5.90); WHITE BLOOD COUNT 10.6 TH/MM3 (4.0-11.0)
[2016-11-20] MEDS: NYSTAT/DIPHENHY/LIDO MOUTHWASH (Adult) 120ML SWISH-SPIT SCH ×4 (08:47→21:00)
[2016-11-20] MEDS: SODIUM CHLORIDE 0.9% FLUSH 10 ML FLUSH IV FLUSH SCH (08:47)
--- NOTE | 2016-11-20 13:23 | HHI.PR ---
Subjective Remarks The patient was seen mission support specialist today. In bed. Says he did pass gas however he did not pass stool yet. Says he feels good and says he wants to do further treatments to get rid of the cancer. Says he is also thinking to have a feeding tube place for nutrition. No fever or chills. Pain is controlled by meds. Patient also says he wants to go out to get fresh air.... Objective Vitals Vital Signs Date Time Temp Pulse Resp B/P Pulse Ox O2 Delivery O2 Flow Rate FiO2 11/20/16 09:39 96 21 11/20/16 08:00 98.7 92 16 123/90 96 11/20/16 05:00 99.5 90 16 107/76 97 11/20/16 00:12 18 11/20/16 00:00 98.8 94 16 108/72 97 11/19/16 21:37 18 11/19/16 20:00 99.1 94 18 133/94 98 11/19/16 16:00 99.2 98 18 120/90 98 11/19/16 14:00 16 I/O 11/19/16 11/19/16 11/19/16 11/20/16 11/20/16 11/20/16 07:00 15:00 23:00 07:00 15:00 23:00 Intake Total 240 ml 350 ml 120 ml Output Total 450 ml 150 ml Balance -210 ml -150 ml 350 ml 120 ml Intake Oral 240 ml 120 ml Packed Cells 350 ml Output Urine Total 450 ml 150 ml # Voids 0 0 Result Diagram: 11/20/16 0756 11/20/16 0530 Imaging Last Impressions Abdomen X-Ray 11/14/16 0000 Signed Impressions: Service Date/Time: Monday, November 14, 2016 11:08 - CONCLUSION: There is no significant abdominal distention. Nathanael Montana MD FACR Chest X-Ray 11/11/16 0000 Signed Impressions: Service Date/Time: Friday, November 11, 2016 16:05 - CONCLUSION: Left-sided PICC line in place. Small right pleural effusion unchanged. Juan Gifford MD Chest CT 11/10/16 1638 Signed Impressions: Service Date/Time: Thursday, November 10, 2016 16:42 - CONCLUSION: 1. CT scan was used to define the length of the mass in the distal esophagus involving the distal esophagus and the gastroesophageal junction. This would probably be amenable to percutaneous stenting with a stent measuring 11 to 12 cm. 2. Interval development of a right pleural effusion and ascites. Nathanael Montana MD FACR Upper GI/Barium Swallow X-Ray 11/10/16 0000 Signed Impressions: Service Date/Time: Thursday, November 10, 2016 16:10 - CONCLUSION: Obstruction distal esophagus. Thin section CT is pending. Nathanael Montana MD FACR Objective Remarks GENERAL: Alert and oriented 3. SKIN: Warm and dry. HEAD: Normocephalic. EYES: No scleral icterus. No injection or drainage. NECK: Supple, trachea midline. No JVD. CARDIOVASCULAR: Regular rate and rhythm without murmurs, gallops, or rubs. RESPIRATORY: Breath sounds equal bilaterally. No accessory muscle use. GASTROINTESTINAL: Abdomen soft, nontender, slightly distended. MUSCULOSKELETAL: No cyanosis, or edema. BACK: Nontender without obvious deformity. No CVA tenderness. PSYCH: Mood and affect appropriate. 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 GI consultation appreciated. Patient underwent endoscopy 11/06 to evaluate for acute bleeding, but patient had diffuse oozing from mass which could not be cauterized. CBC stable. Gastrografin swallow showed complete esophageal obstruction to thin liquids. Radiology has ordered follow-up CT which shows that this could possibly be stented. Appreciate surgical oncology consult, dr Salguero following S/P Surgery 11/18: Large volume carcinomatosis, 4l malignant ascites, GE jxn tumor invading diaphragm, liver, pancreas. - follow up with oncology and surgery. - continue TPN. - s/p radiation. - started nystatin for thrush. - follow CBC and transfuse as needed. Suspected aspiration pneumonia Consolidative changes right lower lobe. Due to obstructed esophagus the patient has been spitting up everything he drinks, most likely aspiration pneumonia. - continue nothing by mouth status. - Started on Zosyn for anaerobic coverage. D/c 11/18. Abdominal pain/ Nausea The pt has developed GI upset ever since TPN was started. Has abdominal distention and epigastric abdominal pain. LFTs, lipase and KUB unremarkable. Improved. - PPI. - pain control, Tums and Maalox as needed. Constipation S/t decreased PO intake. - suppository ordered. Resolved. Hypokalemia S/t decreased PO intake. - monitor and supplement as needed. Will check labs in AM. DVT prophylaxis: SCDs. Chemical prophylaxis contraindicated. Discharge Planning Per oncology. Palliative care also consulted, patient wants everything done. Shahnaz Huertas MD Nov 20, 2016 13:23
[2016-11-20] MEDS: PCA - TOTAL MG DILAUDID DELIVERED PER SHIFT OTHER SCH ×2 (14:00→22:00)
--- NOTE | 2016-11-20 15:36 | HHI.PR ---
Subjective Subjective Notes Resting in bed Pain controlled Objective Vitals/I&O Vital Signs Date Time Temp Pulse Resp B/P Pulse Ox O2 Delivery O2 Flow Rate FiO2 11/20/16 15:16 16 11/20/16 12:00 97.7 93 124/84 96 11/20/16 09:39 21 11/18/16 16:30 Nasal Cannula 2 Labs Laboratory Tests Test 11/20/16 11/20/16 05:30 07:56 Sodium Level 138 Potassium Level 3.8 Chloride Level 103 Carbon Dioxide Level 27.0 Anion Gap 8 Blood Urea Nitrogen 8 Creatinine 0.60 Estimat Glomerular Filtration 169 Rate Random Glucose 88 Calcium Level 7.8 Magnesium Level 2.2 White Blood Count 10.6 Red Blood Count 3.61 Hemoglobin 9.7 Hematocrit 30.7 Mean Corpuscular Volume 85.1 Mean Corpuscular Hemoglobin 26.9 Mean Corpuscular Hemoglobin 31.6 Concent Red Cell Distribution Width 17.0 Platelet Count 403 Mean Platelet Volume 7.9 Neutrophils (%) (Auto) 84.0 Lymphocytes (%) (Auto) 2.5 Monocytes (%) (Auto) 11.8 Eosinophils (%) (Auto) 1.5 Basophils (%) (Auto) 0.2 Neutrophils # (Auto) 8.9 Lymphocytes # (Auto) 0.3 Monocytes # (Auto) 1.2 Eosinophils # (Auto) 0.2 Basophils # (Auto) 0.0 CBC Comment DIFF FINAL Differential Comment Cardiovascular: Regular Lungs: Clear Abdomen: Other (midline incision; momo c/d/i ), Post-op tenderness Extremities: No edema Narrative Exam PICC in place for TPN A/P Assessment and Plan 56 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 I reviewed and agree with the findings presented. I attest that I had a [id number] encounter with the patient on the same day, and personally performed and documented my assessment and findings in the medical record. abdominal exam stable, can have sips of Tracy Garrido Nov 20, 2016 15:36 Dawit Salguero MD Nov 28, 2016 08:31
[2016-11-20] MEDS: FAT EMULSION 20% INJ 250 ML (@10 mls/hr) IV-CENTRAL SCH (21:32)
[2016-11-20] MEDS: CLINIMIX E 5/25 1000 mL- </= 42 mls/hr IV-CENTRAL SCH ×3 (21:32)
[2016-11-20] MEDS: PANTOPRAZOLE SODIUM 40 MG VIAL IV PUSH SCH (21:33)
[2016-11-21] VITALS: BP 117/85; PULSE 86; RESP 18; TEMP 99.2; O2SAT 96
[2016-11-21 04:00] VITALS: BP 122/57; PULSE 87; RESP 18; TEMP 99; O2SAT 95
[2016-11-21] MEDS: PCA - TOTAL MG DILAUDID DELIVERED PER SHIFT OTHER SCH ×3 (06:00→22:00)
--- NOTE | 2016-11-21 07:58 | HHI.PR ---
Subjective Remarks NPO, wants aggressive measures, thinking for NGT. Says he doesn't have much pain. No BM No n/v/d. Denies having any fevers or chills. Objective Vitals Vital Signs Date Time Temp Pulse Resp B/P Pulse Ox O2 Delivery O2 Flow Rate FiO2 11/21/16 06:00 16 11/21/16 04:00 99.0 87 18 122/57 95 11/21/16 00:00 99.2 86 18 117/85 96 11/20/16 22:00 16 11/20/16 20:00 99.5 95 17 128/95 98 11/20/16 16:00 99.2 89 16 113/78 97 11/20/16 15:16 16 11/20/16 14:00 16 11/20/16 14:00 16 11/20/16 14:00 16 11/20/16 12:00 97.7 93 16 124/84 96 11/20/16 09:39 96 21 11/20/16 08:00 98.7 92 16 123/90 96 I/O 11/20/16 11/20/16 11/20/16 11/21/16 11/21/16 11/21/16 07:00 15:00 23:00 07:00 15:00 23:00 Intake Total 120 ml 1264 ml 240 ml 240 ml Output Total 150 ml 300 ml Balance 120 ml 1114 ml 240 ml -60 ml Intake Oral 120 ml 900 ml 240 ml 240 ml TPN/PPN 294 ml Lipid 70 ml Output Urine Total 150 ml 300 ml # Voids 0 2 # Bowel Movements 0 0 Result Diagram: 11/20/16 0756 11/20/16 0530 Imaging Last Impressions Abdomen X-Ray 11/14/16 0000 Signed Impressions: Service Date/Time: Monday, November 14, 2016 11:08 - CONCLUSION: There is no significant abdominal distention. Nathanael Montana MD FACR Chest X-Ray 11/11/16 0000 Signed Impressions: Service Date/Time: Friday, November 11, 2016 16:05 - CONCLUSION: Left-sided PICC line in place. Small right pleural effusion unchanged. Juan Gifford MD Chest CT 11/10/16 1638 Signed Impressions: Service Date/Time: Thursday, November 10, 2016 16:42 - CONCLUSION: 1. CT scan was used to define the length of the mass in the distal esophagus involving the distal esophagus and the gastroesophageal junction. This would probably be amenable to percutaneous stenting with a stent measuring 11 to 12 cm. 2. Interval development of a right pleural effusion and ascites. Nathanael Montana MD FACR Upper GI/Barium Swallow X-Ray 11/10/16 0000 Signed Impressions: Service Date/Time: Thursday, November 10, 2016 16:10 - CONCLUSION: Obstruction distal esophagus. Thin section CT is pending. Nathanael Montana MD FACR Objective Remarks GENERAL: Alert and oriented 3. SKIN: Warm and dry. HEAD: Normocephalic. EYES: No scleral icterus. No injection or drainage. NECK: Supple, trachea midline. No JVD. CARDIOVASCULAR: Regular rate and rhythm without murmurs, gallops, or rubs. RESPIRATORY: Breath sounds equal bilaterally. No accessory muscle use. GASTROINTESTINAL: Abdomen soft, nontender, slightly distended. MUSCULOSKELETAL: No cyanosis, or edema. BACK: Nontender without obvious deformity. No CVA tenderness. PSYCH: Mood and affect appropriate. 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 GI consultation appreciated. Patient underwent endoscopy 11/06 to evaluate for acute bleeding, but patient had diffuse oozing from mass which could not be cauterized. CBC stable. Gastrografin swallow showed complete esophageal obstruction to thin liquids. Radiology has ordered follow-up CT which shows that this could possibly be stented. Appreciate surgical oncology consult, dr Salguero following S/P Surgery 11/18: Large volume carcinomatosis, 4l malignant ascites, GE jxn tumor invading diaphragm, liver, pancreas. - follow up with oncology and surgery. - continue TPN. - s/p radiation. - started nystatin for thrush. - follow CBC and transfuse as needed. Suspected aspiration pneumonia Consolidative changes right lower lobe. Due to obstructed esophagus the patient has been spitting up everything he drinks, most likely aspiration pneumonia. - continue nothing by mouth status. - Started on Zosyn for anaerobic coverage. D/c 11/18. Abdominal pain/ Nausea The pt has developed GI upset ever since TPN was started. Has abdominal distention and epigastric abdominal pain. LFTs, lipase and KUB unremarkable. Improved. - PPI. - pain control, Tums and Maalox as needed. Constipation S/t decreased PO intake. - suppository ordered. Resolved. Hypokalemia S/t decreased PO intake. - monitor and supplement as needed. Will check labs in AM. DVT prophylaxis: SCDs. Chemical prophylaxis contraindicated. Discharge Planning Per oncology. Palliative care also consulted, patient wants everything done. DC when cleared by consultants. Shahnaz Huertas MD Nov 21, 2016 07:58
[2016-11-21 08:00] VITALS: BP 119/84; PULSE 88; RESP 18; TEMP 96.9; O2SAT 99
[2016-11-21] MEDS: HYDROmorphone HCL PCA 6 MG/30 ML IV SCH ×2 (08:14→22:14)
[2016-11-21] MEDS: NYSTAT/DIPHENHY/LIDO MOUTHWASH (Adult) 120ML SWISH-SPIT SCH ×3 (08:14→20:43)
[2016-11-21] MEDS: SODIUM CHLORIDE 0.9% FLUSH 10 ML FLUSH IV FLUSH SCH (09:00)
[2016-11-21 13:33] VITALS: BP 121/89; PULSE 91; RESP 18; TEMP 98.3; O2SAT 95
--- NOTE | 2016-11-21 16:11 | HHI.PR ---
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 I reviewed and agree with the findings presented. I attest that I had a [id number] encounter with the patient on the same day, and personally performed and documented my assessment and findings in the medical record. abdominal exam stable postop, ascites recurring without leak Tracy Bishop Nov 21, 2016 16:11 Dawit Salguero MD Nov 28, 2016 09:02
[2016-11-21 17:23] VITALS: BP 122/99; PULSE 90; RESP 18; TEMP 98.9; O2SAT 98
[2016-11-21 20:00] VITALS: BP 119/91; PULSE 91; RESP 19; TEMP 98.6; O2SAT 99
[2016-11-21] MEDS: CLINIMIX E 5/25 1000 mL- </= 42 mls/hr IV-CENTRAL SCH ×3 (20:43)
[2016-11-21] MEDS: PANTOPRAZOLE SODIUM 40 MG VIAL IV PUSH SCH (20:43)
[2016-11-21] MEDS: FAT EMULSION 20% INJ 250 ML (@10 mls/hr) IV-CENTRAL SCH (20:43)
[2016-11-22] VITALS: BP 109/72; PULSE 85; RESP 18; TEMP 99.1; O2SAT 100
[2016-11-22 04:00] VITALS: BP 130/89; PULSE 89; RESP 19; TEMP 99.5; O2SAT 99
[2016-11-22] MEDS: PCA - TOTAL MG DILAUDID DELIVERED PER SHIFT OTHER SCH ×3 (05:52→22:00)
[2016-11-22 08:00] VITALS: BP 124/91; PULSE 90; RESP 24; TEMP 97.5; O2SAT 93
[2016-11-22] MEDS: NYSTAT/DIPHENHY/LIDO MOUTHWASH (Adult) 120ML SWISH-SPIT SCH ×4 (09:00→20:11)
[2016-11-22] MEDS: SODIUM CHLORIDE 0.9% FLUSH 10 ML FLUSH IV FLUSH SCH (09:00)
--- NOTE | 2016-11-22 09:16 | HHI.PR ---
Subjective Subjective Notes wants treatment Objective Vitals/I&O Vital Signs Date Time Temp Pulse Resp B/P Pulse Ox O2 Delivery O2 Flow Rate FiO2 11/22/16 05:52 16 11/22/16 04:00 99.5 89 130/89 99 11/20/16 09:39 21 11/18/16 16:30 Nasal Cannula 2 Abdomen: Non-distended, Post-op tenderness A/P Assessment and Plan 56yo with stage IV gastric cancer with locally advanced tumor causing complete obstruction, UGIB, s/p exploration, unresectable primary and large volume of carcinomatosis. may be a candidate for palliative stent, d/w GI on Thursday. i recommend palliative care, d/w patient. Dawit Salguero MD Nov 22, 2016 09:16
--- NOTE | 2016-11-22 10:39 | HHI.PR ---
Subjective Remarks The patient was seen earlier today. Patient at the margin of the bed. Says he feels tired whrn he is walking and abd pain is better when he is walking. Passing gas but no BM. No fever or chills. Abd pain is controlled by meds. Discussed with Dr Salguero gen surgery. Will reconsuolt GI for eval if placing stent so patient will have PO. Currently on TPN. Patient wants aggressive measures. Objective Vitals Vital Signs Date Time Temp Pulse Resp B/P Pulse Ox O2 Delivery O2 Flow Rate FiO2 11/22/16 08:00 97.5 90 24 124/91 93 11/22/16 05:52 16 11/22/16 04:00 99.5 89 19 130/89 99 11/22/16 00:00 99.1 85 18 109/72 100 11/21/16 22:14 16 11/21/16 22:00 16 11/21/16 20:00 98.6 91 19 119/91 99 11/21/16 17:23 98.9 90 18 122/99 98 11/21/16 14:00 16 11/21/16 13:33 98.3 91 18 121/89 95 I/O 11/21/16 11/21/16 11/21/16 11/22/16 11/22/16 11/22/16 07:00 15:00 23:00 07:00 15:00 23:00 Intake Total 240 ml 1572 ml 480 ml 240 ml Output Total 300 ml 250 ml 175 ml Balance -60 ml 1572 ml 230 ml 65 ml Intake Oral 240 ml 240 ml 480 ml 240 ml TPN/PPN 1074 ml Lipid 258 ml Output Urine Total 300 ml 250 ml 175 ml # Voids 3 # Bowel Movements 0 0 Result Diagram: 11/20/16 0756 11/20/16 0530 Imaging Last Impressions Abdomen X-Ray 11/14/16 0000 Signed Impressions: Service Date/Time: Monday, November 14, 2016 11:08 - CONCLUSION: There is no significant abdominal distention. Nathanael Montana MD FACR Chest X-Ray 11/11/16 0000 Signed Impressions: Service Date/Time: Friday, November 11, 2016 16:05 - CONCLUSION: Left-sided PICC line in place. Small right pleural effusion unchanged. Juan Gifford MD Chest CT 11/10/16 1638 Signed Impressions: Service Date/Time: Thursday, November 10, 2016 16:42 - CONCLUSION: 1. CT scan was used to define the length of the mass in the distal esophagus involving the distal esophagus and the gastroesophageal junction. This would probably be amenable to percutaneous stenting with a stent measuring 11 to 12 cm. 2. Interval development of a right pleural effusion and ascites. Nathanael Montana MD FACR Upper GI/Barium Swallow X-Ray 11/10/16 0000 Signed Impressions: Service Date/Time: Thursday, November 10, 2016 16:10 - CONCLUSION: Obstruction distal esophagus. Thin section CT is pending. Nathanael Montana MD FACR Objective Remarks GENERAL: Alert and oriented 3. SKIN: Warm and dry. HEAD: Normocephalic. EYES: No scleral icterus. No injection or drainage. NECK: Supple, trachea midline. No JVD. CARDIOVASCULAR: Regular rate and rhythm without murmurs, gallops, or rubs. RESPIRATORY: Breath sounds equal bilaterally. No accessory muscle use. GASTROINTESTINAL: Abdomen soft, nontender, slightly distended. MUSCULOSKELETAL: No cyanosis, or edema. BACK: Nontender without obvious deformity. No CVA tenderness. PSYCH: Mood and affect appropriate. 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 GI consultation appreciated. Patient underwent endoscopy 11/06 to evaluate for acute bleeding, but patient had diffuse oozing from mass which could not be cauterized. CBC stable. Gastrografin swallow showed complete esophageal obstruction to thin liquids. Radiology has ordered follow-up CT which shows that this could possibly be stented. Appreciate surgical oncology consult, dr Salguero following S/P Surgery 11/18: Large volume carcinomatosis, 4l malignant ascites, GE jxn tumor invading diaphragm, liver, pancreas. - follow up with oncology and surgery. - continue TPN. Will reconsult GI for evaluation of placing stent so patient will have PO. Discussed with Dr Salguero onc/surg. - s/p radiation. - nystatin for thrush. - follow CBC and transfuse as needed. Suspected aspiration pneumonia Consolidative changes right lower lobe. Due to obstructed esophagus the patient has been spitting up everything he drinks, most likely aspiration pneumonia. - continue nothing by mouth status. - Started on Zosyn for anaerobic coverage. D/c /. Abdominal pain/ Nausea The pt has developed GI upset ever since TPN was started. Has abdominal distention and epigastric abdominal pain. LFTs, lipase and KUB unremarkable. Improved. - PPI. - pain control, Tums and Maalox as needed. Constipation S/t decreased PO intake. - suppository ordered. Resolved. Hypokalemia S/t decreased PO intake. - monitor and supplement as needed. Will check labs in AM. DVT prophylaxis: SCDs. Chemical prophylaxis contraindicated. Discharge Planning Per oncology. Poor prognosis. Palliative care also consulted, patient wants everything done. Consult GI for evaluation of GI stent placement. Plan for TPN, eval for stent placement per GI and palliative chemo per hem/onc DC when cleared by consultants. Shahnaz Huertas MD Nov 22, 2016 10:39
[2016-11-22 12:00] VITALS: BP 108/88; PULSE 96; RESP 22; TEMP 97.5; O2SAT 98
[2016-11-22] MEDS: HYDROmorphone HCL PCA 6 MG/30 ML IV SCH (12:03)
[2016-11-22 16:00] VITALS: BP 126/91; PULSE 97; RESP 20; TEMP 97.9; O2SAT 96
[2016-11-22] MEDS: PANTOPRAZOLE SODIUM 40 MG VIAL IV PUSH SCH (19:56)
[2016-11-22 20:00] VITALS: BP 128/90; PULSE 88; RESP 19; TEMP 98.9; O2SAT 99
[2016-11-22] MEDS: CLINIMIX E 5/25 1000 mL- </= 42 mls/hr IV-CENTRAL SCH ×3 (20:01)
[2016-11-22] MEDS: FAT EMULSION 20% INJ 250 ML (@10 mls/hr) IV-CENTRAL SCH (20:01)
--- NOTE | 2016-11-22 22:08 | HHI.GIFU ---
Subjective Remarks I was asked to see patient because of patient requesting everything to be done, and he wants to eat, ? stent Objective Vitals I&O Vital Signs Date Time Temp Pulse Resp B/P Pulse Ox O2 Delivery O2 Flow Rate FiO2 11/22/16 20:00 98.9 88 19 128/90 99 11/22/16 16:00 97.9 97 20 126/91 96 11/22/16 14:00 16 11/22/16 12:33 16 11/22/16 12:03 16 11/22/16 12:00 97.5 96 22 108/88 98 11/22/16 08:00 97.5 90 24 124/91 93 11/22/16 05:52 16 11/22/16 04:00 99.5 89 19 130/89 99 11/22/16 00:00 99.1 85 18 109/72 100 11/21/16 22:14 16 I/O 11/21/16 11/21/16 11/21/16 11/22/16 11/22/16 11/22/16 07:00 15:00 23:00 07:00 15:00 23:00 Intake Total 240 ml 1572 ml 480 ml 240 ml 911 ml Output Total 300 ml 250 ml 175 ml Balance -60 ml 1572 ml 230 ml 65 ml 911 ml Intake Oral 240 ml 240 ml 480 ml 240 ml 480 ml TPN/PPN 1074 ml 346 ml Lipid 258 ml 85 ml Output Urine Total 300 ml 250 ml 175 ml # Voids 3 3 # Bowel Movements 0 0 0 Physical Exam HEENT: Pupils round and reactive to light; normocephalic; atraumatic; no jaundice. Throat is clear. NECK: Neck is supple, no JVD, no lymphadenopathy. CHEST: Chest is clear to auscultation and percussion. CARDIAC: Regular rate and rhythm with no murmur gallop or rubs. ABDOMEN: Soft, nondistended, diffuse tender; no hepatosplenomegaly; bowel sounds are present in all four quadrants. EXTREMITIES: No clubbing, cyanosis, or edema. SKIN: Normal; no rash; no jaundice. OPERATIONS COORDINATOR: No focal deficits; alert and oriented times three. Assessment and Plan Plan patient is not a candidate for stent because he has large tumor, was very hard to pass scope and it was very frail and ulcerated, with stent the tumor will be more necrotic and will bleed heavily. also it would be technically difficult to place. continue TPN, continue current care check when patient can take it consider hospice. poor prognosis. Екатерина Senior MD Nov 22, 2016 22:08
[2016-11-23] VITALS: BP 119/81; PULSE 87; RESP 18; TEMP 98.6; O2SAT 99
[2016-11-23] MEDS: HYDROmorphone HCL PCA 6 MG/30 ML IV SCH (03:30)
[2016-11-23 04:00] VITALS: BP 111/68; PULSE 82; RESP 19; TEMP 98.6; O2SAT 99
[2016-11-23] MEDS: PCA - TOTAL MG DILAUDID DELIVERED PER SHIFT OTHER SCH ×3 (06:00→22:00)
--- NOTE | 2016-11-23 07:27 | HHI.PR ---
Subjective Remarks In bed. Says he has slight abdominal pain. Did pass gas, no BM. No n/v. Denies fevers or chills. Objective Vitals Vital Signs Date Time Temp Pulse Resp B/P Pulse Ox O2 Delivery O2 Flow Rate FiO2 11/23/16 06:00 18 11/23/16 04:00 98.6 82 19 111/68 99 11/23/16 03:30 17 11/23/16 00:00 98.6 87 18 119/81 99 11/22/16 22:00 17 11/22/16 20:00 98.9 88 19 128/90 99 11/22/16 16:00 97.9 97 20 126/91 96 11/22/16 14:00 16 11/22/16 12:33 16 11/22/16 12:03 16 11/22/16 12:00 97.5 96 22 108/88 98 11/22/16 08:00 97.5 90 24 124/91 93 I/O 11/22/16 11/22/16 11/22/16 11/23/16 11/23/16 11/23/16 07:00 15:00 23:00 07:00 15:00 23:00 Intake Total 240 ml 911 ml 1214 ml Output Total 175 ml 300 ml 150 ml Balance 65 ml 911 ml -300 ml 1064 ml Intake Oral 240 ml 480 ml 240 ml IV Total 135 ml TPN/PPN 346 ml 677 ml Lipid 85 ml 162 ml Output Urine Total 175 ml 300 ml 150 ml # Voids 3 # Bowel Movements 0 1 Result Diagram: 11/20/16 0756 11/20/16 0530 Imaging Last Impressions Abdomen X-Ray 11/14/16 0000 Signed Impressions: Service Date/Time: Monday, November 14, 2016 11:08 - CONCLUSION: There is no significant abdominal distention. Nathanael Montana MD FACR Chest X-Ray 11/11/16 0000 Signed Impressions: Service Date/Time: Friday, November 11, 2016 16:05 - CONCLUSION: Left-sided PICC line in place. Small right pleural effusion unchanged. Juan Gifford MD Chest CT 11/10/16 1638 Signed Impressions: Service Date/Time: Thursday, November 10, 2016 16:42 - CONCLUSION: 1. CT scan was used to define the length of the mass in the distal esophagus involving the distal esophagus and the gastroesophageal junction. This would probably be amenable to percutaneous stenting with a stent measuring 11 to 12 cm. 2. Interval development of a right pleural effusion and ascites. Nathanael Montana MD FACR Upper GI/Barium Swallow X-Ray 11/10/16 0000 Signed Impressions: Service Date/Time: Thursday, November 10, 2016 16:10 - CONCLUSION: Obstruction distal esophagus. Thin section CT is pending. Nathanael Montana MD FACR Objective Remarks GENERAL: Alert and oriented 3. SKIN: Warm and dry. HEAD: Normocephalic. EYES: No scleral icterus. No injection or drainage. NECK: Supple, trachea midline. No JVD. CARDIOVASCULAR: Regular rate and rhythm without murmurs, gallops, or rubs. RESPIRATORY: Breath sounds equal bilaterally. No accessory muscle use. GASTROINTESTINAL: Abdomen soft, nontender, slightly distended. MUSCULOSKELETAL: No cyanosis, or edema. BACK: Nontender without obvious deformity. No CVA tenderness. PSYCH: Mood and affect appropriate. 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 GI consultation appreciated. Patient underwent endoscopy 11/06 to evaluate for acute bleeding, but patient had diffuse oozing from mass which could not be cauterized. CBC stable. Gastrografin swallow showed complete esophageal obstruction to thin liquids. Radiology has ordered follow-up CT which shows that this could possibly be stented. Appreciate surgical oncology consult, dr Salguero following S/P Surgery 11/18: Large volume carcinomatosis, 4l malignant ascites, GE jxn tumor invading diaphragm, liver, pancreas. - follow up with oncology and surgery. - continue TPN. Will reconsult GI for evaluation of placing stent so patient will have PO. Discussed with Dr Salguero onc/surg. Seen by GI , patient is not a candidate for stent placement. Conrinue TPN - s/p radiation. - nystatin for thrush. - follow CBC and transfuse as needed. Suspected aspiration pneumonia Consolidative changes right lower lobe. Due to obstructed esophagus the patient has been spitting up everything he drinks, most likely aspiration pneumonia. - continue nothing by mouth status. - Started on Zosyn for anaerobic coverage. D/c 4/4. Abdominal pain/ Nausea The pt has developed GI upset ever since TPN was started. Has abdominal distention and epigastric abdominal pain. LFTs, lipase and KUB unremarkable. Improved. - PPI. - pain control, Tums and Maalox as needed. Constipation S/t decreased PO intake. - suppository ordered. Resolved. Hypokalemia S/t decreased PO intake. - monitor and supplement as needed. Will check labs in AM. DVT prophylaxis: SCDs. Chemical prophylaxis contraindicated. Discharge Planning Per oncology. Poor prognosis. Palliative care also consulted, patient wants everything done. Consult GI for evaluation of GI stent placement. Plan for TPN, eval for stent placement per GI not a candidate for stent placement, also not a surgical candidate. Plan for palliative chemo/rad per hem/onc DC when cleared by consultants. Poss DC tomorrow CM also consulted for discharge plan. Pt needs TPN at home Shahnaz Huertas MD Nov 23, 2016 07:27
[2016-11-23 08:00] VITALS: BP 119/84; PULSE 88; RESP 22; TEMP 99.3; O2SAT 96
[2016-11-23] MEDS: NYSTAT/DIPHENHY/LIDO MOUTHWASH (Adult) 120ML SWISH-SPIT SCH ×4 (09:00→21:00)
[2016-11-23] MEDS: SODIUM CHLORIDE 0.9% FLUSH 10 ML FLUSH IV FLUSH SCH (09:00)
[2016-11-23 12:00] VITALS: BP 102/99; PULSE 102; RESP 22; TEMP 98.8; O2SAT 99
[2016-11-23 16:00] VITALS: BP 118/86; PULSE 86; RESP 20; TEMP 99.4; O2SAT 99
--- NOTE | 2016-11-23 17:14 | PD.ONC.PN ---
Subjective Subjective Remarks "I just want to go home" Pt walking around the unit. Feels that abdomen is healing, had a BM today. Objective Data Date Time Temp Pulse Resp B/P Pulse Ox O2 Delivery O2 Flow Rate FiO2 11/23/16 15:58 18 11/23/16 12:00 98.8 102 22 102/99 99 11/23/16 08:00 99.3 88 22 119/84 96 11/23/16 06:00 18 11/23/16 04:00 98.6 82 19 111/68 99 11/23/16 03:30 17 11/23/16 00:00 98.6 87 18 119/81 99 11/22/16 22:00 17 11/22/16 20:00 98.9 88 19 128/90 99 11/23/16 11/23/16 11/23/16 07:00 15:00 23:00 Intake Total 1214 ml 600 ml Output Total 150 ml Balance 1064 ml 600 ml Result Diagram: 11/20/16 0756 11/20/16 0530 Administered Medications Medications (Trade) Dose Ordered Sig/Martha Route PRN Reason Start Time Stop Time Status Last Admin Dose Admin Ondansetron HCl (Zofran Inj) 4 mg Q6H PRN IV NAUSEA OR VOMITING 11/05/16 23:00 11/17/16 14:07 Morphine Sulfate (Morphine Inj) 2 mg Q3H PRN IV PUSH PAIN SCALE 4 TO 10 11/07/16 20:00 11/18/16 05:55 Morphine Sulfate 5 mg 5 mg Q3HR PRN PO PAIN SCALE 1 TO 3 11/07/16 20:00 11/11/16 03:56 Multivitamins 10 ml/Folic Acid 1 mg/Amino Acids/ Electrolytes/ Dextrose 1,010.2 ml @ 42 mls/hr Q24H IV-CENTRAL 11/11/16 20:00 11/22/16 20:01 Fat Emulsion Intravenous (Liposyn Iii 20% Inj) 250 ml @ 10 mls/hr Q24H IV-CENTRAL 11/11/16 20:00 11/22/16 20:01 Sodium Chloride (NS Flush) See Protocol DAILY IV FLUSH 11/12/16 09:00 11/16/16 08:31 Heparin Sodium (Porcine) (Heparin Central Flush) See Protocol DAILY IV FLUSH 11/12/16 09:00 11/21/16 08:14 Heparin Sodium (Porcine) (Heparin Central Flush) See Protocol UNSCH PRN IV FLUSH SEE PROTOCOL TABLE 11/11/16 15:30 11/20/16 05:42 Pantoprazole Sodium (Protonix Inj) 40 mg Q24H IV PUSH 11/11/16 20:00 11/22/16 19:56 Multi-Ingredient Mouthwash/Gargle (Magic Mouthwash Adult Liq) 5 ml QID SWISH-SPIT 11/13/16 18:00 11/21/16 08:14 Simethicone (Mylicon Chew) 80 mg PCHS PRN CHEW gaseous distention 11/13/16 22:00 11/14/16 17:54 Calcium Carbonate (Tums Chew) 500 mg Q2H PRN CHEW abdominal discomfort 11/14/16 09:15 11/16/16 15:35 Hydromorphone HCl (Dilaudid LEADLIGHTER Inj) 6 mg UNSCH IV 11/18/16 15:30 11/23/16 03:30 LEADLIGHTER Dosage Infused (Pha) 1 Q8HR OTHER 11/18/16 16:00 11/23/16 15:58 Objective Remarks GENERAL: Well-nourished, well-developed patient. SKIN: Warm and dry. HEAD: Normocephalic. EYES: No scleral icterus. No injection or drainage. NECK: Supple, trachea midline. No JVD or lymphadenopathy. LYMPHATIC: No adenopathy. CARDIOVASCULAR: Regular rate and rhythm without murmurs. RESPIRATORY: Breath sounds equal bilaterally. No accessory muscle use. GASTROINTESTINAL: Abdomen soft, non-tender, nondistended. EXTREMITIES: No cyanosis, or edema. MUSCULOSKELETAL: Adequate muscle tone. NEUROLOGICAL: No obvious focal deficit. Awake, alert, and oriented x3. Assessment/Plan Problem List: (1) Gastric adenocarcinoma Status: Acute Plan: 11/19: operative findings reviewed and discussed with patient. patient is not a candidate for chemotherapy at this point. appreciate palliative care assistance. 11/14: Completed XRT today. He feels like he needs to have a BM. He has recently taken a Dulcolax suppository. 11/13: Doing well. He understands he is to stay in hospital until his surgery. He has no complaints. 11/12: Spoke with Dr. Salguero. Pt to stay inpatient until surgery. He is not reliable as an outpatient with followup. Plan for continued XRT, TPN and surgery next week. 11/11: continue XRT. reviewed Dr. Salguero's note. 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 (2) Anemia Status: Acute Plan: --GI bleed secondary to gastric malignancy. --hgb stable today Assessment 56 y/o man with newly dx gastric cancer, thought to be locally advanced but staging CT/PET suggest liver and bone metastatic disease, admitted for recurrent GI bleeding. Plan 1. appreciate palliative care assistance. patient is hospice appropriate 2. continue supportive care, pain management Attending Statement The exam, history, and the medical decision-making described in the above note were completed with the assistance of the mid-level provider. I reviewed and agree with the findings presented. I attest that I had a [id number] encounter with the patient on the same day, and personally performed and documented my assessment and findings in the medical record. Pt seen and examined. Abdominal wound dressing dry. Pt feels better. Still clinging to hope and desire of staring palliative chemo. Awaiting decision from GI and surgery to see if a gastrostomy tube is possible. GI unable to pass through the obstruction from above. Problem Qualifiers (1) Anemia: Fay Talavera MD Nov 23, 2016 17:14
[2016-11-23] MEDS: CLINIMIX E 5/25 1000 mL- </= 42 mls/hr IV-CENTRAL SCH ×3 (18:53)
[2016-11-23 20:00] VITALS: BP 131/81; PULSE 85; RESP 18; TEMP 98.8; O2SAT 99
[2016-11-23] MEDS: FAT EMULSION 20% INJ 250 ML (@10 mls/hr) IV-CENTRAL SCH (20:32)
[2016-11-23] MEDS: PANTOPRAZOLE SODIUM 40 MG VIAL IV PUSH SCH (20:32)
[2016-11-24] VITALS: BP 118/74; PULSE 82; RESP 18; TEMP 98.8; O2SAT 99
[2016-11-24] MEDS: HYDROmorphone HCL PCA 6 MG/30 ML IV SCH (01:32)
[2016-11-24 04:00] VITALS: BP 114/71; PULSE 87; RESP 19; TEMP 98.5; O2SAT 98
[2016-11-24] MEDS: PCA - TOTAL MG DILAUDID DELIVERED PER SHIFT OTHER SCH ×3 (06:00→20:53)
--- NOTE | 2016-11-24 07:22 | HHI.DS ---
Discharge Summary Admission Date Nov 05, 2016 at 17:16 Discharge Date: Nov 25, 2016 Admitting Diagnosis Symptomatic anemia secondary to GI bleed (1) Metastasis from gastric cancer ICD Code: C79.9 Diagnosis: Principal (2) Gastric mass ICD Code: K31.9 Diagnosis: Principal (3) GI bleed ICD Code: K92.2 Diagnosis: Principal (4) Malnutrition ICD Code: E46 Diagnosis: Secondary (5) Dysphagia ICD Code: R13.10 Diagnosis: Principal (6) Gastric adenocarcinoma ICD Code: C16.9 Diagnosis: Principal (7) Symptomatic anemia ICD Code: D64.9 Diagnosis: Principal Procedures S/P exploratory Surgery 11/18/[address] Salguero: Large volume carcinomatosis, 4l malignant ascites, GE jxn tumor invading diaphragm, liver, pancreas. Brief History - From Admission 56 years old male with history of gastroesophageal adenocarcinoma he follow up with Dr. Dr. Talavera presented to the ED complaining of generalized weakness short of breath some nausea and vomiting for the last 2 days, and dark stool with blood since about a week ago. In ED he was found to have positive occult blood. CBC showed he has hemoglobin of 6.5. Patient was admitted in October 28 for GI bleed transfuse 4 units of red blood cells. He does have chronic epigastric pain due to his carcinoma no fever or chills no cough no chest pain no diarrhea or constipation no dysuria urgency or frequency CBC/BMP: 11/20/16 0756 11/20/16 0530 Imaging Last Impressions Abdomen X-Ray 11/14/16 0000 Signed Impressions: Service Date/Time: Monday, November 14, 2016 11:08 - CONCLUSION: There is no significant abdominal distention. Nathanael Montana MD FACR Chest X-Ray 11/11/16 0000 Signed Impressions: Service Date/Time: Friday, November 11, 2016 16:05 - CONCLUSION: Left-sided PICC line in place. Small right pleural effusion unchanged. Juan Gifford MD Chest CT 11/10/16 1638 Signed Impressions: Service Date/Time: Thursday, November 10, 2016 16:42 - CONCLUSION: 1. CT scan was used to define the length of the mass in the distal esophagus involving the distal esophagus and the gastroesophageal junction. This would probably be amenable to percutaneous stenting with a stent measuring 11 to 12 cm. 2. Interval development of a right pleural effusion and ascites. Nathanael Montana MD FACR Upper GI/Barium Swallow X-Ray 11/10/16 0000 Signed Impressions: Service Date/Time: Thursday, November 10, 2016 16:10 - CONCLUSION: Obstruction distal esophagus. Thin section CT is pending. Nathanael Montana MD FACR PE at Discharge GENERAL: Alert and oriented 3. SKIN: Warm and dry. HEAD: Normocephalic. EYES: No scleral icterus. No injection or drainage. NECK: Supple, trachea midline. No JVD. CARDIOVASCULAR: Regular rate and rhythm without murmurs, gallops, or rubs. RESPIRATORY: Breath sounds equal bilaterally. No accessory muscle use. GASTROINTESTINAL: Abdomen soft, nontender, slightly distended. MUSCULOSKELETAL: No cyanosis, or edema. BACK: Nontender without obvious deformity. No CVA tenderness. PSYCH: Mood and affect appropriate. 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 GI consultation appreciated. Patient underwent endoscopy 11/06 to evaluate for acute bleeding, but patient had diffuse oozing from mass which could not be cauterized. CBC stable. Gastrografin swallow showed complete esophageal obstruction to thin liquids. Radiology has ordered follow-up CT which shows that this could possibly be stented. Appreciate surgical oncology consult, dr Salguero following S/P Surgery 11/18: Large volume carcinomatosis, 4l malignant ascites, GE jxn tumor invading diaphragm, liver, pancreas. - follow up with oncology and surgery. - continue TPN. Will reconsult GI for evaluation of placing stent so patient will have PO. Discussed with Dr Salguero onc/surg. Seen by GI , patient is not a candidate for stent placement. Conrinue TPN - s/p radiation. - nystatin for thrush. - follow CBC and transfuse as needed. Suspected aspiration pneumonia Consolidative changes right lower lobe. Due to obstructed esophagus the patient has been spitting up everything he drinks, most likely aspiration pneumonia. - continue nothing by mouth status. - Started on Zosyn for anaerobic coverage. D/c /. Abdominal pain/ Nausea The pt has developed GI upset ever since TPN was started. Has abdominal distention and epigastric abdominal pain. LFTs, lipase and KUB unremarkable. Improved. - PPI. - pain control, Tums and Maalox as needed. Constipation S/t decreased PO intake. - suppository ordered. Resolved. Hypokalemia S/t decreased PO intake. - monitor and supplement as needed. Will check labs in AM. DVT prophylaxis: SCDs. Chemical prophylaxis contraindicated. Discharge Planning Per oncology. Poor prognosis. Palliative care also consulted, patient wants everything done. Consult GI for evaluation of GI stent placement. Plan for TPN, eval for stent placement per GI not a candidate for stent placement, also not a surgical candidate. Plan for palliative chemo/rad per hem/onc CM also consulted for discharge plan. CM was following as well as patient needs PN at home. Patient was discharge home in stable condition, however expected to deteriorate as CA will advance. To follow up as OP with PCP and consultants. Pt Condition on Discharge: Deteriorating Discharge Disposition: Disch w/ Home Health Serv Discharge Time: > 30 minutes Discharge Instructions DIET: Follow Instructions for: Nothing By Mouth Additional Diet Instructions: Needs TPN Activities you can perform: Regular-No Restrictions Follow up Referrals: Oncology - 1 Week with Fay Talavrea MD PCP Follow-up - 2-3 Days Surgical - 2 Weeks with Dawit Salguero MD New Medications: Morphine Liq (Morphine Liq) 10 Mg/5 Ml Liq 10 MG PO Q4H Pain Management #180 Ref 0 ML Continued Medications: Docusate Sodium (Dok) 100 Mg Cap 100 MG PO BID anemia Days 30 CAP Hydrocodone-Acetaminophen (Lortab) 5-325 Mg Tab 1 TAB PO Q6H PRN PAIN Ref 0 TAB Lactulose Liq (Lactulose Liq) 10 Gm/15 Ml Soln 30 ML PO DAILY PRN constipation Days 30 ML Pantoprazole (Protonix) 40 Mg Tab 40 MG PO DAILY Reflux #30 Ref 0 TAB Sennosides (Sennosides) 8.6 Mg Tab 8.6 MG PO HS Constipation Ref 0 TAB Discontinued Medications: Naproxen (Naproxen) 500 Mg Tab 500 MG PO BID #60 Ref 0 TAB Shahnaz Huertas MD Nov 24, 2016 07:22
--- NOTE | 2016-11-24 07:23 | HHI.FF ---
Face to Face Verification Diagnosis: (1) Gastric adenocarcinoma (2) Anemia (3) Metastasis from gastric cancer (4) Gastric mass (5) GI bleed (6) Malnutrition (7) Dysphagia Home Health Nursing Order: Medical education Signs/symptoms of disease process Medication education-adverse effect Wound care and dressing changes Nursing assessment with vital signs Instructions: change every other day, and as need, keep dry and intact. Follow up with Dr Salguero oncologic surgeon I have seen patient Tammy Auguste on 11/24/16. My clinical findings support the need for the requested home health care services because: Ltd mobility - disease progression I certify that my clinical findings support that this patient is homebound because: Post-op weakness Shahnaz Huertas MD Nov 24, 2016 07:23
[2016-11-24 08:00] VITALS: BP 106/89; PULSE 90; RESP 18; TEMP 98; O2SAT 99
[2016-11-24] MEDS: NYSTAT/DIPHENHY/LIDO MOUTHWASH (Adult) 120ML SWISH-SPIT SCH ×4 (09:14→20:44)
[2016-11-24] MEDS: SODIUM CHLORIDE 0.9% FLUSH 10 ML FLUSH IV FLUSH SCH (09:16)
--- NOTE | 2016-11-24 09:32 | HHI.PR ---
Subjective Remarks Says she had a BM in the morning. and feels much better. Pain is controlled by meds. No feevr or chills. No n/v/d/c. Hoping to go home today however patient needs TPN at home. CM following for DC plan. Objective Vitals Vital Signs Date Time Temp Pulse Resp B/P Pulse Ox O2 Delivery O2 Flow Rate FiO2 11/24/16 08:00 98.0 90 18 106/89 99 11/24/16 06:00 17 11/24/16 04:00 98.5 87 19 114/71 98 11/24/16 01:32 18 11/24/16 00:00 98.8 82 18 118/74 99 11/23/16 22:00 18 11/23/16 20:00 98.8 85 18 131/81 99 11/23/16 16:00 99.4 86 20 118/86 99 11/23/16 15:58 18 11/23/16 12:00 98.8 102 22 102/99 99 I/O 11/23/16 11/23/16 11/23/16 11/24/16 11/24/16 11/24/16 07:00 15:00 23:00 07:00 15:00 23:00 Intake Total 1214 ml 600 ml 480 ml 1831 ml Output Total 150 ml 125 ml 175 ml Balance 1064 ml 600 ml 355 ml 1656 ml Intake Oral 240 ml 600 ml 480 ml 240 ml IV Total 135 ml 354 ml TPN/PPN 677 ml 998 ml Lipid 162 ml 239 ml Output Urine Total 150 ml 125 ml 175 ml # Bowel Movements 1 Result Diagram: 11/20/16 0756 11/20/16 0530 Imaging Last Impressions Abdomen X-Ray 11/14/16 0000 Signed Impressions: Service Date/Time: Monday, November 14, 2016 11:08 - CONCLUSION: There is no significant abdominal distention. Nathanael Montana MD FACR Chest X-Ray 11/11/16 0000 Signed Impressions: Service Date/Time: Friday, November 11, 2016 16:05 - CONCLUSION: Left-sided PICC line in place. Small right pleural effusion unchanged. Juan Gifford MD Chest CT 11/10/16 1638 Signed Impressions: Service Date/Time: Thursday, November 10, 2016 16:42 - CONCLUSION: 1. CT scan was used to define the length of the mass in the distal esophagus involving the distal esophagus and the gastroesophageal junction. This would probably be amenable to percutaneous stenting with a stent measuring 11 to 12 cm. 2. Interval development of a right pleural effusion and ascites. Nathanael Montana MD FACR Upper GI/Barium Swallow X-Ray 11/10/16 0000 Signed Impressions: Service Date/Time: Thursday, November 10, 2016 16:10 - CONCLUSION: Obstruction distal esophagus. Thin section CT is pending. Nathanael Montana MD FACR Objective Remarks GENERAL: Alert and oriented 3. SKIN: Warm and dry. HEAD: Normocephalic. EYES: No scleral icterus. No injection or drainage. NECK: Supple, trachea midline. No JVD. CARDIOVASCULAR: Regular rate and rhythm without murmurs, gallops, or rubs. RESPIRATORY: Breath sounds equal bilaterally. No accessory muscle use. GASTROINTESTINAL: Abdomen soft, nontender, slightly distended. MUSCULOSKELETAL: No cyanosis, or edema. BACK: Nontender without obvious deformity. No CVA tenderness. PSYCH: Mood and affect appropriate. 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 GI consultation appreciated. Patient underwent endoscopy 11/06 to evaluate for acute bleeding, but patient had diffuse oozing from mass which could not be cauterized. CBC stable. Gastrografin swallow showed complete esophageal obstruction to thin liquids. Radiology has ordered follow-up CT which shows that this could possibly be stented. Appreciate surgical oncology consult, dr Salguero following S/P Surgery 11/18: Large volume carcinomatosis, 4l malignant ascites, GE jxn tumor invading diaphragm, liver, pancreas. - follow up with oncology and surgery. - continue TPN. Will reconsult GI for evaluation of placing stent so patient will have PO. Discussed with Dr Salguero onc/surg. Seen by GI , patient is not a candidate for stent placement. Conrinue TPN - s/p radiation. - nystatin for thrush. - follow CBC and transfuse as needed. Suspected aspiration pneumonia Consolidative changes right lower lobe. Due to obstructed esophagus the patient has been spitting up everything he drinks, most likely aspiration pneumonia. - continue nothing by mouth status. - Started on Zosyn for anaerobic coverage. D/c 11/18. Abdominal pain/ Nausea The pt has developed GI upset ever since TPN was started. Has abdominal distention and epigastric abdominal pain. LFTs, lipase and KUB unremarkable. Improved. - PPI. - pain control, Tums and Maalox as needed. Constipation S/t decreased PO intake. - suppository ordered. Resolved. Hypokalemia S/t decreased PO intake. - monitor and supplement as needed. Will check labs in AM. DVT prophylaxis: SCDs. Chemical prophylaxis contraindicated. Discharge Planning Per oncology. Poor prognosis. Palliative care also consulted, patient wants everything done. Consult GI for evaluation of GI stent placement. Plan for TPN, eval for stent placement per GI not a candidate for stent placement, also not a surgical candidate. Plan for palliative chemo/rad per hem/onc DC when cleared by consultants. DC home when arrangements done. CM also consulted for discharge plan. Pt needs TPN at home, might be difficult to obtain bc of insurance. Shahnaz Huertas MD Nov 24, 2016 09:31
--- NOTE | 2016-11-24 10:13 | MP ---
cc: BLANCA TADEO DATE OF SURGERY: 11/18/2016 PREOPERATIVE DIAGNOSIS 1. Stage IV gastric carcinoma. 2. Upper GI bleed. POSTOPERATIVE DIAGNOSIS 1. Stage IV gastric carcinoma. 2. Upper GI bleed. PROCEDURE 1. Exploratory laparotomy. 2. Peritoneal biopsy. ANESTHESIA General and regional TAP block. ATTENDING SURGEON Dr. Blanca Tadeo TOP LIFT SCOURER SURGEON Dr. Kai Basilio ESTIMATED BLOOD LOSS Less than 50 cc. COMPLICATIONS None. FINDINGS Large volume diffuse peritoneal carcinomatosis. Four liters of malignant ascites. Large locally advanced GE junction tumor invading the bilateral diaphragm, pancreas and left lobe of the liver. INDICATION FOR PROCEDURE The patient is a 56-year-old male who was diagnosed with a GE junction tumor after the finding of anemia and epigastric pain. The patient was planned to undergo neoadjuvant chemotherapy, however, he developed recurrent GI bleeding and required readmission to the hospital. Discussion with the patient about treatment and further staging. He was noted to be stage IV due to metastatic disease but was not indicated for palliation of his bleeding due to the primary tumor. He did undergo a short course of radiation for control of bleeding and a palliative gastrectomy was planned as he had started to develop obstructive symptoms as well. The risks, benefits and alternatives to the exploratory laparotomy and subtotal versus total gastrectomy were discussed with the patient prior to the procedure. The patient agreed to undergo procedure. DETAILS OF PROCEDURE After informed consent was obtained the patient was taken to the operating room and placed in the supine position, placed under general endotracheal anesthesia. The patient's abdomen was shaved, prepped and draped in a sterile fashion. A timeout was performed. We entered the abdomen through a small upper midline incision. At this point in time we were greeted with a large amount of malignant ascites, approximately four liters. There was clearly some large volume carcinomatosis. At this point in time due to the patient's previous upper GI bleed and obstructive symptoms it was felt that further exploration was needed as the patient could potentially still be a candidate for palliation and palliative surgery. We did extend our laparotomy from the umbilicus up to the xiphoid. We further explored the patient and clearly the patient was noted to have a very locally advanced large tumor. The tumor was affixed to bilateral diaphragms as well as into the chest and possibly even the pericardium. We also noted this was adhered to the retroperitoneum as well as the pancreatic body. The tumor also had directly invaded into the left lower lobe of the liver. This was clearly extremely locally advanced and myself and Dr. Basilio who was at that point in time present and scrubbed, felt that it was not in the patient's best interest to proceed with any further operation. This was due to the patient having an extremely high complication rate and morbidity rate with attempted multivisceral dissection which would not be indicated in a palliative setting. At this point in time the patient had signs of likely ileus due to large carcinomatosis and feeding tube placement again would likely be futile due to the patient not being able to tolerate enteric feeds. At this point in time we felt it was in the patient's best interest and the most compassionate thing would be to close the patient and recommend continued palliation and supportive care. We turned our attention towards closure. A peritoneal biopsy of the carcinomatosis was performed. The abdomen was irrigated with sterile saline until all suctioning was clear. We ensured the viscera was in normal anatomic position. We closed the upper midline incision with a running looped #1 PDS suture. We then closed the skin with skin momo and sterile dressing was applied. The patient was discontinued from anesthesia and taken to the PACU in stable condition. The patient tolerated the procedure well. No apparent complications. All counts correct. I was present and scrubbed for the entire procedures. Dr. Basilio was present and scrubbed for the critical portion of the procedure. MD EUGENIA Aguilera/CHEVY /9:30 AM /9:54 AM
[2016-11-24 12:00] VITALS: BP 133/86; PULSE 85; RESP 18; TEMP 98.6; O2SAT 99
[2016-11-24] MEDS ORDERED: MORP1SOL3 PO ×2 (13:54→14:07)
[2016-11-24] MEDS ORDERED: MORPHINE SULFATE ORAL SOLN 10 MG/0.5 ML SYRINGE PO PRN (14:00)
[2016-11-24 15:00] VITALS: BP 119/86; PULSE 88; RESP 18; TEMP 98.4; O2SAT 98
--- NOTE | 2016-11-24 16:13 | HHI.HCPN ---
Reason for visit a. To assist with evaluation and management of symptoms including: pain, malnutrition b. To assist medical decision maker(s) with: better understanding of current medical conditions; weighing benefits/burdens of medical treatment options; making medical treatment decisions. (Isabella Booth) Subjective/Interval History Patient seen today to assist with pain regimen, transitioning patient off of IV VEGETABLE SORTER and onto oral regimen for planned discharge home tomorrow. Discuss with oncology, patient continues to have very aggressive goals, does not except that he has a terminal condition and does not desire comfort treatments only. Palliative care requested to follow-up by medical attending for recommendations to transition outpatient. Surgery, oncology has continue to recommend comfort measures, patient not a candidate for any additional treatments. GI has evaluate for stones and patient is not felt to be good candidate for this either. Patient has remained stable postoperative. Ambulating the halls well. Has been eating 100% of liquid diet though has not had solids in the past many days , no recent speech therapy reevaluations. Had been on Dilaudid VEGETABLE SORTER until today- -0.5 mg every 6 minute lockout; using between 1214 milligrams in 24-hour period. * based on recordings in OCT. 14 mg Dilaudid would be equal to 280 mg oral morphine equivalents. Based on these requirements, and concern over patient's swallowing issues would recommend fentanyl patch 100 mics; with prn Roxanol 10- 20MG prn for breakthrough.Alternatively, just converting directly to oral morphine, would be 6 (q 4 hr) doses of 46 mg Roxanol around the clock to meet the doses pt had been requiring of IV dilaudid VEGETABLE SORTER-- this may be difficult for him to take given swallowing issues. Upon my seeing the patient in his room he is seen alert, for the most part oriented. He doesn't really wish to discuss disease process, he wants to get home get out of the hospital and get back to his life as usual. He endorses overall he is feeling well. He endorses still having some pain to the abdomen but primarily when active, out of bed etc. He has been trying to increase his activity level in order to help him get better. He wants to continue to fight the cancer. He is trying to get home on TPN case management working with him on discharge planning he was supposed to go home today and voices frustration that this is been delayed until tomorrow. He wants to rest and do his activities on his own terms which he cannot do here in the hospital setting. Explore with him his pain level and pain control optionshe is unable to give any numeric rating for me, says it is "okay "most of the time. CXR with him his VEGETABLE SORTER requirements and that I'm concerned he may have significant pain going home. Explore patch option, he becomes anxious and tells me that he does not trust patches of any kind and that he will not try , he is not open to talking about further. Explore that I'm also concerned about his swallowing ability and where things swallowed maybe going and if medication is not going to the proper place i.e. stomachache how much as he absorbing in getting relief from-- he again endorses to me that he feels like he is swallowing fine since his radiation though he has only been on liquid diets. He feels like he could tolerate solids fine at this point. Advised the pills may cause problem and stick and therefore not provide relief. He endorses that he had adequate pain relief with his [place] or Lortab preadmission and would like to just go home on Lortab or [place] and continue to crush them into his applesauce which he had done previously. he further tells me that he does not like the oral Roxanol but he just received about an hour ago from the nurse it does not taste good, and he does not like the way it makes him feel he endorses it makes him feel sleepier than the other medicines he has been on. He tells me if they don't let him go home tomorrow that he is just going to leave because he is very frustrated by the whole process. Discuss all with primary nurse, oncology. At this point patient is not amenable to trying any sort of topical patch-like fentanyl, he does not like the Roxanol. Certainly his medication requirements in the past several days have exceeded what could be met with use of prn [place] however if he is insistent on going home with this then certainly that could be an option. Would still be concerned with his swallowing ability though crushing the meds may alleviate some of this. May consider speech therapy evaluation prior to discharge so given patient current state of frustration and anxiety about just getting home I am not sure that he would even participate in a speech therapy evaluation. . (Isabella Booth) Advance Directives Living Will: Never completed Health Care Surrogate: Copy in medical record Durable Power of Ginning Operator: Never completed (Isabella Booth) Advance Directive Specifics Date completed: 11/19/16 Health Care Surrogate(s): Designated significant other Savana as HCS today (Isabella Booth) Objective Vital Signs Date Time Temp Pulse Resp B/P Pulse Ox O2 Delivery O2 Flow Rate FiO2 11/24/16 15:00 98.4 88 18 119/86 98 11/24/16 14:00 16 11/24/16 12:00 98.6 85 18 133/86 99 11/24/16 08:00 98.0 90 18 106/89 99 11/24/16 06:00 17 11/24/16 04:00 98.5 87 19 114/71 98 11/24/16 01:32 18 11/24/16 00:00 98.8 82 18 118/74 99 11/23/16 22:00 18 11/23/16 20:00 98.8 85 18 131/81 99 11/23/16 16:00 99.4 86 20 118/86 99 11/23/16 15:58 18 Intake & Output 11/24/16 11/24/16 07:00 19:00 Intake Total 2311 ml 1220 ml Output Total 300 ml Balance 2011 ml 1220 ml Intake Oral 720 ml 1220 ml IV Total 354 ml TPN/PPN 998 ml Lipid 239 ml Output Urine Total 300 ml # Voids 2 # Bowel Movements 1 2 Physical Exam CONSTITUTIONAL/GENERAL: This is a thin pt, no distress. pleasant TUBES/LINES/DRAINS: PIV RUE, PIC LUE SKIN: No jaundice, rashes, or lesions. abd binder present over reported abdominal incision, I did not remove binder to visualize. Skin temperature appropriate. HEAD: Atraumatic. Normocephalic. EYES: Pupils equal and round and reactive. Extraocular motions intact. No scleral icterus. No injection or drainage. Fundi not examined. ENT: Hearing grossly normal. Nose without bleeding or purulent drainage. Throat without visible erythema, exudates, masses, or lesions. NECK: Trachea midline. Supple, nontender. No palpable thyroid enlargement or nodularity. CARDIOVASCULAR: Regular rate and rhythm, no murmurs. No JVD. Peripheral pulses symmetric. RESPIRATORY/CHEST: Symmetric, unlabored respirations. On room air. Clear to auscultation. Breath sounds equal bilaterally. GASTROINTESTINAL: Abdomen soft, flat, tender, limited palpation due to abdominal binder. Bowel sounds hypoactive. GENITOURINARY: Without palpable bladder distension. MUSCULOSKELETAL: Extremities without clubbing, cyanosis, or edema. No joint tenderness or effusion noted. No mottling or clubbing. LYMPHATICS: No palpable cervical or supraclavicular adenopathy. NEUROLOGICAL: Awake and alert. Oriented 3. Appropriate however very limited insight. Motor and sensory grossly within normal limits. Follows commands. Cognitively sharp. Moves all 4 extremities. PSYCHIATRIC: No obvious anxiety/depression. no apparent hallucinations or other psychotic thought process. (Isabella Booth) Diagnostic Tests Result Diagram: 11/20/16 0756 11/20/16 0530 Procedures 11/18 exploratory laparotomy, peritoneal biopsy w Dr Salguero- 11/14 -S/P 12/19 XRT treatments (Isabella Booth) Assessment and Plan Disease Oriented Problem List: (1) Gastric adenocarcinoma Comment: stage IV (2) Metastasis from gastric cancer Comment: liver, pancreas, diaphragm (3) GERD (gastroesophageal reflux disease) (4) Gastric mass (5) Hypertension (6) Chronic pain (7) Symptomatic anemia (8) GI bleed Symptom Scale: (1) Chronic pain Comment: epigastric, + new acute post op pain . (2) Dysphagia (3) Malnutrition (4) Fatigue Pertinent Non-Medical Issues Psychosocial:Lives at home with significant other. 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 Not , supported by significant other. Has several adult children and grandchildren whom he remains in contact with. Spiritual: Mandaeism, supported by Administrative Office Manager within their family Legal:Patient currently appears to be able to make his own decisions. He is not . He has designated his significant other Savana as healthcare surrogate as of my visit today. [facility] paperwork completed, faxed to [facility]/ medical records Ethical issues impacting care: Important Contacts Savana Hutsonificant other /[facility] [phone] Prognosis This unfortunate patient was recently admitted for recurrent anemia and GI bleeding secondary to a fairly new diagnoses of gastroesophageal adenocarcinoma. He has had recent intraoperative findings of significant metastases with GE junction tumor invading diaphragm, liver, pancreas. Oncology has indicated chemotherapy will not be of benefit to this patient, has completed 5 of 5 radiation treatments. Appropriate for hospice if goals compatible, limited life expectancy due to advance stage IV metastatic cancer. Plan * Legal decision maker: Patient currently able to make his own decisions. Has designated significant other Savana Ratliff as HCS. * Goals: Goals of this time are expresses very aggressive (though it does not appear there are additional treatment options). Patient is very focused on "trying "chemotherapy. Patient and significant other are not accepting that the disease has progressed beyond a point which is treatable. He has great monica in God and that God will get him through this. * CODE STATUS: full by default, pt did not elect to make any decisions during prior discussion with palliative * SYMPTOMS: --PAIN - states pain "OK" today. Reports of chronic epigastric pain since dx. + post op surgical pain since 11/18, indicates adequate relief with use of VEGETABLE SORTER dilaudid. this will need to be weaned to PO,though with dysphagia pt will probably require liquid form (or crushed and diluted) of any medications. --->> Patient now preparing for discharge home tomorrow. patient is not amenable to trying any sort of topical patch-like fentanyl, he does not like the Roxanol. Certainly his medication requirements in the past several days have exceeded what could be met with use of prn [place] however if he is insistent on going home with this then certainly that could be an option. Would still be concerned with his swallowing ability though crushing the meds may alleviate some of this. If he was amenable to fentanyl recommendations would be: ===based on recordings in OCT. 14 mg Dilaudid (in 24 hr) would be equal to 280 mg oral morphine equivalents. Based on these requirements, and concern over patient's swallowing issues would recommend fentanyl patch 100 mics; with prn Roxanol 10-20MG prn for breakthrough.Alternatively, just converting directly to oral morphine, would be 6 (q 4 hr) doses of 46 mg Roxanol around the clock to meet the doses pt had been requiring of IV dilaudid VEGETABLE SORTER-- this may be difficult for him to take given swallowing issues. == May consider speech therapy evaluation? prior to discharge but given patient current state of frustration and anxiety about just getting home I am not sure that he would even participate in a speech therapy evaluation. --dysphagia- onset past few mos. Pt endorses swallowing improved since radiation tx (imaging studies indicate obstruction) patient subjectively endorses improvement for the past few days feels like he is swallowing better" spitting up less ". Radiation may have improved slightly he is likely to continue to suffer from dysphasia and related malnutrition// May consider speech therapy evaluation? prior to discharge but given patient current state of frustration and anxiety about just getting home I am not sure that he would even participate in a speech therapy evaluation --Malnutrition-dysphagia related to adenocarcinoma; currently receiving TPN; albumin 1.7.estimates 30# weight loss. This is likely 2/2 to disease process and will continue as pt declines. may d/c home w home health for TPN -- fatigue -- progressive. 2/2 disease process, anemia, malnutrition . not likely to benefit from aggressive reconditioning. * Palliative care will continue to follow during hospital course as condition evolves, to assist patient/decision-maker with understanding of medical conditions, weighing benefits/burdens of treatment options, for clarification of goals of treatment. Additionally will assist with any symptoms of palliative concern (Isabella Booth) Time Spent Total Floor Time (mins): 30 >50% Counseling/Coord of Care: Yes (discussed with primary nurse, oncology, medical attending) (Isabella Booth) Attestation To help prompt me to consider important information that might be impacting today's encounter and assessment, information from prior notes written by myself or my colleagues may have been "brought forward" into today's note. My signature on this note, however, is an attestation that I personally performed the exam, history, and/or decision-making noted today, and, unless otherwise indicated, the interactions with patient, family, and staff as well as the review of records all occurred today. I also attest that the listed assessment and stated plan reflect my best clinical judgment today based on the combination of historical information, prior notes, and today's exam/ interactions. When time spent is documented, it refers only to time spent today by the signer, or if indicated, combined time spent today by collaborating physician/nurse practitioner. (Isabella Booth) Collaborating MD Comments . Chart reviewed. Cased discussed with palliative care CANCER RESEARCHER. Above CANCER RESEARCHER note reviewed and I concur. . (Doe Castañeda MD) Isabella Booth Nov 24, 2016 16:13 Doe Castañeda MD January 12, 2017 15:32
[2016-11-24 20:00] VITALS: BP 116/72; PULSE 90; RESP 17; TEMP 98.7; O2SAT 98
[2016-11-24] MEDS: PANTOPRAZOLE SODIUM 40 MG VIAL IV PUSH SCH (20:00)
[2016-11-24] MEDS: FAT EMULSION 20% INJ 250 ML (@10 mls/hr) IV-CENTRAL SCH (20:43)
[2016-11-24] MEDS: CLINIMIX E 5/25 1000 mL- </= 42 mls/hr IV-CENTRAL SCH ×3 (20:43)
[2016-11-24] MEDS: MORPHINE SULFATE 4 MG/ML INJ IV PUSH PRN (22:05)
[2016-11-25] VITALS: BP 121/83; PULSE 88; RESP 18; TEMP 99.5; O2SAT 98
[2016-11-25] MEDS: PCA - TOTAL MG DILAUDID DELIVERED PER SHIFT OTHER SCH (05:01)
[2016-11-25 08:00] VITALS: BP 121/91; PULSE 93; RESP 20; TEMP 97.1; O2SAT 99
--- NOTE | 2016-11-25 08:13 | HHI.PR ---
Subjective Remarks At the margin of the bed. Says he has no pain. Says he is ready to go home today. no n/v/d/c. No fevers or chills. Objective Vitals Vital Signs Date Time Temp Pulse Resp B/P Pulse Ox O2 Delivery O2 Flow Rate FiO2 11/25/16 00:00 99.5 88 18 121/83 98 11/24/16 23:24 16 11/24/16 20:00 98.7 90 17 116/72 98 11/24/16 15:00 98.4 88 18 119/86 98 11/24/16 14:00 16 11/24/16 12:00 98.6 85 18 133/86 99 I/O 11/24/16 11/24/16 11/24/16 11/25/16 11/25/16 11/25/16 07:00 15:00 23:00 07:00 15:00 23:00 Intake Total 1831 ml 1220 ml Output Total 175 ml Balance 1656 ml 1220 ml Intake Oral 240 ml 1220 ml IV Total 354 ml TPN/PPN 998 ml Lipid 239 ml Output Urine Total 175 ml # Voids 2 # Bowel Movements 2 Imaging Last Impressions Abdomen X-Ray 11/14/16 0000 Signed Impressions: Service Date/Time: Monday, November 14, 2016 11:08 - CONCLUSION: There is no significant abdominal distention. Nathanael Montana MD FACR Chest X-Ray 11/11/16 0000 Signed Impressions: Service Date/Time: Friday, November 11, 2016 16:05 - CONCLUSION: Left-sided PICC line in place. Small right pleural effusion unchanged. Juan Gifford MD Chest CT 11/10/16 1638 Signed Impressions: Service Date/Time: Thursday, November 10, 2016 16:42 - CONCLUSION: 1. CT scan was used to define the length of the mass in the distal esophagus involving the distal esophagus and the gastroesophageal junction. This would probably be amenable to percutaneous stenting with a stent measuring 11 to 12 cm. 2. Interval development of a right pleural effusion and ascites. Nathanael Montana MD FACR Upper GI/Barium Swallow X-Ray 11/10/16 0000 Signed Impressions: Service Date/Time: Thursday, November 10, 2016 16:10 - CONCLUSION: Obstruction distal esophagus. Thin section CT is pending. Nathanael Montana MD FACR Objective Remarks GENERAL: Alert and oriented 3. SKIN: Warm and dry. HEAD: Normocephalic. EYES: No scleral icterus. No injection or drainage. NECK: Supple, trachea midline. No JVD. CARDIOVASCULAR: Regular rate and rhythm without murmurs, gallops, or rubs. RESPIRATORY: Breath sounds equal bilaterally. No accessory muscle use. GASTROINTESTINAL: Abdomen soft, nontender, slightly distended. MUSCULOSKELETAL: No cyanosis, or edema. BACK: Nontender without obvious deformity. No CVA tenderness. PSYCH: Mood and affect appropriate. 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 GI consultation appreciated. Patient underwent endoscopy 11/06 to evaluate for acute bleeding, but patient had diffuse oozing from mass which could not be cauterized. CBC stable. Gastrografin swallow showed complete esophageal obstruction to thin liquids. Radiology has ordered follow-up CT which shows that this could possibly be stented. Appreciate surgical oncology consult, dr Salguero following S/P Surgery 11/18: Large volume carcinomatosis, 4l malignant ascites, GE jxn tumor invading diaphragm, liver, pancreas. - follow up with oncology and surgery. - continue TPN. Will reconsult GI for evaluation of placing stent so patient will have PO. Discussed with Dr Salguero onc/surg. Seen by GI , patient is not a candidate for stent placement. Conrinue TPN - s/p radiation. - nystatin for thrush. - follow CBC and transfuse as needed. Suspected aspiration pneumonia Consolidative changes right lower lobe. Due to obstructed esophagus the patient has been spitting up everything he drinks, most likely aspiration pneumonia. - continue nothing by mouth status. - Started on Zosyn for anaerobic coverage. D/c 11/18. Abdominal pain/ Nausea The pt has developed GI upset ever since TPN was started. Has abdominal distention and epigastric abdominal pain. LFTs, lipase and KUB unremarkable. Improved. - PPI. - pain control, Tums and Maalox as needed. Constipation S/t decreased PO intake. - suppository ordered. Resolved. Hypokalemia S/t decreased PO intake. - monitor and supplement as needed. Will check labs in AM. DVT prophylaxis: SCDs. Chemical prophylaxis contraindicated. Discharge Planning Per oncology. Poor prognosis. Palliative care also consulted, patient wants everything done. Consult GI for evaluation of GI stent placement. Plan for TPN, eval for stent placement per GI not a candidate for stent placement, also not a surgical candidate. Plan for palliative chemo/rad per hem/onc CM also consulted for discharge plan. CM was following as well as patient needs PN at home. Patient was discharge home in stable condition, however expected to deteriorate as CA will advance. To follow up as OP with PCP and consultants. Shahnaz Huertas MD Nov 25, 2016 08:13
[2016-11-25] MEDS: SODIUM CHLORIDE 0.9% FLUSH 10 ML FLUSH IV FLUSH SCH (08:59)
[2016-11-25] MEDS: NYSTAT/DIPHENHY/LIDO MOUTHWASH (Adult) 120ML SWISH-SPIT SCH (08:59)
[2016-11-25 09:18] LABS: INTERNATIONAL NORMALIZED RATIO 1.2 RATIO; PROTHROMBIN TIME - PATIENT 13.2 SEC (9.8-11.6)
[2016-11-25 09:32] LABS: ALKALINE PHOSPHATASE 15 U/L (45-117); ALT (GPT) 18 U/L (12-78); ANION GAP 11 MEQ/L (5-15); AST (GOT) 27 U/L (15-37); BICARBONATE 25.1 MEQ/L (21.0-32.0); BLOOD UREA NITROGEN 6 MG/DL (7-18); CHLORIDE 97 MEQ/L (98-107); GLOMERULAR FILTRATION RATE 110 ML/MIN (>89); MAGNESIUM 2.2 MG/DL (1.5-2.5); POTASSIUM 4.6 MEQ/L (3.5-5.1); SODIUM (NA) 133 MEQ/L (136-145); TOTAL BILIRUBIN ADULT 0.3 MG/DL (0.2-1.0)
== END 2016-11-25 10:01 | disposition home health service (06) | DRG 356 ==
LOC: PHEFT 15:36 → PHEDA 17:16 → PHICU 18:27 → HOCB 11-07 16:29
PROVIDERS: ADMIT Hospitalist; ATTEND Hospitalist
PROC: 30233N1 Transfusion of Nonautologous Red Blood Cells into Peripheral Vein, Percutaneous Approach (ICD-10-PCS; 2016-11-05)
PROC: 0DJ08ZZ Inspection of Upper Intestinal Tract, Via Natural or Artificial Opening Endoscopic (ICD-10-PCS; 2016-11-06)
PROC: DDY Radiation Therapy, Gastrointestinal System, Other Radiation (ICD-10-PCS; 2016-11-10)
PROC: 05H533Z Insertion of Infusion Device into Right Subclavian Vein, Percutaneous Approach (ICD-10-PCS; 2016-11-11)
PROC: 3E0T3CZ (ICD-10-PCS; 2016-11-18)
PROC: 0DBW0ZX Excision of Peritoneum, Open Approach, Diagnostic (ICD-10-PCS; principal; 2016-11-18 13:12)
DX: C16.0 Malignant neoplasm of cardia (principal); J69.0 Pneumonitis due to inhalation of food and vomit; E43 Unspecified severe protein-calorie malnutrition; R18.0 Malignant ascites; K56.69 Other intestinal obstruction; B37.0 Candidal stomatitis; C78.6 Secondary malignant neoplasm of retroperitoneum and peritoneum; C79.89 Secondary malignant neoplasm of other specified sites; D62 Acute posthemorrhagic anemia; C78.7 Secondary malignant neoplasm of liver and intrahepatic bile duct; K92.2 Gastrointestinal hemorrhage, unspecified; C78.89 Secondary malignant neoplasm of other digestive organs; C79.51 Secondary malignant neoplasm of bone; D69.6 Thrombocytopenia, unspecified; K22.2 Esophageal obstruction; I10 Essential (primary) hypertension; K21.9 Gastro-esophageal reflux disease without esophagitis; E87.6 Hypokalemia; G89.3 Neoplasm related pain (acute) (chronic); K59.00 Constipation, unspecified; J44.9 Chronic obstructive pulmonary disease, unspecified; D75.89 Other specified diseases of blood and blood-forming organs; M19.90 Unspecified osteoarthritis, unspecified site; F17.210 Nicotine dependence, cigarettes, uncomplicated; Z68.27 Body mass index [BMI] 27.0-27.9, adult
CPT/HCPCS: 36430; 36569; 71010; 71020; 71250; 74000; 74220; 76937; 77263; 77290; 77295; 77300; 77334; 77336; 77387; 77412; 77427; 80048; 80053; 80069; 80076; 82948; 83690; 83735; 84100; 84478; 84484; 85007; 85014; 85018; 85025; 85027; 85610; 85730; 86850; 86900; 86901; 86920; 88305; 93005; 96365; 96375; 99222; C9113; J0131; J1100; J1170; J1642; J2250; J2270; J2370; J2405; J2543; J3010; J3480; J7050; J7120; P9016; Q9963

== ENCOUNTER 2016-12-01 02:19 | Inpatient (IN) | payer MEDICAID ==
[2016-12-01] VITALS (10 sets, daily range): BP systolic 120–144; BP diastolic 65–96; PULSE 81–110; RESP 17–26; TEMP 96.5–100.5; O2SAT 90–100
[~2016-12-01] VITALS: Ht 180.3 cm; Wt 86.8 kg
[~2016-12-01 02:19] MED LIST changes: -HYDR-4107 PO; +MORP1SOL3 PO; -NAPR500T PO; -ZANT150T2 PO
[2016-12-01 02:48] LABS: AUTOMATED NEUTROPHIL # 9.7 TH/MM3 (1.8-7.7); BASOPHIL % 0.3 % (0.0-2.0); EOSINOPHIL % 0.2 % (0.0-4.0); HEMATOCRIT 28.1 % (39.0-51.0); HEMO FLAGS DIFF FINAL; LYMPH % 2.7 % (9.0-44.0); LYMPHOCYTE # 0.3 TH/MM3 (1.0-4.8); MEAN CORPUSCULAR HEMOGLOBIN 25.8 PG (27.0-34.0); MEAN CORPUSCULAR HGB CONC 31.5 % (32.0-36.0); MONO % 9.1 % (0.0-8.0); NEUT % 87.7 % (16.0-70.0); PLATELET COUNT 290 TH/MM3 (150-450); RED BLOOD COUNT 3.42 MIL/MM3 (4.50-5.90); RED CELL DISTRIBUTION WIDTH 17.3 % (11.6-17.2); WHITE BLOOD COUNT 11.1 TH/MM3 (4.0-11.0)
[2016-12-01 03:26] LABS: ALT (GPT) 17 U/L (12-78); ANION GAP 8 MEQ/L (5-15); AST (GOT) 45 U/L (15-37); BICARBONATE 26.5 MEQ/L (21.0-32.0); BLOOD UREA NITROGEN 5 MG/DL (7-18); CHLORIDE 100 MEQ/L (98-107); GLOMERULAR FILTRATION RATE 139 ML/MIN (>89); POTASSIUM 4.6 MEQ/L (3.5-5.1); SODIUM (NA) 134 MEQ/L (136-145)
[2016-12-01 03:27] LABS: ALKALINE PHOSPHATASE 24 U/L (45-117); TOTAL BILIRUBIN ADULT 0.4 MG/DL (0.2-1.0)
--- NOTE | 2016-12-01 03:44 | RADRPT ---
EXAM DATE/TIME: 12/01/2016 03:04 [facility] COMPARISON: CHEST SINGLE AP, November 11, 2016, 16:05. INDICATIONS : Short of breath. Drainage from abdominal surgical site. MEDICAL HISTORY : Carcinoma, esophageal. Cardiovascular disease. Hypertension. SURGICAL HISTORY : Abdominal sx. ENCOUNTER: Initial ACUITY: 2 days PAIN SCORE: 0/10 LOCATION: chest FINDINGS: A single view of the chest demonstrates the lungs to be symmetrically aerated without evidence of mas s, or infiltrate. Moderate size right pleural effusion. Left-sided PICC line. The cardiomediastinal contours are unremarkable. Osseous structures are intact. CONCLUSION: Moderate size right pleural effusion. Left-sided PICC line without evidence of pneumothorax Kishan Young MD on December 01, 2016 at 3:42 Board Certified Radiologist. This report was verified electronically.
[2016-12-01] MEDS ORDERED: IOHEXOL 350 MG/ML 10 ML VIAL (for RAD DIAG) IV ONE (04:09)
--- NOTE | 2016-12-01 04:17 | PD ---
HPI Chief Complaint: Bleeding Time Seen by Provider: 02:22 Travel History International Travel<30 days: No Contact w/Intl Traveler<30days: No Traveled to known affect area: No History of Present Illness HPI The patient is a 56 year old male who presents to the [facility] emergency department with a history of getting up to go to the bathroom at approximately 1 :45 AM when he began to have drainage from his postoperative wound in the center of his abdomen. The patient on November 18, 2016 underwent laparotomy related to the GE junction tumor. At that time the patient was noted to have a large volume carcinomatosis with ascites with 4 L drained at the time of surgery. The patient reports that he had been doing well postop. He reports that he has a PICC line in the left upper extremity through which she has been receiving TPN, however regarding that he reports that his machine malfunctioned and has not been able to administer the TPN since 8 PM last night. He denies having any fevers. He reports that he has a follow-up appointment with his oncologist for tomorrow. He reports that he has not been able to eat or drink well, thus he has been on the TPN. The patient reports that he last moved his bowels earlier today. He denies having any diarrhea. The patient denies any recent fevers, cough, congestion, neck pain, chest pain, shortness of breath, abdominal pain, vomiting, diarrhea, urinary symptoms, or neurologic symptoms. [facility] Past Medical History Narrative Medical The patient's past medical history is significant for GE Junction tumor with associated GI bleed related to an adenocarcinoma followed by Dr. Talavera, , history of aspiration pneumonia, history of acid reflux, hypertension, osteoarthritis, recurrent GI bleeds. Hx Anticoagulant Therapy: No Anemia: Yes Arthritis: Yes (HIP ISSUES) Autoimmune Disease: No Heart Rhythm Problems: No Cancer: Yes (GASTRIC/ESOPHAGEAL) Cardiovascular Problems: Yes (HTN) High Cholesterol: No Chemotherapy: No Chest Pain: No Congestive Heart Failure: No Diabetes: No Diminished Hearing: No Endocrine: No Gastrointestinal Disorders: Yes GERD: Yes Genitourinary: No Hiatal Hernia: No Hypertension: Yes Immune Disorder: No Musculoskeletal: No Neurologic: No Psychiatric: No Reproductive: No Respiratory: No Radiation Therapy: No Past Surgical History Narrative Surgical The patient's past surgical history is significant for endoscopy with biopsy, colonoscopy, recent laparotomy on November 18, 2016. Other Surgery: No Social History Alcohol Use: No Tobacco Use: Yes (1-3 CIGS PER DAY PER PT) Substance Use: No Allergies-Medications (Allergen,Severity, Reaction): Coded Allergies: No Known Allergies (Verified , 11/05/16) Reported Meds & Prescriptions Reported Meds & Active Scripts Active Morphine Liq (Morphine Sulfate) 10 Mg/5 Ml Liq 10 Mg PO Q4H Protonix (Pantoprazole Sodium) 40 Mg Tab 40 Mg PO DAILY Lactulose Liq (Lactulose) 10 Gm/15 Ml Soln 30 Ml PO DAILY PRN 30 Days Dok (Docusate Sodium) 100 Mg Cap 100 Mg PO BID 30 Days Reported Lortab (Hydrocodone-Acetaminophen) 5-325 Mg Tab 1 Tab PO Q6H PRN Sennosides 8.6 Mg Tab 8.6 Mg PO HS Review of Systems Except as stated in HPI: all other systems reviewed are Neg General / Constitutional: No: Fever Eyes: No: Visual changes HENT: No: Headaches Cardiovascular: No: Chest Pain or Discomfort Respiratory: No: Shortness of Breath Gastrointestinal: No: Nausea, Vomiting, Diarrhea, Abdominal Pain, Indigestion, Loss of Appetite Genitourinary: No: Dysuria Musculoskeletal: No: Pain Skin: No Rash Neurologic: No: Weakness, Change in Mentation, Slurred Speech, Sensory Disturbance Psychiatric: No: Depression Endocrine: No: Polydipsia Hematologic/Lymphatic: No: Easy Bruising Physical Exam Narrative General: The patient is a well-developed well-nourished male in no acute distress. Head and Neck exam: Head is normocephalic atraumatic. Eyes: EOMI, pupils are equal round and reactive to light. Nose: Midline septum with pink mucous membranes Mouth: Dentition unremarkable. Moist mucus membranes. Posterior oropharynx is not erythematous. No tonsillar hypertrophy. Uvula midline. Airway patent. Neck: No palpable lymphadenopathy. No nuchal rigidity. No thyromegaly. Cardiovascular: Regular rate and rhythm without murmurs, gallops, or rubs. Lungs: Clear to auscultation bilaterally. No wheezes, rhonchi, or rales. Abdomen: Soft, without tenderness to palpation in all 4 quadrants of the abdomen. No guarding, rebound, or rigidity. Normal bowel sounds are audible. The patient has momo in place in the center of the abdomen, no significant surrounding erythema or drainage noted, however on his ABG pad there is a sero-sanguinous drainage noted. Extremities: No clubbing or cyanosis. The patient has trace to 1+ pitting edema bilateral lower extremities. 2+ pulses in all 4 extremities. No calf tenderness on palpation. Back: No spinous process tenderness to palpation. No costovertebral angle tenderness to palpation. Neurologic Exam: Grossly nonfocal. Skin Exam: No rash noted. Intact skin that is warm and dry. Data Data Last Documented VS Vital Signs Date Time Temp Pulse Resp B/P Pulse Ox O2 Delivery O2 Flow Rate FiO2 12/01/16 05:25 102 20 123/78 99 Room Air 12/01/16 02:21 100.0 Orders Complete Blood Count With Diff (12/01/16 02:27) Comprehensive Metabolic Panel (12/01/16 02:27) Blood Culture (12/01/16 02:27) C-Reactive Protein (Crp) (12/01/16 02:27) Lipase (12/01/16 02:27) Urinalysis - C+S If Indicated (12/01/16 02:27) Magnesium (Mg) (12/01/16 02:27) Wound Culture And Gram Stain (12/01/16 02:27) Chest, Single Ap (12/01/16 02:27) Iv Access Insert/Monitor (12/01/16 02:27) Ecg Monitoring (12/01/16 02:27) Oximetry (12/01/16 02:27) Lactic Acid Sepsis Protocol (12/01/16 02:27) Ct Abd/Pel W Iv Contrast(Rout) (12/01/16 03:52) Iohexol 350 Inj (Omnipaque 350 Inj) (12/01/16 04:09) Piperacil-Tazo 3.375 Gm Premix (Zosyn 3. (12/01/16 05:00) Vancomycin Inj (Vancomycin Inj) (12/01/16 05:15) Admit Order (Ed Use Only) (12/01/16 05:23) Labs Laboratory Tests Test 12/01/16 02:33 White Blood Count 11.1 TH/MM3 Red Blood Count 3.42 MIL/MM3 Hemoglobin 8.9 GM/DL Hematocrit 28.1 % Mean Corpuscular Volume 82.0 FL Mean Corpuscular Hemoglobin 25.8 PG Mean Corpuscular Hemoglobin 31.5 % Concent Red Cell Distribution Width 17.3 % Platelet Count 290 TH/MM3 Mean Platelet Volume 8.5 FL Neutrophils (%) (Auto) 87.7 % Lymphocytes (%) (Auto) 2.7 % Monocytes (%) (Auto) 9.1 % Eosinophils (%) (Auto) 0.2 % Basophils (%) (Auto) 0.3 % Neutrophils # (Auto) 9.7 TH/MM3 Lymphocytes # (Auto) 0.3 TH/MM3 Monocytes # (Auto) 1.0 TH/MM3 Eosinophils # (Auto) 0.0 TH/MM3 Basophils # (Auto) 0.0 TH/MM3 CBC Comment DIFF FINAL Differential Comment Sodium Level 134 MEQ/L Potassium Level 4.6 MEQ/L Chloride Level 100 MEQ/L Carbon Dioxide Level 26.5 MEQ/L Anion Gap 8 MEQ/L Blood Urea Nitrogen 5 MG/DL Creatinine 0.71 MG/DL Estimat Glomerular Filtration 139 ML/MIN Rate Random Glucose 92 MG/DL Lactic Acid Level 1.2 mmol/L Calcium Level 7.8 MG/DL Magnesium Level 2.0 MG/DL Total Bilirubin 0.4 MG/DL Aspartate Amino Transf 45 U/L (AST/SGOT) Alanine Aminotransferase 17 U/L (ALT/SGPT) Alkaline Phosphatase 24 U/L C-Reactive Protein 17.70 MG/DL Total Protein 6.4 GM/DL Albumin 1.6 GM/DL Lipase 46 U/L [facility] Medical Decision Making Medical Screen Exam Complete: Yes Emergency Medical Condition: Yes Medical Record Reviewed: Yes Interpretation(s) Last Impressions Abdomen/Pelvis CT 12/01/16 035 Signed Impressions: Service Date/Time: Thursday, December 01, 2016 04:06 - CONCLUSION: Large amount of ascites with soft tissue nodules within the fluid in and along the tip of the liver likely carcinomatosis. Multiple intrahepatic lesions are new from the previous study also metastatic disease. Lytic lesions in T10 and S1 also new consistent metastatic disease. Persistent soft tissue fullness in the GE junction and widespread wall thickening of the proximal stomach likely malignant. Kishan Young MD Chest X-Ray 12/01/16 6891 Signed Impressions: Service Date/Time: Thursday, December 01, 2016 03:04 - CONCLUSION: Moderate size right pleural effusion. Left-sided PICC line without evidence of pneumothorax Kishan Young MD Differential Diagnosis Postoperative abscess, versus recurrent ascites with leakage through laparotomy wound, versus cellulitis, versus seroma Narrative Course During the course of the patients emergency department visit, the patients history, examination, and differential diagnosis were reviewed with the patient. The patient had IV access obtained and blood work sent for analysis. The patient was placed on a electronic device monitor with oximetry and blood pressure monitoring. A CT scan of the abdomen and pelvis was ordered. Blood cultures were ordered. A wound culture was ordered. The patient was initially provided Zosyn 3.375 g IV, vancomycin 1 g IV. The patients laboratory studies were reviewed and remarkable for a white count of 11.1, hemoglobin 8.9, platelets 290 with 87.7 neutrophils, lymphocytes 2.7, monocytes 9.1. CMP is remarkable for sodium of 134, BUN 5, calcium 7.8, lactic acid 1.2, AST 45, alkaline phosphatase 24, C-reactive protein 17.7, lipase 46, urinalysis shows specific gravity greater than 1.05, protein 100, 4 urobilinogen , otherwise unremarkable. Radiology studies were reviewed and remarkable for a chest x-ray that shows a moderate size right pleural effusion, left-sided PICC line without evidence of pneumothorax. CT scan of the abdomen and pelvis shows a large amount of ascites with soft tissue nodules within the fluid in and around the tip of the liver likely carcinomatosis, multiple intrahepatic lesions are new from the previous study also appear to be metastatic disease, lytic lesions in T10 and S1 are also new consistent with metastatic disease. Persistent soft tissue fullness is noted in the GE junction and widespread wall thickening of the proximal stomach likely malignant. The patient will be admitted to the hospital for continued evaluation and treatment of rapidly progressive adenocarcinoma with recurrent ascites that appears to be leaking through his laparotomy wound. The patient will also be admitted for troubleshooting his TPN administration equipment as he reports that it has been malfunctioning since 8 PM last night. The patients results were discussed with the patient, including the plan of care. I explained that further testing and/ or monitoring is indicated based on the patients history, examination, and/ or laboratory findings. Therefore, I recommended admission for additional evaluation. The patient expressed understanding and was agreeable with this plan. The patient was admitted to the hospital in stable condition and [facility] Physician Communication Physician Communication The patient's case was discussed with Dr. Wong who did agree to admit the patient for further evaluation and treatment at this time. Diagnosis Primary Impression: Ascites Qualified Code: R18.0 - Malignant ascites Additional Impression: Adenocarcinoma Admitting Information Admitting Physician Requests: Observation Julia Dawn MD Dec 01, 2016 04:17
--- NOTE | 2016-12-01 04:53 | RADRPT ---
EXAM DATE/TIME: 12/01/2016 04:06 [facility] COMPARISON: No previous studies available for comparison. INDICATIONS : Abscess at surgical site. IV CONTRAST: 94 cc Omnipaque 350 (iohexol) IV ORAL CONTRAST: No oral contrast ingested. RADIATION DOSE: 13.66 CTDIvol (mGy) MEDICAL HISTORY : Hypertension. Cardiovascular disease Gastroesophageal reflux disease.Esophageal cancer SURGICAL HISTORY : abdominal tumor and GI bleed ENCOUNTER: Initial ACUITY: 3 days PAIN SCALE: 0/10 LOCATION: abdomen TECHNIQUE: Volumetric scanning of the abdomen and pelvis was performed. Using automated exposure control and ad justment of the mA and/or kV according to patient size, radiation dose was kept as low as reasonably achievable to obtain optimal diagnostic quality images. FINDINGS: LOWER LUNGS: There is a large right-sided pleural effusion with some adjacent passive atelectasis in the right low er lobe. LIVER: There are multiple intrahepatic lesions and one subcapsular lesion in the right lobe of the liver. Th e intrahepatic lesions are new since September concerning for metastatic disease. There are some soft tissue nodules along the tip of the right lobe of the liver possible carcinomatosis new since Februa ry. Large amount of ascites. There is no dilation of the biliary tree. No calcified gallstones. SPLEEN: Normal size without lesion. PANCREAS: Within normal limits. KIDNEYS: Normal in size and shape. There is no mass, stone or hydronephrosis. ADRENAL GLANDS: Within normal limits. VASCULAR: There is no aortic aneurysm. BOWEL/MESENTERY: There is marked fullness of the GE junction.. ABDOMINAL WALL: Within normal limits. RETROPERITONEUM: There is no lymphadenopathy. BLADDER: No wall thickening or mass. REPRODUCTIVE: Within normal limits. INGUINAL: There is no lymphadenopathy or hernia. MUSCULOSKELETAL: Lytic lesions in S1 and T10 new from the previous study possible metastatic disease. CONCLUSION: Large amount of ascites with soft tissue nodules within the fluid in and along the tip of the liver l ikely carcinomatosis. Multiple intrahepatic lesions are new from the previous study also metastatic d isease. Lytic lesions in T10 and S1 also new consistent metastatic disease. Persistent soft tissue f ullness in the GE junction and widespread wall thickening of the proximal stomach likely malignant. Kishan Young MD on December 01, 2016 at 4:47 Board Certified Radiologist. This report was verified electronically.
[2016-12-01] MEDS ORDERED: PIPERACIL-TAZO 3.375 GM PREMIX 50 ML IV ONE (05:00)
[2016-12-01] MEDS ORDERED: VANCOMYCIN INJ 1,000 MG in SODIUM CHLOR 0.9% 250 ML INJ 250 ML IV ONE (05:15)
[2016-12-01] MEDS ORDERED: Vancomycin Consult Pharmacy 1 EA OTHER SCH ×2 (05:45→12:30)
[2016-12-01] MEDS ORDERED: NALOXONE HCL 0.4 MG/ML AMP IV PRN (05:45)
[2016-12-01] MEDS ORDERED: SODIUM CHLORIDE 0.9% FLUSH 10 ML FLUSH IV FLUSH PRN (05:45)
[2016-12-01] MEDS ORDERED: ONDANSETRON HCL 4 MG/2 ML VIAL IVP PRN (05:45)
[2016-12-01] MEDS ORDERED: VANCOMYCIN INJ 500 MG in SODIUM CHLORIDE 0.9% INJ 100 ML IV SCH (06:30)
[2016-12-01 07:50] LABS: BLOOD, URINE NEG (NEG); COMMENT (UR) CULT NOT INDICATED; CULTURE IF INDICATED CULT NOT INDICATED; GLUCOSE,URINE NEG (NEG); KETONE, URINE NEG (NEG); MUCUS URINE FEW /lpf (OCC); NITRITE,URINE NEG (NEG); PH, URINE 8.5 (5.0-8.5); URINE COLOR YELLOW (YELLW/STRAW)
[2016-12-01] MEDS: SODIUM CHLORIDE 0.9% FLUSH 10 ML FLUSH IV FLUSH SCH ×2 (09:04→19:50)
--- NOTE | 2016-12-01 12:16 | HHI.HP ---
[facility] Service [facility] ([place], [place])ists Primary Care Physician GINGER Veloz Admission Diagnosis Ascites, malfunctioning TPN infusion Diagnoses: Chief Complaint: Draining fluid Travel History International Travel<30 Days: No Contact w/Intl Traveler <30 Da: No Traveled to Known Affected Are: No History of Present Illness The patient is a 56-year-old male with a recently diagnosed GE junctional adenocarcinoma who was discharged from the hospital less than a week ago who is presenting to the hospital with significant swelling of his abdomen associated with leaking fluid. The patient was discharged from the hospital after having a workup which revealed a GE junctional tumor which was unamenable to surgery. He did have a laparotomy performed at that time. He also completed radiation therapy and was scheduled to start chemotherapy this coming Thursday. The patient says at home he has been having abdominal distention which he says is the same from when he was discharged from the hospital. He does note that he has been leaking significant amounts of fluid from his stomach wounds. He came to the hospital for further evaluation. His wound continued to drain copious amounts of fluid and he says currently he feels relieved and much better. He says he is anxious about starting chemotherapy on Thursday because he feels that will be beneficial for his tumor. He says he has been coughing a little bit of mucus over the past couple of days. He denies any shortness of breath. He says that he thinks he had a fever last night. He has been ambulating well. 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 Aspiration pneumonia GERD Hypertension Osteoarthritis Past Surgical History Laparotomy Allergies: Coded Allergies: No Known Allergies (Verified , 11/05/16) Active Ordered Medications Current Medications Medications (Trade) Dose Ordered Sig/Martha Route Start Time Stop Time Status Last Admin (NS Flush) 2 ml UNSCH PRN IV FLUSH 12/01/16 05:45 (NS Flush) 2 ml BID IV FLUSH 12/01/16 09:00 12/01/16 09:04 (Tylenol) 650 mg Q4H PRN PO 12/01/16 05:45 (Zofran Inj) 4 mg Q6H PRN IVP 12/01/16 05:45 Naloxone HCl 0.4 mg 0.4 mg UNSCH PRN IV 12/01/16 05:45 Pharmacy Profile Note 0 ml @ 0 mls/hr UNSCH OTHER 12/01/16 05:45 (Zosyn 3.375 Gm Premix) 50 ml @ 100 mls/hr Q8H IV 12/01/16 13:00 (Cathflo Activase Inj) 2 mg Q2H PRN INTRACATH 12/01/16 11:15 Family History The patient denies pertinent family history Social History The patient smokes 1 or 2 cigarettes daily. He does not drink alcohol. He used to use drugs a long time ago. Physical Exam Vital Signs Vital Signs Date Time Temp Pulse Resp B/P Pulse Ox O2 Delivery O2 Flow Rate FiO2 12/01/16 07:24 96 21 12/01/16 05:25 102 20 123/78 99 Room Air 12/01/16 03:50 101 18 132/88 100 Room Air 12/01/16 02:21 100.0 102 26 135/96 99 Physical Exam GENERAL: Resting comfortably in bed. SKIN: Warm and dry. HEAD: Normocephalic. EYES: No scleral icterus. No injection or drainage. NECK: Supple, trachea midline. No JVD. CARDIOVASCULAR: Regular rate and rhythm without murmurs, gallops, or rubs. RESPIRATORY: Minimal wheezing. GASTROINTESTINAL: Distended but soft. Nontender. Bandages in place currently not saturated. MUSCULOSKELETAL: 1+ lower extremity edema. BACK: Nontender without obvious deformity. No CVA tenderness. PSYCH: Mood and affect appropriate. Laboratory Laboratory Tests Test 12/01/16 12/01/16 02:33 07:20 White Blood Count 11.1 Red Blood Count 3.42 Hemoglobin 8.9 Hematocrit 28.1 Mean Corpuscular Volume 82.0 Mean Corpuscular Hemoglobin 25.8 Mean Corpuscular Hemoglobin 31.5 Concent Red Cell Distribution Width 17.3 Platelet Count 290 Mean Platelet Volume 8.5 Neutrophils (%) (Auto) 87.7 Lymphocytes (%) (Auto) 2.7 Monocytes (%) (Auto) 9.1 Eosinophils (%) (Auto) 0.2 Basophils (%) (Auto) 0.3 Neutrophils # (Auto) 9.7 Lymphocytes # (Auto) 0.3 Monocytes # (Auto) 1.0 Eosinophils # (Auto) 0.0 Basophils # (Auto) 0.0 CBC Comment DIFF FINAL Differential Comment Sodium Level 134 Potassium Level 4.6 Chloride Level 100 Carbon Dioxide Level 26.5 Anion Gap 8 Blood Urea Nitrogen 5 Creatinine 0.71 Estimat Glomerular Filtration 139 Rate Random Glucose 92 Lactic Acid Level 1.2 Calcium Level 7.8 Magnesium Level 2.0 Total Bilirubin 0.4 Aspartate Amino Transf 45 (AST/SGOT) Alanine Aminotransferase 17 (ALT/SGPT) Alkaline Phosphatase 24 C-Reactive Protein 17.70 Total Protein 6.4 Albumin 1.6 Lipase 46 Urine Color YELLOW Urine Turbidity CLEAR Urine pH 8.5 Urine Specific [place] GREATER THAN 1.050 Urine Protein 100 Urine Glucose (UA) NEG Urine Ketones NEG Urine Occult Blood NEG Urine Nitrite NEG Urine Bilirubin NEG Urine Urobilinogen 4.0 Urine Leukocyte Esterase NEG Urine RBC LESS THAN 1 Urine WBC 1 Urine Mucus FEW Microscopic Urinalysis Comment CULT NOT INDICATED Date/Time Procedure Status Source Growth 12/01/16 02:33 Gram Stain - Final Resulted Wound Abdomen 12/01/16 02:33 Wound Culture Resulted Wound Abdomen Pending 12/01/16 02:30 Aerobic Blood Culture Received Blood Peripheral Pending 12/01/16 02:30 Anaerobic Blood Culture Received Blood Peripheral Pending Result Diagram: 12/01/16 0233 12/01/16 0233 Imaging Last Impressions Abdomen/Pelvis CT 12/01/16 0352 Signed Impressions: Service Date/Time: Thursday, December 01, 2016 04:06 - CONCLUSION: Large amount of ascites with soft tissue nodules within the fluid in and along the tip of the liver likely carcinomatosis. Multiple intrahepatic lesions are new from the previous study also metastatic disease. Lytic lesions in T10 and S1 also new consistent metastatic disease. Persistent soft tissue fullness in the GE junction and widespread wall thickening of the proximal stomach likely malignant. Kishan Young MD Chest X-Ray 12/01/16 0227 Signed Impressions: Service Date/Time: Thursday, December 01, 2016 03:04 - CONCLUSION: Moderate size right pleural effusion. Left-sided PICC line without evidence of pneumothorax Kishan Young MD Assessment and Plan Assessment and Plan Metastatic cancer The patient has metastatic adenocarcinoma of the GE junction. He is status post radiation therapy. He was supposed be started on palliative chemotherapy on Thursday. He has been having significant drainage from the wounds of a recent laparotomy. CT of the abdomen showed: Large amount of ascites with soft tissue nodules within the fluid in and along the tip of the liver, likely carcinomatosis; Multiple intrahepatic lesions are new from the previous study also metastatic disease; Lytic lesions in T10 and S1 also new consistent with metastatic disease; Persistent soft tissue fullness in the GE junction and widespread wall thickening of the proximal stomach likely malignant. The patient currently feels better now that the fluid has drained on its own. - Oncology and surgical oncology consults pending. - Pain control and antiemetics as needed. - Currently full code. Will discuss hospice with the patient. - Wound and blood cultures pending. - Wound care per surgery. Pleural effusion/ PNA Chest x-ray with moderate right pleural effusion. The patient has had some sputum production and a questionable fever. He was started on vancomycin and Zosyn in the emergency department. - Continue vancomycin and Zosyn. - Sputum culture. Anemia Secondary to above. - Follow CBC and transfuse as needed. - Oncology consulted. Lower extremity edema Likely secondary to cancer and cirrhosis. - Start by mouth Lasix. PPx: SCDs. Code Status Full. Discussed Condition With Pt, nurse, Dr. Salguero. Physician Certification 2 Midnight Certification Type: Admission for Inpatient Services Order for Inpatient Services The services are ordered in accordance with Medicare regulations or non- Medicare payer requirements, as applicable. In the case of services not specified as inpatient-only, they are appropriately provided as inpatient services in accordance with the 2-midnight benchmark. Estimated LOS (days): 2 days is the estimated time the patient will need to remain in the hospital, assuming treatment plan goals are met and no additional complications. Post-Hospital Plan: Home Darwin Arreguin DO Dec 01, 2016 12:16
[2016-12-01] MEDS ORDERED: LACTULOSE SYRUP 20 GM/30 ML CUP PO PRN (12:30)
[2016-12-01] MEDS ORDERED: MORPHINE SULFATE ORAL SOLN 10 MG/0.5 ML SYRINGE PO PRN (12:30)
[2016-12-01 12:32] LABS: AUTOMATED NEUTROPHIL # 8.7 TH/MM3 (1.8-7.7); BASOPHIL % 0.2 % (0.0-2.0); EOSINOPHIL % 0.2 % (0.0-4.0); HEMO FLAGS DIFF FINAL; LYMPH % 2.5 % (9.0-44.0); LYMPHOCYTE # 0.2 TH/MM3 (1.0-4.8); MEAN CELL VOLUME 81.6 FL (80.0-100.0); MEAN CORPUSCULAR HEMOGLOBIN 26.3 PG (27.0-34.0); MEAN CORPUSCULAR HGB CONC 32.2 % (32.0-36.0); MONO % 8.8 % (0.0-8.0); NEUT % 88.3 % (16.0-70.0); PLATELET COUNT 251 TH/MM3 (150-450); RED BLOOD COUNT 3.31 MIL/MM3 (4.50-5.90); RED CELL DISTRIBUTION WIDTH 17.9 % (11.6-17.2); WHITE BLOOD COUNT 9.9 TH/MM3 (4.0-11.0)
[2016-12-01] MEDS: FUROSEMIDE 40 MG TAB PO SCH (12:32)
[2016-12-01 12:52] LABS: BICARBONATE 25.5 MEQ/L (21.0-32.0); TOTAL BILIRUBIN ADULT 0.3 MG/DL (0.2-1.0)
[2016-12-01] MEDS ORDERED: PIPERACIL-TAZO 3.375 GM PREMIX 50 ML IV SCH (13:00)
[2016-12-01] MEDS ORDERED: PIPERACIL-TAZO 4.5 GM PREMIX 100 ML IV SCH (13:00)
[2016-12-01] MEDS ORDERED: LORazepam 1 MG TAB PO PRN (14:45)
[2016-12-01] MEDS: ACETAMINOPHEN 325 MG TAB PO PRN ×2 (15:09→19:50)
[2016-12-01] MEDS: ALTEPLASE RECOMBINANT 2 MG VIAL INTRACATH PRN ×2 (15:19→18:07)
[2016-12-01] MEDS ORDERED: VANCOMYCIN INJ 1,250 MG in SODIUM CHLOR 0.9% 250 ML INJ 250 ML IV SCH (18:00)
[2016-12-01] MEDS: VANCOMYCIN INJ 1,500 MG in SODIUM CHLORID 0.9% 500 ML INJ 500 ML IV SCH (18:06)
[2016-12-01] MEDS: DOCUSATE SODIUM 100 MG/10 ML UDC PO SCH (19:49)
[2016-12-01] MEDS: SENNOSIDES 8.6 MG TAB PO SCH (19:49)
[2016-12-01] MEDS: PIPERACIL-TAZO 4.5 GM PREMIX 100 ML IV SCH (19:50)
[2016-12-01] MEDS ORDERED: IRON SUCROSE INJ 100 MG in SODIUM CHLORIDE 0.9% INJ 100 ML IV ONE (20:00)
[2016-12-02] VITALS (9 sets, daily range): BP systolic 82–144; BP diastolic 74–85; PULSE 82–101; RESP 16–18; TEMP 99–101.8; O2SAT 97–99
[2016-12-02] MEDS: ACETAMINOPHEN 325 MG TAB PO PRN ×2 (00:07→11:05)
[2016-12-02] MEDS: PIPERACIL-TAZO 4.5 GM PREMIX 100 ML IV SCH ×4 (01:25→20:34)
[2016-12-02 05:37] LABS: AUTOMATED NEUTROPHIL # 8.8 TH/MM3 (1.8-7.7); BASOPHIL # 0.1 TH/MM3 (0-0.2); BASOPHIL % 0.5 % (0.0-2.0); EOSINOPHIL % 0.3 % (0.0-4.0); HEMO FLAGS DIFF FINAL; LYMPH % 2.5 % (9.0-44.0); LYMPHOCYTE # 0.3 TH/MM3 (1.0-4.8); MEAN CELL VOLUME 82.1 FL (80.0-100.0); MEAN CORPUSCULAR HEMOGLOBIN 26.2 PG (27.0-34.0); MEAN CORPUSCULAR HGB CONC 31.8 % (32.0-36.0); MONO % 14.1 % (0.0-8.0); NEUT % 82.6 % (16.0-70.0); PLATELET COUNT 230 TH/MM3 (150-450); RED BLOOD COUNT 3.54 MIL/MM3 (4.50-5.90); RED CELL DISTRIBUTION WIDTH 17.6 % (11.6-17.2); WHITE BLOOD COUNT 10.7 TH/MM3 (4.0-11.0)
[2016-12-02] MEDS ORDERED: PHARMACY ORDERED LAB ONE (05:45)
[2016-12-02 06:00] LABS: BICARBONATE 25.5 MEQ/L (21.0-32.0); CALCIUM-PROTEIN CORRECTED 8.2 MG/DL (8.5-10.1); POTASSIUM 4.1 MEQ/L (3.5-5.1); TOTAL BILIRUBIN ADULT 0.4 MG/DL (0.2-1.0)
--- NOTE | 2016-12-02 06:21 | MB ---
cc: PARADISE WONG MD, RUBY ANNE E. M.D. DATE OF 1960 DATE OF SERVICE 12/01/[address] Wong CHIEF COMPLAINT Dr. Wong requested consultation for Mr. Auguste with metastatic gastric cancer. HISTORY OF PRESENT ILLNESS Mr. Auguste is a pleasant 56-year-old man, a well-known patient with history of back pain, knee pain, hypertension. He presented with unintentional weight loss, gastroesophageal reflux symptoms and epigastric pain. He was found to have a gastric mass and a stricture in his lower esophageal/GE junction. Biopsy showed a gastric cancer. He had staging CT/PET scan that confirmed metastatic disease to liver and to bone. He was admitted to the hospital for GI bleeding. He was palliated with radiation therapy. He had attempted resection of his gastric cancer for palliation on November 18, 2016. He was not operable. A gastric feeding tube could not even be placed. The biopsy showed poorly differentiated adenocarcinoma with signet ring features. His disease was a lot more extensive than expected from the presurgical evaluation. Mr. Auguste was discharged from the hospital and was seen in clinic one week after his surgery. He is intent on receiving his palliative chemotherapy. We made plans for administration of Taxotere and cisplatin on an outpatient basis. He was due to receive his chemotherapy on Thursday of this week, on December 03. Mr. Auguste describes having increasing abdominal discomfort and pain. He began to drain from his postoperative wound in the center of his abdomen. After the drainage he felt better. At the time of the consultation, he was feeling well, happy, smiling, in the company of his family. He is talking about being discharged from the hospital and wanting to continue with the plans for chemotherapy on an outpatient basis on 12/03/2016. He denies any fevers, chills or night sweats. He was given prescription for Lortab 5/325, 60 tablets, which she failed on Thursday. He was unable to keep his appointment with his pain physician. His pain medication was prescribed in lieu of him getting to his pain doctor. Labs are consistent with anemia. He has had GI blood loss from bleeding. However, his hemoglobin has remained stable. His renal function is stable. He is malnourished as he is unable to tolerate much by way of p.o. nutrition. He is supposed to receiving TPN. His PICC line in the left upper arm is functioning well. Denies any fevers, chills or night sweats. PAST MEDICAL HISTORY 1. Unresectable gastric cancer. 2. GI bleed. 3. Gastroesophageal reflux. 4. Hypertension. 5. Abdominal pain. 6. Chronic back and hip pain. 7. Hypertension. PAST SURGICAL HISTORY 1. Laparotomy. 2. Upper endoscopy and biopsy. 3. PICC line placement. ALLERGIES No known drug allergies. FAMILY HISTORY No significant family history of cancer. SOCIAL HISTORY He smokes one to two cigarettes per day. Denies any alcohol or illicit drug use. He has fianc e but is not . PHYSICAL EXAMINATION VITAL SIGNS: Temperature 96.5, heart rate 81, respiratory rate 20, blood pressure 144/65, saturation 97%. GENERAL: Mr. Auguste is a well-developed, well-nourished man who looks thinner than previous exam. He is in good humor. His pupils are round, reactive to light and accommodation. Sclerae is nonicteric. Oropharynx is clear. NECK: Supple. LUNGS: Clear anteriorly. CARDIOVASCULAR: Exam reveals normal rate and rhythm. ABDOMEN: Distended, less tense. Midline suture line with momo and dry dressing on top. LOWER EXTREMITIES: With trace ankle edema. NEUROLOGICAL EXAM: Nonfocal. LABORATORY DATA Significant for a hemoglobin of 8.7, MCV 81.6, platelet count 251. BUN of 6, creatinine of 0.58, albumin of 1.4. ASSESSMENT AND PLAN Mr. Auguste is a 56-year-old man with metastatic locally advanced gastric cancer. There is no way to put in a feeding tube in order to provide nutrition for him. He has malignant ascites and extensive involvement of his disease in the omentum and surrounding the stomach area. He is intent on receiving palliative chemotherapy. He is aiming for day on 12/03/2016. We discussed the risks and benefit of palliative chemotherapy. We discussed common triplet combination which we would not be able to administer in light of his infusional therapy. We would be unable to continue infusional therapy as he has no way to get nutrition other than the TPN. Nevertheless, we will see how effective is the doublet including Taxotere and cisplatin. His renal function is normal. He is noted to be anemic. This is in part due to iron deficiency. He has had GI bleeding. We will try parenteral iron therapy to see if this may improve his anemia prior to starting his chemotherapy regimen. Note is made of low-grade temperature of 100 and 100.5. Cultures were obtained and are negative so far. We will monitor closely as the PICC line is suspect. In anticipation of his discharge tomorrow, chemotherapy will be deferred until he comes back to clinic on 12/01/2016. We discussed the palliative nature of his chemotherapy. This is part of Mr. Kapadia's philosophy at present to receive and proceed with his palliative treatment. Fay Talavera MD RAD/SSB /5:55 PM /6:08 AM
[2016-12-02] MEDS: VANCOMYCIN INJ 1,500 MG in SODIUM CHLORID 0.9% 500 ML INJ 500 ML IV SCH (06:29)
[2016-12-02] MEDS: SODIUM CHLORIDE 0.9% FLUSH 10 ML FLUSH IV FLUSH SCH ×2 (08:07→20:33)
[2016-12-02] MEDS: ALTEPLASE RECOMBINANT 2 MG VIAL INTRACATH PRN (08:08)
[2016-12-02] MEDS: DOCUSATE SODIUM 100 MG/10 ML UDC PO SCH ×2 (08:15→20:34)
[2016-12-02] MEDS: PANTOPRAZOLE SOD 40 MG DELAYED RELEASE TAB PO SCH (08:17)
[2016-12-02] MEDS: FUROSEMIDE 40 MG TAB PO SCH (08:17)
--- NOTE | 2016-12-02 10:02 | HHI.PR ---
Subjective Remarks The patient was frustrated that he would have to stay in the hospital. He said he wants to start chemotherapy as soon as possible and there is already been many delays. He says his abdomen feels better but he wants to know why he was discharged the last time with his stomach feeling so full. Discussed with nursing. Objective Vitals Vital Signs Date Time Temp Pulse Resp B/P Pulse Ox O2 Delivery O2 Flow Rate FiO2 12/02/16 08:00 100.9 101 18 82/ 97 12/02/16 04:00 99.4 99 18 112/79 98 12/02/16 00:00 101.5 100 16 116/74 98 12/01/16 20:00 100.4 90 17 144/65 90 12/01/16 19:43 98 21 12/01/16 16:00 96.5 81 20 144/65 97 12/01/16 14:27 100.5 94 20 127/86 97 12/01/16 12:00 94 20 125/80 99 Room Air I/O 12/01/16 12/01/16 12/01/16 12/02/16 12/02/16 12/02/16 07:00 15:00 23:00 07:00 15:00 23:00 Intake Total 111 ml 240 ml Output Total 200 ml 600 ml Balance -89 ml -360 ml Intake Oral 240 ml IV Total 111 ml Output Urine Total 200 ml 600 ml # Bowel Movements 1 1 Result Diagram: 12/02/16 0501 12/02/16 0501 Imaging Last Impressions Abdomen/Pelvis CT 12/01/16 0352 Signed Impressions: Service Date/Time: Thursday, December 01, 2016 04:06 - CONCLUSION: Large amount of ascites with soft tissue nodules within the fluid in and along the tip of the liver likely carcinomatosis. Multiple intrahepatic lesions are new from the previous study also metastatic disease. Lytic lesions in T10 and S1 also new consistent metastatic disease. Persistent soft tissue fullness in the GE junction and widespread wall thickening of the proximal stomach likely malignant. Kishan Young MD Chest X-Ray 12/01/16 0227 Signed Impressions: Service Date/Time: Thursday, December 01, 2016 03:04 - CONCLUSION: Moderate size right pleural effusion. Left-sided PICC line without evidence of pneumothorax Kishan Young MD Objective Remarks GENERAL: Resting comfortably in bed. SKIN: Warm and dry. HEAD: Normocephalic. EYES: No scleral icterus. No injection or drainage. NECK: Supple, trachea midline. No JVD. CARDIOVASCULAR: Regular rate and rhythm without murmurs, gallops, or rubs. RESPIRATORY: Minimal wheezing. GASTROINTESTINAL: Distended but soft. Nontender. Bandages in place currently not saturated. Colostomy bag over the leaking surgical site. MUSCULOSKELETAL: 1+ lower extremity edema. BACK: Nontender without obvious deformity. No CVA tenderness. PSYCH: Mildly agitated. Medications and IVs Current Medications Medications (Trade) Dose Ordered Sig/Martha Route Start Time Stop Time Status Last Admin (NS Flush) 2 ml UNSCH PRN IV FLUSH 12/01/16 05:45 (NS Flush) 2 ml BID IV FLUSH 12/01/16 09:00 12/02/16 08:07 (Tylenol) 650 mg Q4H PRN PO 12/01/16 05:45 12/02/16 00:07 (Zofran Inj) 4 mg Q6H PRN IVP 12/01/16 05:45 Naloxone HCl 0.4 mg 0.4 mg UNSCH PRN IV 12/01/16 05:45 (Vancomycin Consult Pharmacy) 0 ml @ 0 mls/hr UNSCH OTHER 12/01/16 05:45 (Cathflo Activase Inj) 2 mg Q2H PRN INTRACATH 12/01/16 11:15 12/02/16 08:08 (Lactulose Liq) 30 ml DAILY PRN PO 12/01/16 12:30 (Protonix) 40 mg DAILY PO 12/02/16 09:00 (Senokot) 8.6 mg HS PO 12/01/16 21:00 12/01/16 19:49 ([place] 5-325 Mg) 1 tab Q4H PRN PO 12/01/16 12:30 (Roxanol Liq) 10 mg Q4H PRN PO 12/01/16 12:30 (Colace Liq) 100 mg Q12HR PO 12/01/16 21:00 12/01/16 19:49 (Lasix) 40 mg DAILY PO 12/01/16 12:30 12/02/16 08:17 Lorazepam 1 mg 1 mg Q8H PRN PO 12/01/16 14:45 12/01/16 15:09 Piperacillin Sod/ Tazobactam Sod 100 ml @ 200 mls/hr Q6H IV 12/01/16 20:00 12/02/16 08:05 (Vancomycin Inj/ NS 500 ml Inj) 520 ml @ 250 mls/hr Q12H IV 12/02/16 18:00 Miscellaneous Information SPECIFIC LAB TO BE DRAWN:VANCOMYCIN TROUGH DATE TO... ONCE ONCE .XX 12/04/16 05:45 12/04/16 05:46 A/P Assessment and Plan Metastatic cancer The patient has metastatic adenocarcinoma of the GE junction. He is status post radiation therapy. He was supposed be started on palliative chemotherapy on Thursday. He has been having significant drainage from the wounds of a recent laparotomy. CT of the abdomen showed: Large amount of ascites with soft tissue nodules within the fluid in and along the tip of the liver, likely carcinomatosis; Multiple intrahepatic lesions are new from the previous study also metastatic disease; Lytic lesions in T10 and S1 also new consistent with metastatic disease; Persistent soft tissue fullness in the GE junction and widespread wall thickening of the proximal stomach likely malignant. The patient currently feels better now that the fluid has drained on its own. Oncology consult appreciated. - surgical oncology consult pending. - Pain control and antiemetics as needed. - Currently full code. Will discuss hospice with the patient. - Wound and blood cultures pending. - Wound care per surgery. - Chemotherapy likely to be delayed in the setting of fever. Follow-up with oncology. Pleural effusion/ PNA/ Fever Chest x-ray with moderate right pleural effusion. The patient has had some sputum production and a questionable fever. He was started on vancomycin and Zosyn in the emergency department. He did have a fever of 101.5. - Continue vancomycin and Zosyn. - Sputum culture, blood cultures, ascitic fluid culture. - Remove PICC line. Anemia Secondary to above. - Follow CBC and transfuse as needed. - Oncology following. Lower extremity edema Likely secondary to cancer and cirrhosis. - Start by mouth Lasix. PPx: SCDs. Discharge Planning Awaiting clinical improvement. Darwin Arreguin DO Dec 02, 2016 10:02
[2016-12-02] MEDS ORDERED: CALCIUM GLUCONATE INJ 1 GM in DEXTROSE 5% IN WATER 100ML INJ 100 ML IV ONE ×2 (12:00)
[2016-12-02] MEDS: ACETAMINOPHEN/HYDROcodone 325 MG/5 MG TAB PO PRN (12:32)
[2016-12-02 13:16] LABS: PERITONEAL LYMPHS 0 %; PERITONEAL MESOTHELIAL 1 %; PERITONEAL POLYS(SEGS) 99 %; PERITONEAL WBC 3536 /MM3 (0-10)
--- NOTE | 2016-12-02 13:44 | HHI.PR ---
Subjective Subjective Notes Patient know to General Surgery service; 56 year old male with GE junction adenocarcinoma s/p ex lap with junction tumor invading diaphragm, liver and pancreas Mr. Auguste resting in bed, slightly aggravated about "leaking belly" Objective Vitals/I&O Vital Signs Date Time Temp Pulse Resp B/P Pulse Ox O2 Delivery O2 Flow Rate FiO2 12/02/16 11:02 101.8 12/02/16 11:00 97 21 12/02/16 08:00 101 18 144/82 12/01/16 12:00 Room Air Labs Laboratory Tests Test 12/02/16 12/02/16 05:01 11:30 White Blood Count 10.7 Red Blood Count 3.54 Hemoglobin 9.3 Hematocrit 29.0 Mean Corpuscular Volume 82.1 Mean Corpuscular Hemoglobin 26.2 Mean Corpuscular Hemoglobin 31.8 Concent Red Cell Distribution Width 17.6 Platelet Count 230 Mean Platelet Volume 8.6 Neutrophils (%) (Auto) 82.6 Lymphocytes (%) (Auto) 2.5 Monocytes (%) (Auto) 14.1 Eosinophils (%) (Auto) 0.3 Basophils (%) (Auto) 0.5 Neutrophils # (Auto) 8.8 Lymphocytes # (Auto) 0.3 Monocytes # (Auto) 1.5 Eosinophils # (Auto) 0.0 Basophils # (Auto) 0.1 CBC Comment DIFF FINAL Differential Comment Sodium Level 135 Potassium Level 4.1 Chloride Level 100 Carbon Dioxide Level 25.5 Anion Gap 10 Blood Urea Nitrogen 7 Creatinine 0.79 Estimat Glomerular Filtration 123 Rate Random Glucose 84 Calcium Level 7.4 Protein Corrected Calcium 8.2 Total Bilirubin 0.4 Aspartate Amino Transf 23 (AST/SGOT) Alanine Aminotransferase 15 (ALT/SGPT) Alkaline Phosphatase 24 Total Protein 5.7 Albumin 1.3 Vancomycin Level Trough 10.0 Peritoneal Fluid WBC 3536 Peritoneal Fluid RBC [address] Peritoneal Fluid Neutrophils 99 Peritoneal Fluid Lymphocytes 0 Peritoneal Fluid Mesothelial 1 Cells Date/Time Procedure Status Source Growth 12/01/16 23:30 Gram Stain - Final Resulted Sputum Expectorated Sputum 12/01/16 23:30 Sputum Culture - Preliminary Resulted Sputum Expectorated Sputum IMMATURE GROWTH - REINCUBATE 12/01/16 02:30 Aerobic Blood Culture - Preliminary Resulted Blood Peripheral NO GROWTH IN 1 DAY 12/01/16 02:30 Anaerobic Blood Culture - Preliminary Resulted Blood Peripheral NO GROWTH IN 1 DAY Cardiovascular: Regular Lungs: Clear Abdomen: Other (distended; midline incision with minimal serous drainage; wound ostomy appliance in place ) Extremities: No edema A/P Assessment and Plan 56 year old male with GE junction adenocarcinoma s/p ex lap with junction tumor invading diaphragm, liver and pancreas -Wound Care team following for management of drainage -Malignant ascites -May benefit from paracentesis -OOB and mobilize--PT following Attending Statement malignant ascites, agree with paracentesis, may need IR drain for palliation The exam, history, and the medical decision-making described in the above note were completed with the assistance of the mid-level provider. I reviewed and agree with the findings presented. I attest that I had a [id number] encounter with the patient on the same day, and personally performed and documented my assessment and findings in the medical record. Tracy Bishop Dec 02, 2016 13:44 Dawit Salguero MD Dec 06, 2016 23:05
--- NOTE | 2016-12-02 15:31 | PD.ONC.PN ---
Subjective Subjective Remarks Tmax 101.8 overnight. Patient resting comfortably. He had some drainage from his abdominal wound earlier today and states his abdomen is much smaller now. He wants me to give him chemotherapy today. Objective Data Date Time Temp Pulse Resp B/P Pulse Ox O2 Delivery O2 Flow Rate FiO2 12/02/16 12:00 100.0 88 18 106/75 99 12/02/16 11:02 101.8 12/02/16 11:00 97 21 12/02/16 08:00 100.9 101 18 144/82 97 12/02/16 04:00 99.4 99 18 112/79 98 12/02/16 00:00 101.5 100 16 116/74 98 12/01/16 20:00 100.4 90 17 144/65 90 12/01/16 19:43 98 21 12/01/16 16:00 96.5 81 20 144/65 97 12/02/16 12/02/16 12/02/16 07:00 15:00 23:00 Intake Total 240 ml 256 ml Output Total 600 ml Balance -360 ml 256 ml Result Diagram: 12/02/16 0501 12/02/16 0501 Laboratory Results Laboratory Tests Test 12/02/16 12/02/16 05:01 11:30 White Blood Count 10.7 TH/MM3 Red Blood Count 3.54 MIL/MM3 Hemoglobin 9.3 GM/DL Hematocrit 29.0 % Mean Corpuscular Volume 82.1 FL Mean Corpuscular Hemoglobin 26.2 PG Mean Corpuscular Hemoglobin 31.8 % Concent Red Cell Distribution Width 17.6 % Platelet Count 230 TH/MM3 Mean Platelet Volume 8.6 FL Neutrophils (%) (Auto) 82.6 % Lymphocytes (%) (Auto) 2.5 % Monocytes (%) (Auto) 14.1 % Eosinophils (%) (Auto) 0.3 % Basophils (%) (Auto) 0.5 % Neutrophils # (Auto) 8.8 TH/MM3 Lymphocytes # (Auto) 0.3 TH/MM3 Monocytes # (Auto) 1.5 TH/MM3 Eosinophils # (Auto) 0.0 TH/MM3 Basophils # (Auto) 0.1 TH/MM3 CBC Comment DIFF FINAL Differential Comment Sodium Level 135 MEQ/L Potassium Level 4.1 MEQ/L Chloride Level 100 MEQ/L Carbon Dioxide Level 25.5 MEQ/L Anion Gap 10 MEQ/L Blood Urea Nitrogen 7 MG/DL Creatinine 0.79 MG/DL Estimat Glomerular Filtration 123 ML/MIN Rate Random Glucose 84 MG/DL Calcium Level 7.4 MG/DL Protein Corrected Calcium 8.2 MG/DL Total Bilirubin 0.4 MG/DL Aspartate Amino Transf 23 U/L (AST/SGOT) Alanine Aminotransferase 15 U/L (ALT/SGPT) Alkaline Phosphatase 24 U/L Total Protein 5.7 GM/DL Albumin 1.3 GM/DL Vancomycin Level Trough 10.0 MCG/ML Peritoneal Fluid WBC 3536 /MM3 Peritoneal Fluid RBC 81347 /MM3 Peritoneal Fluid Neutrophils 99 % Peritoneal Fluid Lymphocytes 0 % Peritoneal Fluid Mesothelial 1 % Cells Peritoneal Fluid Albumin 1.1 G/DL Peritoneal Fluid Glucose 48 MG/DL Culture Results Microbiology Date/Time Procedure Status Source Growth 12/01/16 02:15 Aerobic Blood Culture - Preliminary Resulted Blood Peripheral NO GROWTH IN 1 DAY 12/01/16 02:15 Anaerobic Blood Culture - Preliminary Resulted Blood Peripheral NO GROWTH IN 1 DAY 12/01/16 02:30 Aerobic Blood Culture - Preliminary Resulted Blood Peripheral NO GROWTH IN 1 DAY 12/01/16 02:30 Anaerobic Blood Culture - Preliminary Resulted Blood Peripheral NO GROWTH IN 1 DAY 12/01/16 02:33 Gram Stain - Final Resulted Wound Abdomen 12/01/16 02:33 Wound Culture - Preliminary Resulted Wound Abdomen NO GROWTH IN 24 HOURS. 12/01/16 23:30 Gram Stain - Final Resulted Sputum Expectorated Sputum 12/01/16 23:30 Sputum Culture - Preliminary Resulted Sputum Expectorated Sputum IMMATURE GROWTH - REINCUBATE Administered Medications Medications (Trade) Dose Ordered Sig/Martha Route PRN Reason Start Time Stop Time Status Last Admin Dose Admin Sodium Chloride (NS Flush) 2 ml BID IV FLUSH 12/01/16 09:00 12/02/16 08:07 Acetaminophen (Tylenol) 650 mg Q4H PRN PO TEMP > 100.4 12/01/16 05:45 12/02/16 11:05 Alteplase, Recombinant (Cathflo Activase Inj) 2 mg Q2H PRN INTRACATH PICC line obstruction 12/01/16 11:15 12/02/16 08:08 Sennosides (Senokot) 8.6 mg HS PO 12/01/16 21:00 12/01/16 19:49 Acetaminophen/ Hydrocodone Bitart ([place] 5-325 Mg) 1 tab Q4H PRN PO pain 3-10 12/01/16 12:30 12/02/16 12:32 Docusate Sodium (Colace Liq) 100 mg Q12HR PO 12/01/16 21:00 12/01/16 19:49 Furosemide (Lasix) 40 mg DAILY PO 12/01/16 12:30 12/02/16 08:17 Lorazepam 1 mg 1 mg Q8H PRN PO Anxiety 12/01/16 14:45 12/01/16 15:09 Piperacillin Sod/ Tazobactam Sod (Zosyn 4.5 Gm Premix) 100 ml @ 200 mls/hr Q6H IV 12/01/16 20:00 12/02/16 14:29 Objective Remarks GENERAL: Middle aged male, supine in bed in nad. SKIN: Warm and dry. HEAD: Normocephalic. EYES: No injection or drainage. NECK: Supple, trachea midline. CARDIOVASCULAR: Regular rate and rhythm RESPIRATORY: Breath sounds equal bilaterally. No accessory muscle use. GASTROINTESTINAL: Abdomen mildly distended with ascites. incision site with bandage in place, bandage clean EXTREMITIES: No cyanosis. + dependent edema bilaterally MUSCULOSKELETAL: Adequate muscle tone. NEUROLOGICAL: No obvious focal deficit. Awake, alert, and oriented x3. Assessment/Plan Problem List: (1) Gastric adenocarcinoma Status: Acute Plan: --prognosis remains very poor --patient insistent on chemotherapy --common triplet combination cannot be administered --we may be able to administer doublet therapy if his sepsis improves. it is not likely to provide much benefit and this has been discussed with the patient. (2) Sepsis Status: Acute Plan: --on Vanco + Zosyn --PICC line removed Assessment 56y/o male with metastatic unresectable gastric cancer. --no way to put in a feeding tube in order to provide nutrition for him. --was on TPN until line had to be removed for infection ++malignant ascites and extensive involvement of his disease in the omentum and surrounding the stomach area. Plan 1. continue antibiotics 2. reconsult palliative care 3. agree with removal of PICC line Kathy Nesbitt Dec 02, 2016 15:31
[2016-12-02] MEDS: VANCOMYCIN INJ 2,000 MG in SODIUM CHLORID 0.9% 500 ML INJ 500 ML IV SCH (17:13)
[2016-12-02] MEDS: SENNOSIDES 8.6 MG TAB PO SCH (20:34)
[2016-12-03] VITALS (8 sets, daily range): BP systolic 111–130; BP diastolic 75–85; PULSE 82–91; RESP 16–20; TEMP 98.6–100.3; O2SAT 96–100
[2016-12-03] MEDS: ACETAMINOPHEN/HYDROcodone 325 MG/5 MG TAB PO PRN ×2 (01:13→19:42)
[2016-12-03] MEDS: PIPERACIL-TAZO 4.5 GM PREMIX 100 ML IV SCH ×4 (01:17→19:42)
[2016-12-03] MEDS: VANCOMYCIN INJ 2,000 MG in SODIUM CHLORID 0.9% 500 ML INJ 500 ML IV SCH ×2 (05:27→15:50)
--- NOTE | 2016-12-03 05:51 | MB ---
cc: BLANCA TADEO DATE OF CONSULTATION 12/02/2016 REQUESTING PHYSICIAN Referred for surgical consultation by Dr. Darwin Kirk DO REASON FOR CONSULTATION Patient known to me. Malignant ascitic leak after surgery. HISTORY OF PRESENT ILLNESS The patient is a 56-year-old -Vin[place] male well-known to me with a history of metastatic gastric cancer diffusely in the abdomen from GE junction primary, unresectable. The patient did undergo exploration for possible palliative bypass or palliative gastrectomy after radiation due to significant GI bleeding and obstruction; however, the patient and was found the unresectable due to locally advanced tumor into the diaphragm, liver and possibly the pericardium. The patient was closed and recommended palliation. At the time the patient refused hospice and was discharged home on TPN for palliative chemotherapy under the care of Dr. Talavera. Unfortunately, the patient states that he developed very significant ascites after his discharge which was suspected however, during coughing and straining he did experience a gush of fluid from his upper midline incision. The patient went to the emergency department and evaluation did show significant ascites. The patient was admitted and underwent paracentesis which decreased his ascitic leak and relieved his distension and symptoms and pain. I was asked to see the patient for further recommendations. REVIEW OF SYSTEMS A 12-point review of systems was done with the patient and is negative except for the pertinent positives mentioned above in the History of Present Illness. PAST MEDICAL HISTORY 1. Stage IV advanced gastric cancer. 2. Hypertension. 3. Malignant ascites. 4. Chronic back pain. PAST SURGICAL HISTORY Laparotomy approximately two weeks ago. ALLERGIES No known drug allergies. FAMILY HISTORY Noncontributory. SOCIAL HISTORY The patient does smoke cigarettes. Denies illicit drug use or alcohol use. PHYSICAL EXAMINATION VITAL SIGNS: Temperature 100.0, blood pressure 106/75, heart rate 88. GENERAL: The patient is a thin -Vincentian male in no acute distress. HEAD: Normocephalic, atraumatic. EYES: Pupils round and reactive to light. Sclerae anicteric. ENT: Mucous membranes are moist. NECK: Supple. No JVD. LUNGS: Clear to auscultation bilaterally. Nonlabored breathing pattern. HEART: Regular rhythm. ABDOMEN: Minimally distended with a small amount of ascites, small amount of ascitic leak at the upper midline incision. No signs of infection or peritonitis or abdominal tenderness. BACK: No CVA tenderness. EXTREMITIES: No clubbing, cyanosis or edema. ASSESSMENT AND PLAN The patient is a 56-year-old male. He is feeling significantly better with less symptoms of GI bleed and obstruction likely due to the patient's palliative radiation. The patient does have significant ascites, however, and at this is causing significant morbidity and has led to ascitic leak. I discussed the patient with Dr. Talavera. Recommend continued paracentesis and possible paracentesis with abdominal drain placement for approximately two weeks until the patient can fully heal his wound and to relieve his symptoms until the patient and receive palliative chemotherapy which potentially could improve the symptoms. I did again discuss palliative care with the patient, recommend palliation with hospice; however, the patient refuses this at this time and would like to continue aggressive therapy. Thank you lore much for the consultation. I did remove the patient's momo and placed Steri-Strips. We will control ascites as needed and would recommend again placement of a peritoneal drain to again palliate the patient and to facilitate wound healing from the ascitic leak. MD DESTINY AguileraG/SSB /9:54 PM /5:39 AM
[2016-12-03 07:29] LABS: HEMATOCRIT 26.2 % (39.0-51.0); MEAN CELL VOLUME 81.3 FL (80.0-100.0); MEAN CORPUSCULAR HEMOGLOBIN 26.1 PG (27.0-34.0); MEAN CORPUSCULAR HGB CONC 32.2 % (32.0-36.0); PLATELET COUNT 246 TH/MM3 (150-450); RED BLOOD COUNT 3.22 MIL/MM3 (4.50-5.90); RED CELL DISTRIBUTION WIDTH 18.1 % (11.6-17.2); REVIEW FLAG FINAL; WHITE BLOOD COUNT 7.8 TH/MM3 (4.0-11.0)
[2016-12-03 07:53] LABS: BICARBONATE 26.8 MEQ/L (21.0-32.0); MAGNESIUM 1.9 MG/DL (1.5-2.5); POTASSIUM 3.9 MEQ/L (3.5-5.1)
[2016-12-03 08:10] LABS: CALCIUM-PROTEIN CORRECTED 8.5 MG/DL (8.5-10.1)
[2016-12-03] MEDS: SODIUM CHLORIDE 0.9% FLUSH 10 ML FLUSH IV FLUSH SCH ×2 (10:16→19:44)
[2016-12-03] MEDS: DOCUSATE SODIUM 100 MG/10 ML UDC PO SCH ×2 (10:16→19:41)
[2016-12-03] MEDS: FUROSEMIDE 40 MG TAB PO SCH (10:17)
[2016-12-03] MEDS: PANTOPRAZOLE SOD 40 MG DELAYED RELEASE TAB PO SCH (10:17)
--- NOTE | 2016-12-03 11:02 | PD.CONS ---
Consult Service Palliative Care Consult Requested By Vilma AGUILAR Primary Care Physician GINGER Veloz Reason for Consultation a. To assist with evaluation and management of symptoms including: pain b. To assist medical decision maker(s) with: better understanding of current medical conditions; weighing benefits/burdens of medical treatment options; making medical treatment decisions. HPI History of Present Illness This 56-year-old male presented to the emergency department 12/01/16 with complaints of drainage from postoperative abdominal wound. He had apparently been otherwise doing well postop. He had a PICC line at presentation for which he had been receiving TPN in the home setting however he reported his machine malfunction and he had not been able to administer the TPN since 8 PM the prior night. No fevers reported. Reported to have a follow-up visit with his oncologist scheduled for the following day. Reports not able to eat or drink well, hence the TPN. Denied diarrhea. Denied any cough congestion neck pain chest pain shortness of breath abdominal pain nausea or vomiting. * Dr. Talavera, patient known oncologist was consulted this admission. She notes patient with metastatic locally advanced gastric cancer. There is no way to provide a feeding tube for additional nutrition. He has had ongoing malignant ascites and extensive involvement of his disease through omentum and surrounding stomach area. Insistent on receiving palliative chemotherapy. Dr. Talavera notes discussion regarding risks and benefits of palliative chemotherapy. There is concern for infusion therapy due to access, inability to receive nutrition other than via TPN. They could consider Taxotere and cisplatin. Renal function noted to be normal though he is anemic. Chemotherapy therapy could be considered outpatient * PICC line has been removed due to sepsis, on vancomycin, Zosyn. Oncology may provide outpatient chemotherapy once fevers, sepsis resolves. Palliative care consulted to assist with clarification of goals of treatment. Gen. surgery was reconsulted to assist with management of ascites leak--recommends therapeutic paracentesis, possible abdominal drain placement x2 weeks to allow wound to heal and symptoms to resolve. Gen. surgery again discussed hospice with patient however patient refused hospice care. Patient seen in room with significant other Savana Ratliff at bedside. [Dual visit with Simón MILES] . Patient is alert, oriented, pleasant and appropriate. Reasonable limited insight hospital and illness. He understands he has "the problem "-referring to his cancer, though indicates overall except for the ascites has been feeling really well recently. Indicates has been taking oral food/liquid foods very well. ROS essentially negative. He and significant other seemed to have very simple understanding of disease process/ options. He endorses he is going to continue to try to recover and will be obtaining chemotherapy outpatient from oncology. Explore that he still remains at risk for complications and clinical deterioration secondary to chemotherapy and disease progression; he and his significant other remain optimistic and hopeful he will not experience decline. Offer continued support, provided contact information. *This patient known to palliative care from consult on 11/19/16, some history obtained from this initial consultation* --Additional oncology history: Recently admitted 11/05 for GI bleed, related to recent adenocarcinoma diagnoses (first diagnosed September 2016- Staging was suggestive of liver and bone metastasis). He was again worked up that admission 11/05 for the possibility of surgical resection, (which he had not been able to complete necessary follow-up outpatient to proceed with), palliative radiation for possible eventual surgical resection, with possible eventual palliative chemotherapy. He was kept inpatient during this course as he had had difficulty following up outpatient. He did undergo 5 high-dose radiation treatments to stabilize disease process and then underwent surgery with Dr. Salguero: exploratory laparotomy, peritoneal biopsy-- Findings: Large volume carcinomatosis, +malignant ascites, GE junction tumor invading diaphragm, liver, pancreas. Surgeon then consulted palliative care for advanced stage IV cancer, recommended hospice transition. Patient not felt to be a candidate for chemotherapy at that point. He had been receiving TPN due to issues swallowing, per barium swallow evaluation completed that admission patient was getting minimal to no nutrition via swallowing. There were concerns for aspiration. During that admission reported estimated weight loss of 30 pounds. Function/Cognitive Trajectory Previously lives at home independently with his significant other. Used cane as needed. Significant weakness, progressive since diagnosis in September of this year. 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 Current Medications Medications (Trade) Dose Ordered Sig/Martha Route Start Time Stop Time Status Last Admin (NS Flush) 2 ml UNSCH PRN IV FLUSH 12/01/16 05:45 (NS Flush) 2 ml BID IV FLUSH 12/01/16 09:00 12/02/16 08:07 (Tylenol) 650 mg Q4H PRN PO 12/01/16 05:45 12/02/16 11:05 (Zofran Inj) 4 mg Q6H PRN IVP 12/01/16 05:45 Naloxone HCl 0.4 mg 0.4 mg UNSCH PRN IV 12/01/16 05:45 (Vancomycin Consult Pharmacy) 0 ml @ 0 mls/hr UNSCH OTHER 12/01/16 05:45 (Cathflo Activase Inj) 2 mg Q2H PRN INTRACATH 12/01/16 11:15 12/02/16 08:08 (Lactulose Liq) 30 ml DAILY PRN PO 12/01/16 12:30 (Protonix) 40 mg DAILY PO 12/02/16 09:00 (Senokot) 8.6 mg HS PO 12/01/16 21:00 12/02/16 20:34 ([place] 5-325 Mg) 1 tab Q4H PRN PO 12/01/16 12:30 12/03/16 01:13 (Roxanol Liq) 10 mg Q4H PRN PO 12/01/16 12:30 (Colace Liq) 100 mg Q12HR PO 12/01/16 21:00 12/02/16 20:34 (Lasix) 40 mg DAILY PO 12/01/16 12:30 12/02/16 08:17 Lorazepam 1 mg 1 mg Q8H PRN PO 12/01/16 14:45 12/01/16 15:09 Piperacillin Sod/ Tazobactam Sod 100 ml @ 200 mls/hr Q6H IV 12/01/16 20:00 12/03/16 01:17 (Vancomycin Inj/ NS 500 ml Inj) 520 ml @ 250 mls/hr Q12H IV 12/02/16 18:00 12/03/16 05:27 Miscellaneous Information SPECIFIC LAB TO BE DRAWN:VANCOMYCIN TROUGH DATE TO... ONCE ONCE .XX 12/04/16 05:45 12/04/16 05:46 Family History No family history of cancer or hypertension Substance Use Tobacco: One half PPD 20 years Alcohol: Occasional Prescription med abuse: None reported Illicits: None reported . Psychosocial History Lives at home with significant other/fianc. 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 Not , supported by significant other. Has several adult children and grandchildren whom he remains in contact with. . Spiritual/Cultural Factors Taoism, supported by Water/Wastewater Project Engineer within the family --did not desire timber incisor operator support during prior hospitalization , Living Will: Never completed Health Care Surrogate: Copy in medical record Date completed: 11/19/16 Health Care Surrogate(s): Significant other Savana Ratliff Ethical and Legal Issues Patient is able to make his own decisions. He has previously completed ACS naming significant other Savana Ratliff should he become incapacitated. . Physical Exam Vital Signs Date Time Temp Pulse Resp B/P Pulse Ox O2 Delivery O2 Flow Rate FiO2 12/03/16 08:23 96 21 12/03/16 07:50 99.2 82 20 119/78 96 12/03/16 05:39 98.6 82 16 116/81 100 12/03/16 01:40 99.5 88 16 111/75 99 12/02/16 22:05 99.1 83 16 127/85 97 12/02/16 22:02 98 21 12/02/16 16:00 99.0 82 16 112/80 99 12/02/16 12:00 100.0 88 18 106/75 99 12/02/16 11:02 101.8 12/02/16 11:00 97 21 12/02/16 12/03/16 19:00 07:00 Intake Total 1216 ml 1424 ml Output Total 240 ml 1400 ml Balance 976 ml 24 ml Intake Oral 960 ml 550 ml IV Total 256 ml 874 ml Output Urine Total 240 ml 1400 ml # Voids 3 # Bowel Movements 1 1 Exam CONSTITUTIONAL/GENERAL: This is an adequately nourished patient, in no apparent distress. TUBES/LINES/DRAINS: Peripheral IV right hand SKIN: No jaundice, rashes, or lesions. Large abdominal dressing covering wound I did not remove to visualize. Skin temperature appropriate. Not diaphoretic. ENT: Hearing grossly normal. Nose without bleeding or purulent drainage. Throat without visible erythema, exudates, masses, or lesions. NECK: Trachea midline. Supple, nontender. No palpable thyroid enlargement or nodularity. CARDIOVASCULAR: Regular rate and rhythm, no murmurs.Peripheral pulses symmetric. No peripheral edema. RESPIRATORY/CHEST: Symmetric, unlabored respirations. On room air. Clear to auscultation. Breath sounds equal bilaterally. GASTROINTESTINAL: Abdomen rounded, slightly distended, slightly firm though nontender. Large abdominal dressing clean and dry. Limited palpation due to distentionno palpable masses. No guarding. Bowel sounds present. MUSCULOSKELETAL: Extremities without clubbing, cyanosis, or edema. No joint tenderness or effusion noted. No calf tenderness. No mottling or clubbing. NEUROLOGICAL: Awake and alert. Oriented 3. appropriate. Reasonable, simple insight. Motor and sensory grossly within normal limits. Follows commands. Moves all extremities. PSYCHIATRIC: No obvious anxiety/depression. no apparent hallucinations or other psychotic thought process. Diagnostic Tests Laboratory Laboratory Tests Test 12/01/16 12/01/16 12/01/16 12/02/16 02:33 07:20 12:07 05:01 White Blood Count 11.1 TH/MM3 9.9 TH/MM3 10.7 TH/MM3 (4.0-11.0) (4.0-11.0) (4.0-11.0) Red Blood Count 3.42 MIL/MM3 3.31 MIL/MM3 3.54 MIL/MM3 (4.50-5.90) (4.50-5.90) (4.50-5.90) Hemoglobin 8.9 GM/DL 8.7 GM/DL 9.3 GM/DL (13.0-17.0) (13.0-17.0) (13.0-17.0) Hematocrit 28.1 % 27.0 % 29.0 % (39.0-51.0) (39.0-51.0) (39.0-51.0) Mean Corpuscular Volume 82.0 FL 81.6 FL 82.1 FL (80.0-100.0) (80.0-100.0) (80.0-100.0) Mean Corpuscular Hemoglobin 25.8 PG 26.3 PG 26.2 PG (27.0-34.0) (27.0-34.0) (27.0-34.0) Mean Corpuscular Hemoglobin 31.5 % 32.2 % 31.8 % Concent (32.0-36.0) (32.0-36.0) (32.0-36.0) Red Cell Distribution Width 17.3 % 17.9 % 17.6 % (11.6-17.2) (11.6-17.2) (11.6-17.2) Platelet Count 290 TH/MM3 251 TH/MM3 230 TH/MM3 (150-450) (150-450) (150-450) Mean Platelet Volume 8.5 FL 8.2 FL 8.6 FL (7.0-11.0) (7.0-11.0) (7.0-11.0) Neutrophils (%) (Auto) 87.7 % 88.3 % 82.6 % (16.0-70.0) (16.0-70.0) (16.0-70.0) Lymphocytes (%) (Auto) 2.7 % 2.5 % 2.5 % (9.0-44.0) (9.0-44.0) (9.0-44.0) Monocytes (%) (Auto) 9.1 % (0.0-8.0) 8.8 % (0.0-8.0) 14.1 % (0.0-8.0) Eosinophils (%) (Auto) 0.2 % (0.0-4.0) 0.2 % (0.0-4.0) 0.3 % (0.0-4.0) Basophils (%) (Auto) 0.3 % (0.0-2.0) 0.2 % (0.0-2.0) 0.5 % (0.0-2.0) Neutrophils # (Auto) 9.7 TH/MM3 8.7 TH/MM3 8.8 TH/MM3 (1.8-7.7) (1.8-7.7) (1.8-7.7) Lymphocytes # (Auto) 0.3 TH/MM3 0.2 TH/MM3 0.3 TH/MM3 (1.0-4.8) (1.0-4.8) (1.0-4.8) Monocytes # (Auto) 1.0 TH/MM3 0.9 TH/MM3 1.5 TH/MM3 (0-0.9) (0-0.9) (0-0.9) Eosinophils # (Auto) 0.0 TH/MM3 0.0 TH/MM3 0.0 TH/MM3 (0-0.4) (0-0.4) (0-0.4) Basophils # (Auto) 0.0 TH/MM3 0.0 TH/MM3 0.1 TH/MM3 (0-0.2) (0-0.2) (0-0.2) CBC Comment DIFF FINAL DIFF FINAL DIFF FINAL Differential Comment Sodium Level 134 MEQ/L 137 MEQ/L 135 MEQ/L (136-145) (136-145) (136-145) Potassium Level 4.6 MEQ/L 4.0 MEQ/L 4.1 MEQ/L (3.5-5.1) (3.5-5.1) (3.5-5.1) Chloride Level 100 MEQ/L 102 MEQ/L 100 MEQ/L (98-107) (98-107) (98-107) Carbon Dioxide Level 26.5 MEQ/L 25.5 MEQ/L 25.5 MEQ/L (21.0-32.0) (21.0-32.0) (21.0-32.0) Anion Gap 8 MEQ/L (5-15) 10 MEQ/L (5-15) 10 MEQ/L (5-15) Blood Urea Nitrogen 5 MG/DL (7-18) 6 MG/DL (7-18) 7 MG/DL (7-18) Creatinine 0.71 MG/DL 0.58 MG/DL 0.79 MG/DL (0.60-1.30) (0.60-1.30) (0.60-1.30) Estimat Glomerular Filtration 139 ML/MIN 176 ML/MIN 123 ML/MIN Rate (>89) (>89) (>89) Random Glucose 92 MG/DL 81 MG/DL 84 MG/DL (74-106) (74-106) (74-106) Lactic Acid Level 1.2 mmol/L (0.4-2.0) Calcium Level 7.8 MG/DL 7.3 MG/DL 7.4 MG/DL (8.5-10.1) (8.5-10.1) (8.5-10.1) Magnesium Level 2.0 MG/DL (1.5-2.5) Total Bilirubin 0.4 MG/DL 0.3 MG/DL 0.4 MG/DL (0.2-1.0) (0.2-1.0) (0.2-1.0) Aspartate Amino Transf 45 U/L (15-37) 21 U/L (15-37) 23 U/L (15-37) (AST/SGOT) Alanine Aminotransferase 17 U/L (12-78) 13 U/L (12-78) 15 U/L (12-78) (ALT/SGPT) Alkaline Phosphatase 24 U/L (45-117) 24 U/L (45-117) 24 U/L (45-117) C-Reactive Protein 17.70 MG/DL (0.00-0.30) Total Protein 6.4 GM/DL 5.8 GM/DL 5.7 GM/DL (6.4-8.2) (6.4-8.2) (6.4-8.2) Albumin 1.6 GM/DL 1.4 GM/DL 1.3 GM/DL (3.4-5.0) (3.4-5.0) (3.4-5.0) Lipase 46 U/L (73-393) Urine Color YELLOW (YELLW/STRAW) Urine Turbidity CLEAR (CLEAR) Urine pH 8.5 (5.0-8.5) Urine Specific [employer] [place] GREATER THAN 1.050 (1.002-1.035) Urine Protein 100 mg/dL (NEG-TRACE) Urine Glucose (UA) NEG mg/dL (NEG) Urine Ketones NEG mg/dL (NEG) Urine Occult Blood NEG (NEG) Urine Nitrite NEG (NEG) Urine Bilirubin NEG (NEG) Urine Urobilinogen 4.0 MG/DL (LESS THAN 2.0) Urine Leukocyte Esterase NEG (NEG) Urine RBC LESS THAN 1 /hpf (0-3) Urine WBC 1 /hpf (0-5) Urine Mucus FEW /lpf (OCC) Microscopic Urinalysis Comment CULT NOT INDICATED Protein Corrected Calcium 8.0 MG/DL 8.2 MG/DL (8.5-10.1) (8.5-10.1) Vancomycin Level Trough 10.0 MCG/ML (5.0-10.0) Test 12/02/16 12/03/16 11:30 06:21 Peritoneal Fluid WBC 3536 /MM3 (0-10) Peritoneal Fluid RBC 67542 /MM3 (0-0) Peritoneal Fluid Neutrophils 99 % Peritoneal Fluid Lymphocytes 0 % Peritoneal Fluid Mesothelial 1 % Cells Peritoneal Fluid Albumin 1.1 G/DL Peritoneal Fluid Glucose 48 MG/DL White Blood Count 7.8 TH/MM3 (4.0-11.0) Red Blood Count 3.22 MIL/MM3 (4.50-5.90) Hemoglobin 8.4 GM/DL (13.0-17.0) Hematocrit 26.2 % (39.0-51.0) Mean Corpuscular Volume 81.3 FL (80.0-100.0) Mean Corpuscular Hemoglobin 26.1 PG (27.0-34.0) Mean Corpuscular Hemoglobin 32.2 % Concent (32.0-36.0) Red Cell Distribution Width 18.1 % (11.6-17.2) Platelet Count 246 TH/MM3 (150-450) Mean Platelet Volume 8.3 FL (7.0-11.0) Sodium Level 134 MEQ/L (136-145) Potassium Level 3.9 MEQ/L (3.5-5.1) Chloride Level 99 MEQ/L (98-107) Carbon Dioxide Level 26.8 MEQ/L (21.0-32.0) Anion Gap 8 MEQ/L (5-15) Blood Urea Nitrogen 6 MG/DL (7-18) Creatinine 0.75 MG/DL (0.60-1.30) Estimat Glomerular Filtration 131 ML/MIN Rate (>89) Random Glucose 82 MG/DL (74-106) Calcium Level 7.3 MG/DL (8.5-10.1) Protein Corrected Calcium 8.5 MG/DL (8.5-10.1) Magnesium Level 1.9 MG/DL (1.5-2.5) Total Protein 4.9 GM/DL (6.4-8.2) Result Diagram: 12/03/1621 12/03/1621 Microbiology Microbiology Date/Time Procedure Status Source Growth 12/01/16 02:15 Aerobic Blood Culture - Preliminary Resulted Blood Peripheral NO GROWTH IN 1 DAY 12/01/16 02:15 Anaerobic Blood Culture - Preliminary Resulted Blood Peripheral NO GROWTH IN 1 DAY 12/01/16 02:30 Aerobic Blood Culture - Preliminary Resulted Blood Peripheral NO GROWTH IN 1 DAY 12/01/16 02:30 Anaerobic Blood Culture - Preliminary Resulted Blood Peripheral NO GROWTH IN 1 DAY 12/01/16 02:33 Gram Stain - Final Resulted Wound Abdomen 12/01/16 02:33 Wound Culture - Preliminary Resulted Wound Abdomen NO GROWTH IN 48 HOURS. 12/01/16 23:30 Gram Stain - Final Resulted Sputum Expectorated Sputum 12/01/16 23:30 Sputum Culture - Preliminary Resulted Sputum Expectorated Sputum IMMATURE GROWTH - REINCUBATE Imaging Last Impressions Abdomen/Pelvis CT 12/01/16 0352 Signed Impressions: Service Date/Time: Thursday, December 01, 2016 04:06 - CONCLUSION: Large amount of ascites with soft tissue nodules within the fluid in and along the tip of the liver likely carcinomatosis. Multiple intrahepatic lesions are new from the previous study also metastatic disease. Lytic lesions in T10 and S1 also new consistent metastatic disease. Persistent soft tissue fullness in the GE junction and widespread wall thickening of the proximal stomach likely malignant. Kishan Young MD Chest X-Ray 12/01/16 0227 Signed Impressions: Service Date/Time: Thursday, December 01, 2016 03:04 - CONCLUSION: Moderate size right pleural effusion. Left-sided PICC line without evidence of pneumothorax Kishan Young MD Patient/Family Conference Present at Family Conference: Patient, significant other Savana Family Conference Time (mins): 15 Family Conference Location: Bedside Issues Discussed: Brief meeting at bedside with patient and significant other. Limited exploration with them, as he does recall palliative consultation from prior admission. Discussion included the following: * Palliative care role, purpose * Brief review of medical, psychosocial, and spiritual history * Patient/family understanding of the current medical problems; prognosis, treatment options-current procedures discussed, brief explore risks for decline , further setbacks related to progression * Patients goals of care--he wishes to continue to pursue whatever treatment options available as he does not feel like he has a life-threatening cancer and wants to continue to be well * Questions answered to the best of my ability * Palliative care contact information provided * Review of healthcare surrogate designationpatient previously designated significant other as HCS. He wishes to continue to observe this. Assessment and Plan Disease Oriented Problem List: (1) Metastasis from gastric cancer (2) Chronic pain (3) Hypertension (4) Gastric mass (5) Ascites (6) Adenocarcinoma (7) Gastric adenocarcinoma (8) Sepsis Symptom Scale: Pertinent Non-Medical Issues Psychosocial: Spiritual: Legal:Patient is able to make his own decisions. He has previously completed ACS naming significant other Savana Ratliff should he become incapacitated. Ethical issues impacting care: Important Contacts Savana Ratliffsignificant other /HCS [phone] . Prognosis This unfortunate patient was admitted 12/01 for abdominal drainage from recent exploratory laparotomy wound, sepsis- likely 2/2 PICC line with TPN in the home setting. He was Recently admitted 10/2016 for recurrent anemia and GI bleeding secondary to a fairly new diagnoses of gastroesophageal adenocarcinoma. He had recent intraoperative findings of significant metastases with GE junction tumor invading diaphragm, liver, pancreas. Oncology has prev indicated chemotherapy will not be of benefit to this patient, has completed 5/ 5 radiation treatments. Appropriate for hospice if goals compatible, limited life expectancy due to advance stage IV metastatic cancer. He has not been accepting of hospice for terminal diagnosis during prior admission. Code Status: Full Code Plan * Legal decision maker:Patient currently able to make his own decisions. Has designated significant other Savana Ratliff as HCS. * Goals: Aggressive, patient continues to wish to pursue whatever treatment options are available including outpatient chemotherapy. He feels very optimistic he can overcome this. [During prior pal care interactions pt and sig other expressed very aggressive goals, monica in [facility] for cure, they were insistent on pursuing chemo, though no providers were willing to offer.] Plan for J-tube placement and possible discharge tomorrow with plan for follow-up this week with oncology for outpatient chemotherapy. * CODE STATUS:full * SYMPTOMS: --dysphagia : During prior admissions barium swallow evaluation indicated obstruction of very little passage however patient subjectively endorses that he is swallowing liquids well -- pain : Patient during prior admission endorse some chronic pain as well as abdominal discomfort--today he endorses that he had feeling of abdominal tightness and pain with ascites but since that has been relieved he longer has any abdominal discomfort. Denies any other pain. She has not required any pain medications. We'll continue to evaluate. * Palliative care will continue to follow during hospital course as condition evolves, to assist patient/decision-maker with understanding of medical conditions, weighing benefits/burdens of treatment options, for clarification of goals of treatment. Additionally will assist with any symptoms of palliative concern Time Spent Total Floor Time (mins): 45 >50% Counseling/Coord of Care: Yes (discussion with oncology JEFF Nesbitt) Thank you for the opportunity to participate in the care of Mr. Auguste. Attestation To help prompt me to consider important information that might be impacting today's encounter and assessment, information from prior notes written by myself or my colleagues may have been "brought forward" into today's note. My signature on this note, however, is an attestation that I personally performed the exam, history, and/or decision-making noted today, and, unless otherwise indicated, the interactions with patient, family, and staff as well as the review of records all occurred today. I also attest that the listed assessment and stated plan reflect my best clinical judgment today based on the combination of historical information, prior notes, and today's exam/ interactions. When time spent is documented, it refers only to time spent today by the signer, or if indicated, combined time spent today by collaborating physician/nurse practitioner. Isabella Booth Dec 03, 2016 11:02
--- NOTE | 2016-12-03 12:58 | HHI.PR ---
Subjective Remarks Patient is requesting to go home. He states that whenever he is in the hospital he gets weaker. He reports his abdomen is improved compared to when he was admitted. After extensive discussion with him. He understand the need to stay for further treatment. He is agreeable for the drain placement. Based on discussion with the specialist, ascites expected to accumulate. Pain is controlled. He reports he is tolerating a liquid/puree diet. Objective Vitals Vital Signs Date Time Temp Pulse Resp B/P Pulse Ox O2 Delivery O2 Flow Rate FiO2 12/03/16 08:23 96 21 12/03/16 07:50 99.2 82 20 119/78 96 12/03/16 05:39 98.6 82 16 116/81 100 12/03/16 01:40 99.5 88 16 111/75 99 12/02/16 22:05 99.1 83 16 127/85 97 12/02/16 22:02 98 21 12/02/16 16:00 99.0 82 16 112/80 99 I/O 12/02/16 12/02/16 12/02/16 12/03/16 12/03/16 12/03/16 07:00 15:00 23:00 07:00 15:00 23:00 Intake Total 240 ml 1216 ml 250 ml 1174 ml Output Total 600 ml 240 ml 500 ml 900 ml Balance -360 ml 976 ml -250 ml 274 ml Intake Oral 240 ml 960 ml 250 ml 300 ml IV Total 256 ml 874 ml Output Urine Total 600 ml 240 ml 500 ml 900 ml # Voids 3 # Bowel Movements 1 1 1 0 Result Diagram: 12/03/16 0621 12/03/16 0621 Imaging Last Impressions Abdomen/Pelvis CT 12/01/16 0352 Signed Impressions: Service Date/Time: Thursday, December 01, 2016 04:06 - CONCLUSION: Large amount of ascites with soft tissue nodules within the fluid in and along the tip of the liver likely carcinomatosis. Multiple intrahepatic lesions are new from the previous study also metastatic disease. Lytic lesions in T10 and S1 also new consistent metastatic disease. Persistent soft tissue fullness in the GE junction and widespread wall thickening of the proximal stomach likely malignant. Kishan Young MD Chest X-Ray 12/01/16 0227 Signed Impressions: Service Date/Time: Thursday, December 01, 2016 03:04 - CONCLUSION: Moderate size right pleural effusion. Left-sided PICC line without evidence of pneumothorax Kishan Young MD Objective Remarks GENERAL: This is a well-nourished, well-developed patient, in no apparent distress. CARDIOVASCULAR: Normal rate and regular rhythm without murmurs, gallops, or rubs. RESPIRATORY: Good respiratory efforts. Breath sounds equal and clear to auscultation bilaterally. GASTROINTESTINAL: Abdomen is distended. Midline incision with Steri-Strips, minimal drainage. Appropriate tender to palpation MUSCULOSKELETAL: Extremities without cyanosis, there is trace edema NEURO: Alert & Oriented x4 to person, place, time, situation. Moves all ext x4 PSYCH: Appropriate mood and affect. A/P Assessment and Plan 56-year-old male with Metastatic cancer The patient has metastatic adenocarcinoma of the GE junction. He is status post radiation therapy. He was supposed be started on palliative chemotherapy on Thursday. He has been having significant drainage from the wounds of a recent laparotomy. CT of the abdomen showed: Large amount of ascites with soft tissue nodules within the fluid in and along the tip of the liver, likely carcinomatosis; Multiple intrahepatic lesions are new from the previous study also metastatic disease; Lytic lesions in T10 and S1 also new consistent with metastatic disease; Persistent soft tissue fullness in the GE junction and widespread wall thickening of the proximal stomach likely malignant. The patient currently feels better now that the fluid has drained on its own. However it is evident that the fluid will accumulate again. - General surgery following. I discussed with Dr. Salguero at length. He advised putting a drain to help with ascites and a large abdominal wound to drain with hopes that the wound would heal and will allow the patient to pursue his wish of starting chemotherapy. Discussed with oncology as well. Chemotherapy unlikely to help him. However the patient is adamant about pursuing aggressive treatment. - Wound and blood cultures pending. - IR consulted for paracentesis and to leave the drain in place. Per general surgery, Patient may drain ascites himself daily and follow-up with general surgery in a couple of weeks for removal. Pleural effusion/ PNA/ Fever Chest x-ray with moderate right pleural effusion. The patient has had some sputum production and a questionable fever. He was started on vancomycin and Zosyn in the emergency department. He did have a fever of 101.5. - Continue vancomycin and Zosyn. - Sputum culture, blood cultures, ascitic fluid culture. - Removed PICC line. Anemia Secondary to above. - Follow CBC and transfuse as needed. - Oncology following. Lower extremity edema Likely secondary to cancer and cirrhosis. - Continue by mouth Lasix. PPx: SCDs. DW Dr. Salguero, Kathy Castillo. Discharge Planning Possible DC tomorrow. Dhiraj Wong MD Dec 03, 2016 12:58
--- NOTE | 2016-12-03 14:35 | PD.ONC.PN ---
Subjective Subjective Remarks Afebrile overnight. "when can I go home?" Girlfriend at bedside. Objective Data Date Time Temp Pulse Resp B/P Pulse Ox O2 Delivery O2 Flow Rate FiO2 12/03/16 11:50 99.5 85 20 130/85 100 12/03/16 08:23 96 21 12/03/16 07:50 99.2 82 20 119/78 96 12/03/16 05:39 98.6 82 16 116/81 100 12/03/16 01:40 99.5 88 16 111/75 99 12/02/16 22:05 99.1 83 16 127/85 97 12/02/16 22:02 98 21 12/02/16 16:00 99.0 82 16 112/80 99 12/03/16 12/03/16 12/03/16 07:00 15:00 23:00 Intake Total 1174 ml Output Total 900 ml Balance 274 ml Result Diagram: 12/03/1662012/03/1621 Laboratory Results Laboratory Tests Test 12/03/16 06:21 White Blood Count 7.8 TH/MM3 Red Blood Count 3.22 MIL/MM3 Hemoglobin 8.4 GM/DL Hematocrit 26.2 % Mean Corpuscular Volume 81.3 FL Mean Corpuscular Hemoglobin 26.1 PG Mean Corpuscular Hemoglobin 32.2 % Concent Red Cell Distribution Width 18.1 % Platelet Count 246 TH/MM3 Mean Platelet Volume 8.3 FL Sodium Level 134 MEQ/L Potassium Level 3.9 MEQ/L Chloride Level 99 MEQ/L Carbon Dioxide Level 26.8 MEQ/L Anion Gap 8 MEQ/L Blood Urea Nitrogen 6 MG/DL Creatinine 0.75 MG/DL Estimat Glomerular Filtration 131 ML/MIN Rate Random Glucose 82 MG/DL Calcium Level 7.3 MG/DL Protein Corrected Calcium 8.5 MG/DL Magnesium Level 1.9 MG/DL Total Protein 4.9 GM/DL Culture Results Microbiology Date/Time Procedure Status Source Growth 12/01/16 02:15 Aerobic Blood Culture - Preliminary Resulted Blood Peripheral NO GROWTH IN 2 DAYS 12/01/16 02:15 Anaerobic Blood Culture - Preliminary Resulted Blood Peripheral NO GROWTH IN 2 DAYS 12/01/16 02:30 Aerobic Blood Culture - Preliminary Resulted Blood Peripheral NO GROWTH IN 2 DAYS 12/01/16 02:30 Anaerobic Blood Culture - Preliminary Resulted Blood Peripheral NO GROWTH IN 2 DAYS 12/01/16 02:33 Gram Stain - Final Resulted Wound Abdomen 12/01/16 02:33 Wound Culture - Preliminary Resulted Wound Abdomen NO GROWTH IN 48 HOURS. 12/01/16 23:30 Gram Stain - Final Complete Sputum Expectorated Sputum 12/01/16 23:30 Sputum Culture - Final Complete Sputum Expectorated Sputum HEAVY GROWTH NORMAL RESPIRATORY VANDANA Administered Medications Medications (Trade) Dose Ordered Sig/Martha Route PRN Reason Start Time Stop Time Status Last Admin Dose Admin Sodium Chloride (NS Flush) 2 ml BID IV FLUSH 12/01/16 09:00 12/03/16 10:16 Acetaminophen (Tylenol) 650 mg Q4H PRN PO TEMP > 100.4 12/01/16 05:45 12/02/16 11:05 Alteplase, Recombinant (Cathflo Activase Inj) 2 mg Q2H PRN INTRACATH PICC line obstruction 12/01/16 11:15 12/02/16 08:08 Pantoprazole Sodium (Protonix) 40 mg DAILY PO 12/02/16 09:00 12/03/16 10:17 Sennosides (Senokot) 8.6 mg HS PO 12/01/16 21:00 12/02/16 20:34 Acetaminophen/ Hydrocodone Bitart ([place] 5-325 Mg) 1 tab Q4H PRN PO pain 3-10 12/01/16 12:30 12/03/16 01:13 Docusate Sodium (Colace Liq) 100 mg Q12HR PO 12/01/16 21:00 12/02/16 20:34 Furosemide (Lasix) 40 mg DAILY PO 12/01/16 12:30 12/03/16 10:17 Lorazepam 1 mg 1 mg Q8H PRN PO Anxiety 12/01/16 14:45 12/01/16 15:09 Piperacillin Sod/ Tazobactam Sod 100 ml @ 200 mls/hr Q6H IV 12/01/16 20:00 12/03/16 13:51 Vancomycin HCl/ Sodium Chloride (Vancomycin Inj/ NS 500 ml Inj) 520 ml @ 250 mls/hr Q12H IV 12/02/16 18:00 12/03/16 05:27 Objective Remarks GENERAL: middle aged male, supine in bed in nad. SKIN: Warm and dry. HEAD: Normocephalic. EYES: No injection or drainage. NECK: Supple, trachea midline. CARDIOVASCULAR: Regular rate and rhythm RESPIRATORY: Breath sounds equal bilaterally. No accessory muscle use. GASTROINTESTINAL: Abdomen soft, mildly distended with ascites. bandage in place , c/d/i EXTREMITIES: No cyanosis NEUROLOGICAL: No obvious focal deficit. Awake, alert, and oriented x3. Assessment/Plan Problem List: (1) Gastric adenocarcinoma Status: Acute Plan: --prognosis remains very poor --patient insistent on chemotherapy --common triplet combination cannot be administered --we may be able to administer doublet therapy if his sepsis improves. it is not likely to provide much benefit and this has been discussed with the patient. (2) Sepsis Status: Acute Plan: --on Vanco + Zosyn --PICC line removed Assessment 56y/o male with metastatic unresectable gastric cancer. --no way to put in a feeding tube in order to provide nutrition for him. --was on TPN until line had to be removed for infection ++malignant ascites and extensive involvement of his disease in the omentum and surrounding the stomach area. Plan 1. J-tube placement in IR tomorrow 2. monitor CBC 3. once discharged and afebrile, follow up in clinic for chemotherapy Attending Statement The exam, history, and the medical decision-making described in the above note were completed with the assistance of the mid-level provider. I reviewed and agree with the findings presented. I attest that I had a [id number] encounter with the patient on the same day, and personally performed and documented my assessment and findings in the medical record. Pt has one objective repeated, to go home and get his chemo in clinic. Explanation of risks and benefits and potential pit falls are lost in his optimism. He state he is eating and drinking and moving his bowels. Dressing in his abdomen with ascitic fluid. Kathy Nesbitt Dec 03, 2016 14:35 Fay Talavera MD Dec 03, 2016 16:25
[2016-12-03] MEDS: SENNOSIDES 8.6 MG TAB PO SCH (19:41)
[2016-12-03] MEDS ORDERED: NYSTAT/DIPHENHY/LIDO MOUTHWASH (Adult) 120ML SWISH-SWAL PRN (20:45)
[2016-12-04] VITALS (10 sets, daily range): BP systolic 111–124; BP diastolic 77–85; PULSE 77–87; RESP 16–20; TEMP 96.6–100.2; O2SAT 94–100
[2016-12-04] MEDS: PIPERACIL-TAZO 4.5 GM PREMIX 100 ML IV SCH ×4 (01:08→21:18)
[2016-12-04] MEDS ORDERED: PHARMACY ORDERED LAB ONE (05:45)
[2016-12-04] MEDS: VANCOMYCIN INJ 2,000 MG in SODIUM CHLORID 0.9% 500 ML INJ 500 ML IV SCH (06:33)
[2016-12-04 08:54] LABS: HEMATOCRIT 26.9 % (39.0-51.0); MEAN CORPUSCULAR HEMOGLOBIN 26.5 PG (27.0-34.0); MEAN CORPUSCULAR HGB CONC 32.7 % (32.0-36.0); PLATELET COUNT 292 TH/MM3 (150-450); RED BLOOD COUNT 3.32 MIL/MM3 (4.50-5.90); RED CELL DISTRIBUTION WIDTH 17.9 % (11.6-17.2); REVIEW FLAG FINAL; WHITE BLOOD COUNT 8.8 TH/MM3 (4.0-11.0)
[2016-12-04] MEDS: DOCUSATE SODIUM 100 MG/10 ML UDC PO SCH ×3 (08:57→21:00)
[2016-12-04] MEDS: PANTOPRAZOLE SOD 40 MG DELAYED RELEASE TAB PO SCH (08:57)
[2016-12-04 09:01] LABS: APTT (PATIENT) 37.4 SEC (24.3-30.1); INTERNATIONAL NORMALIZED RATIO 1.1 RATIO; PROTHROMBIN TIME - PATIENT 12.7 SEC (9.8-11.6)
[2016-12-04] MEDS: FUROSEMIDE 40 MG TAB PO SCH (09:01)
[2016-12-04] MEDS: SODIUM CHLORIDE 0.9% FLUSH 10 ML FLUSH IV FLUSH SCH ×2 (09:02→21:18)
[2016-12-04 09:17] LABS: BICARBONATE 26.9 MEQ/L (21.0-32.0); POTASSIUM 3.4 MEQ/L (3.5-5.1); VANCOMYCIN TROUGH 21.4 MCG/ML (5.0-10.0)
[2016-12-04] MEDS ORDERED: POTASSIUM CHLORIDE 10 MEQ CONTROLLED RELEASE TAB PO ONE (12:00)
[2016-12-04 12:17] LABS: INTERNATIONAL NORMALIZED RATIO 1.2 RATIO; PROTHROMBIN TIME - PATIENT 13.4 SEC (9.8-11.6)
--- NOTE | 2016-12-04 13:46 | HHI.PR ---
Subjective Remarks Awaiting paracentesis and drain placement. Patient is frustrated because he has to wait. He denies abdominal pain. No nausea or vomiting. He wants to go home today as soon as the procedure is done. Objective Vitals Vital Signs Date Time Temp Pulse Resp B/P Pulse Ox O2 Delivery O2 Flow Rate FiO2 12/04/16 11:00 96.6 77 20 121/77 100 12/04/16 08:10 95 21 12/04/16 07:50 98.8 87 20 120/84 100 12/04/16 05:00 100.2 87 16 111/84 99 12/04/16 01:00 99.8 85 16 117/80 98 12/03/16 20:00 99.8 91 16 114/77 97 12/03/16 16:01 98 21 12/03/16 15:50 100.3 87 20 117/78 99 I/O 12/03/16 12/03/16 12/03/16 12/04/16 12/04/16 12/04/16 07:00 15:00 23:00 07:00 15:00 23:00 Intake Total 1174 ml 700 ml Output Total 900 ml 1200 ml 400 ml 950 ml Balance 274 ml -500 ml -400 ml -950 ml Intake Oral 300 ml 700 ml IV Total 874 ml Output Urine Total 900 ml 1200 ml 400 ml 950 ml # Bowel Movements 0 1 Result Diagram: 12/04/16 0630 12/04/16 0630 Objective Remarks GENERAL: This is a well-nourished, well-developed patient, in no apparent distress. CARDIOVASCULAR: Normal rate and regular rhythm without murmurs, gallops, or rubs. RESPIRATORY: Good respiratory efforts. Breath sounds equal and clear to auscultation bilaterally. GASTROINTESTINAL: Abdomen is distended. Midline incision with Steri-Strips, minimal drainage. Mild tenderness to palpation MUSCULOSKELETAL: Extremities without cyanosis, there is trace edema NEURO: Alert & Oriented x4 to person, place, time, situation. Moves all ext x4 PSYCH: Appropriate mood and affect. A/P Assessment and Plan 56-year-old male with Metastatic cancer The patient has metastatic adenocarcinoma of the GE junction. He is status post radiation therapy. He was supposed be started on palliative chemotherapy on Thursday. He has been having significant drainage from the wounds of a recent laparotomy. CT of the abdomen showed: Large amount of ascites with soft tissue nodules within the fluid in and along the tip of the liver, likely carcinomatosis; Multiple intrahepatic lesions are new from the previous study also metastatic disease; Lytic lesions in T10 and S1 also new consistent with metastatic disease; Persistent soft tissue fullness in the GE junction and widespread wall thickening of the proximal stomach likely malignant. The patient currently feels better now that the fluid has drained on its own. However it is evident that the fluid will accumulate again. - General surgery following. I discussed with Dr. Salguero at length. He advised putting a drain to help with ascites and a large abdominal wound to drain with hopes that the wound would heal and will allow the patient to pursue his wish of starting chemotherapy. Discussed with oncology as well. Chemotherapy unlikely to help him. However the patient is adamant about pursuing aggressive treatment. - Wound and blood cultures pending. - IR consulted for paracentesis and to leave the drain in place. Per general surgery, Patient may drain ascites himself daily and follow-up with general surgery in a couple of weeks for removal. Pleural effusion/ PNA/ Fever Chest x-ray with moderate right pleural effusion. The patient has had some sputum production and a questionable fever. He was started on vancomycin and Zosyn in the emergency department. He did have a fever of 101.5. - Continue vancomycin and Zosyn. - Sputum culture, blood cultures, ascitic fluid culture. - Removed PICC line. Anemia Secondary to above. - Follow CBC and transfuse as needed. - Oncology following. Lower extremity edema Likely secondary to cancer and cirrhosis. - Continue by mouth Lasix. PPx: SCDs. . Discharge Planning Possible DC later today or tomorrow morning if stable after drain placement. Dhiraj Wong MD Dec 04, 2016 13:46
[2016-12-04] MEDS ORDERED: fentaNYL CITRATE 250 MCG/5 ML AMP ONE (15:20)
[2016-12-04] MEDS ORDERED: MIDAZOLAM HCL 5 MG/5 ML VIAL ONE (15:20)
--- NOTE | 2016-12-04 15:53 | HHI.FF ---
Face to Face Verification Diagnosis: (1) Metastasis from gastric cancer (2) Ascites Home Health Nursing Order: Medical education Wound care and dressing changes Nursing assessment with vital signs I have seen patient Tammy Auguste on 12/04/16. My clinical findings support the need for the requested home health care services because: Limited ability to care for self I certify that my clinical findings support that this patient is homebound because: Need for psychosocial assistance Dhiraj Wong MD Dec 04, 2016 15:52
[2016-12-04] MEDS ORDERED: HYDROmorphone HCL PF 2 MG/ML VIAL ONE (16:08)
[2016-12-04] MEDS ORDERED: IODIXANOL 320 MG/ML 50 ML VIAL (for RAD SPEC) I-PERITON ONE (17:12)
--- NOTE | 2016-12-04 17:13 | PD.RAD ---
Post Procedure Progress Note Pre Procedure Diagnosis: (1) Metastasis from gastric cancer (2) Gastric adenocarcinoma (3) Ascites Post Procedure Diagnosis: (1) Gastric adenocarcinoma (2) Metastasis from gastric cancer (3) Ascites Procedure Date: Dec 04, 2016 Supervising Radiologist: Ivan Kapadia Proceduralist/Assist: Ramona Grullon, RT(R)(), Lena Lenz RT(R)(CV) Anesthesia: Local, Analgesia, Conscious Sedation Plan of Activity Patient to Unit: ROPU Patient Condition: Good See PACS Report for procedural detail/treatment Drainage Procedure Procedure 1 Imaging Guidance: Fluoroscopy, Ultrasound Procedure Type: Peritoneal Catheter Tunneled (Aspira) Procedure: Placement Drainage: [place] drainage Fluid Description: Yellow (with red tinge) Findings: Minimal ascites as patient states most of the fluid draining from midline surgical wound. Small pocket localized in left abdomen with u/s guidance Ivan Kapadia MD Dec 04, 2016 17:13
[2016-12-04] MEDS ORDERED: POTA20TA5 PO (20:21)
[2016-12-04] MEDS ORDERED: LEVA750T PO (20:21)
[2016-12-04] MEDS ORDERED: FURO40TA PO (20:21)
--- NOTE | 2016-12-04 20:30 | PD.ONC.PN ---
Subjective Subjective Remarks What time is my surgery? I just want to go home. Objective Data Date Time Temp Pulse Resp B/P Pulse Ox O2 Delivery O2 Flow Rate FiO2 12/04/16 17:45 78 18 120/80 94 12/04/16 17:15 78 18 113/85 95 12/04/16 17:00 98.5 81 18 111/85 98 12/04/16 15:30 97.4 87 20 124/80 98 12/04/16 11:00 96.6 77 20 121/77 100 12/04/16 08:10 95 21 12/04/16 07:50 98.8 87 20 120/84 100 12/04/16 05:00 100.2 87 16 111/84 99 12/04/16 01:00 99.8 85 16 117/80 98 12/04/16 12/04/16 12/04/16 07:00 15:00 23:00 Intake Total 0 ml Output Total 950 ml 250 ml 1950 ml Balance -950 ml -250 ml -1950 ml Result Diagram: 12/04/1630 12/04/16 0630 Laboratory Results Laboratory Tests Test 12/04/16 12/04/16 06:30 11:41 White Blood Count 8.8 TH/MM3 Red Blood Count 3.32 MIL/MM3 Hemoglobin 8.8 GM/DL Hematocrit 26.9 % Mean Corpuscular Volume 81.0 FL Mean Corpuscular Hemoglobin 26.5 PG Mean Corpuscular Hemoglobin 32.7 % Concent Red Cell Distribution Width 17.9 % Platelet Count 292 TH/MM3 Mean Platelet Volume 8.6 FL Prothrombin Time 12.7 SEC 13.4 SEC Prothromb Time International 1.1 RATIO 1.2 RATIO Ratio Activated Partial 37.4 SEC 37.0 SEC Thromboplast Time Sodium Level 136 MEQ/L Potassium Level 3.4 MEQ/L Chloride Level 100 MEQ/L Carbon Dioxide Level 26.9 MEQ/L Anion Gap 9 MEQ/L Blood Urea Nitrogen 5 MG/DL Creatinine 1.02 MG/DL Estimat Glomerular Filtration 92 ML/MIN Rate Random Glucose 79 MG/DL Calcium Level 7.6 MG/DL Vancomycin Level Trough 21.4 MCG/ML Culture Results Microbiology Date/Time Procedure Status Source Growth 12/01/16 23:30 Gram Stain - Final Complete Sputum Expectorated Sputum 12/01/16 23:30 Sputum Culture - Final Complete Sputum Expectorated Sputum HEAVY GROWTH NORMAL RESPIRATORY VANDANA Administered Medications Medications (Trade) Dose Ordered Sig/Martha Route PRN Reason Start Time Stop Time Status Last Admin Dose Admin Sodium Chloride (NS Flush) 2 ml BID IV FLUSH 12/01/16 09:00 12/04/16 09:02 Acetaminophen (Tylenol) 650 mg Q4H PRN PO TEMP > 100.4 12/01/16 05:45 12/02/16 11:05 Alteplase, Recombinant (Cathflo Activase Inj) 2 mg Q2H PRN INTRACATH PICC line obstruction 12/01/16 11:15 12/02/16 08:08 Pantoprazole Sodium (Protonix) 40 mg DAILY PO 12/02/16 09:00 12/04/16 08:57 Sennosides (Senokot) 8.6 mg HS PO 12/01/16 21:00 12/02/16 20:34 Acetaminophen/ Hydrocodone Bitart ([place] 5-325 Mg) 1 tab Q4H PRN PO pain 3-10 12/01/16 12:30 12/03/16 19:42 Docusate Sodium (Colace Liq) 100 mg Q12HR PO 12/01/16 21:00 12/02/16 20:34 Furosemide (Lasix) 40 mg DAILY PO 12/01/16 12:30 12/04/16 09:01 Lorazepam 1 mg 1 mg Q8H PRN PO Anxiety 12/01/16 14:45 12/01/16 15:09 Piperacillin Sod/ Tazobactam Sod (Zosyn 4.5 Gm Premix) 100 ml @ 200 mls/hr Q6H IV 12/01/16 20:00 12/04/16 08:57 Objective Remarks GENERAL: Thinner than previous exam. well-developed patient. SKIN: Warm and dry. HEAD: Normocephalic. EYES: No scleral icterus. No injection or drainage. NECK: Supple, trachea midline. No JVD or lymphadenopathy. LYMPHATIC: No adenopathy. CARDIOVASCULAR: Regular rate and rhythm without murmurs. RESPIRATORY: Breath sounds equal bilaterally. No accessory muscle use. GASTROINTESTINAL: Abdomen distended, midline dressing in place.. EXTREMITIES: No cyanosis, or edema. MUSCULOSKELETAL: Adequate muscle tone. NEUROLOGICAL: No obvious focal deficit. Awake, alert, and oriented x3. PSYCHIATRIC: Appropriate mood and affect; insight and judgment normal. Assessment/Plan Problem List: (1) Gastric adenocarcinoma Status: Acute Plan: 12/04/16. Pt holds out to having palliative chemo. Admitted before schedule treatment for ascites leak, pending drain placement. Explained again that PEG tube cannot be placed. Pt reports being able to take po and move his bowels. He was taking pain meds orally at home prior to admission. Discussed plan to reassess to see if it is safe and he is fit to receive chemo next week in clinic. --prognosis remains very poor --patient insistent on chemotherapy --common triplet combination cannot be administered --we may be able to administer doublet therapy if his sepsis improves. it is not likely to provide much benefit and this has been discussed with the patient. Assessment 56y/o male with metastatic unresectable gastric cancer. --no way to put in a feeding tube in order to provide nutrition for him. --was on TPN until line had to be removed for infection ++malignant ascites and extensive involvement of his disease in the omentum and surrounding the stomach area. Plan 1. J-tube placement today 2. monitor CBC 3. once discharged and afebrile, follow up in clinic for chemotherapy Fay Talavera MD Dec 04, 2016 20:29
[2016-12-04] MEDS: SENNOSIDES 8.6 MG TAB PO SCH (21:00)
[2016-12-04] MEDS: VANCOMYCIN INJ 1,500 MG in SODIUM CHLORID 0.9% 500 ML INJ 500 ML IV SCH (22:39)
[2016-12-05 01:08] VITALS: BP 117/76; PULSE 82; RESP 16; TEMP 98.5; O2SAT 100
[2016-12-05] MEDS: ACETAMINOPHEN/HYDROcodone 325 MG/5 MG TAB PO PRN (01:54)
[2016-12-05] MEDS: PIPERACIL-TAZO 4.5 GM PREMIX 100 ML IV SCH ×2 (01:54→08:09)
[2016-12-05 04:14] VITALS: BP 111/80; PULSE 78; RESP 16; TEMP 98.2; O2SAT 98
[2016-12-05] MEDS: DOCUSATE SODIUM 100 MG/10 ML UDC PO SCH (07:29)
[2016-12-05 08:00] VITALS: BP 117/64; PULSE 94; RESP 20; TEMP 96.9; O2SAT 97
[2016-12-05] MEDS: PANTOPRAZOLE SOD 40 MG DELAYED RELEASE TAB PO SCH (08:08)
[2016-12-05] MEDS: FUROSEMIDE 40 MG TAB PO SCH (08:08)
[2016-12-05] MEDS: SODIUM CHLORIDE 0.9% FLUSH 10 ML FLUSH IV FLUSH SCH (08:09)
[2016-12-05] MEDS: VANCOMYCIN INJ 1,500 MG in SODIUM CHLORID 0.9% 500 ML INJ 500 ML IV SCH (08:14)
[2016-12-05] MEDS ORDERED: POTASSIUM CHLORIDE 20 MEQ CONTROLLED RELEASE TAB PO SCH (09:00)
--- NOTE | 2016-12-05 09:40 | RADRPT ---
EXAM DATE/TIME: 12/04/2016 15:39 [place] COMPARISON: No previous studies available for comparison. INDICATIONS : Patient with a history metastatic gastric cancer. MEDICAL HISTORY : Stage IV advanced gastric cancer HTN Malignant ascites Chronic back pain SURGICAL HISTORY : Laparotomy EGD and biopsy Colonoscopy ENCOUNTER: Initial ACUITY: 2 weeks PAIN SCORE: 6/10 LOCATION: Abdomen FLUORO TIME: 1.8 minutes IMAGE SERIES: 1 SEDATION TIME: 35 minutes CONTRAST: 10 cc Omnipaque (iohexol) 350 SEDATION: 1.) 4 mg midazolam (Versed) IV 2.) 200 mcg fentanyl (Sublimaze) IV 3.) 2mg hydromorphone (Dilaudid) IV Prophylactic antibiotics were administered with appropriate pre-procedure timing. DEVICE: 1. Aspira drainage catheter PROCEDURE : 1. ultrasound and fluoroscopic-guided placement of an Aspira peritoneal catheter. 2. Conscious sedation with continuous EKG and Oximetry monitoring. The risks, benefits and alternatives to the procedure were explained and verbal and written consent w as obtained. The site was prepped in sterile fashion. Full sterile technique was used, including ca p, mask, sterile gloves and gown and a large sterile sheet. Hand hygiene and 2% chlorhexidine and Be tadine was utilized per protocol for cutaneous antisepsis with appropriate dry time for site. The sk in and subcutaneous tissues were infiltrated with local anesthetic solution. Ultrasound evaluation of the abdomen showed minimal intraperitoneal ascites. Patient reports a tremen dous amount of drainage from the midline incision which appears to be decompressing the peritoneal ca vity. I did find a very small pocket of fluid in the left abdomen. This area was anesthetized and acc essed with a 21 gauge micropuncture needle using direct ultrasound guidance. A 0.018 wire was advance d through the needle over which the 3-4 dilator was placed. Through the outer 4 [place] dilator, a Gli dewire was advanced into the peritoneal cavity. With the use of a hockey-stick catheter, this was sandy ered into the pelvis. Wire was exchanged for a stiff angled Glidewire. An appropriate site on the left anterior lateral abdominal wall was selected to develop a subcutaneou s tunnel. The area was anesthetized with approximately 5 cc 1% Xylocaine. Dermatotomy was made an 11 blade scalpel and the subcutaneous tissues were bluntly dissected. The tunnel was formed with the [facility] tunneler and the Aspira Mary pull-through the tract. At this point, the peritoneal access was s erially dilated to accommodate the Air-Guard peel-away sheath. The tip of the Aspira catheter was the n advanced over the stiff Glidewire and through the peel-away sheath into the peritoneal cavity. Posi tion was confirmed the positive contrast. The peritoneal access dermatotomy was closed with a single 3-0 Vicryl suture and Dermabond adhesive. Patient was immediately placed to gravity drainage. Conscious sedation was performed with the prescribed dosages and duration as above in the presence of an independent trained radiology nurse to assist in the monitoring of the patient. EKG and oximetry remained stable throughout the procedure. CONCLUSION: Successful ultrasound and fluoroscopic-guided Aspira drainage catheter placement in the left abd omen as above. Ivan Kapadia MD on December 05, 2016 at 9:32 Board Certified Radiologist. This report was verified electronically.
[2016-12-05 12:00] VITALS: BP 114/84; PULSE 82; RESP 18; TEMP 97.7; O2SAT 98
[2016-12-05 12:01] VITALS: O2SAT 99
--- NOTE | 2016-12-05 13:12 | PD.ONC.PN ---
Subjective Subjective Remarks Afebrile overnight. Patient has aspira peritoneal drain placed yesterday and is eager to go home today. he states he knows how to use the drain. Objective Data Date Time Temp Pulse Resp B/P Pulse Ox O2 Delivery O2 Flow Rate FiO2 12/05/16 08:00 96.9 94 20 117/64 97 12/05/16 04:14 98.2 78 16 111/80 98 12/05/16 03:25 19 12/05/16 01:08 98.5 82 16 117/76 100 12/04/16 22:18 98.3 82 16 118/83 98 12/04/16 17:45 78 18 120/80 94 12/04/16 17:15 78 18 113/85 95 12/04/16 17:00 98.5 81 18 111/85 98 12/04/16 15:30 97.4 87 20 124/80 98 12/05/16 12/05/16 12/05/16 07:00 15:00 23:00 Intake Total 926 ml 120 ml Output Total 940 ml 330 ml Balance -14 ml -210 ml Result Diagram: 12/04/16 0630 12/04/16 0630 Administered Medications Medications (Trade) Dose Ordered Sig/Martha Route PRN Reason Start Time Stop Time Status Last Admin Dose Admin Sodium Chloride (NS Flush) 2 ml BID IV FLUSH 12/01/16 09:00 12/05/16 08:09 Acetaminophen (Tylenol) 650 mg Q4H PRN PO TEMP > 100.4 12/01/16 05:45 12/02/16 11:05 Alteplase, Recombinant (Cathflo Activase Inj) 2 mg Q2H PRN INTRACATH PICC line obstruction 12/01/16 11:15 12/02/16 08:08 Pantoprazole Sodium (Protonix) 40 mg DAILY PO 12/02/16 09:00 12/05/16 08:08 Sennosides (Senokot) 8.6 mg HS PO 12/01/16 21:00 12/02/16 20:34 Acetaminophen/ Hydrocodone Bitart ([place] 5-325 Mg) 1 tab Q4H PRN PO pain 3-10 12/01/16 12:30 12/05/16 01:54 Docusate Sodium (Colace Liq) 100 mg Q12HR PO 12/01/16 21:00 12/02/16 20:34 Furosemide (Lasix) 40 mg DAILY PO 12/01/16 12:30 12/05/16 08:08 Lorazepam 1 mg 1 mg Q8H PRN PO Anxiety 12/01/16 14:45 12/01/16 15:09 Piperacillin Sod/ Tazobactam Sod 100 ml @ 200 mls/hr Q6H IV 12/01/16 20:00 12/05/16 08:09 Vancomycin HCl/ Sodium Chloride (Vancomycin Inj/ NS 500 ml Inj) 515 ml @ 250 mls/hr Q12H IV 12/04/16 21:00 12/05/16 08:14 Potassium Chloride (KCl) 20 meq DAILY PO 12/05/16 09:00 12/05/16 08:09 Objective Remarks GENERAL: Middle aged male, supine in bed in nad. SKIN: Warm and dry. HEAD: Normocephalic. EYES: No injection or drainage. NECK: Supple, trachea midline. CARDIOVASCULAR: Regular rate and rhythm RESPIRATORY: Breath sounds equal bilaterally. No accessory muscle use. GASTROINTESTINAL: bandages clean dry and intact. aspira peritoneal drain in place, draining yellow fluid. EXTREMITIES: No cyanosis NEUROLOGICAL: awake and alert, normal speech. moving all extremities. Assessment/Plan Assessment 56y/o male with metastatic unresectable gastric cancer. --no way to put in a feeding tube in order to provide nutrition for him. --was on TPN until line had to be removed for infection ++malignant ascites and extensive involvement of his disease in the omentum and surrounding the stomach area. Plan 1. clear for discharge 2. patient remains insistent upon receiving chemotherapy. advised to call clinic to make appointment for next week. Attending Statement Discussed as above, follow up in [facility] on [facility]U for first cycle palliative chemo. Kathy Nesbitt Dec 05, 2016 13:12 Fay Talavera MD Dec 05, 2016 18:23
--- NOTE | 2016-12-05 15:17 | HHI.PR ---
Subjective Remarks doing great no complains ready to go home to my family taking po well Objective Vitals Vital Signs Date Time Temp Pulse Resp B/P Pulse Ox O2 Delivery O2 Flow Rate FiO2 12/05/16 12:01 99 12/05/16 12:00 97.7 82 18 114/84 98 12/05/16 08:00 96.9 94 20 117/64 97 12/05/16 04:14 98.2 78 16 111/80 98 12/05/16 03:25 19 12/05/16 01:08 98.5 82 16 117/76 100 12/04/16 22:18 98.3 82 16 118/83 98 12/04/16 17:45 78 18 120/80 94 12/04/16 17:15 78 18 113/85 95 12/04/16 17:00 98.5 81 18 111/85 98 12/04/16 15:30 97.4 87 20 124/80 98 I/O 12/04/16 12/04/16 12/04/16 12/05/16 12/05/16 12/05/16 07:00 15:00 23:00 07:00 15:00 23:00 Intake Total 0 ml 121 ml 926 ml 120 ml Output Total 950 ml 250 ml 2400 ml 940 ml 330 ml Balance -950 ml -250 ml -2279 ml -14 ml -210 ml Intake Oral 0 ml 240 ml 120 ml IV Total 121 ml 686 ml Output Urine Total 950 ml 250 ml 520 ml Drainage Total 2400 ml 420 ml 330 ml # Voids 2 # Bowel Movements 0 0 Result Diagram: 12/04/16 0630 12/04/16 0630 Imaging Last Impressions Catheter Placement X-Ray 12/04/16 0000 Signed Impressions: Service Date/Time: November 15:39 - CONCLUSION: Successful ultrasound and fluoroscopic-guided Aspira drainage catheter placement in the left abdomen as above. Ivan Kapadia MD Abdomen/Pelvis CT 12/01/16 0352 Signed Impressions: Service Date/Time: Thursday, December 01, 2016 04:06 - CONCLUSION: Large amount of ascites with soft tissue nodules within the fluid in and along the tip of the liver likely carcinomatosis. Multiple intrahepatic lesions are new from the previous study also metastatic disease. Lytic lesions in T10 and S1 also new consistent metastatic disease. Persistent soft tissue fullness in the GE junction and widespread wall thickening of the proximal stomach likely malignant. Kishan Young MD Chest X-Ray 12/01/16 0227 Signed Impressions: Service Date/Time: Thursday, December 01, 2016 03:04 - CONCLUSION: Moderate size right pleural effusion. Left-sided PICC line without evidence of pneumothorax Kishan Young MD Objective Remarks awake and laert, NAD anicteric lungs clear regular rhythm abdomen soft drain in place, good bowel sounds, nontender extremites no edema Procedures paracentesis- with drain placement A/P Assessment and Plan 56-year-old male with Metastatic cancer The patient has metastatic adenocarcinoma of the GE junction. He is status post radiation therapy. He was supposed be started on palliative chemotherapy on Thursday. He has been having significant drainage from the wounds of a recent laparotomy. CT of the abdomen showed: Large amount of ascites with soft tissue nodules within the fluid in and along the tip of the liver, likely carcinomatosis; Multiple intrahepatic lesions are new from the previous study also metastatic disease; Lytic lesions in T10 and S1 also new consistent with metastatic disease; Persistent soft tissue fullness in the GE junction and widespread wall thickening of the proximal stomach likely malignant. The patient currently feels better now that the fluid has drained on its own. However it is evident that the fluid will accumulate again. - General surgery following. I discussed with Dr. Salguero at length. He advised putting a drain to help with ascites and a large abdominal wound to drain with hopes that the wound would heal and will allow the patient to pursue his wish of starting chemotherapy. Discussed with oncology as well. Chemotherapy unlikely to help him. However the patient is adamant about pursuing aggressive treatment. - Wound and blood cultures - negative sof far - IR consulted for paracentesis and to leave the drain in place. Per general surgery, Patient may drain ascites himself daily and follow-up with general surgery in a couple of weeks for removal. Pleural effusion/ PNA/ Fever Chest x-ray with moderate right pleural effusion. The patient has had some sputum production and a questionable fever. He was started on vancomycin and Zosyn in the emergency department. He did have a fever of 101.5. - Continue vancomycin and Zosyn. - Sputum culture, blood cultures, ascitic fluid culture. - Removed PICC line. Anemia Secondary to above. - Follow CBC and transfuse as needed. - Oncology following. Lower extremity edema- improved Likely secondary to cancer and cirrhosis. - Continue by mouth Garrett Benitez DC, MD Dec 05, 2016 15:17
--- NOTE | 2016-12-05 15:35 | HHI.DS ---
Discharge Summary Admission Date Dec 01, 2016 at 05:25 Discharge Date: Dec 05, 2016 Admitting Diagnosis Ascites, malfunctioning TPN infusion (1) Ascites ICD Code: R18.8 Diagnosis: Principal Procedures paracentesis- with drain placement Brief History - From Admission The patient is a 56-year-old male with a recently diagnosed GE junctional adenocarcinoma who was discharged from the hospital less than a week ago who is presenting to the hospital with significant swelling of his abdomen associated with leaking fluid. The patient was discharged from the hospital after having a workup which revealed a GE junctional tumor which was unamenable to surgery. He did have a laparotomy performed at that time. He also completed radiation therapy and was scheduled to start chemotherapy this coming Thursday. The patient says at home he has been having abdominal distention which he says is the same from when he was discharged from the hospital. He does note that he has been leaking significant amounts of fluid from his stomach wounds. He came to the hospital for further evaluation. His wound continued to drain copious amounts of fluid and he says currently he feels relieved and much better. He says he is anxious about starting chemotherapy on Thursday because he feels that will be beneficial for his tumor. He says he has been coughing a little bit of mucus over the past couple of days. He denies any shortness of breath. He says that he thinks he had a fever last night. He has been ambulating well. CBC/BMP: 12/04/16 0630 12/04/16 0630 Significant Findings Laboratory Tests Test 12/03/16 12/04/16 12/04/16 06:21 06:30 11:41 Red Blood Count 3.22 MIL/MM3 3.32 MIL/MM3 (4.50-5.90) (4.50-5.90) Hemoglobin 8.4 GM/DL 8.8 GM/DL (13.0-17.0) (13.0-17.0) Hematocrit 26.2 % 26.9 % (39.0-51.0) (39.0-51.0) Mean Corpuscular Hemoglobin 26.1 PG 26.5 PG (27.0-34.0) (27.0-34.0) Red Cell Distribution Width 18.1 % 17.9 % (11.6-17.2) (11.6-17.2) Sodium Level 134 MEQ/L (136-145) Blood Urea Nitrogen 6 MG/DL (7-18) 5 MG/DL (7-18) Calcium Level 7.3 MG/DL 7.6 MG/DL (8.5-10.1) (8.5-10.1) Total Protein 4.9 GM/DL (6.4-8.2) Prothrombin Time 12.7 SEC 13.4 SEC (9.8-11.6) (9.8-11.6) Activated Partial 37.4 SEC 37.0 SEC Thromboplast Time (24.3-30.1) (24.3-30.1) Potassium Level 3.4 MEQ/L (3.5-5.1) Vancomycin Level Trough 21.4 MCG/ML (5.0-10.0) Imaging Last Impressions Catheter Placement X-Ray 12/04/16 0000 Signed Impressions: Service Date/Time: November 15:39 - CONCLUSION: Successful ultrasound and fluoroscopic-guided Aspira drainage catheter placement in the left abdomen as above. Ivan Kapadia MD Abdomen/Pelvis CT 12/01/16 0352 Signed Impressions: Service Date/Time: Thursday, December 01, 2016 04:06 - CONCLUSION: Large amount of ascites with soft tissue nodules within the fluid in and along the tip of the liver likely carcinomatosis. Multiple intrahepatic lesions are new from the previous study also metastatic disease. Lytic lesions in T10 and S1 also new consistent metastatic disease. Persistent soft tissue fullness in the GE junction and widespread wall thickening of the proximal stomach likely malignant. Kishan Young MD Chest X-Ray 12/01/16 0227 Signed Impressions: Service Date/Time: Thursday, December 01, 2016 03:04 - CONCLUSION: Moderate size right pleural effusion. Left-sided PICC line without evidence of pneumothorax Kishan Young MD PE at Discharge awake and laert, NAD anicteric lungs clear regular rhythm abdomen soft drain in place, good bowel sounds, nontender extremites no edema Pt update on day of discharge awake and alert, afebrile no pain abdomen soft, good bowel sounds Hospital Course 56-year-old male with Metastatic cancer The patient has metastatic adenocarcinoma of the GE junction. He is status post radiation therapy. He was supposed be started on palliative chemotherapy on Thursday. He has been having significant drainage from the wounds of a recent laparotomy. CT of the abdomen showed: Large amount of ascites with soft tissue nodules within the fluid in and along the tip of the liver, likely carcinomatosis; Multiple intrahepatic lesions are new from the previous study also metastatic disease; Lytic lesions in T10 and S1 also new consistent with metastatic disease; Persistent soft tissue fullness in the GE junction and widespread wall thickening of the proximal stomach likely malignant. The patient currently feels better now that the fluid has drained on its own. However it is evident that the fluid will accumulate again. - General surgery following. I discussed with Dr. Salguero at length. He advised putting a drain to help with ascites and a large abdominal wound to drain with hopes that the wound would heal and will allow the patient to pursue his wish of starting chemotherapy. Discussed with oncology as well. Chemotherapy unlikely to help him. However the patient is adamant about pursuing aggressive treatment. - Wound and blood cultures - negative sof far - IR consulted for paracentesis and to leave the drain in place. Per general surgery, Patient may drain ascites himself daily and follow-up with general surgery in a couple of weeks for removal. Pleural effusion/ PNA/ Fever Chest x-ray with moderate right pleural effusion. The patient has had some sputum production and a questionable fever. He was started on vancomycin and Zosyn in the emergency department. He did have a fever of 101.5. - Continue vancomycin and Zosyn. - Sputum culture, blood cultures, ascitic fluid culture. - Removed PICC line. Anemia Secondary to above. - Follow CBC and transfuse as needed. - Oncology following. Lower extremity edema- improved Likely secondary to cancer and cirrhosis. - Continue by mouth Lasix. DC tdoay Pt Condition on Discharge: Stable Discharge Disposition: Discharge Home Discharge Time: <= 30 minutes Discharge Instructions DIET: Follow Instructions for: As Tolerated, No Restrictions Speech Therapy-Diet Recommends: Regular Activities you can perform: Weight Bearing as Isabel Follow up Referrals: Oncology - 3-5 Days with [facility] New Orders: BASIC METABOLIC PROF - 12/09/16 New Medications: Levofloxacin (Levaquin) 750 Mg Tab 750 MG PO DAILY Infection #7 Ref 0 TAB Furosemide (Furosemide) 40 Mg Tab 40 MG PO DAILY #30 TAB Potassium Chloride Microencaps (Potassium Chloride Microencaps) 20 Meq Tab 20 MEQ PO DAILY #30 TAB Continued Medications: Docusate Sodium (Dok) 100 Mg Cap 100 MG PO BID anemia Days 30 CAP Hydrocodone-Acetaminophen (Lortab) 5-325 Mg Tab 1 TAB PO Q6H PRN PAIN Ref 0 TAB Lactulose Liq (Lactulose Liq) 10 Gm/15 Ml Soln 30 ML PO DAILY PRN constipation Days 30 ML Morphine Liq (Morphine Liq) 10 Mg/5 Ml Liq 10 MG PO Q4H Pain Management #180 Ref 0 ML Pantoprazole (Protonix) 40 Mg Tab 40 MG PO DAILY Reflux #30 Ref 0 TAB Sennosides (Sennosides) 8.6 Mg Tab 8.6 MG PO HS Constipation Ref 0 TAB Garrett Anaya MD Dec 05, 2016 15:35
[2016-12-06] MEDS ORDERED: PHARMACY ORDERED LAB ONE (08:45)
== END 2016-12-05 15:58 | disposition home health service (06) | DRG 375 ==
LOC: NEPE 02:19 → NEDA 05:25 → NEDH 09:32 → HOCA 13:05
PROVIDERS: ADMIT Internal Medicine; ATTEND Internal Medicine
PROC: 0W9G30Z Drainage of Peritoneal Cavity with Drainage Device, Percutaneous Approach (ICD-10-PCS; principal; 2016-12-05)
DX: C16.0 Malignant neoplasm of cardia (principal); R18.0 Malignant ascites; J90 Pleural effusion, not elsewhere classified; C79.89 Secondary malignant neoplasm of other specified sites; C78.7 Secondary malignant neoplasm of liver and intrahepatic bile duct; C78.89 Secondary malignant neoplasm of other digestive organs; E46 Unspecified protein-calorie malnutrition; K74.60 Unspecified cirrhosis of liver; D64.9 Anemia, unspecified; Z92.3 Personal history of irradiation; M54.9 Dorsalgia, unspecified; G89.29 Other chronic pain; I10 Essential (primary) hypertension; R60.0 Localized edema; F17.210 Nicotine dependence, cigarettes, uncomplicated
CPT/HCPCS: 49418; 71010; 74177; 80048; 80053; 80202; 81001; 82042; 82945; 83605; 83690; 83735; 84155; 85025; 85027; 85610; 85730; 86140; 87040; 87070; 87205; 89051; 96374; 99152; 99153; C1729; C1769; C1887; J0610; J1170; J1756; J2250; J2543; J2997; J3010; J3370; J7040; J7050; Q9967

== ENCOUNTER 2016-12-17 06:06 | Day surgery (SDC) | payer MEDICAID ==
[~2016-12-17] VITALS: Ht 179.1 cm; Wt 70.0 kg
[~2016-12-17 06:06] MED LIST changes: +FURO40TA PO; +LEVA750T PO; +POTA20TA5 PO
[2016-12-17 06:38] VITALS: BP 114/95; PULSE 94; RESP 20; TEMP 98.2; O2SAT 100
[2016-12-17] MEDS ORDERED: ceFAZolin 2 GM PREMIX 50 ML IV SCH (06:45)
[2016-12-17] MEDS ORDERED: VANCOMYCIN HCL 1000 MG ON-CALL/NS 250 ML IV SCH ×2 (06:45)
[2016-12-17] MEDS ORDERED: PROC10TA PO (06:47)
[2016-12-17] MEDS ORDERED: LEVA750T PO (06:47)
[2016-12-17] MEDS ORDERED: ONDA1TAB17 PO (06:47)
[2016-12-17] MEDS ORDERED: POVIDONE IODINE 5% (ANTISEPSIS KIT) 4 APPLICATIONS EACH NARE SCH (07:00)
[2016-12-17] MEDS ORDERED: CHLORHEXIDINE GLUCONATE 2 % 1 PACK (2 CLOTHS) TOPICAL SCH (07:00)
[2016-12-17] MEDS ORDERED: fentaNYL CITRATE 250 MCG/5 ML AMP ONE (08:43)
[2016-12-17] MEDS ORDERED: MIDAZOLAM HCL 5 MG/5 ML VIAL ONE (08:43)
[2016-12-17] MEDS ORDERED: LIDOCAINE 1%/EPINEPHrine 1:100,000 SOLN 20 ML VIAL ONE (09:00)
--- NOTE | 2016-12-17 09:43 | PD.RAD ---
Post Procedure Progress Note Pre Procedure Diagnosis: (1) Gastric mass (2) Metastasis from gastric cancer Post Procedure Diagnosis: (1) Gastric adenocarcinoma (2) Metastasis from gastric cancer Procedure Date: December 17, 2016 Supervising Radiologist: Robson Montana Estimated blood loss: none Plan of Activity Patient to Unit: [facility] Patient Condition: Good Additional Comments: Port placed via the right subclavian vein due to lack of subq tissue above the clavical port in excellent portion and functions normally. Port is OK for use See PACS Report for procedural detail/treatment Robson Montana MD December 17, 2016 09:42
[2016-12-17] MEDS ORDERED: SODIUM CHLORIDE 0.9% FLUSH 10 ML FLUSH IVF PRN (09:45)
[2016-12-17 09:48] VITALS: BP 114/80; PULSE 89; RESP 18; TEMP 98; O2SAT 92
[2016-12-17 10:03] VITALS: BP 114/80; PULSE 91; RESP 18; O2SAT 92
[2016-12-17 10:30] VITALS: BP 115/85; PULSE 88; RESP 18; O2SAT 100
[2016-12-17 11:00] VITALS: BP 132/95; PULSE 88; RESP 18; O2SAT 100
[2016-12-17 12:13] VITALS: BP 132/95; PULSE 88; RESP 18; O2SAT 100
--- NOTE | 2016-12-17 13:45 | RADRPT ---
EXAM DATE/TIME: 12/17/2016 09:44 [facility] COMPARISON: PERITONEAL CATHETER PLACEMENT, TUNNELED, December 04, 2016, 15:39. INDICATIONS : Patient is in need of placement of an Infusaport due to treatment for gastric and esophageal cancer. MEDICAL HISTORY : History of HTN, chronic anemia, hypoalbuminemia, aspiration pneumonia, gi bleed. SURGICAL HISTORY : History of peritonal catheter placement, laparotomy with attempted tumor resection, EGD and biopsy, c olonoscopy. ENCOUNTER: Initial ACUITY: 1 month PAIN SCORE: 0/10 FLUORO TIME: 0.9 minutes IMAGE SERIES: 1 SEDATION TIME: 45 minutes ACCESS: Right subclavian vein SEDATION: 1.) 4 midazolam (Versed) IV 2.) 200 fentanyl (Sublimaze) IV Prophylactic antibiotics were administered with appropriate pre-procedure timing. Vancomycin within 2 hours of procedure, Ancef (or alternative) within 1 hour of procedure. DEVICE: 1. 8 Haitian Bard Power Port PROCEDURE : 1. Continuous pulse oximetry and EKG monitoring. 2. Intravenous conscious sedation. 3. Ultrasound guidance for venous access. 4. Fluoroscopic guided implantable central venous port placement. The patient was placed supine. The neck was prepped in sterile fashion. Full sterile technique was u sed, including cap, mask, sterile gloves and gown, and a large sterile sheet. Hand hygiene and 2% ch lorhexidine Betadine was utilized per protocol for cutaneous antisepsis with appropriate dry time for site. The skin and subcutaneous tissues were infiltrated with local anesthetic solution. Under direct ultrasound guidance, central venous access was accomplished in the targeted vessel. The ultrasound images depicting access guidance were stored and saved to PACS for permanent record. A s ubcutaneous pocket was created using blunt dissection. The port was introduced to the pocket. The c atheter tubing was fed through a subcutaneous tunnel to the venotomy site. The catheter tubing was c ut to a suitable length and then was introduced through a valved Peel-Away sheath and positioned with catheter tubing tip at the cavo-atrial junction level. The pocket incision was closed with subcutic ular Vicryl suture. Steri-Strips were applied. The port was flushed and locked with heparin solutio n per protocol. Sterile dressing was applied to the site. The patient tolerated the procedure well. Conscious sedation was performed with the prescribed dosages and duration as above in the presence of an independent trained radiology nurse to assist in the monitoring of the patient. EKG and oximetry remained stable throughout the procedure. The patient tolerated the procedure well and there were no complications. The patient was sent to post anesthesia recovery in stable condition. CONCLUSION: Uncomplicated ultrasound and fluoroscopic guided implanted central venous port catheter placement as described in detail above. An 8 Haitian Power port was placed. Robson Montana MD on December 17, 2016 at 13:42 Board Certified Radiologist. This report was verified electronically.
== END 2016-12-17 13:00 | disposition home or self-care (01) ==
LOC: HROP 06:06 → HRIP 06:07 → HROP 13:00
PROVIDERS: ATTEND Internal Medicine Hematology & Oncology
DX: C16.0 Malignant neoplasm of cardia (principal); C78.7 Secondary malignant neoplasm of liver and intrahepatic bile duct; I10 Essential (primary) hypertension; D64.9 Anemia, unspecified; E88.09 Other disorders of plasma-protein metabolism, not elsewhere classified
CPT/HCPCS: 36561; 76937; 77001; 99152; 99153; C1788; J0690; J1642; J2250; J3010; J3370; J7050

== ENCOUNTER 2016-12-22 06:38 | Day surgery (SDC) | payer MEDICAID ==
[~2016-12-22] VITALS: Ht 180.3 cm; Wt 75.0 kg
[~2016-12-22 06:38] MED LIST changes: +ONDA1TAB17 PO; +PROC10TA PO
[2016-12-22 07:10] VITALS: BP 128/96; PULSE 86; RESP 20; TEMP 97.6; O2SAT 97
[2016-12-22] MEDS ORDERED: SODIUM CHLORIDE 0.9% 1000 ML IV SCH (07:15)
[2016-12-22 08:33] LABS: APTT (PATIENT) 33.2 SEC (24.3-30.1); INTERNATIONAL NORMALIZED RATIO 1.1 RATIO; PROTHROMBIN TIME - PATIENT 12.2 SEC (9.8-11.6)
[2016-12-22] MEDS ORDERED: IMPLANTED VASCULAR ACCESS PORT - SODIUM CHLORIDE FLUSH PRN IV FLUSH (08:45)
[2016-12-22] MEDS ORDERED: IMPLANTED VASCULAR ACCESS PORT - SODIUM CHLORIDE FLUSH IV FLUSH SCH (09:00)
== END 2016-12-22 10:38 | disposition home or self-care (01) ==
LOC: HRIP 06:38 → HROP 06:38
PROVIDERS: ATTEND Internal Medicine Hematology & Oncology
DX: Z49.02 Encounter for fitting and adjustment of peritoneal dialysis catheter (principal); Z53.9 Procedure and treatment not carried out, unspecified reason
CPT/HCPCS: 85610; 85730; 99211; G0463

== ENCOUNTER 2017-01-09 07:45 | Day surgery (SDC) | payer MEDICAID ==
[~2017-01-09] VITALS: Ht 179.1 cm; Wt 68.2 kg
[~2017-01-09 07:45] MED LIST changes: -LEVA750T PO
[2017-01-09 08:09] VITALS: BP 100/71; PULSE 68; RESP 20; TEMP 97.5; O2SAT 96
[2017-01-09] MEDS ORDERED: SODIUM CHLORIDE 0.9% 1000 ML IV SCH (09:00)
[2017-01-09 09:13] LABS: INTERNATIONAL NORMALIZED RATIO 1.1 RATIO; PROTHROMBIN TIME - PATIENT 12.5 SEC (9.8-11.6)
[2017-01-09] MEDS ORDERED: fentaNYL CITRATE 250 MCG/5 ML AMP ONE (11:01)
[2017-01-09] MEDS ORDERED: IOHEXOL 350 MG/ML 50 ML BTL (for RAD DIAG) ONE (11:46)
[2017-01-09 11:48] VITALS: BP 125/97; PULSE 68; RESP 18; O2SAT 94
--- NOTE | 2017-01-09 14:12 | RADRPT ---
EXAM DATE/TIME: 01/09/2017 11:07 [facility] COMPARISON: No previous studies available for comparison. INDICATIONS: Patient with history of gastroesophageal adenocarcinoma in need of evaluation of peritoneal drainage catheter. MEDICAL HISTORY : GI Bleed, Malignant ascites, Stage IV gastric cancer with mets, HTN, Anemia, Osteoarthritis, GERD, Ch ronic back pain SURGIAL HISTORY : Peritoneal biopsy, EGD, Colonoscopy, Tunnelled peritoneal drainage catheter placement ENCOUNTER: Subsequent ACUITY: 1 month PAIN SCORE: 10/10 LOCATION: Back FLUORO TIME: 0.9minutes IMAGE SERIES: 1 SEDATION TIME: 20minutes CONTRAST: 5ccOmnipaque (iohexol) 350 MEDICATION(S): 1.) 175 mcg fentanyl (Sublimaze) IV PROCEDURE : 1. Aspira catheter evaluation The risks, benefits and alternatives to the procedure were explained and verbal and written consent w as obtained. The site was prepped in sterile fashion. Full sterile technique was used, including ca p, mask, sterile gloves and gown and a large sterile sheet. Hand hygiene and 2% chlorhexidine and/or betadine/alcohol prep was utilized per protocol for cutaneous antisepsis. The skin and subcutaneous tissues were infiltrated with local anesthetic solution. The Aspira catheter was evaluated. Some fibrinous debris was removed from the catheter lumen. The cat heter was flushed with saline and contrast injection was performed revealing patency of the catheter. Following this there was free return of ascites from the catheter. CONCLUSION: Uncomplicated Aspira catheter evaluation. The catheter was blocked with some fibrinous debris which w as cleared. The catheter appears to be functioning normally now. Sacha Roy MD on January 09, 2017 at 13:50 Board Certified Radiologist. This report was verified electronically.
== END 2017-01-09 13:00 | disposition home or self-care (01) ==
LOC: HROP 07:45 → HRIP 07:49 → HROP 13:00
PROVIDERS: ATTEND Surgery
DX: C15.9 Malignant neoplasm of esophagus, unspecified (principal); K92.2 Gastrointestinal hemorrhage, unspecified; R18.0 Malignant ascites; Z85.028 Personal history of other malignant neoplasm of stomach; G89.29 Other chronic pain; K21.9 Gastro-esophageal reflux disease without esophagitis; I10 Essential (primary) hypertension; D64.9 Anemia, unspecified
CPT/HCPCS: 49400; 85610; 85730; J1642; J3010; J7030; Q9967

== ENCOUNTER 2017-01-26 10:27 | Emergency (ER) | payer MEDICAID ==
[~2017-01-26] VITALS: Ht 177.8 cm; Wt 62.3 kg
[2017-01-26 10:33] VITALS: BP 111/56; PULSE 97; RESP 18; TEMP 97.7; O2SAT 96
--- NOTE | 2017-01-26 10:51 | PD ---
HPI Chief Complaint: Abdominal Pain Time Seen by Provider: 10:51 Travel History International Travel<30 days: No Contact w/Intl Traveler<30days: No Traveled to known affect area: No History of Present Illness HPI 56-year-old male came to the emergency room with history of abdominal pain. Patient has history of stomach cancer that was diagnosed via months ago. As per the patient surgery was attempted to do both the tumor but was unsuccessful. Patient was at his oncologist Dr. Talavera office when he mentioned about the pain. They recommended him to come to the emergency room. Vital signs otherwise stable. Patient appears to be in moderate distress. He points to the right side of his abdomen and asked about the pain. No history of vomiting or diarrhea. Patient says he gets chemotherapy. The pain has been going on for past 2 weeks. No radiation of the pain. PFSH Past Medical History Narrative Medical List of her past medical, surgical, social and family history is reviewed from the nursing note. Hx Anticoagulant Therapy: No Anemia: Yes Arthritis: Yes (HIP ISSUES) Autoimmune Disease: No Heart Rhythm Problems: No Cancer: Yes (gastric) Cardiovascular Problems: Yes (HTN (resolved with weight loss)) High Cholesterol: No Chemotherapy: Yes (last 01/21) Chest Pain: No Congestive Heart Failure: No Diabetes: No Diminished Hearing: No Endocrine: No Gastrointestinal Disorders: Yes GERD: Yes Genitourinary: No Hiatal Hernia: No Hypertension: Yes Immune Disorder: No Musculoskeletal: No Neurologic: No Psychiatric: No Reproductive: No Respiratory: No Immunizations Current: No Radiation Therapy: No Past Surgical History Abdominal Surgery: Yes (11/2016 attempted tumor resection.) AICD: No Cardiac Surgery: No Ear Surgery: No Endocrine Surgery: No Eye Surgery: No Genitourinary Surgery: No Gynecologic Surgery: No Joint Replacement: No Oral Surgery: No Pacemaker: No Thoracic Surgery: No Other Surgery: No Social History Alcohol Use: No Tobacco Use: Yes Substance Use: No Allergies-Medications (Allergen,Severity, Reaction): Coded Allergies: No Known Allergies (Verified , 01/09/17) Comments No known drug allergies. Reported Meds & Prescriptions Reported Meds & Active Scripts Active Furosemide 40 Mg Tab 40 Mg PO DAILY Protonix (Pantoprazole Sodium) 40 Mg Tab 40 Mg PO DAILY Dok (Docusate Sodium) 100 Mg Cap 100 Mg PO BID 30 Days Reported Prochlorperazine Maleate 10 Mg Tab 10 Mg PO Q6H PRN Ondansetron (Ondansetron HCl) 8 Mg Tab 8 Mg PO TID Lortab (Hydrocodone-Acetaminophen) 5-325 Mg Tab 1 Tab PO Q6H PRN Sennosides 8.6 Mg Tab 8.6 Mg PO HS Narrative Medication List of his home medications reviewed from the nurse's note. Review of Systems Except as stated in HPI: all other systems reviewed are Neg Physical Exam Narrative GENERAL: Awake, alert, cachectic, moderate distress SKIN: Focused skin assessment warm/dry. HEAD: Atraumatic. Normocephalic. EYES: Pupils equal and round. No scleral icterus. No injection or drainage. ENT: No nasal bleeding or discharge. Mucous membranes pink and moist. NECK: Trachea midline. No JVD. CARDIOVASCULAR: Regular rate and rhythm. No murmur appreciated. RESPIRATORY: No accessory muscle use. Clear to auscultation. Breath sounds equal bilaterally. GASTROINTESTINAL: Abdomen soft, non-tender, nondistended. Right-sided tender soft, fixed mass in the right upper quadrant MUSCULOSKELETAL: No obvious deformities. No clubbing. No cyanosis. No edema. NEUROLOGICAL: Awake and alert. No obvious cranial nerve deficits. Motor grossly within normal limits. Normal speech. PSYCHIATRIC: Appropriate mood and affect; insight and judgment normal. Data Data Last Documented VS Orders Complete Blood Count With Diff (01/26/17 11:27) Comprehensive Metabolic Panel (01/26/17 11:27) Lipase (01/26/17 11:27) Prothrombin Time / Inr (Pt) (01/26/17 11:27) Ct Abd/Pel W Iv Contrast(Rout) (01/26/17 11:27) Iv Access Insert/Monitor (01/26/17 11:27) Ecg Monitoring (01/26/17 11:27) Oximetry (01/26/17 11:27) Ondansetron Inj (Zofran Inj) (01/26/17 11:30) Sodium Chlor 0.9% 1000 Ml Inj (Ns 1000 M (01/26/17 11:27) Sodium Chloride 0.9% Flush (Ns Flush) (01/26/17 11:30) Hydromorphone Pf Inj (Dilaudid Pf Inj) (01/26/17 11:30) Oral Contrast - Adult (01/26/17 11:35) Diatrizoate Liq ( Gastroview Liq) (01/26/17 11:43) Iohexol 350 Inj (Omnipaque 350 Inj) (01/26/17 13:00) Heparin Central Flush (Heparin Central F (01/26/17 13:04) Morphine Inj (Morphine Inj) (01/26/17 14:00) Electrocardiogram (01/26/17 10:41) Labs MDM Medical Decision Making Medical Screen Exam Complete: Yes Emergency Medical Condition: Yes Medical Record Reviewed: Yes Differential Diagnosis Malignant mass, hepatomegaly, tumor Narrative Course 2 PM case was discussed with Dr. Talavera. As per her patient is a terminal stage cancer. The cancer is non accessible to surgery. Patient has a percutaneous catheter that drains his ascites fluid out. Patient is getting one chemotherapy but the results are poor. As per her patient is ideally hospice candidate but in the past when hospice was mentioned patient has reportedly denied it. After the CAT scan report which shows worsening of the cancer as compared to before I discussed hospice again and patient has denied again. He acknowledged all the above information. At this point there is no further treatment that can be offered. I offered another dose of pain medication which the patient has willingly accepted. He'll get another dose of morphine and then will be discharged. Patient agrees with this plan as well. I' ve asked him to follow up with Dr. Talavera. 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 Tlaavera in couple days. Return to the ER if the condition worsens or any other new concerns. Med/Other Pt SpecificInfo: No Change to Meds Disposition: 01 DISCHARGE HOME Condition: Stable Kala Norwood MD Jan 26, 2017 10:51 Basophils (%) (Auto) 0.3 % Neutrophils # (Auto) 6.6 TH/MM3 Lymphocytes # (Auto) 0.2 TH/MM3 Monocytes # (Auto) 0.1 TH/MM3 Eosinophils # (Auto) 0.0 TH/MM3 Basophils # (Auto) 0.0 TH/MM3 CBC Comment DIFF FINAL Differential Comment Prothrombin Time 11.7 SEC Prothromb Time International 1.1 RATIO Ratio Sodium Level 128 MEQ/L Potassium Level 4.7 MEQ/L Chloride Level 94 MEQ/L Carbon Dioxide Level 22.3 MEQ/L Anion Gap 12 MEQ/L Blood Urea Nitrogen 17 MG/DL Creatinine 1.33 MG/DL Estimat Glomerular Filtration 67 ML/MIN Rate Random Glucose 94 MG/DL Calcium Level 8.0 MG/DL Total Bilirubin 0.4 MG/DL Aspartate Amino Transf 50 U/L (AST/SGOT) Alanine Aminotransferase 32 U/L (ALT/SGPT) Alkaline Phosphatase 88 U/L Total Protein 5.2 GM/DL Albumin 1.7 GM/DL Lipase 74 U/L [facility] Medical Decision Making Medical Screen Exam Complete: Yes Emergency Medical Condition: Yes Medical Record Reviewed: Yes Differential Diagnosis Malignant mass, hepatomegaly, tumor Narrative Course 2 PM case was discussed with Dr. Talavera. As per her patient is a terminal stage cancer. The cancer is on accessible to surgery. Patient has a catheter that drains his ascites fluid out. Patient is getting one chemotherapy but the results are poor. As per her patient is ideally hospice candidate but in the past when hospice was mentioned patient has reported denied it. After the CAT scan report which shows worsening of the cancer as compared to before I discussed hospice again and patient has denied again. At this point there is no further treatment. I offered another dose of pain medication which the patient has willingly accepted. He'll get another dose of morphine and then will be discharged. I've asked him to follow up with Dr. Talavera. 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 Talavera in couple days. Return to the ER if the condition worsens or any other new concerns. Med/Other Pt SpecificInfo: No Change to Meds Disposition: 01 DISCHARGE HOME Condition: Stable Kala Norwood MD Jan 26, 2017 10:51
[2017-01-26] MEDS ORDERED: SODIUM CHLOR 0.9% 1000 ML INJ 1,000 ML IV SCH (11:27)
[2017-01-26 11:30] VITALS: O2SAT 97
[2017-01-26] MEDS ORDERED: HYDROmorphone HCL PF 1 MG/ML VIAL IVS ONE (11:30)
[2017-01-26] MEDS ORDERED: SODIUM CHLORIDE 0.9% FLUSH 10 ML FLUSH IV FLUSH PRN (11:30)
[2017-01-26] MEDS ORDERED: ONDANSETRON HCL 4 MG/2 ML VIAL IVP ONE (11:30)
[2017-01-26] MEDS ORDERED: DIATRIZOATE MEGLUM/DIATRIZOATE SOD 9 ML CUP ONE (11:43)
[2017-01-26 11:47] VITALS: BP 95/78; PULSE 96; RESP 18; O2SAT 100
[2017-01-26 11:53] LABS: AUTOMATED NEUTROPHIL # 6.6 TH/MM3 (1.8-7.7); BASOPHIL % 0.3 % (0.0-2.0); EOSINOPHIL % 0.1 % (0.0-4.0); HEMATOCRIT 33.1 % (39.0-51.0); HEMO FLAGS DIFF FINAL; LYMPH % 3.5 % (9.0-44.0); LYMPHOCYTE # 0.2 TH/MM3 (1.0-4.8); MEAN CELL VOLUME 79.4 FL (80.0-100.0); MEAN CORPUSCULAR HEMOGLOBIN 25.7 PG (27.0-34.0); MEAN CORPUSCULAR HGB CONC 32.3 % (32.0-36.0); MONO % 1.3 % (0.0-8.0); NEUT % 94.8 % (16.0-70.0); PLATELET COUNT 307 TH/MM3 (150-450); RED BLOOD COUNT 4.17 MIL/MM3 (4.50-5.90); RED CELL DISTRIBUTION WIDTH 20.1 % (11.6-17.2); WHITE BLOOD COUNT 6.9 TH/MM3 (4.0-11.0)
[2017-01-26 12:01] LABS: INTERNATIONAL NORMALIZED RATIO 1.1 RATIO; PROTHROMBIN TIME - PATIENT 11.7 SEC (9.8-11.6)
[2017-01-26 12:10] LABS: ANION GAP 12 MEQ/L (5-15); AST (GOT) 50 U/L (15-37); BICARBONATE 22.3 MEQ/L (21.0-32.0); BLOOD UREA NITROGEN 17 MG/DL (7-18); CHLORIDE 94 MEQ/L (98-107); GLOMERULAR FILTRATION RATE 67 ML/MIN (>89); POTASSIUM 4.7 MEQ/L (3.5-5.1); SODIUM (NA) 128 MEQ/L (136-145)
[2017-01-26 12:14] LABS: ALKALINE PHOSPHATASE 88 U/L (45-117); ALT (GPT) 32 U/L (12-78); TOTAL BILIRUBIN ADULT 0.4 MG/DL (0.2-1.0)
[2017-01-26 12:31] VITALS: BP 123/87; PULSE 83; RESP 16; O2SAT 100
[2017-01-26] MEDS ORDERED: IOHEXOL 350 MG/ML 10 ML VIAL (for RAD DIAG) IV ONE (13:00)
--- NOTE | 2017-01-26 13:28 | RADRPT ---
EXAM DATE/TIME: 01/26/2017 12:52 [facility] COMPARISON: CT ABDOMEN & PELVIS W CONTRAST, December 01, 2016, 4:06. INDICATIONS : Abdomen pain. IV CONTRAST: 91 cc Omnipaque 350 (iohexol) IV ORAL CONTRAST: Prescribed oral contrast ingested. RADIATION DOSE: 8.64 CTDIvol (mGy) MEDICAL HISTORY : Carcinoma, not otherwise specified. SURGICAL HISTORY : Attempted tumor resection 11/2016 ENCOUNTER: Initial ACUITY: 1 day PAIN SCALE: 5/10 LOCATION: Bilateral abdomen TECHNIQUE: Volumetric scanning of the abdomen and pelvis was performed. Using automated exposure control and ad justment of the mA and/or kV according to patient size, radiation dose was kept as low as reasonably achievable to obtain optimal diagnostic quality images. FINDINGS: There is increasing right pleural effusion with a pleural based apparent metastasis evident. There i s significant deterioration in the appearance of the abdomen with multiple enhancing masses consistent with carcino matosis. Widespread liver metastases are evident. Spleen, pancreas and adrenals are unremarkable. Pelvic contents are abnormal with extensive peritoneal carcinomatosis and ascites. Review of bone windows reveals scattered sclerotic areas in the bone though to represent metastatic d isease. CONCLUSION: 1. Marked deterioration in appearance of a scan in this patient who has a known history of adenocarc inoma. There is increasing right pleural effusion with pleural based metastasis. Widespread carcino matosis is noted. Significant liver metastases are noted as well. 2. Bony metastases are now present. Nathanael Montana MD FACR on January 26, 2017 at 13:07 Board Certified Radiologist. This report was verified electronically.
[2017-01-26] MEDS ORDERED: MORPHINE SULFATE 8 MG/ML INJ IV PUSH ONE (14:00)
--- NOTE | 2017-01-26 15:16 | EKG ---
Date Performed: 01/26/2017 Time Performed: 10:41:41 PTAGE: 56 years EKG: Sinus rhythm NORMAL ECG NO SIGNIFICANT CHANGE FROM PRIOR ELECTROCARDIOGRAM. PREVIOUS TRACING : 11/05/2016 17.04 DOCTOR: Mal Kyle Interpretating Date/Time 01/26/2017 15:16:05
== END 2017-01-26 14:51 | disposition home or self-care (01) ==
LOC: NEPC 10:27
DX: R19.01 Right upper quadrant abdominal swelling, mass and lump (principal); J90 Pleural effusion, not elsewhere classified; C78.7 Secondary malignant neoplasm of liver and intrahepatic bile duct; C79.51 Secondary malignant neoplasm of bone; Z85.028 Personal history of other malignant neoplasm of stomach; I10 Essential (primary) hypertension; K21.9 Gastro-esophageal reflux disease without esophagitis; Z72.0 Tobacco use
CPT/HCPCS: 74177; 80053; 83690; 85025; 85610; 93005; 96361; 96374; 96375; 99285; J1170; J1642; J2270; J2405; J7030; Q9963; Q9967